=== PATIENT | male | born 1965 | race Caucasian/White ===

== ENCOUNTER → 2016-12-03 | Outpatient (REF) | payer BC ==
[2016-12-03 09:33] LABS: % NORMAL FORMS 13 % (>=4); IMMOTILITY 29 %; NON PROGRESSIVE MOTILITY (c) 17 %; PROGRESSIVE MOTILITY (a) 54 % (>=32); SPERM ABNORMAL FORMS WBC'S NOTED; SPERM# 152.6 M/Ejac (>=39); TOTAL MOTILITY 71 % (>=40)
[2016-12-03 09:34] LABS: TOTAL FUNCTIONAL 23.2 M/Ejac.; TOTAL PROGRESSIVE SPERM 82.1 M/Ejac.
== END ==
LOC: M LAB REF 09:12
PROVIDERS: ATTEND Family Medicine
DX: N46.8 Other male infertility (principal)

== ENCOUNTER 2017-04-15 11:27 | Emergency (ER) | payer BC ==
[2017-04-15 12:09] LABS: BASO # 0.1 10^3/uL (0.0-0.2); BASO % 0.6 % (0.0-1.0); EOS # 0.2 10^3/uL (0.0-0.50); EOS % 1.7 % (0.0-3.0); HEMATOCRIT 43.8 % (42.0-52.0); IMMATURE GRANULOCYTE # 0.1 10^3/uL (0-0); LYMPH # 3.1 10^3/uL (1.5-4.5); LYMPH % 30.6 % (24.0-44.0); MEAN CORPUSCULAR HGB CONC 36.5 g/dl (32.0-36.5); MEAN CORPUSCULAR VOLUME 84.9 fl (80.0-96.0); MONO # 0.9 10^3/uL (0.0-0.8); MONO % 8.9 % (0.0-5.0); NEUTROPHILS # 5.8 10^3/uL (1.8-7.7); NEUTROPHILS % 57.2 % (36.0-66.0); PLATELET COUNT, AUTOMATED 286 10^3/uL (150-450); RED BLOOD COUNT 5.16 10^6/uL (4.30-6.10); RED CELL DISTRIBUTION WIDTH 11.8 % (11.5-14.5); WHITE BLOOD COUNT 10.1 10^3/uL (4.0-10.0)
[2017-04-15 12:13] LABS: PROTHROMBIN TIME 12.2 SECONDS (12.4-14.5)
[2017-04-15 12:39] LABS: PARTIAL THROMBOPLASTIN TIME 27.1 SECONDS (26.8-37.9)
[2017-04-15 12:40] LABS: ALBUMIN/GLOBULIN RATIO 1.11 (1.00-1.93); ALKALINE PHOSPHATASE 118 U/L (45-117); ALT/SGPT 61 U/L (12-78); ANION GAP 11 MEQ/L (8-16); AST/SGOT 32 U/L (7-37); BILIRUBIN,DIRECT < 0.1 MG/DL (0.0-0.2); BILIRUBIN,TOTAL 0.3 MG/DL (0.2-1.0); BLOOD UREA NITROGEN 13 MG/DL (7-18); CALCIUM LEVEL 9.2 MG/DL (8.5-10.1); CARBON DIOXIDE LEVEL 21 MEQ/L (21-32); CHLORIDE LEVEL 106 MEQ/L (98-107); CPK CREATINE PHOSPHOKINASE 101 U/L (39-308); CREATININE FOR GFR 0.96 MG/DL (0.70-1.30); GLOMERULAR FILTRATION RATE > 60.0 (>56); GLUCOSE, FASTING 202 MG/DL (70-105); POTASSIUM SERUM 3.9 MEQ/L (3.5-5.1); SODIUM LEVEL 138 MEQ/L (136-145); TOTAL PROTEIN 7.6 GM/DL (6.4-8.2); TROPONIN I < 0.02 NG/ML (< 0.10)
[2017-04-15] MEDS: NITROGLYCERIN 0.4 MG SUBL TABLET SL (12:43)
[2017-04-15 12:46] LABS: CK-MB VALUE MASS 1.2 NG/ML (0.0-3.6); LIPASE 216 U/L (73-393); MB/CK RELATIVE INDEX 1.18 (< OR =4); NT-PRO BNP 15 PG/ML (<125)
[2017-04-15] MEDS: methylPREDNISolone INJ 125 MG/2 ML VIAL (J2930) IV (13:33)
[2017-04-15] MEDS: diphenhydrAMINE INJ 50MG/ML VIAL (J1200) IV (13:33)
[2017-04-15] MEDS ORDERED: ISOVUE-370 76% 100ML VIAL (Q9967) As Ordered (14:06)
[2017-04-15] MEDS: CLOPIDOGREL 300 MG TAB (PLAVIX) PO (15:28)
[2017-04-15] MEDS: HEPARIN SOD (PORCINE) 5000 UNITS/ML VIAL IV (15:28)
[2017-04-15] MEDS: NITROGLYCERIN 2% OINT 1 GM *U/D* PKT TOP (15:28)
[2017-04-15] MEDS: HEPARIN DRIP 25,000 UNITS in APPROPRIATE DILUENT 1 EA IV (15:28)
== END 2017-04-15 16:36 | disposition short-term general hospital (02) ==
LOC: M ED 11:27
DX: I25.110 Atherosclerotic heart disease of native coronary artery with unstable angina pectoris (principal); R06.02 Shortness of breath; K21.9 Gastro-esophageal reflux disease without esophagitis; Z95.5 Presence of coronary angioplasty implant and graft; F17.200 Nicotine dependence, unspecified, uncomplicated; Z91.010 Allergy to peanuts; Z91.013 Allergy to seafood; Z88.8 Allergy status to other drugs, medicaments and biological substances
CPT/HCPCS: J1200

== ENCOUNTER → 2017-06-20 | Outpatient (CLI) | payer BC ==
[2017-06-20 10:53] LABS: HEMATOCRIT 43.7 % (42.0-52.0); HEMOGLOBIN 15.2 g/dl (14.0-18.0); MEAN CORPUSCULAR HEMOGLOBIN 30.5 pg (27.0-33.0); MEAN CORPUSCULAR HGB CONC 34.8 g/dl (32.0-36.5); MEAN CORPUSCULAR VOLUME 87.6 fl (80.0-96.0); PLATELET COUNT, AUTOMATED 295 10^3/uL (150-450); RED BLOOD COUNT 4.99 10^6/uL (4.30-6.10); RED CELL DISTRIBUTION WIDTH 12.3 % (11.5-14.5); WHITE BLOOD COUNT 7.9 10^3/uL (4.0-10.0)
[2017-06-20 11:18] LABS: ALBUMIN/GLOBULIN RATIO 1.43 (1.00-1.93); ALKALINE PHOSPHATASE 123 U/L (45-117); ALT/SGPT 46 U/L (12-78); ANION GAP 6 MEQ/L (8-16); AST/SGOT 21 U/L (7-37); BILIRUBIN,TOTAL 0.3 MG/DL (0.2-1.0); BLOOD UREA NITROGEN 13 MG/DL (7-18); CALCIUM LEVEL 9.2 MG/DL (8.5-10.1); CARBON DIOXIDE LEVEL 29 MEQ/L (21-32); CHLORIDE LEVEL 106 MEQ/L (98-107); CHOLESTEROL LEVEL 219 MG/DL (<200); CHOLESTEROL RISK RATIO 6.843 (<5); CPK CREATINE PHOSPHOKINASE 79 U/L (39-308); CREATININE FOR GFR 0.97 MG/DL (0.70-1.30); GLOMERULAR FILTRATION RATE > 60.0 (>56); GLUCOSE, FASTING 138 MG/DL (70-100); HDL CHOLESTEROL 32 MG/DL (>40); LDL CHOLESTEROL 130.2 MG/DL (<100); NON-HDL-C 187 MG/DL; POTASSIUM SERUM 4.7 MEQ/L (3.5-5.1); PSA SCREENING 0.34 NG/ML (< 4.0); SODIUM LEVEL 141 MEQ/L (136-145); THYROID STIMULATING HORMONE 0.879 uIU/ML (0.358-3.740); TOTAL PROTEIN 6.8 GM/DL (6.4-8.2); TRIGLYCERIDES LEVEL 284 MG/DL (<150)
[2017-06-20 11:26] LABS: MALB URINE SIEMENS 13.5 MG/L; MAU/CREAT RATIO 6.5 MCG/MG (0.0-30.0)
== END ==
LOC: M SMT 07:54
DX: Z12.5 Encounter for screening for malignant neoplasm of prostate (principal); E78.2 Mixed hyperlipidemia; E11.65 Type 2 diabetes mellitus with hyperglycemia; I10 Essential (primary) hypertension
CPT/HCPCS: 82550

== ENCOUNTER 2018-04-15 13:38 | Emergency (ER) | payer BC ==
[~2018-04-15] VITALS: Ht 167.6 cm; Wt 90.5 kg
[2018-04-15] MEDS ORDERED: CLOP75TA2 PO (13:52)
[2018-04-15] MEDS ORDERED: METO25TA4 PO (13:52)
[2018-04-15] MEDS ORDERED: ATOR40TA75 PO (13:52)
[2018-04-15] MEDS ORDERED: NITR0.4S14 SL (13:52)
[2018-04-15] MEDS ORDERED: LISI-542 PO (13:52)
[2018-04-15] MEDS ORDERED: GABA-1171 PO (13:52)
[2018-04-15] MEDS ORDERED: METF10004 PO (13:52)
[2018-04-15 14:13] LABS: BASO # 0.1 10^3/uL (0.0-0.2); BASO % 0.6 % (0.0-1.0); EOS # 0.3 10^3/uL (0.0-0.50); EOS % 3.2 % (0.0-3.0); HEMATOCRIT 43.1 % (42.0-52.0); HEMOGLOBIN 15.2 g/dl (13.5-17.5); LYMPH # 2.7 10^3/uL (1.5-4.5); LYMPH % 25.9 % (24.0-44.0); MEAN CORPUSCULAR HGB CONC 35.3 g/dl (32.0-36.5); MONO % 9.3 % (0.0-5.0); NEUTROPHILS # 6.2 10^3/uL (1.8-7.7); NEUTROPHILS % 59.9 % (36.0-66.0); PLATELET COUNT, AUTOMATED 326 10^3/uL (150-450); WHITE BLOOD COUNT 10.3 10^3/uL (4.0-10.0)
[2018-04-15 14:27] LABS: INR 0.97
[2018-04-15 14:28] LABS: PARTIAL THROMBOPLASTIN TIME 29.4 SECONDS (25.4-37.6)
[2018-04-15 14:46] LABS: ALBUMIN 3.9 GM/DL (3.2-5.2); ALT/SGPT 28 U/L (12-78); BILIRUBIN,DIRECT < 0.1 MG/DL (0.0-0.2); BILIRUBIN,TOTAL 0.2 MG/DL (0.2-1.0); BLOOD UREA NITROGEN 8 MG/DL (7-18); CALCIUM LEVEL 8.7 MG/DL (8.5-10.1); CARBON DIOXIDE LEVEL 24 MEQ/L (21-32); CHLORIDE LEVEL 106 MEQ/L (98-107); CPK CREATINE PHOSPHOKINASE 85 U/L (39-308); FREE T4 0.85 NG/DL (0.76-1.46); GLOMERULAR FILTRATION RATE > 60.0 (>56); GLUCOSE, FASTING 150 MG/DL (70-100); LIPASE 620 U/L (73-393); MB/CK RELATIVE INDEX 2.35 (< OR =4); POTASSIUM SERUM 4.3 MEQ/L (3.5-5.1); SODIUM LEVEL 138 MEQ/L (136-145); THYROID STIMULATING HORMONE 0.861 uIU/ML (0.358-3.740); TOTAL PROTEIN 6.6 GM/DL (6.4-8.2); TROPONIN I < 0.02 NG/ML (< 0.10)
[2018-04-15] MEDS ORDERED: ACETAMINOPHEN TAB 650MG DOSE (2X325MG) PO ONE (18:15)
[2018-04-15 20:18] LABS: CPK CREATINE PHOSPHOKINASE 78 U/L (39-308); MB/CK RELATIVE INDEX 1.54 (< OR =4); TROPONIN I < 0.02 NG/ML (< 0.10)
[2018-04-15 21:16] VITALS: BP 137/102
--- NOTE | 2018-04-16 06:31 | REP ---
CHEST PA AND LATERAL: 04/15/2018. Comparison: CT angiogram chest 04/15/2017, chest x-ray 05/21/2014. Clinical history: Chest pain. Findings: Lungs are well inflated. There is no pleural effusion or lateral pleural thickening. No apical pneumothorax. Minor apical scarring bilaterally. Heart is not grossly enlarged. Mild chronic interstitial changes in the bases, right greater than left. Peribronchial thickening noted that may reflect reactive airway disease or bronchitis. Aorta is normal. Airway intact. No widening of the mediastinum. Pulmonary arteries are mildly prominent suggesting some degree of pulmonary hypertension. No compression deformity in the spine. Ribs, clavicles, shoulders grossly intact. No free air under the diaphragm. Impression: 1. Some perihilar changes of reactive airway disease or bronchitis. No dense consolidation, pleural effusion or definite infiltrate. 2. No cardiomegaly or edema. No widening of the mediastinum. Airway and aorta intact. Electronically Signed by Sergio Kim MD 04/16/2018 09:46 A
--- NOTE | 2018-04-16 09:24 | ECGEPIP ---
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
--- NOTE | 2018-04-16 09:26 | ECGEPIP ---
Stationary ECG Study 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
== END 2018-04-15 21:29 | disposition home or self-care (01) ==
LOC: M ED 13:38
DX: R07.9 Chest pain, unspecified (principal); R11.0 Nausea; I10 Essential (primary) hypertension; E78.5 Hyperlipidemia, unspecified; E11.9 Type 2 diabetes mellitus without complications; Z95.5 Presence of coronary angioplasty implant and graft; Z87.891 Personal history of nicotine dependence; Z91.010 Allergy to peanuts; Z91.013 Allergy to seafood; Z88.8 Allergy status to other drugs, medicaments and biological substances; Z79.899 Other long term (current) drug therapy; Z79.02 Long term (current) use of antithrombotics/antiplatelets; Z79.84 Long term (current) use of oral hypoglycemic drugs

== ENCOUNTER 2018-06-13 07:13 | Day surgery (SDC) | payer BC ==
[~2018-06-13] VITALS: Ht 167.6 cm; Wt 88.0 kg
[~2018-06-13 07:13] MED LIST: ASPI81TA85 PO; ATOR40TA75 PO; CLOP75TA2 PO; GABA-1171 PO; LIDOCAINE 2% INJ 100 MG/5 ML SDV (FOR ANES.) As Ordered ONE; LISI-542 PO; METF10004 PO; METF500T13 PO; METO25TA4 PO; NITR0.4S14 SL; NS 1,000 ML IV ONE; PROPOFOL 200 MG/20 ML VIAL As Ordered ONE
[2018-06-13] MEDS ORDERED: PROPOFOL 200 MG/20 ML VIAL As Ordered ONE (08:37)
--- NOTE | 2018-06-13 09:01 | ROOR ---
Patient Name: Hector Hansen Procedure Date: 06/13/2018 8:29 AM Date of : 1965 Age: 52 Room: [facility] Gender: Male Note Status: Finalized Procedure: Total Colonoscopy to Cecum + Cold Snare Polypectomy Indications: Screening for colorectal malignant neoplasm Providers: Chyu Garcia MD Referring MD: KAIT SHORE MD Requesting Provider: Medicines: Monitored Anesthesia Care Complications: No immediate complications. Procedure: Pre-Anesthesia Assessment: - The heart rate, respiratory rate, oxygen saturations, blood pressure, adequacy of pulmonary ventilation, and response to care were monitored throughout the procedure. The Colonoscope was introduced through the anus and advanced to the cecum, identified by appendiceal orifice and ileocecal valve. The colonoscopy was performed without difficulty. The patient tolerated the procedure well. The quality of the bowel preparation was excellent. Findings: The perianal and digital rectal examinations were normal. Non-bleeding internal hemorrhoids were found during retroflexion. The hemorrhoids were small and Grade I (internal hemorrhoids that do not prolapse). Scattered small-mouthed diverticula were found in the recto-sigmoid colon, sigmoid colon and descending colon. A small polyp was found at 20 cm proximal to the anus. The polyp was sessile. The polyp was removed with a cold snare. Resection and retrieval were complete. A medium polyp was found at 50 cm proximal to the anus. The polyp was sessile. The polyp was removed with a cold snare. Resection and retrieval were complete. A medium polyp was found in the ascending colon. The polyp was sessile. The polyp was removed with a cold snare. Resection and retrieval were complete. The exam was otherwise without abnormality on direct and retroflexion views. Impression: - Non-bleeding internal hemorrhoids. - Diverticulosis in the recto-sigmoid colon, in the sigmoid colon and in the descending colon. - One small polyp at 20 cm proximal to the anus, removed with a cold snare. Resected and retrieved. - One medium polyp at 50 cm proximal to the anus, removed with a cold snare. Resected and retrieved. - One medium polyp in the ascending colon, removed with a cold snare. Resected and retrieved. - The examination was otherwise normal on direct and retroflexion views. - The exam was otherwise normal to the cecum. Recommendation: - Discharge patient to home. - Continue present medications. - Resume Plavix (clopidogrel) at prior dose today. - Await pathology results. - Telephone GI clinic for pathology results in 1 week. - Repeat colonoscopy in 5 years for surveillance based on pathology results. - Return to referring physician. - Check Portal Online for Path Results.([email or web address]) - The findings and recommendations were discussed with the patient's family. Chuy Garcia MD Chuy Garcia MD 06/13/2018 9:01:05 AM This report has been signed electronically. Number of Addenda: 0 Note Initiated On: 06/13/2018 8:29 AM Estimated Blood Loss: Estimated blood loss: none.
[2018-06-13 09:15] VITALS: BP 143/85
== END 2018-06-13 09:21 | disposition home or self-care (01) ==
LOC: M OPP 07:13
PROVIDERS: ATTEND Internal Medicine Gastroenterology
DX: Z12.11 Encounter for screening for malignant neoplasm of colon (principal); K64.0 First degree hemorrhoids; K63.5 Polyp of colon; D12.2 Benign neoplasm of ascending colon; K57.30 Diverticulosis of large intestine without perforation or abscess without bleeding; Z95.5 Presence of coronary angioplasty implant and graft; Z79.82 Long term (current) use of aspirin; Z79.84 Long term (current) use of oral hypoglycemic drugs; Z79.899 Other long term (current) drug therapy; Z88.3 Allergy status to other anti-infective agents; Z91.010 Allergy to peanuts; Z91.013 Allergy to seafood

== ENCOUNTER → 2018-12-26 | Outpatient (CLI) | payer BC ==
[~2018-12-26] MED LIST changes: -LIDOCAINE 2% INJ 100 MG/5 ML SDV (FOR ANES.) As Ordered ONE; -NS 1,000 ML IV ONE; -PROPOFOL 200 MG/20 ML VIAL As Ordered ONE
[2018-12-26 12:09] LABS: ALBUMIN 3.9 GM/DL (3.2-5.2); ALT/SGPT 24 U/L (12-78); BILIRUBIN,DIRECT < 0.1 MG/DL (0.0-0.2); BILIRUBIN,TOTAL 0.6 MG/DL (0.2-1.0); CHOLESTEROL LEVEL 217 MG/DL (<200); CPK CREATINE PHOSPHOKINASE 88 U/L (39-308); HDL CHOLESTEROL 35 MG/DL (>40); LDL CHOLESTEROL 120 MG/DL (<100); NON-HDL-C 182 MG/DL; PROSTATIC SPECIFIC AG MONITOR 0.42 NG/ML (< 4.00); TOTAL PROTEIN 6.9 GM/DL (6.4-8.2); TRIGLYCERIDES LEVEL 308 MG/DL (<150)
== END ==
LOC: M WUC 09:28
PROVIDERS: ATTEND Family Medicine
DX: I10 Essential (primary) hypertension (principal); E11.9 Type 2 diabetes mellitus without complications

== ENCOUNTER 2019-04-03 10:20 | Emergency (ER) | payer BC ==
[~2019-04-03] VITALS: Ht 167.6 cm; Wt 88.3 kg
[2019-04-03 10:48] LABS: BASO # 0.1 10^3/uL (0.0-0.2); BASO % 0.6 % (0.0-1.0); EOS # 0.2 10^3/uL (0.0-0.5); EOS % 2.4 % (0.0-3.0); HEMATOCRIT 40.1 % (42.0-52.0); HEMOGLOBIN 14.2 g/dl (13.5-17.5); LYMPH # 2.4 10^3/uL (1.5-5.0); LYMPH % 24.3 % (24.0-44.0); MEAN CORPUSCULAR HEMOGLOBIN 30.9 pg (27.0-33.0); MEAN CORPUSCULAR HGB CONC 35.4 g/dl (32.0-36.5); MEAN CORPUSCULAR VOLUME 87.2 fl (80.0-96.0); MONO # 0.9 10^3/uL (0.0-0.8); MONO % 8.7 % (0.0-5.0); NEUTROPHILS # 6.3 10^3/uL (1.5-8.5); NEUTROPHILS % 63.1 % (36.0-66.0); PLATELET COUNT, AUTOMATED 292 10^3/uL (150-450)
--- NOTE | 2019-04-03 10:51 | REP ---
Portable chest x-ray: Single view. History: Chest pain. Comparison study: April 15, 2018. Findings: EKG monitoring electrodes overlie the chest. Lungs are symmetrically aerated and clear. Pleural angles are sharp. Heart is not enlarged. There is some coronary artery stent material visible over the right heart on today's chest x-ray. Impression: No active disease. Coronary artery stent material visible on the right. Electronically Signed by Jose C Reyes MD 04/03/2019 10:42 A
[2019-04-03 11:14] LABS: BLOOD UREA NITROGEN 13 MG/DL (7-18); CALCIUM LEVEL 9.8 MG/DL (8.5-10.1); CARBON DIOXIDE LEVEL 20 MEQ/L (21-32); CHLORIDE LEVEL 107 MEQ/L (98-107); CK-MB VALUE MASS 1.6 NG/ML (<3.6); CPK CREATINE PHOSPHOKINASE 107 U/L (39-308); CREATININE FOR GFR 0.91 MG/DL (0.70-1.30); GLOMERULAR FILTRATION RATE > 60.0 (>56); GLUCOSE, FASTING 131 MG/DL (70-100); POTASSIUM SERUM 4.1 MEQ/L (3.5-5.1); SODIUM LEVEL 139 MEQ/L (136-145); TROPONIN I < 0.02 NG/ML (< 0.10)
[2019-04-03 15:41] LABS: CK-MB VALUE MASS 1.2 NG/ML (<3.6); CPK CREATINE PHOSPHOKINASE 92 U/L (39-308); TROPONIN I < 0.02 NG/ML (< 0.10)
[2019-04-03 15:45] VITALS: BP 122/77
--- NOTE | 2019-04-04 07:56 | ECGEPIP ---
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
--- NOTE | 2019-04-04 08:01 | ECGEPIP ---
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
== END 2019-04-03 16:04 | disposition home or self-care (01) ==
LOC: M ED 10:20
DX: I20.8 Other forms of angina pectoris (principal); R94.31 Abnormal electrocardiogram [ECG] [EKG]; I11.0 Hypertensive heart disease with heart failure; E11.9 Type 2 diabetes mellitus without complications; K21.9 Gastro-esophageal reflux disease without esophagitis; Z95.5 Presence of coronary angioplasty implant and graft; Z88.1 Allergy status to other antibiotic agents; Z91.010 Allergy to peanuts; Z91.013 Allergy to seafood; Z79.82 Long term (current) use of aspirin; Z79.84 Long term (current) use of oral hypoglycemic drugs; Z79.899 Other long term (current) drug therapy

== ENCOUNTER 2020-02-11 10:47 | Emergency (ER) | payer BC ==
[~2020-02-11] VITALS: Ht 165.1 cm; Wt 87.3 kg
[~2020-02-11 10:47] MED LIST changes: -ASPI81TA85 PO; +ASPI81TA86 PO
--- NOTE | 2020-02-11 11:25 | REP ---
INDICATION: CHEST PAIN COMPARISON: 04/03/2019 TECHNIQUE: Portable AP view of the chest FINDINGS: The mediastinum and cardiac silhouette are stable and within normal limits for portable technique. The lung vasques demonstrate chronic appearing interstitial changes. Mild bronchitis cannot be excluded. No focal consolidation, effusion, or pneumothorax. Skeletal structures intact. IMPRESSION: Chronic interstitial changes. Superimposed bronchitis cannot be excluded. No focal consolidation or effusion. <Electronically signed by Maynor Marquis > 02/11/20 [id number]
[2020-02-11 11:39] LABS: BASO # 0.1 10^3/uL (0.0-0.2); BASO % 0.4 % (0.0-1.0); EOS # 0.2 10^3/uL (0.0-0.5); EOS % 1.3 % (0.0-3.0); HEMATOCRIT 45.7 % (42.0-52.0); HEMOGLOBIN 15.9 g/dl (13.5-17.5); LYMPH # 3.3 10^3/uL (1.5-5.0); LYMPH % 20.8 % (24.0-44.0); MEAN CORPUSCULAR HEMOGLOBIN 30.6 pg (27.0-33.0); MEAN CORPUSCULAR HGB CONC 34.8 g/dl (32.0-36.5); MEAN CORPUSCULAR VOLUME 88.1 fl (80.0-96.0); MONO % 6.2 % (0.0-5.0); NEUTROPHILS # 11.1 10^3/uL (1.5-8.5); NEUTROPHILS % 70.8 % (36.0-66.0); PLATELET COUNT, AUTOMATED 305 10^3/uL (150-450); RED BLOOD COUNT 5.19 10^6/uL (4.30-6.10); WHITE BLOOD COUNT 15.6 10^3/uL (4.0-10.0)
[2020-02-11 12:06] LABS: BLOOD UREA NITROGEN 10 MG/DL (7-18); CALCIUM LEVEL 9.5 MG/DL (8.5-10.1); CARBON DIOXIDE LEVEL 24 MEQ/L (21-32); CHLORIDE LEVEL 106 MEQ/L (98-107); CREATININE FOR GFR 0.92 MG/DL (0.70-1.30); GLOMERULAR FILTRATION RATE > 60.0 (>56); GLUCOSE, FASTING 121 MG/DL (70-100); POTASSIUM SERUM 4.2 MEQ/L (3.5-5.1); SODIUM LEVEL 138 MEQ/L (136-145)
[2020-02-11 12:48] LABS: ALBUMIN 4.1 GM/DL (3.2-5.2); ALT/SGPT 35 U/L (12-78); BILIRUBIN,DIRECT < 0.1 MG/DL (0.0-0.2); BILIRUBIN,TOTAL 0.3 MG/DL (0.2-1.0); LIPASE 200 U/L (73-393); TOTAL PROTEIN 7.2 GM/DL (6.4-8.2)
[2020-02-11 15:55] VITALS: BP 138/65
--- NOTE | 2020-02-11 23:55 | ECGEPIP ---
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
--- NOTE | 2020-02-11 23:57 | ECGEPIP ---
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
== END 2020-02-11 15:56 | disposition short-term general hospital (02) ==
LOC: M ED 10:47
DX: I20.9 Angina pectoris, unspecified (principal); R94.31 Abnormal electrocardiogram [ECG] [EKG]; R91.8 Other nonspecific abnormal finding of lung field; Z20.828 Contact with and (suspected) exposure to other viral communicable diseases; E11.9 Type 2 diabetes mellitus without complications; E78.5 Hyperlipidemia, unspecified; I10 Essential (primary) hypertension; Z95.5 Presence of coronary angioplasty implant and graft; Z91.010 Allergy to peanuts; Z91.013 Allergy to seafood; Z79.82 Long term (current) use of aspirin; Z79.84 Long term (current) use of oral hypoglycemic drugs; Z79.899 Other long term (current) drug therapy
CPT/HCPCS: 36415; 71045; 80048; 80076; 83690; 84484; 85025; 93005; 93041; 94760; 99285; U0002

== ENCOUNTER → 2020-07-04 | Outpatient (CLI) | payer BC ==
[~2020-07-04] MED LIST changes: +FAMOTIDINE IV BAG 20 MG in IV 1 EA IV ONE; +ISOVUE-370 76% 100ML VIAL As Ordered ONE; -LISI-542 PO; +LISI-898 PO; +READI-CAT 2 As Ordered ONE; +diphenhydrAMINE 50MG/ML VIAL (J1200) As Ordered ONE; +diphenhydrAMINE 50MG/ML VIAL (J1200) IV ONE; +methylPREDNISolone 125MG 2ML VIAL IV ONE
[2020-07-04 13:32] LABS: BLOOD UREA NITROGEN 12 MG/DL (7-18); CREATININE FOR GFR 0.78 MG/DL (0.70-1.30); GLOMERULAR FILTRATION RATE > 60.0 (>56)
--- NOTE | 2020-07-04 15:22 | REP ---
INDICATION: ABD PAIN ? DIVERTICULITIS LAB 1ST CT 2ND. COMPARISON: None. TECHNIQUE: Abdomen/pelvis CT with IV and bowel contrast. FINDINGS: The visualized lung vasques are unremarkable. The hepatic parenchyma is diffusely hypodense compatible with hepato steatosis. There are no hepatic nodules or masses. The gallbladder, pancreas and spleen are normal size and unremarkable. The adrenals and kidneys are unremarkable except for Bosniak type 1 renal cysts. The abdominal aorta is unremarkable. There is no periaortic adenopathy or mass. There is wall thickening and mild distention of jejunal small bowel loops. The ileal small bowel loops are unremarkable. There is no diverticulosis or diverticulitis. There is no colonic wall thickening or distention. There is no ascites. No adenopathy. Pelvis: The patient indicates he has an appendectomy. The bladder is unremarkable. Is no adenopathy or ascites. The pelvic bowel loops are unremarkable. IMPRESSION: There is wall thickening and mild distention of jejunal small bowel loops. The only 0 small-bowel loops and colon are unremarkable. This is suggestive of enteritis. There is no ascites or adenopathy. There is no bowel distention or obstruction. <Electronically signed by Margarito Thomas > 07/04/20 [id number]
== END ==
LOC: M LAB 12:09
PROVIDERS: ATTEND Physician Assistant Medical
DX: R10.31 Right lower quadrant pain (principal)
CPT/HCPCS: 36415; 74177; 82565; 84520; J1200; Q9967

== ENCOUNTER → 2020-07-08 | Outpatient (CLI) | payer BC ==
[~2020-07-08] MED LIST changes: -FAMOTIDINE IV BAG 20 MG in IV 1 EA IV ONE; -ISOVUE-370 76% 100ML VIAL As Ordered ONE; -READI-CAT 2 As Ordered ONE; -diphenhydrAMINE 50MG/ML VIAL (J1200) As Ordered ONE; -diphenhydrAMINE 50MG/ML VIAL (J1200) IV ONE; -methylPREDNISolone 125MG 2ML VIAL IV ONE
[2020-07-08 17:08] LABS: BASO # 0.1 10^3/uL (0.0-0.2); BASO % 0.7 % (0.0-1.0); EOS # 0.3 10^3/uL (0.0-0.5); EOS % 2.4 % (0.0-3.0); HEMATOCRIT 44.4 % (42.0-52.0); HEMOGLOBIN 15.1 g/dl (13.5-17.5); LYMPH # 3.5 10^3/uL (1.5-5.0); LYMPH % 32.7 % (24.0-44.0); MEAN CORPUSCULAR HEMOGLOBIN 30.8 pg (27.0-33.0); MEAN CORPUSCULAR VOLUME 90.6 fl (80.0-96.0); MONO # 0.9 10^3/uL (0.0-0.8); MONO % 8.3 % (2.0-8.0); NEUTROPHILS # 5.9 10^3/uL (1.5-8.5); NEUTROPHILS % 54.5 % (36.0-66.0); PLATELET COUNT, AUTOMATED 357 10^3/uL (150-450); WHITE BLOOD COUNT 10.8 10^3/uL (4.0-10.0)
[2020-07-08 17:42] LABS: ALT/SGPT 39 U/L (12-78); AMYLASE 82 U/L (25-115); BILIRUBIN,TOTAL 0.3 MG/DL (0.2-1.0); BLOOD UREA NITROGEN 12 MG/DL (7-18); C REACTIVE PROTEIN QUANTITATIV 0.41 MG/DL (0.00-0.30); CALCIUM LEVEL 9.6 MG/DL (8.5-10.1); CARBON DIOXIDE LEVEL 25 MEQ/L (21-32); CHLORIDE LEVEL 104 MEQ/L (98-107); CREATININE FOR GFR 0.78 MG/DL (0.70-1.30); GLOMERULAR FILTRATION RATE > 60.0 (>56); GLUCOSE, FASTING 110 MG/DL (70-100); LIPASE 874 U/L (73-393); POTASSIUM SERUM 4.3 MEQ/L (3.5-5.1); SODIUM LEVEL 136 MEQ/L (136-145); TOTAL PROTEIN 6.7 GM/DL (6.4-8.2)
[2020-07-08 18:08] LABS: ERYTHROCYTE SEDIMENTATION RATE 10 mm/hr (0-20)
[2020-07-10 14:06] LABS: CA19-9 TUMOR MARKER,CARBOHYDRA 13.9 U/ML (<35.0)
== END ==
LOC: M WUC 11:41
PROVIDERS: ATTEND Family Medicine
DX: K57.32 Diverticulitis of large intestine without perforation or abscess without bleeding (principal)

== ENCOUNTER → 2020-08-26 | Outpatient (CLI) | payer BC ==
[2020-08-26 12:40] LABS: BASO # 0.1 10^3/uL (0.0-0.2); BASO % 0.6 % (0.0-1.0); EOS # 0.2 10^3/uL (0.0-0.5); EOS % 1.9 % (0.0-3.0); HEMATOCRIT 48.5 % (42.0-52.0); HEMOGLOBIN 16.5 g/dl (13.5-17.5); LYMPH # 2.7 10^3/uL (1.5-5.0); LYMPH % 23.4 % (24.0-44.0); MEAN CORPUSCULAR VOLUME 91.2 fl (80.0-96.0); MONO # 0.9 10^3/uL (0.0-0.8); MONO % 7.8 % (2.0-8.0); NEUTROPHILS # 7.6 10^3/uL (1.5-8.5); NEUTROPHILS % 65.6 % (36.0-66.0); PLATELET COUNT, AUTOMATED 375 10^3/uL (150-450); RED BLOOD COUNT 5.32 10^6/uL (4.30-6.10); WHITE BLOOD COUNT 11.6 10^3/uL (4.0-10.0)
[2020-08-26 13:17] LABS: BLOOD UREA NITROGEN 9 MG/DL (7-18); CALCIUM LEVEL 9.6 MG/DL (8.5-10.1); CARBON DIOXIDE LEVEL 24 MEQ/L (21-32); CHLORIDE LEVEL 104 MEQ/L (98-107); CREATININE FOR GFR 0.86 MG/DL (0.70-1.30); GLOMERULAR FILTRATION RATE > 60.0 (>56); GLUCOSE, FASTING 181 MG/DL (70-100); POTASSIUM SERUM 4.3 MEQ/L (3.5-5.1); SODIUM LEVEL 136 MEQ/L (136-145)
== END ==
LOC: M WUC 10:10
PROVIDERS: ATTEND Internal Medicine Cardiovascular Disease
DX: I25.10 Atherosclerotic heart disease of native coronary artery without angina pectoris (principal)

== ENCOUNTER → 2020-12-17 | Outpatient (CLI) | payer BC ==
[2020-12-17 17:35] LABS: ALBUMIN 3.4 GM/DL (3.2-5.2); ALT/SGPT 31 U/L (12-78); BILIRUBIN,TOTAL 0.3 MG/DL (0.2-1.0); BLOOD UREA NITROGEN 11 MG/DL (7-18); CALCIUM LEVEL 8.6 MG/DL (8.5-10.1); CARBON DIOXIDE LEVEL 24 MEQ/L (21-32); CHLORIDE LEVEL 105 MEQ/L (98-107); CREATININE FOR GFR 0.89 MG/DL (0.70-1.30); GLOMERULAR FILTRATION RATE > 60.0 (>56); GLUCOSE, FASTING 147 MG/DL (70-100); NT-PRO BNP 19 PG/ML (<125); POTASSIUM SERUM 3.8 MEQ/L (3.5-5.1); SODIUM LEVEL 138 MEQ/L (136-145); TOTAL PROTEIN 6.1 GM/DL (6.4-8.2); TROPONIN I < 0.02 NG/ML (< 0.10)
== END ==
LOC: M PLALAB 15:25
PROVIDERS: ATTEND Registered Nurse
DX: R07.9 Chest pain, unspecified (principal)

== ENCOUNTER 2021-02-07 12:08 | Observation (INO) | payer BC ==
[~2021-02-07] VITALS: Ht 167.6 cm; Wt 85.3 kg
[2021-02-07] MEDS ORDERED: GABA-282 PO (12:37)
[2021-02-07] MEDS ORDERED: CLOP75TA2 PO (12:37)
[2021-02-07] MEDS ORDERED: ATOR40TA75 PO (12:37)
[2021-02-07] MEDS ORDERED: JARD1TAB3 PO (12:37)
--- NOTE | 2021-02-07 12:37 | REP ---
INDICATION: Syncope/near-syncope. COMPARISON: Comparison chest x-ray February 11, 2020. TECHNIQUE: Portable upright AP chest radiograph. FINDINGS: The lungs are well inflated and free of infiltrate. Pleural angles are sharp. Heart size is normal. Pulmonary vasculature is not increased. EKG monitoring electrodes are seen. IMPRESSION: No active disease. <Electronically signed by Cj Reyes > 02/07/21 1247
[2021-02-07 12:55] LABS: BASO # 0.1 10^3/uL (0.0-0.2); BASO % 0.7 % (0.0-1.0); EOS # 0.3 10^3/uL (0.0-0.5); EOS % 2.7 % (0.0-3.0); HEMATOCRIT 44.9 % (42.0-52.0); HEMOGLOBIN 15.4 g/dl (13.5-17.5); LYMPH # 2.9 10^3/uL (1.5-5.0); LYMPH % 29.3 % (24.0-44.0); MEAN CORPUSCULAR HEMOGLOBIN 30.9 pg (27.0-33.0); MEAN CORPUSCULAR HGB CONC 34.3 g/dl (32.0-36.5); MONO # 0.8 10^3/uL (0.0-0.8); NEUTROPHILS # 5.8 10^3/uL (1.5-8.5); NEUTROPHILS % 58.7 % (36.0-66.0); PLATELET COUNT, AUTOMATED 263 10^3/uL (150-450); RED BLOOD COUNT 4.99 10^6/uL (4.30-6.10); WHITE BLOOD COUNT 9.9 10^3/uL (4.0-10.0)
--- OUTSIDE RECORDS SUMMARY | 2021-02-07 13:09 | CCD ---
Full Chart - [facility] Created on: 12/16/2020 Hector Hansen External Reference #: [id number] : 1965 Sex: Male Author Author [facility] Organization [facility] Address [address] [place] [address] Phone Care Team Providers Care Skiver Hand Name Role Phone Carmen MOJICA, Yaritza Salcido PP [phone] Eric SNOW, Antionette Bernardo Unavailable [phone] Reason for Referral No Reason for Referral Recorded Problems Includes: Active, inactive, and resolved Problems All Visits Onset Date - Time Resolved Date - Time Provider Co ndition Status Essential Hypertension Benign 12/01/2016 - 12:00AM Tank Morales MD Active Note: Unchanged Diabetes Mellitus Type 2 in Obese 12/01/2016 - 12:00AM Yaritza Morales MD Active Note: Unchanged Nicotine-related Disorders 01/06/2012 - 12:00AM Guille Morales MD Active Note: Unchanged Heartburn Infrequently (Monthly) 12/24/2009 - 12:00AM Yaritza Morales MD Active Note: Unchanged Hematospermia 12/24/2009 - 12:00AM Yaritza Morales MD Active Note: Unchanged Coronary Artery Disease 10/07/2009 - 12:00AM Yaritza Morales MD Active Note: Unchanged Male Erectile Disorder 10/07/2009 - 12:00AM Yaritza Morales MD Active Note: Unchanged Chronic Kidney Disease Stage 2 06/19/2009 - 12:00AM Joana Morales MD Active Note: Unchanged - 76-78ML/GA N Hyperlipidemia 02/20/2008 - 12:00AM Aury Sanders PA-C Active Note: Unchanged Short Stature 07/10/2007 - 12:00AM Active Note: Unchanged Plan of Treatment Pending Tests Order Diagnosis Results Due Ordering Provi shaenl *Labs (Manual) LIPID HCC-Athscl heart dis ease of [place] coronary artery w/o ang p 07/24/15 Yaritza Morales MD *Labs (Manual) TSH Other fatigue 07/24/15 Yaritza avelar MD *Labs (Manual) TESTOSTERONE Male erectile disorder 12/15/16 Tank Morales MD *Labs (Manual) LIPID Mixed hyperlipidemia 12/15/16 Dana Morales MD *Labs (Manual) TSH Mixed hyperlipidemia 12/15/16 Dana Morales MD *Labs (Manual) LH/FSH Other male infertility 12/15/16 Tank Morales MD *Labs (Manual) PROLACTIN Other male infertility 12/15/16 Tank Morales MD *Labs (Manual) PSA Encounter for screening for louie gnant neoplasm of prostate 12/15/16 Yaritza Morales MD *Labs (Manual) LFT Mixed hyperlipidemia 09/20/17 Dana Morales MD *Labs (Manual) CK Mixed hyperlipidemia 09/20/17 Dana Morales MD *Labs (Manual) LIPID Mixed hyperlipidemia 09/20/17 Dana Morales MD *Labs (Manual) LFT Mixed hyperlipidemia 10/18/17 Dana Morales MD *Labs (Manual) CK Mixed hyperlipidemia 10/18/17 Dana Morales MD *Labs (Manual) LIPID Mixed hyperlipidemia 10/18/17 Dana Morales MD *Labs (Manual) LFT Mixed hyperlipidemia 04/18/18 Dana Morales MD *Labs (Manual) CK Mixed hyperlipidemia 04/18/18 Dana Morales MD *Labs (Manual) LIPID Mixed hyperlipidemia 04/18/18 Dana Morales MD *Labs (Manual) TSH Mixed hyperlipidemia 04/18/18 Dana Morales MD *Labs (Manual) LFT Mixed hyperlipidemia 07/18/18 Dana Mroales MD *Labs (Manual) CK Mixed hyperlipidemia 07/18/18 Dana Morales MD *Labs (Manual) LIPID Mixed hyperlipidemia 07/18/18 Dana Morales MD *Labs (Manual) TSH Mixed hyperlipidemia 07/18/18 Dana Morales MD *Labs (Manual) LFT HCC-Athscl heart disease of [place] coronary artery w/o ang p 12/19/18 Yaritza Morales MD *Labs (Manual) CK HCC-Athscl heart disease of [place] coronary artery w/o ang p 12/19/18 Yaritza Morales MD *Labs (Manual) LIPID HCC-Athscl heart dis ease of [place] coronary artery w/o ang p 12/19/18 Yaritza Morales MD *Labs (Manual) PSA HCC-Athscl heart disease of [place] coronary artery w/o ang p 12/19/18 Yaritza Morales MD *Labs (Manual) *RANDOM Mixed hyperlipidemia 01/18/19 Dana Morales MD *Labs (Manual) LIPID Mixed hyperlipidemia 01/18/19 aDna Morales MD X-RAY Upper GI w/ small bowel follow through X-Ray(SBF T) Functional dyspepsia 04/24/19 Yaritza Morales MD *Labs (Manual) H PYLORI ANTIGEN TEST (STOOL) Functional dyspepsia 0 04/24/19 Yaritza Morales MD Ultrasound Gall Bladder Ultrasound Functional dyspepsia 04/24/19 Yaritza Morales MD *Labs (Manual) LFT Mixed hyperlipidemia 04/24/19 Dana Morales MD *Labs (Manual) CK Mixed hyperlipidemia 04/24/19 Dana Morales MD *Labs (Manual) LIPID Mixed hyperlipidemia 04/24/19 Dana Morales MD *Labs (Manual) PSA Encounter for screening for louie gnant neoplasm of prostate 04/24/19 Yaritza Morales MD *Labs (Manual) CMP HCC-Type 2 diabetes mellitus without co mplications 10/23/19 Yaritza Morales MD *Labs (Manual) CBC HCC-Type 2 diabetes mellitus without co mplications 10/23/19 Yaritza Morales MD *Labs (Manual) MICROALBUMIN HCC-Type 2 diabetes mellitus wit hout complications 10/23/19 Yaritza Morales MD *Labs (Manual) LIPID HCC-Type 2 diabetes mellitus wit hout complications 10/23/19 Yaritza Morales MD *Labs (Manual) CK HCC-Type 2 diabetes mellitus without co mplications 10/23/19 Yaritza Morales MD *Labs (Manual) TSH Mixed hyperlipidemia 10/23/19 Dana Morales MD *Labs (Manual) PSA Encounter for screening for louie gnant neoplasm of prostate 10/23/19 Yaritza Morales MD *Labs (Manual) PSA Benign prostatic hyperplasia wit hout lower urinry tract symp 01/22/20 Yaritza Morales MD *Labs (Manual) CMP Essential (primary) hypertension Yaritza Morales MD *Labs (Manual) CBC Essential (primary) hypertension Yaritza Morales MD *Labs (Manual) URIC ACID Essential (primary) hypertension Yaritza Morales MD *Labs (Manual) CK Mixed hyperlipidemia 01/22/20 Dana Morales MD *Labs (Manual) LIPID Mixed hyperlipidemia 01/22/20 Dana Morales MD *Labs (Manual) TSH Mixed hyperlipidemia 01/22/20 Dana Morales MD *Labs (Manual) LFT Mixed hyperlipidemia 04/22/20 Dana Morales MD *Labs (Manual) CK Mixed hyperlipidemia 04/22/20 Dana Morales MD *Labs (Manual) LIPID Mixed hyperlipidemia 04/22/20 Dana Morales MD *Labs (Manual) URIC ACID Essential (primary) hypertension Yaritza Morales MD *Labs (Manual) URIC ACID Essential (primary) hypertension Yaritza Morales MD *Labs (Manual) LIPID Mixed hyperlipidemia 11/25/20 Dana Morales MD *Labs (Manual) CK Mixed hyperlipidemia 11/25/20 Dana Morales MD *Labs (Manual) CBC W/ DIFF HCC-Type 2 diabetes mellitus wit hout complications 11/25/20 Yaritza Morales MD *Labs (Manual) CMP HCC-Type 2 diabetes mellitus without co mplications 11/25/20 Yaritza Morales MD *Labs (Manual) MICROALBUMIN HCC-Type 2 diabetes mellitus wit hout complications 11/25/20 Yaritza Morales MD *Labs (Manual) CMP Chest pain, unspecified 12/30/20 Bernard Reyes GROUP UNDERWRITER *Labs (Manual) MAGNESIUM LEVEL Chest pain, unspecified 12/30/20 Antionette Reyes GROUP UNDERWRITER *Labs (Manual) D-dimer Chest pain, unspecified 12/30/20 Bernard Reyes GROUP UNDERWRITER *Labs (Manual) proBNP Chest pain, unspecified 12/30/20 Bernard Reyes GROUP UNDERWRITER *Labs (Manual) TROPONIN Chest pain, unspecified 12/30/20 Bernard Reyes GROUP UNDERWRITER Care Programs [facility] Future Appointments Date Time Location Provider ANNUAL PHYSICAL EXAM 01/20/2021 9:00AM [facility] MD Findings Encounter Date STAT TROP I, D-DIMER, ProBNP, CMP, MAG EKG - NSR K EEP FFUP APPT W DR. MORALES STANDARD OV with Antionette Chang Eric GROUP UNDERWRITER 12/16/[address] MAURO ELEVATED LIPASE . DR. MORALES HAD DISCUSSED HIS CASE W DR. MAURO. FFUP 4W STANDARD OV with Antionette Chang Eric GROUP UNDERWRITER 07/15/2020 Ordered follow-up visit STANDARD OV with Yaritza Morales MD 04/08/2020 Ordered follow-up visit 3 MOS ANNUAL PHYSICAL EXAM with Tank Morales MD 01/08/2020 Ordered return to the clinic if condition worsens or n ew symptoms arise ANNUAL PHYSICAL EXAM with Yaritza Mroales MD 01/08/2020 Ordered an ultrasound GALLBLADDER STANDARD OV with Yaritza Morales MD 04/10/2019 Ordered follow-up visit 1 MO STANDARD OV with Yaritza green MD 04/10/2019 45 MINS STANDARD OV with Yaritza Morales MD 11/26 Ordered follow-up visit STANDARD OV with Yaritza Morales MD 12/05/2018 Ordered follow-up visit 3 MOS STANDARD OV with Yaritza avelar MD 09/05/2018 Ordered CBC ANNUAL PHYSICAL EXAM with Yaritza feng MD 04/04/2018 Ordered follow-up visit 1 MO ANNUAL PHYSICAL EXAM with Antonio Morales MD 04/04/2018 Ordered lipid test panel ANNUAL PHYSICAL EXAM with Yaritza Morales MD 04/04/2018 Ordered serum TSH level, 3rd generation ANNUAL PHYSICA L EXAM with Yaritza Morales MD 04/04/2018 Ordered follow-up visit STANDARD OV with Yaritza Morales MD 10/04/2017 Ordered return to the clinic if condition worsens or n ew symptoms arise STANDARD OV with Yaritza Morales MD 10/04/2017 Ordered follow-up visit 1 MO STANDARD OV with Yaritza green MD 09/06/2017 Ordered return to the clinic if condition worsens or n ew symptoms arise STANDARD OV with Yaritza Morales MD 09/06/2017 Ordered follow-up visit 1 mo STANDARD OV with Yaritza green MD 06/21/2017 Ordered CBC EMERGENCY ROOM FOLLOW-UP with Yaritza Morales MD 05/17/2017 Ordered follow-up visit EMERGENCY ROOM FOLLOW-UP with Guille Morales MD 05/17/2017 Ordered lipid test panel EMERGENCY ROOM FOLLOW-UP with Dana Morales MD 05/17/2017 Ordered return to the clinic if condition worsens or n ew symptoms arise EMERGENCY ROOM FOLLOW-UP with Yaritza Morales MD 05/17/2017 Ordered serum TSH level, 3rd generation EMERGENCY ROOM FOLLOW-UP with Yaritza Morales MD 05/17/2017 Ordered CBC STANDARD OV with Yaritza Morales MD 08/2016 Ordered follow-up visit STANDARD OV with Yaritza Morales MD 12/01/2016 Ordered lipid test panel STANDARD OV with Yaritza Morales MD 12/01/2016 Ordered return to the clinic if condition worsens or n ew symptoms arise STANDARD OV with Yaritza Morales MD 12/01/2016 Ordered serum TSH level, 3rd generation STANDARD OV with Tank Morales MD 12/01/2016 Ordered follow-up visit STANDARD OV with Yaritza Morales MD 07/10/2015 Ordered follow-up visit STANDARD OV with Yaritza Morales MD 09/06/2014 Ordered return to the clinic if condition worsens or n ew symptoms arise STANDARD OV with Yaritza Morales MD 09/06/2014 Ordered fluids STANDARD OV with Yaritza Morales MD 04/29 Ordered vaporizer STANDARD OV with Yaritza Morales MD 04/29 Ordered a lipid test panel ANNUAL PHYSICAL EXAM with Yaritza Morales MD 02/26/2013 Ordered CBC ANNUAL PHYSICAL EXAM with Yaritza feng MD 02/26/2013 Ordered follow-up visit ANNUAL PHYSICAL EXAM with Yaritza Morales MD 02/26/2013 Ordered serum TSH level ANNUAL PHYSICAL EXAM with Yaritza Morales MD 02/26/2013 Ordered urinalysis ANNUAL PHYSICAL EXAM with Yaritza feng MD 02/26/2013 Ordered return to the clinic if condition worsens or n ew symptoms arise ANNUAL PHYSICAL EXAM with Yaritza Morales MD 01/06/2012 Ordered urinalysis ANNUAL PHYSICAL EXAM with Yaritza feng MD 01/06/2012 Ordered follow-up visit SCHEDULE PE STANDARD with Delia murphy PULPWOOD CUTTER 12/20/2011 ZOCOR 20MG QD LIPID CK LFT PRE F/U STANDARD with Yaritza Morales MD 08/30/2011 Ordered follow-up visit 1MO STANDARD with Yaritza Carey 08/30/2011 Ordered return to the clinic if condition worsens or n ew symptoms arise STANDARD with Yaritza Morales MD 08/30/2011 EKG IN OFFICE: NSR. NO CHANGE FROM 11/26 1. ASA 81 MG 2 TABS GIVEN IN OFFICE. TRANSFERRED BY PRIVATE VEHICLE (MOTHER DRIVING) TO [facility] WRITE-IN (SAME DAY) with Delia Selby PULPWOOD CUTTER 08/19/2011 FLU SHOT WILL AGREE TO HAVE MEDS REFI LLED NOW AWARE OF 3$/MONTH SCRIPTS THRU TORRES CHOPPER CBC CMP PSA TSH LIPID CK URIC ACID IN 1 MONTH RTC 2 MOS ECG ANNUAL PHYSICAL EXAM with Yaritza Morales MD 1 Ordered a lipid profile ANNUAL PHYSICAL EXAM with Yaritza Morales MD 12/23/2010 Ordered CBC ANNUAL PHYSICAL EXAM with Yaritza feng MD 12/23/2010 Ordered follow-up visit 2MOS ANNUAL PHYSICAL EXAM with Antonio Morales MD 12/23/2010 Ordered serum TSH level ANNUAL PHYSICAL EXAM with Yaritza Morales MD 12/23/2010 Ordered urinalysis ANNUAL PHYSICAL EXAM with Yaritza feng MD 12/23/2010 ADVISED SINCE NOW W/O SXS TO RTC IF TH EY RECUR UA UCS EJACULATE ANALYSIS ?ANTIBIOTIC TX IF SXS RECUR STANDARD OV with Yaritza Morales MD 12/24/2009 Ordered a lipid profile STANDARD OV with Yaritza Morales MD 12/24/2009 Ordered CBC BMP ESR STANDARD OV with Yaritza Morales MD Ordered return to the clinic if condition worsens or n ew symptoms arise STANDARD OV with Yaritza Morales MD 12/24/2009 Ordered urinalysis STANDARD OV with Yaritza Morales MD 11/27 LEVITRA 10MG 1/2 PO PRN (INSURANCE ABI L COVER # 6/ MONTH) ADVISED TO LAY OFF TANNING SO MUCH D/T SKIN CANCER RISK AMBIEN 5MG QHS PRN ANNUAL PHYSICAL EXAM with Yaritza Morales MD 10/07/2009 Ordered follow-up visit ANNUAL PHYSICAL EXAM with Yaritza Morales MD 10/07/2009 Ordered urinalysis ANNUAL PHYSICAL EXAM with Yaritza feng MD 10/07/2009 LIT GIVEN RE CKD LEVITRA GIVEN. AWARE THAT HE SHOULD NOT BE TAKING NTG 2/IN 2 DAYS OF THIS. HAS NOT USED NTG SL @ ALL RTC 2MOS AWARE OF ADDICTIVE POTENTIAL OF AMBIEN STANDARD OV with Yaritza Morales MD 04/02/2009 Ordered follow-up visit STANDARD OV with Yaritza Morales MD 04/02/2009 Ordered return to the clinic if condition worsens or n ew symptoms arise STANDARD OV with Yaritza Morales MD 04/02/2009 NEED TO R/O CAROTID DIS AND PAD DOWN TH E ROAD LIPID CK LFT WILL D/W DR PENA UPPING LOPRESSOR IF PULSE RATE > 70 DESPITE TX STANDARD OV with Yaritza Morales MD 12/31/2008 Ordered follow-up visit STANDARD OV with Yaritza Morales MD 12/31/2008 Ordered return to the clinic if condition worsens or n ew symptoms arise STANDARD OV with Yaritza Morales MD 12/31/2008 TEMOVATE DIR TOP TO RT CHILEL ANNUAL PHYSICAL EXAM with Joana Morales MD 10/01/2008 Ordered follow-up visit ANNUAL PHYSICAL EXAM with Yaritza Morales MD 10/01/2008 Ordered return to the clinic if condition worsens or n ew symptoms arise ANNUAL PHYSICAL EXAM with Yaritza Morales MD 10/01/2008 Ordered urinalysis ANNUAL PHYSICAL EXAM with Yaritza feng MD 10/01/[address] chest and ref erral to pulmonology if nodule seen on CXR. Encouraged to quit smoking. Continue current medication STANDARD OV with Aury Barragan RPA-C 08/12/2008 Ordered return to the clinic if condition worsens or n ew symptoms arise STANDARD OV with Aury Barragan RPA-C 08/12/2008 Ordered Serum C-Reactive Protein STANDARD OV with Yaritza Morales MD 06/07/2008 Ordered TSH (3rd Generation) STANDARD OV with Yaritza feng MD 06/07/2008 Ordered Lipids Test Panel STANDARD OV with Yaritza Carey 06/07/2008 Ordered Follow-Up Visit STANDARD OV with Yaritza Morales MD 06/07/2008 Ordered Blood Counts - CBC STANDARD OV with Yaritza Morales MD 06/07/2008 Ordered Comprehensive Metabolic Chem Panel STANDARD OV with Yaritza Morales MD 06/07/2008 Ordered Return To Clinic If Worse Or New Symptoms WRIT E-IN (SAME DAY) with Reid Raymond MD 12/15/2007 Assessments Includes: Assessments for all patient encounters Findings Encounter Date Chest pain STANDARD OV with Antionette Reyes N P 12/16/2020 Viral gastroenteritis STANDARD OV with Antionette Reyes NP 12/16/2020 Benign essential hypertension STANDARD OV with Yaritza green MD 11/11/2020 Coronary artery disease STANDARD OV with Yaritza Morales MD 11/11/2020 Hyperlipidemia STANDARD OV with Yaritza Morales MD 10/26 Organic adult obstructive sleep apnea NOT COMPLIANT W / CPAP STANDARD OV with Yaritza Morales MD 11/11/2020 Type 2 diabetes mellitus in obese STANDARD OV with Yaritza Morales MD 11/11/2020 Jejunitis STANDARD OV with Antionette Robbins P 07/15/2020 Coronary artery disease TELE VISIT [address] ANDARD OV with Yaritza Morales MD 07/08/2020 Diverticulitis of colon STANDARD OV with Yaritza Morales MD 07/08/2020 Working diagnosis of abdominal pain decreasing in freq uency BUT CONSISTENT STANDARD OV with Yaritza Morales MD 07/08/2020 Working diagnosis of abdominal pain not relieved by hay wel movement STANDARD OV with Yaritza Morales MD 07/08/2020 Working diagnosis of abdominal pain relieved by passin g gas STANDARD OV with Yaritza Morales MD 07/08/2020 Working diagnosis of abdominal pain relieved by sittin g forward STANDARD OV with Yaritza Moraels MD 07/08/2020 Working diagnosis of abdominal pain started/intensifie d by STANDARD OV with Yaritza Morales MD 07/08/2020 Working diagnosis of crampy/colicky abdominal pain STA NDARD OV with Yaritza Morales MD 07/08/2020 Working diagnosis of LLQ abdominal pain STANDARD OV with Tank Morales MD 07/08/2020 Working diagnosis of sudden onset abdominal pain STAND KATY OV with Yaritza Morales MD 07/08/2020 Benign essential hypertension STANDARD OV with Yaritza green MD 04/08/2020 Coronary artery disease STANDARD OV with Yaritza Morales MD 04/08/2020 Hyperlipidemia STANDARD OV with Yaritza Morales MD 03/28 Nicotine dependence uncomplicated STANDARD OV with Yaritza Morales MD 04/08/2020 Type 2 diabetes mellitus in obese STANDARD OV with Yaritza Morales MD 04/08/2020 Benign essential hypertension ANNUAL PHYSICAL EXAM with Antonio Morales MD 01/08/2020 Benign prostatic hypertrophy ANNUAL PHYSICAL EXAM with Dana Morales MD 01/08/2020 Colon polyps 2 WERE ADENOMATOUS, 1 HYPERPLASTIC. F/U 2023 ANNUAL PHYSICAL EXAM with Yaritza Morales MD 01/08/2020 Hyperlipidemia ANNUAL PHYSICAL EXAM with Yaritza feng MD 01/08/2020 Routine adult history and physical (18-64 yrs) with ab normal findings ANNUAL PHYSICAL EXAM with Yaritza Morales MD 01/08/2020 Coronary artery disease STANDARD OV with Yaritza Morales MD 10/09/2019 Hyperlipidemia STANDARD OV with Yaritza Morales MD 09/25 Type 2 diabetes mellitus in obese STANDARD OV with Yaritza Morales MD 10/09/2019 Chronic pain FEET . FINGER PAIN RESOLVED E-VISIT E/M with Gail Morales MD 07/02/2019 Coronary artery disease E-VISIT E/M with Yaritza Morales MD 07/02/2019 Benign essential hypertension STANDARD OV with Yaritza green MD 04/10/2019 Dyspepsia STANDARD OV with Yaritza Morales MD 03/28 Hyperlipidemia STANDARD OV with Yaritza Morales MD 03/28 Obesity STANDARD OV with Yaritza Morales MD 03/28 Organic obstructive sleep apnea NON COMPLIANT W/ CPAP STANDARD OV with Yaritza Morales MD 04/10/2019 Type 2 diabetes mellitus in obese STANDARD OV with Yaritza Morales MD 04/10/2019 Coronary artery disease STABLE STANDARD OV with Yaritza barker MD 12/05/2018 Obstructive sleep apnea NOT USING CPAP STANDARD OV with Tank Morales MD 12/05/2018 Type 2 diabetes mellitus STANDARD OV with Yaritza Morales MD 12/05/2018 Seborrheic keratosis SURGERY with Yaritza Morales MD 019 Benign essential hypertension STANDARD OV with Yaritza green MD 09/05/2018 Coronary artery disease STANDARD OV with Yaritza Morales MD 09/05/2018 Hyperlipidemia STANDARD OV with Yaritza Morales MD 08/26 Obstructive sleep apnea STANDARD OV with Yarizta Morales MD 09/05/2018 Type 2 diabetes mellitus STANDARD OV with Yaritza Morales MD 09/05/2018 Actinic keratosis R ARM CHANGED STANDARD OV with Yaritza Morales MD 07/04/2018 Benign essential hypertension STANDARD OV with Yaritza green MD 07/04/2018 Coronary artery disease STANDARD OV with Yaritza Morales MD 07/04/2018 Obesity STANDARD OV with Yaritza Morales MD 11/2018 Type 2 diabetes mellitus in obese STANDARD OV with Yaritza Morales MD 07/04/2018 Actinic keratosis ANNUAL PHYSICAL EXAM with Yaritza feng MD 04/04/2018 Coronary artery disease ANNUAL PHYSICAL EXAM with Yaritza Morales MD 04/04/2018 Left carpal tunnel syndrome 1 MO H/O L THUMB NUMBNESS , CONSTANT ANNUAL PHYSICAL EXAM with Yaritza Morales MD 04/04/2018 Obstructive sleep apnea LAST SAW PULMO FOR BRENDA 4 YRS AGO. "JUST DOESN'T BOTHER ME" ANNUAL PHYSICAL EXAM with Yaritza Morales MD 9 Peripheral sensory neuropathy ANNUAL PHYSICAL EXAM with Antonio Morales MD 04/04/2018 Routine adult history and physical (18-64 yrs) with ab normal findings ANNUAL PHYSICAL EXAM with Yaritza Morales MD 04/04/2018 Type 2 diabetes mellitus ANNUAL PHYSICAL EXAM with Yaritza Morales MD 04/04/2018 Coronary artery disease STANDARD OV with Yaritza Morales MD 10/04/2017 Hyperlipidemia STANDARD OV with Yaritza Morales MD 09/25 Type 2 diabetes mellitus STANDARD OV with Yaritza Morales MD 10/04/2017 Benign essential hypertension STANDARD OV with Yaritza green MD 09/06/2017 Coronary artery disease STANDARD OV with Yaritza Morales MD 09/06/2017 Hyperlipidemia STANDARD OV with Yaritza Mroales MD 08/26 Type 2 diabetes mellitus STANDARD OV with Yaritza Morales MD 09/06/2017 Type 2 diabetes mellitus in obese STANDARD OV with Yaritza Morales MD 09/06/2017 Adult sleep apnea STANDARD OV with Yaritza Morales MD 05/27 Coronary artery disease STANDARD OV with Yaritza Morales MD 06/21/2017 Hyperlipidemia STANDARD OV with Yaritza Morales MD 05/27 Obesity STANDARD OV with Yaritza Morales MD 05/27 Type 2 diabetes mellitus STANDARD OV with Yaritza Morales MD 06/21/2017 Benign essential hypertension EMERGENCY ROOM FOLLOW-UP with Yaritza Morales MD 05/17/2017 Hyperlipidemia EMERGENCY ROOM FOLLOW-UP with Yaritza Morales MD 05/17/2017 Ischemic heart disease recent ptca x 1. total over la st few yrs 4 EMERGENCY ROOM FOLLOW-UP with Yaritza Morales MD 05/17/2017 Type 2 diabetes mellitus EMERGENCY ROOM FOLLOW-UP with Dana Morales MD 05/17/2017 Type 2 diabetes mellitus with manifestations - uncontr olled EMERGENCY ROOM FOLLOW-UP with Yaritza Morales MD 05/17/2017 Benign essential hypertension STANDARD OV with Yaritza green MD 12/01/2016 Coronary artery disease STANDARD OV with Yaritza Morales MD 12/01/2016 Hyperlipidemia STANDARD OV with Yaritza Morales MD 08/2016 Male erectile disorder STANDARD OV with Yaritza Morales MD 0 12/01/2016 Male infertility STANDARD OV with Yaritza Morales MD 08/2016 Obesity STANDARD OV with Yaritza Morales MD 08/2016 Type 2 diabetes mellitus in obese STANDARD OV with Yaritza Morales MD 12/01/2016 Coronary artery disease STANDARD OV with Yaritza Morales MD 07/10/2015 Fatigue STANDARD OV with Yaritza Morales MD 06/26 Nicotine related disorders STANDARD OV with Yaritza Morales MD 07/10/2015 Organic sleep apnea STANDARD OV with Yaritza Morales MD 06/26 Assessment of wheezing STANDARD OV with Yaritza Morales MD 0 09/06/2014 Coronary artery disease STENTED 3X STANDARD OV with Yaritza Morales MD 09/06/2014 Fatty liver STANDARD OV with Yaritza Morales MD 08/26 Nicotine related disorders 2 PPD. TRIED PATCH, WELBUTRIN, GUM, COLD TURKEY. NONE WORKED WELL PATCH STANDARD OV with Yaritza Morales MD 09/06/2014 Organic sleep apnea ON OFF CPAP X 2 YRS , BOTHERS HIM. GETS [address]WEEK. AVE 5HRS/NIGHT STANDARD OV with Yaritza Morales MD 09/06/2014 Persistent insomnia DOES NOT USE CPAP STANDARD OV with Antonio Morales MD 09/06/2014 Coronary artery disease STRESS TEST with Yaritza Morales MD 07/03/2014 Acute bronchitis STANDARD OV with Yaritza Morales MD 04/29 Assessment of cough STANDARD OV with Yaritza Morales MD 04/29 Benign essential hypertension STANDARD OV with Yaritza green MD 05/20/2014 Coronary artery disease STANDARD OV with Yaritza Morales MD 05/20/2014 Hyperlipidemia STANDARD OV with Yaritza Morales MD 04/29 Nonorganic sleep apnea STANDARD OV with Yaritza Morales MD 0 05/20/2014 Acrochordon SURGERY with Yaritza Morales MD 03/08/20 13 Coronary artery disease SURGERY with Yaritza Morales MD 02/25 Coronary artery disease H/O 3 STENTS ANNUAL PHYSICAL EXAM with Yaritza Morales MD 02/26/2013 Hyperlipidemia TRIG= 330 LDL= 137 ANNUAL PHYSICAL EX AM with Yaritza Morales MD 02/26/2013 Nicotine related disorders ANNUAL PHYSICAL EXAM with Yaritza Morales MD 02/26/2013 Normal routine history and physical ANNUAL PHYSICAL EX AM with Yaritza Morales MD 02/26/2013 Obesity BMI 30.2 ANNUAL PHYSICAL EXAM with Yaritza feng MD 02/26/2013 Acute bronchitis W/ WHEEZING ANNUAL PHYSICAL EXAM with Antonio Morales MD 01/06/2012 Coronary artery disease STABLE ANNUAL PHYSICAL EXAM with Joana Morales MD 01/06/2012 Male erectile disorder ANNUAL PHYSICAL EXAM with Yaritza barker MD 01/06/2012 Nicotine related disorders ANNUAL PHYSICAL EXAM with Yaritza Morales MD 01/06/2012 Normal routine history and physical ANNUAL PHYSICAL EX AM with Yaritza Morales MD 01/06/2012 Coronary artery disease STANDARD with Delia A Shanel PULPWOOD CUTTER 2011 Essential hypertension STANDARD with Delia A Shanel PULPWOOD CUTTER 012 Fatigue STANDARD with Delia A Shanel PULPWOOD CUTTER 12/20/2011 Hyperlipidemia STANDARD with Delia A Shanel [employer]UL[employer]OD CUTTER 12/20/2011 Nicotine dependence STANDARD with Delia A Shanel PUL[employer]OD CUTTER 12/20/2011 Coronary arteriosclerosis S/P PTCA,ON EFFIENT STANDARD with Yaritza Morales MD 08/30/2011 Unstable angina WRITE-IN (SAME DAY) with Delia Selby [employer] 08/19/2011 Coronary artery disease ANNUAL PHYSICAL EXAM with Yaritza Morales MD 12/23/2010 Male erectile disorder ANNUAL PHYSICAL EXAM with Yaritza barker MD 12/23/2010 Nicotine related disorders 2 PPD ANNUAL PHYSICAL EXAM with Yaritza Morales MD 12/23/2010 Normal routine history and physical ANNUAL PHYSICAL EX AM with Yaritza Morales MD 12/23/2010 Coronary artery disease STABLE STANDARD OV with Yaritza barker MD 12/24/2009 Hematospermia STANDARD OV with Yaritza Morales MD 11/27 Male erectile disorder STANDARD OV with Yaritza Morales MD 0 12/24/2009 Coronary artery disease ANNUAL PHYSICAL EXAM with Yaritza Morales MD 10/07/2009 Male erectile disorder ANNUAL PHYSICAL EXAM with Yaritza barker MD 10/07/2009 Normal routine history and physical adult ANNUAL PHYSI ANTONIO EXAM with Yartiza Morales MD 10/07/2009 Persistent insomnia ANNUAL PHYSICAL EXAM with Yaritza feng MD 10/07/2009 Chronic kidney disease, stage 2 78ML/MIN STANDARD OV with Gail Morales MD 06/19/2009 Coronary artery disease STANDARD OV with Yaritza Morales MD 06/19/2009 Hyperlipidemia STANDARD OV with Yaritza Morales MD 05/27 Impaired fasting glucose STANDARD OV with Yaritza Morales MD 06/19/2009 Male erectile disorder STANDARD OV with Yaritza Morales MD 0 06/19/2009 Chronic kidney disease, stage 2 78ML/MIN STANDARD OV with Gail Morales MD 04/02/2009 Coronary artery disease STANDARD OV with Yaritza Morales MD 04/02/2009 Hyperlipidemia STANDARD OV with Yaritza Morales MD 08/2009 Male erectile disorder STANDARD OV with Yaritza Morales MD 0 04/02/2009 Coronary artery disease STANDARD OV with Yaritza Morales MD 12/31/2008 Hyperlipidemia STANDARD OV with Yaritza Morales MD 08/2008 Nicotine dependence - continuous 1.5 PPD STANDARD OV with Joana Morales MD 12/31/2008 Persistent insomnia ON AMBIEN PRN STANDARD OV with Yaritza Morales MD 12/31/2008 Post-traumatic insomnia STANDARD OV with Reid Carey 11/22/2008 Coronary artery disease STENT LAD AND RCA ANNUAL PHYSI ANTONIO EXAM with Yaritza Morales MD 10/01/2008 Dermatitis ANNUAL PHYSICAL EXAM with Yaritza feng MD 10/01/2008 Impaired fasting glucose ANNUAL PHYSICAL EXAM with Yaritza Morales MD 10/01/2008 Normal routine history and physical ANNUAL PHYSICAL EX AM with Yaritza Morales MD 10/01/2008 Coronary artery disease STANDARD OV with Aury Barragan RP A-C 08/12/2008 Essential hypertension STANDARD OV with Aury Barragan RPA -C 08/12/2008 Hyperlipidemia STANDARD OV with Aury Barragan RPA-C 08/12/2008 Nicotine dependence Abnormal CXR STANDARD OV with Aury Barragan RPA-C 08/12/2008 CHEST PAIN STANDARD OV with Yaritza Morales MD 05/26 CORONARY ARTERY DISEASE STANDARD OV with Yaritza Morales MD 06/07/2008 CORONARY ARTERY DISEASE STANDARD OV with Aury Barragan RP A-C 02/20/2008 HYPERLIPIDEMIA STANDARD OV with Aury Barragan RPA-C 02/20/2008 Instructions Instructions not supported for this document typeNo Instructions Recorded Medical Equipment - Implanted Devices Includes: Current and historical DevicesNo Medical Equipment Recorded Medications Includes: Current and historical Medications Current Medications (continue as prescribed) Nitrostat 0.4 MG Sublingual Tablet Sublingual 11/11/2020 - 0 05/10/2021 Provider: Yaritza Morales MD Diagnosis: HCC-Athscl heart dis ease of [place] coronary artery w/o ang p As needed metFORMIN HCl 1000 MG Oral Tablet 11/11/2020 - 02/09/2021 Pr ovider: Yaritza Morales MD Diagnosis: HCC-Type 2 diabetes mellitus with other specified complicati 1 tab twice a day Gabapentin 300 MG Oral Capsule 11/11/2020 - 02/09/2021 Provi shanel: Yaritza Morales MD Diagnosis: Other chronic pain TAKE 1 CAPSULE BY MOUTH EVERY NIGHT AT BEDTIME. Blood Glucose Test In Vitro Strip 11/11/2020 - 02/09/2021 Pr ovider: Yaritza Morales MD Diagnosis: HCC-Type 2 diabetes mellitus without complications test once per day, dx: E11.9 ( please fill according to [facility] r[facility]n) Lancets Miscellaneous 11/11/2020 - 02/09/2021 Provider: Yaritza Morales MD Diagnosis: HCC-Type 2 diabetes mellitus without complications test once per day, dx: E11.9 ( please fill according to [facility] r[facility]) Famotidine Maximum Strength 20 MG Oral Tablet 11/11/2020 Provider: Diagnosis: Metoprolol Tartrate 25 MG Oral Tablet 11/11/2020 - Provider: Yaritza Morales MD Diagnosis: Essential (primary) hypertension TAKE 1 TABLET BY MOUTH TWICE DAILY Lisinopril 5 MG Oral Tablet 11/11/2020 - 02/09/2021 Provider : Yaritza Morales MD Diagnosis: Essential (primary) hypertension TAKE 1 TABLET BY MOUTH EVERY DAY Atorvastatin Calcium 40 MG Oral Tablet 11/11/2020 - 02/10/20 21 Provider: Yaritza Morales MD Diagnosis: Mixed hyperlipidemia qod po Jardiance 25 MG Oral Tablet 11/11/2020 - 02/09/2021 Provider : Yaritza Morales MD Diagnosis: Diabetes due to unde rlying condition w unsp complications TAKE 1 TABLET BY MOUTH EVERY DAY Plavix 75 MG Oral Tablet 04/08/2020 Provider: Diagnosis: Tums 500 MG Oral Tablet Chewable 04/08/2020 Provide r: Diagnosis: 1 X Q 2 WKS PRN Aspirin 81 MG OR CHEW 08/30/2011 Provider: Diagnosis: started at [facility] Past Medications on file Metoprolol Tartrate 25 MG Oral Tablet 11/10/2020 - Provider: Yaritza Morales MD Diagnosis: Essential (primary) hypertension TAKE 1 TABLET BY MOUTH TWICE DAILY Jardiance 25 MG Oral Tablet 11/05/2020 - 11/11/2020 Provider : Antionette Reyes GROUP UNDERWRITER Diagnosis: Diabetes due to unde rlying condition w unsp complications TAKE 1 TABLET BY MOUTH EVERY DAY Atorvastatin Calcium 40 MG Oral Tablet 10/27/2020 - 11/12/19 21 Provider: Yaritza Morales MD Diagnosis: Mixed hyperlipidemia qod po Lisinopril 5 MG Oral Tablet 10/27/2020 - 11/11/2020 Provider : Yaritza Morales MD Diagnosis: Essential (primary) hypertension TAKE 1 TABLET BY MOUTH EVERY DAY Jardiance 25 MG Oral Tablet 10/07/2020 - 11/05/2020 Provider : Antionette Reyes GROUP UNDERWRITER Diagnosis: Diabetes due to unde rlying condition w unsp complications 1 every day Lisinopril 5 MG Oral Tablet 07/14/2020 - 10/27/2020 Provider : Yaritza Morales MD Diagnosis: Essential (primary) hypertension TAKE 1 TABLET BY MOUTH EVERY DAY Metoprolol Tartrate 25 MG Oral Tablet 07/14/2020 - Provider: Yaritza Morales MD Diagnosis: Essential (primary) hypertension TAKE 1 TABLET BY MOUTH TWICE DAILY Lisinopril 5 MG Oral Tablet 07/08/2020 - 07/08/2020 Provider : Yaritza Morales MD Diagnosis: Essential (primary) hypertension TAKE 1 TABLET BY MOUTH EVERY DAY Ciprofloxacin HCl 250 MG Oral Tablet 07/08/2020 - 11/06/2020 Provider: Yaritza Morales MD Diagnosis: Dvtrcli of lg int w/ o perforation or abscess w/o bleeding 1 tab twice a day metFORMIN HCl 1000 MG Oral Tablet 07/08/2020 - 11/11/2020 Pr ovider: Yaritza Morales MD Diagnosis: HCC-Type 2 diabetes mellitus with other specified complicati 1 tab twice a day HAS 21 DAYS metroNIDAZOLE 500 MG Oral Tablet 07/08/2020 - 11/11/2020 Pro vider: Yaritza Morales MD Diagnosis: HCC-Athscl heart dis ease of [place] coronary artery w/o ang p Three times a day Gabapentin 300 MG Oral Capsule 07/08/2020 - 11/11/2020 Provi shanel: Yaritza Morales MD Diagnosis: Other chronic pain TAKE 1 CAPSULE BY MOUTH EVERY NIGHT AT BEDTIME. Atorvastatin Calcium 40 MG Oral Tablet 07/08/2020 - 10/28/19 21 Provider: Yaritza Morales MD Diagnosis: Mixed hyperlipidemia qod po Metoprolol Tartrate 25 MG Oral Tablet 07/08/2020 - Provider: Yaritza Morales MD Diagnosis: Essential (primary) hypertension TAKE 1 TABLET BY MOUTH TWICE DAILY Jardiance 25 MG Oral Tablet 07/08/2020 - 10/07/2020 Provider : Yaritza Morales MD Diagnosis: Diabetes due to unde rlying condition w unsp complications 1 every day metFORMIN HCl 1000 MG Oral Tablet 06/16/2020 - 07/08/2020 Pr ovider: Yaritza Morales MD Diagnosis: HCC-Type 2 diabetes mellitus with other specified complicati 1 tab twice a day HAS 21 DAYS Metoprolol Tartrate 25 MG Oral Tablet 04/08/2020 - Provider: Yaritza Morales MD Diagnosis: Essential (primary) hypertension TAKE 1 TABLET BY MOUTH TWICE DAILY Lancets Miscellaneous 04/08/2020 - 11/11/2020 Provider: Yaritza Morales MD Diagnosis: HCC-Type 2 diabetes mellitus without complications test once per day, dx: E11.9 ( please fill according to insu ronn) Gabapentin 300 MG Oral Capsule 04/08/2020 - 07/08/2020 Provi shanel: Yaritza Morales MD Diagnosis: Other chronic pain TAKE 1 CAPSULE BY MOUTH EVERY NIGHT AT BEDTIME. Blood Glucose Test In Vitro Strip 04/08/2020 - 11/11/2020 Pr ovider: Yaritza Morales MD Diagnosis: HCC-Type 2 diabetes mellitus without complications test once per day, dx: E11.9 ( please fill according to insu ronn) Blood Glucose Test In Vitro Strip 04/08/2020 - 04/08/2020 Pr ovider: Yaritza Morales MD Diagnosis: HCC-Type 2 diabetes mellitus without complications test once per day, dx: E11.9 ( please fill according to insu ronn) Atorvastatin Calcium 40 MG Oral Tablet 04/08/2020 - 07/09/19 21 Provider: Yaritza Morales MD Diagnosis: Mixed hyperlipidemia qod po Lisinopril 5 MG Oral Tablet 04/08/2020 - 07/08/2020 Provider : Yaritza Morales MD Diagnosis: Essential (primary) hypertension TAKE 1 TABLET BY MOUTH EVERY DAY metFORMIN HCl 1000 MG Oral Tablet 04/08/2020 - 06/16/2020 Pr ovider: Yaritza Morales MD Diagnosis: HCC-Type 2 diabetes mellitus with other specified complicati 1 tab twice a day Lancets Miscellaneous 01/08/2020 - 04/08/2020 Provider: Yaritza Morales MD Diagnosis: HCC-Type 2 diabetes mellitus without complications test once per day, dx: E11.9 ( please fill according to insu ronn) Blood Glucose Test In Vitro Strip 01/08/2020 - 04/08/2020 Pr ovider: Yaritza Morales MD Diagnosis: HCC-Type 2 diabetes mellitus without complications test once per day, dx: E11.9 ( please fill according to insu ronn) Lisinopril 5 MG Oral Tablet 01/08/2020 - 04/08/2020 Provider : Yaritza Morales MD Diagnosis: Essential (primary) hypertension TAKE 1 TABLET BY MOUTH EVERY DAY Metoprolol Tartrate 25 MG Oral Tablet 01/08/2020 - Provider: Yaritza Morales MD Diagnosis: Essential (primary) hypertension TAKE 1 TABLET BY MOUTH TWICE DAILY Gabapentin 300 MG Oral Capsule 01/08/2020 - 04/08/2020 Provi shanel: Yaritza Morales MD Diagnosis: Other chronic pain TAKE 1 CAPSULE BY MOUTH EVERY NIGHT AT BEDTIME. Atorvastatin Calcium 40 MG Oral Tablet 01/08/2020 - 04/08/19 21 Provider: Yaritza Morales MD Diagnosis: Mixed hyperlipidemia qod po metFORMIN HCl 1000 MG Oral Tablet 01/08/2020 - 04/08/2020 Pr ovider: Yaritza Morales MD Diagnosis: HCC-Type 2 diabetes mellitus with other specified complicati 1 tab twice a day Lisinopril 5 MG Oral Tablet 12/18/2019 - 01/08/2020 Provider : Yaritza Morales MD Diagnosis: Essential (primary) hypertension TAKE 1 TABLET BY MOUTH EVERY DAY Metoprolol Tartrate 25 MG Oral Tablet 12/18/2019 - 0 Provider: Yaritza Morales MD Diagnosis: Essential (primary) hypertension TAKE 1 TABLET BY MOUTH TWICE DAILY Gabapentin 300 MG Oral Capsule 10/09/2019 - 01/08/2020 Provi shanel: Yaritza Morales MD Diagnosis: Other chronic pain TAKE 1 CAPSULE BY MOUTH EVERY NIGHT AT BEDTIME. HAS 21 DAYS Blood Glucose Test In Vitro Strip 10/09/2019 - 01/08/2020 Pr ovider: Yaritza Morales MD Diagnosis: HCC-Type 2 diabetes mellitus without complications test once per day, dx: E11.9 ( please fill according to insu ronn) Plavix 75 MG Oral Tablet 08/31/2019 - 12/19/2019 Provider: Yaritza Morales MD Diagnosis: HCC-Athscl heart dis ease of [place] coronary artery w/o ang p 1 every day Metoprolol Tartrate 25 MG Oral Tablet 08/31/2019 - 0 Provider: Yaritza Morales MD Diagnosis: Essential (primary) hypertension 1 tab twice a day po metFORMIN HCl 1000 MG Oral Tablet 08/31/2019 - 01/08/2020 Pr ovider: Yaritza Morales MD Diagnosis: HCC-Type 2 diabetes mellitus with other specified complicati 1 tab twice a day Lisinopril 5 MG Oral Tablet 08/31/2019 - 12/18/2019 Provider : Yaritza Morales MD Diagnosis: Essential (primary) hypertension 1 every day po Gabapentin 300 MG Oral Capsule 08/31/2019 - 10/09/2019 Provi shanel: Yaritza Morales MD Diagnosis: Other chronic pain TAKE 1 CAPSULE BY MOUTH EVERY NIGHT AT BEDTIME Atorvastatin Calcium 40 MG Oral Tablet 08/31/2019 - 01/08/20 20 Provider: Yaritza Morales MD Diagnosis: Mixed hyperlipidemia qod po Plavix 75 MG Oral Tablet 07/02/2019 - 08/31/2019 Provider: Yaritza Morales MD Diagnosis: HCC-Athscl heart dis ease of [place] coronary artery w/o ang p 1 every day LAST STENT 05/15/17 Metoprolol Tartrate 25 MG Oral Tablet 07/02/2019 - 0 Provider: Yaritza Morales MD Diagnosis: Essential (primary) hypertension 1 tab twice a day po metFORMIN HCl 1000 MG Oral Tablet 07/02/2019 - 08/31/2019 Pr ovider: Yaritza Morales MD Diagnosis: HCC-Type 2 diabetes mellitus with other specified complicati 1 tab twice a day Lisinopril 5 MG Oral Tablet 07/02/2019 - 08/31/2019 Provider : Yaritza Morales MD Diagnosis: Essential (primary) hypertension 1 every day po Lancets Miscellaneous 07/02/2019 - 01/08/2020 Provider: Yaritza Morales MD Diagnosis: HCC-Type 2 diabetes mellitus without complications test once per day, dx: E11.9 ( please fill according to insu ronn) Blood Glucose Test In Vitro Strip 07/02/2019 - 10/09/2019 Pr ovider: Yaritza Morales MD Diagnosis: HCC-Type 2 diabetes mellitus without complications test once per day, dx: E11.9 ( please fill according to insu ronn) Atorvastatin Calcium 40 MG Oral Tablet 07/02/2019 - 08/31/19 20 Provider: Yaritza Morales MD Diagnosis: Mixed hyperlipidemia qod po Gabapentin 300 MG Oral Capsule 06/28/2019 - 08/31/2019 Provi shanel: Yaritza Morales MD Diagnosis: Other chronic pain TAKE 1 CAPSULE BY MOUTH EVERY NIGHT AT BEDTIME Gabapentin 300 MG Oral Capsule 04/13/2019 - 06/28/2019 Provi shanel: Yaritza Morales MD Diagnosis: Other chronic pain 1 Every bedtime Lancets Miscellaneous 04/10/2019 - 07/02/2019 Provider: Yaritza Morales MD Diagnosis: HCC-Type 2 diabetes mellitus without complications test once per day, dx: E11.9 ( please fill according to insu ronn) Blood Glucose Test In Vitro Strip 04/10/2019 - 07/02/2019 Pr ovider: Yaritza Morales MD Diagnosis: HCC-Type 2 diabetes mellitus without complications test once per day, dx: E11.9 ( please fill according to insu ronn) Plavix 75 MG Oral Tablet 04/10/2019 - 07/02/2019 Provider: Yaritza Morales MD Diagnosis: HCC-Athscl heart dis ease of [place] coronary artery w/o ang p 1 every day LAST STENT 05/15/17 Metoprolol Tartrate 25 MG Oral Tablet 04/10/2019 - 0 Provider: Yaritza Morales MD Diagnosis: Essential (primary) hypertension 1 tab twice a day po metFORMIN HCl 1000 MG Oral Tablet 04/10/2019 - 07/02/2019 Pr ovider: Yaritza Morales MD Diagnosis: HCC-Type 2 diabetes mellitus with other specified complicati 1 tab twice a day Lisinopril 5 MG Oral Tablet 04/10/2019 - 07/02/2019 Provider : Yaritza Morales MD Diagnosis: Essential (primary) hypertension 1 every day po Gabapentin 300 MG Oral Capsule 04/10/2019 - 04/10/2019 Provi shanel: Yaritza Morales MD Diagnosis: Other chronic pain 1 Every bedtime Atorvastatin Calcium 40 MG Oral Tablet 04/10/2019 - 07/02/19 20 Provider: Yaritza Morales MD Diagnosis: Mixed hyperlipidemia qod po Vascepa 1 GM Oral Capsule 04/10/2019 - 04/10/2019 Provider: Yaritza Morales MD Diagnosis: Mixed hyperlipidemia two tabs po BID APPROVAL DATES 12/06/18-01/14/22 Vascepa 1 GM Oral Capsule 01/15/2019 - 04/10/2019 Provider: Yaritza Morales MD Diagnosis: Mixed hyperlipidemia two tabs po BID APPROVAL DATES 12/06/18-01/14/22 Vascepa 1 GM Oral Capsule 01/05/2019 - 01/04/2019 Provider: Yaritza Morales MD Diagnosis: Mixed hyperlipidemia two tabs po BID APPROVAL DATES 12/06/18-01/15/20 Vascepa 1 GM Oral Capsule 01/04/2019 - 01/04/2019 Provider: Yaritza Morales MD Diagnosis: Mixed hyperlipidemia two tabs po BID Atorvastatin Calcium 40 MG Oral Tablet 12/05/2018 - 04/10/19 20 Provider: Yaritza Morales MD Diagnosis: Mixed hyperlipidemia qod po Plavix 75 MG Oral Tablet 12/05/2018 - 04/10/2019 Provider: Yaritza Morales MD Diagnosis: HCC-Athscl heart dis ease of [place] coronary artery w/o ang p 1 every day LAST STENT 05/15/17 Metoprolol Tartrate 25 MG Oral Tablet 12/05/2018 - 0 Provider: Yaritza Morales MD Diagnosis: Essential (primary) hypertension 1 tab twice a day po metFORMIN HCl 1000 MG Oral Tablet 12/05/2018 - 04/10/2019 Pr ovider: Yaritza Morales MD Diagnosis: HCC-Type 2 diabetes mellitus with other specified complicati 1 tab twice a day Lisinopril 5 MG Oral Tablet 12/05/2018 - 04/10/2019 Provider : Yaritza Morales MD Diagnosis: Essential (primary) hypertension 1 every day po Lancets Miscellaneous (not specified) 12/05/2018 - 0 Provider: Yaritza Morales MD Diagnosis: HCC-Type 2 diabetes mellitus without complications test once per day, dx: E11.9 ( please fill according to insu ronn) Gabapentin 300 MG Oral Capsule, conventional 12/05/2018 - Provider: Yaritza Morales MD Diagnosis: Other chronic pain 1 Every bedtime Blood Glucose Test In Vitro Strip 12/05/2018 - 04/10/2019 Pr ovider: Yaritza Morales MD Diagnosis: HCC-Type 2 diabetes mellitus without complications test once per day, dx: E11.9 ( please fill according to insu ronn) Plavix 75MG Oral Tablet 09/05/2018 - 12/05/2018 Provider: Yaritza Morales MD Diagnosis: HCC-Athscl heart dis ease of [place] coronary artery w/o ang p 1 every day Gabapentin 300MG Oral Capsule 09/05/2018 - 12/05/2018 Provid er: Yaritza Morales MD Diagnosis: Other chronic pain 1 tab twice a day Metoprolol Tartrate 25MG Oral Tablet 09/05/2018 - 12/05/2018 Provider: Yaritza Morales MD Diagnosis: Essential (primary) hypertension 1 tab twice a day po metFORMIN HCl 1000MG Oral Tablet 09/05/2018 - 12/05/2018 Pro vider: Yaritza Morales MD Diagnosis: HCC-Type 2 diabetes mellitus with other specified complicati 1 tab twice a day Lisinopril 5MG Oral Tablet 09/05/2018 - 12/05/2018 Provider: Yraitza Morales MD Diagnosis: Essential (primary) hypertension 1 every day po Lancets Miscellaneous 09/05/2018 - 12/05/2018 Provider: Yaritza Morales MD Diagnosis: HCC-Type 2 diabetes mellitus without complications test once per day, dx: E11.9 ( please fill according to insu ronn) Blood Glucose Test In Vitro Strip 09/05/2018 - 12/05/2018 Pr ovider: Yaritza Morales MD Diagnosis: HCC-Type 2 diabetes mellitus without complications test once per day, dx: E11.9 ( please fill according to insu ronn) Gabapentin 100MG Oral Capsule, conventional 07/04/2018 - 01/2019 Provider: Yaritza Morales MD Diagnosis: Hereditary and idiop athic neuropathy, unspecified 1 tab twice a day FROM QD Gabapentin 100MG Oral Capsule, conventional 07/04/2018 - 11/2018 Provider: Yaritza Morales MD Diagnosis: Hereditary and idiop athic neuropathy, unspecified 1 Every bedtime po Lancets Miscellaneous (not specified) 07/04/2018 - 9 Provider: Yaritza Morales MD Diagnosis: HCC-Type 2 diabetes mellitus without complications test once per day, dx: E11.9 ( please fill according to insu ronn) Blood Glucose Test In Vitro Strip 07/04/2018 - 09/05/2018 Pr ovider: Yaritza Morales MD Diagnosis: HCC-Type 2 diabetes mellitus without complications test once per day, dx: E11.9 ( please fill according to insu ronn) Lisinopril 5MG Oral Tablet 07/04/2018 - 09/05/2018 Provider: Yartiza Morales MD Diagnosis: Essential (primary) hypertension 1 every day po Metoprolol Tartrate 25MG Oral Tablet 07/04/2018 - 09/05/2018 Provider: Yaritza Morales MD Diagnosis: Essential (primary) hypertension 1 tab twice a day po metFORMIN HCl 1000MG Oral Tablet 07/04/2018 - 09/05/2018 Pro vider: Yaritza Morales MD Diagnosis: HCC-Type 2 diabetes mellitus with other specified complicati 1 tab twice a day FROM 500 MG PO BID Atorvastatin Calcium 40MG Oral Tablet 07/04/2018 - 9 Provider: Yaritza Morales MD Diagnosis: Mixed hyperlipidemia qod po Metoprolol Tartrate 25MG Oral Tablet 05/29/2018 - 07/04/2018 Provider: Yaritza Morales MD Diagnosis: Essential (primary) hypertension 1 tab twice a day po Atorvastatin Calcium 40MG Oral Tablet 05/29/2018 - 9 Provider: Yaritza Morales MD Diagnosis: Mixed hyperlipidemia qod po Lancets Miscellaneous (not specified) 05/29/2018 - 9 Provider: Yaritza Morales MD Diagnosis: HCC-Type 2 diabetes mellitus without complications test once per day, dx: E11.9 ( please fill according to insu ronn) Blood Glucose Test In Vitro Strip 05/29/2018 - 07/04/2018 Pr ovider: Yaritza Morales MD Diagnosis: HCC-Type 2 diabetes mellitus without complications test once per day, dx: E11.9 ( please fill according to insu ronn) Blood Glucose Monitor System w/Device Kit (multiple co mponent) 05/29/2018 - 05/29/2018 Provider: Yaritza Morales MD Diagnosis: HCC-Type 2 diabetes mellitus without complications test once per day, dx: E11.9 ( please fill according to insu ronn) metFORMIN HCl 1000MG Oral Tablet 05/29/2018 - 07/04/2018 Pro vider: Yaritza Morales MD Diagnosis: HCC-Type 2 diabetes mellitus with other specified complicati 1 tab twice a day FROM 500 MG PO BID Gabapentin 100MG Oral Capsule, conventional 05/29/2018 - 11/2018 Provider: Yaritza Morales MD Diagnosis: Hereditary and idiop athic neuropathy, unspecified 1 Every bedtime po Lisinopril 5MG Oral Tablet 05/02/2018 - 07/04/2018 Provider: Yaritza Morales MD Diagnosis: Essential (primary) hypertension 1 every day po MetFORMIN HCl 1000MG Oral Tablet 04/04/2018 - 05/29/2018 Pro vider: Yaritza Morales MD Diagnosis: HCC-Type 2 diabetes mellitus with other specified complicati 1 tab twice a day FROM 500 MG PO BID Gabapentin 100MG Oral Capsule, conventional 04/04/2018 - 06/2018 Provider: Yaritza Morales MD Diagnosis: Hereditary and idiop athic neuropathy, unspecified 1 Every bedtime Metoprolol Tartrate 25MG Oral Tablet 04/04/2018 - 05/29/2018 Provider: Yaritza Morales MD Diagnosis: Essential (primary) hypertension 1 tab twice a day MetFORMIN HCl 500MG Oral Tablet 04/04/2018 - 04/04/2018 Prov ider: Yaritza Morales MD Diagnosis: HCC-Type 2 diabetes mellitus without complications 1 tab po BID Atorvastatin Calcium 40MG Oral Tablet 04/04/2018 - 9 Provider: Yaritza Morales MD Diagnosis: Mixed hyperlipidemia qod po Metoprolol Tartrate 25MG Oral Tablet 02/22/2018 - 04/04/2018 Provider: Yaritza Morales MD Diagnosis: Essential (primary) hypertension 1 tab twice a day MetFORMIN HCl 500MG Oral Tablet 02/22/2018 - 04/04/2018 Prov ider: Yaritza Morales MD Diagnosis: HCC-Type 2 diabetes mellitus without complications 1 tab po BID Atorvastatin Calcium 40MG Oral Tablet 02/22/2018 - 9 Provider: Yaritza Morales MD Diagnosis: Mixed hyperlipidemia qod po Blood Glucose Test In Vitro Strip 09/19/2017 - 05/29/2018 Pr ovider: Yaritza Morales MD Diagnosis: HCC-Type 2 diabetes mellitus without complications test once per day, dx: E11.9 ( please fill according to [facility] r[facility]) Lancets Miscellaneous 09/19/2017 - 05/29/2018 Provider: Yaritza Morales MD Diagnosis: HCC-Type 2 diabetes mellitus without complications test once per day, dx: E11.9 ( please fill according to insu ronn) Blood Glucose Monitor System w/Device Kit 09/19/2017 - 05/29 Provider: Yaritza Morales MD Diagnosis: HCC-Type 2 diabetes mellitus without complications test once per day, dx: E11.9 ( please fill according to [facility] r[facility]) Atorvastatin Calcium 40MG Oral Tablet 09/12/2017 - 8 Provider: Yaritza Morales MD Diagnosis: Mixed hyperlipidemia qod po OneTouch Verio In Vitro Strip 09/12/2017 - 09/19/2017 Provid er: Yaritza Morales MD Diagnosis: HCC-Type 2 diabetes mellitus without complications test once a day , dx: E11.9 MetFORMIN HCl 500MG Oral Tablet 09/12/2017 - 02/22/2018 Prov ider: Yaritza Morales MD Diagnosis: HCC-Type 2 diabetes mellitus without complications 1 tab po BID ( d/c hanst) Metoprolol Tartrate 25MG Oral Tablet 09/06/2017 - 02/22/2018 Provider: Yaritza Morales MD Diagnosis: Essential (primary) hypertension 1 tab twice a day MetFORMIN HCl 500MG Oral Tablet 06/21/2017 - 09/06/2017 Prov ider: Yaritza Morales MD Diagnosis: HCC-Type 2 diabetes mellitus without complications 1 tab po BID ( d/c janumet) Bydureon BCise 2MG/0.85ML Subcutaneous Auto-injector 018 - 09/06/2017 Provider: Yaritza Morales MD Diagnosis: HCC-Type 2 diabetes mellitus without complications Take as directed 2 mg sq q week Atorvastatin Calcium 40MG Oral Tablet 06/21/2017 - 8 Provider: Yaritza Morales MD Diagnosis: Mixed hyperlipidemia Take as directed qod MetFORMIN HCl 500MG Oral Tablet 05/18/2017 - 06/21/2017 Prov ider: Yaritza Morales MD Diagnosis: HCC-Type 2 diabetes mellitus without complications 1 tab po BID ( d/c janumet) Janumet 50-500MG Oral Tablet 05/18/2017 - 05/18/2017 Provide r: Yaritza Morales MD Diagnosis: HCC-Type 2 diabetes mellitus without complications 1 tab po BID abstain from med [address] and 2 days aft er, fyi Lisinopril 5MG Oral Tablet 05/17/2017 - 04/04/2018 Provider: Diagnosis: Nitrostat 0.4MG Sublingual Tablet, sublingual 05/17/2017 - 0 11/11/2020 Provider: Diagnosis: Metoprolol Tartrate 25MG Oral Tablet 05/17/2017 - 09/06/2017 Provider: Yaritza Morales MD Diagnosis: Essential (primary) hypertension 1 tab twice a dayREVIEWED BUT NOT DISPENSED Shingrix 50MCG Intramuscular Suspension, when reconsti tuted 05/17/2017 - 10/04/2017 Provider: Yaritza Morales MD Diagnosis: HCC-Type 2 diabetes mellitus with hyperglycemia Take as directed aware this may be 2 shots tot al Atorvastatin Calcium 40MG Oral Tablet 05/17/2017 - 8 Provider: Yaritza Morales MD Diagnosis: Mixed hyperlipidemia 1 Every bedtime from 80 d/t joint sxs Nicotine Step 2 14MG/24HR Transdermal Patch 24 Hour 05/17/19 18 - 09/06/2017 Provider: Diagnosis: qd Atorvastatin Calcium 80MG Oral Tablet 05/17/2017 - 8 Provider: Diagnosis: Plavix 75MG Oral Tablet 05/17/2017 - 09/05/2018 Provider: Diagnosis: MetFORMIN HCl 500MG Oral Tablet 12/06/2016 - 05/17/2017 Prov ider: Yaritza Morales MD Diagnosis: HCC-Type 2 diabetes mellitus without complications take one tab po qd Simvastatin 20MG Oral Tablet 12/01/2016 - 05/17/2017 Provide r: Yaritza Morales MD Diagnosis: HCC-Type 2 diabetes mellitus without complications 1 Every bedtime Januvia 100MG Oral Tablet 12/01/2016 - 12/06/2016 Provider: Yaritza Morales MD Diagnosis: HCC-Type 2 diabetes mellitus without complications 1 Every morning Multivitamin Men Oral Tablet 12/01/2016 - 05/17/2017 Provide r: Diagnosis: Isosorbide Mononitrate ER 30 MG Tablet Extended Releas e 24 Hour 07/10/2015 - 05/17/2017 Provider: Yaritza Morales MD Diagnosis: HCC-Athscl heart dis ease of [place] coronary artery w/o ang p 1 every day Metoprolol Tartrate 25 MG Tablet 07/10/2015 - 05/17/2017 Pro vider: Yaritza Morales MD Diagnosis: Essential (primary) hypertension 1 tab twice a day Metoprolol Tartrate 25 MG Tablet 09/06/2014 - 07/10/2015 Pro vider: Yaritza Morales MD Diagnosis: Essential (primary) hypertension 1 tab twice a day HAS 6 LEFT Nitroglycerin 0.4 MG Tablet, sublingual 09/06/2014 - 018 Provider: Yaritza Morales MD Diagnosis: HCC-Athscl heart dis ease of [place] coronary artery w/o ang p As needed q 5 min i f needed Mens Multivitamin Plus Tablet 09/06/2014 - 12/01/2016 Provid er: Diagnosis: Zocor 20 MG Tablet 09/06/2014 - 12/02/2016 Provider: Yaritza Morales MD Diagnosis: Other hyperlipidemia 1 PO QOD Chantix Continuing Month Mark 1 MG Tablet 09/06/2014 - 2015 Provider: Yaritza Morales MD Diagnosis: Nicotine dependence, unsp, w unsp nicotine-induced disorders Take as directed Chantix Starting Month Mark 0.5 MG X 11 & 1 MG X 42 Tab let 09/06/2014 - 07/08/2015 Provider: Yaritza Morales MD Diagnosis: Nicotine dependence, unsp, w unsp nicotine-induced disorders Take as directed Benadryl 25 MG Tablet 06/12/2014 - 07/08/2015 Provider: Yaritza Morales MD Diagnosis: Radiographic dye all ergy status 50 mg ( 2 tabs) po 1 hour prior to MRI PredniSONE 50 MG Tablet 06/12/2014 - 09/06/2014 Provider: Yaritza Morales MD Diagnosis: Radiographic dye all ergy status 1 tab po 13 hours prior to MRI, 7 hours prior to MRI and 1 h our prior to MRI Zocor 20 MG Tablet 05/23/2014 - 09/06/2014 Provider: Yaritza Morales MD Diagnosis: Other hyperlipidemia 1 Every bedtime Vitamin D3 5000 UNIT Tablet 05/23/2014 - 12/01/2016 Provider : Diagnosis: qd Azithromycin 250 MG Tablet 05/20/2014 - 09/06/2014 Provider: Yaritza Morales MD Diagnosis: Acute bronchitis, un specified 2 DAYS 1, 1 DAYS 2-5 Metoprolol Tartrate 25 MG OR TABS 02/26/2013 - 05/20/2014 Pr ovider: Yaritza Morales MD Diagnosis: Essential (primary) hypertension take 1 tablet by mouth twice a day Mens Multivitamin Plus OR TABS 02/26/2013 - 09/06/2014 Provi shanel: Diagnosis: Metoprolol Tartrate 25 MG OR TABS 07/03/2012 - 02/26/2013 Pr ovider: Delia Valencia Diagnosis: CORONARY ARTERY DISE ASE (CAD) ( I2510) take 1 tablet by mouth twice a day Doxycycline Hyclate 100 MG OR TABS 01/11/2012 - 02/26/2013 P rovider: Yaritza Morales MD Diagnosis: BRONCHITIS,ACUTE (J2 09) x 10 days Proventil HFA 108 (90 Base) MCG/ACT IN AERS 01/06/2012 - 02/2015 Provider: Yaritza Morales MD Diagnosis: BRONCHITIS,ACUTE (J2 09) Doxycycline Monohydrate 150 MG OR TABS 01/06/2012 - 01/11/20 12 Provider: Yaritza Morales MD Diagnosis: BRONCHITIS,ACUTE (J2 09) Simvastatin 40 MG OR TABS 01/06/2012 - 02/26/2013 Provider: Yaritza Morales MD Diagnosis: HYPERLIPIDEMIA NEC/N OS (E78.5) UPPED FROM 20MG QHS Plavix 75 MG OR TABS 12/20/2011 - 05/20/2014 Provider: Diagnosis: daily Simvastatin 20 MG OR TABS 12/20/2011 - 01/06/2012 Provider: Delia Valencia Diagnosis: CORONARY ARTERY DISE ASE (CAD) ( I2510) Metoprolol Tartrate 25 MG OR TABS 12/20/2011 - 07/03/2012 Pr ovider: Delia Valencia Diagnosis: CORONARY ARTERY DISE ASE (CAD) ( I2510) bid Simvastatin 20 MG OR TABS 11/25/2011 - 12/20/2011 Provider: Yaritza Morales MD Diagnosis: CORONARY ARTERY DISE ASE (CAD) ( I2510) Metoprolol Tartrate 25 MG OR TABS 11/25/2011 - 12/20/2011 Pr ovider: Yaritza Morales MD Diagnosis: CORONARY ARTERY DISE ASE (CAD) ( I2510) bid Simvastatin 20 MG OR TABS 08/30/2011 - 11/25/2011 Provider: Yaritza Morales MD Diagnosis: CORONARY ARTERY DISE ASE (CAD) ( I2510) Effient 10 MG OR TABS 08/30/2011 - 12/20/2011 Provider: Diagnosis: started at [facility] Nitroglycerin 0.4 MG SL SUBL 08/30/2011 - 09/06/2014 Provide r: Diagnosis: q 5 min if needed Lovaza 1 GM OR CAPS 08/30/2011 - 05/20/2014 Provider: Diagnosis: started at [facility] Metoprolol Tartrate 25 MG OR TABS 08/30/2011 - 11/25/2011 Pr ovider: Yaritza Morales MD Diagnosis: CORONARY ARTERY DISE ASE (CAD) ( I2510) rx given at [facility]. 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) 1/2 PO PRN Lisinopril 5 MG OR TABS 12/23/2010 - 08/30/2011 Provider: Yaritza Morales MD Diagnosis: CORONARY ARTERY DISE ASE (CAD) ( I2510) Levitra 10 MG OR TABS 10/20/2010 - 12/23/2010 Provider: Delia Valencia Diagnosis: IMPOTENCE, 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) 1/2 PO PRN Crestor 20 MG OR TABS 12/24/2009 - 08/30/2011 Provider: Yaritza Morales MD Diagnosis: CORONARY ARTERY DISE ASE (CAD) ( I2510) Plavix 75 MG OR TABS 12/24/2009 - 08/30/2011 Provider: Yaritza Morales MD Diagnosis: ANGINA PECTORIS NEC/ NOS (I209) qd TRILIPIX 135 MG OR CAPS 12/24/2009 - 08/30/2011 Provider: Yaritza Morales MD Diagnosis: HYPERLIPIDEMIA NEC/N OS (E78.5) Levitra 10 MG OR TABS 12/24/2009 - 10/20/2010 Provider: Yaritza Morales MD Diagnosis: IMPOTENCE, 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) 1/2 PO PRN Metoprolol Tartrate 25 MG OR TABS 12/24/2009 - 08/30/2011 Pr ovider: Yaritza Morales MD Diagnosis: CORONARY ARTERY DISE ASE (CAD) ( I2510) Ambien 5 MG OR TABS 12/24/2009 - 08/30/2011 Provider: Yaritza Morales MD Diagnosis: PERSISTENT INSOMNIA (F5101) take 1 tab po qhs prn MDD 1 (clarified to [facility] Ambien 5 MG OR TABS 10/07/2009 - 10/07/2009 Provider: Yaritza Morales MD Diagnosis: PERSISTENT INSOMNIA (F5101) Levitra 10 MG OR TABS 10/07/2009 - 12/24/2009 Provider: Yaritza Morales MD Diagnosis: IMPOTENCE, 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) 1/2 PO PRN Plavix 75 MG OR TABS 10/07/2009 - 12/24/2009 Provider: Yaritza Morales MD Diagnosis: ANGINA PECTORIS NEC/ NOS (I209) qd Ramipril 5 MG OR CAPS 10/07/2009 - 08/30/2011 Provider: Yaritza Morales MD Diagnosis: CORONARY ARTERY DISE ASE (CAD) ( I2510) Ramipril 5 MG OR CAPS 10/07/2009 - 10/07/2009 Provider: Diagnosis: CORONARY ARTERY DISE ASE (CAD) ( I2510) Ambien 5 MG OR TABS 10/07/2009 - 12/24/2009 Provider: Yaritza Morales MD Diagnosis: PERSISTENT INSOMNIA (F5101) take 1 tab po qhs prn MDD 1 (clarified to [facility] Levitra 5 MG OR TABS 06/23/2009 - 12/24/2009 Provider: Yaritza Morales MD Diagnosis: 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) Levitra 5 MG OR TABS 06/19/2009 - 06/19/2009 Provider: Yaritza Morales MD Diagnosis: 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) Plavix 75 MG OR TABS 06/19/2009 - 10/07/2009 Provider: Yaritza Morales MD Diagnosis: ANGINA PECTORIS NEC/ NOS (I209) qd Levitra 5 MG OR TABS 05/02/2009 - 06/19/2009 Provider: Aury Barragan RPA-C Diagnosis: 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) Levitra 5 MG OR TABS 04/02/2009 - 05/02/2009 Provider: Yaritza Morales MD Diagnosis: 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) TRILIPIX 135 MG OR CAPS 04/02/2009 - 12/24/2009 Provider: Yaritza Morales MD Diagnosis: HYPERLIPIDEMIA NEC/N OS (E78.5) Ambien 10 MG OR TABS 04/02/2009 - 06/19/2009 Provider: Yaritza Morales MD Diagnosis: PERSISTENT INSOMNIA (F5101) Take as needed Plavix 75 MG OR TABS 04/02/2009 - 06/19/2009 Provider: Yaritza Morales MD Diagnosis: ANGINA PECTORIS NEC/ NOS (I209) qd Metoprolol Tartrate 25 MG OR TABS 12/31/2008 - 12/24/2009 Pr ovider: Diagnosis: CORONARY ARTERY DISE ASE (CAD) ( I2510) 1/2 PO BID Ambien 10 MG OR TABS 12/31/2008 - 04/02/2009 Provider: Yaritza Morales MD Diagnosis: PERSISTENT INSOMNIA (F5101) Take as needed Plavix 75 MG OR TABS 12/31/2008 - 04/02/2009 Provider: Yaritza Morales MD Diagnosis: ANGINA PECTORIS NEC/ NOS (I209) qd TRILIPIX 135 MG OR CAPS 11/26/2008 - 04/02/2009 Provider: Yaritza Morales MD Diagnosis: HYPERLIPIDEMIA NEC/N OS (E78.5) Ambien 10 MG OR TABS 11/22/2008 - 12/31/2008 Provider: Reid Raymond MD Diagnosis: PERSISTENT INSOMNIA (F5101) Take as needed upon retiring Temovate 0.05% EX CREA 10/01/2008 - 12/31/2008 Provider: Yaritza Morales MD Diagnosis: DERMATITIS NOS (L2 59) APPLY TOPICALLY NO > 14 DAYS QD TO BID Lipitor 40 MG OR TABS 10/01/2008 - 10/01/2008 Provider: Yaritza Morales MD Diagnosis: HYPERLIPIDEMIA NEC/N OS (E78.5) qd Crestor 20 MG OR TABS 10/01/2008 - 12/24/2009 Provider: Diagnosis: CORONARY ARTERY DISE ASE (CAD) ( I2510) Mens Multivitamin Plus OR TABS 10/01/2008 - 02/26/2013 Provi shanel: Diagnosis: Ramipril 5 MG OR CAPS 10/01/2008 - 10/07/2009 Provider: Diagnosis: CORONARY ARTERY DISE ASE (CAD) ( I2510) Lopressor 50 MG OR TABS 08/12/2008 - 06/19/2009 Provider: Diagnosis: 1/2tab po bid Plavix 75 MG OR TABS 08/12/2008 - 12/31/2008 Provider: Aury GRIJALVA Diagnosis: ANGINA PECTORIS NEC/ NOS (I209) qd Lipitor 40 MG OR TABS 07/18/2008 - 10/01/2008 Provider: Yaritza Morales MD Diagnosis: HYPERLIPIDEMIA NEC/N OS (E78.5) qd Plavix 75 MG OR TABS 02/20/2008 - 08/12/2008 Provider: Aury A Laurel RPA-C Diagnosis: ANGINA PECTORIS NEC/ NOS (I209) qd Zithromax Z-Mark 250 MG OR TABS 12/15/2007 - 02/20/2008 Provi shanel: Reid Raymond MD Diagnosis: Ramipril 5 MG OR CAPS 12/15/2007 - 11/25/2008 Provider: Diagnosis: Chantix Continuing Month Amrk 1 MG OR TABS 09/15/2007 - 06/07 Provider: Aury Barragan RPA-C Diagnosis: as directed Chantix Starting Month Mark 0.5 MG X 11 & 1 MG X 42 OR MISC 07/10/2007 - 02/20/2008 Provider: Yaritza Morales MD Diagnosis: TOBACCO USE (F17. 200) Toprol XL 25 MG OR TB24 07/10/2007 - 12/15/2007 Provider: Yaritza Morales MD Diagnosis: ANGINA PECTORIS NEC/ NOS (I209) 1/2 qd Plavix 75 MG OR TABS 07/10/2007 - 02/20/2008 Provider: Yaritza Morales MD Diagnosis: ANGINA PECTORIS NEC/ NOS (I209) qd Lipitor 20 MG OR TABS 07/10/2007 - 02/20/2008 Provider: Yaritza Morales MD Diagnosis: qhs Aspirin 325 MG OR TABS 07/10/2007 - 08/30/2011 Provider: Wes Quesada Diagnosis: Chantix Starting Month Mark 0.5 MG X 11 & 1 MG X 42 OR MISC 04/29/2006 - 02/20/2008 Provider: Rodolfo Pruitt RPA-C Diagnosis: TOBACCO USE (F17. 200) Biaxin 500 MG OR TABS 02/11/2006 - 04/21/2006 Provider: Aury Barragan RPA-C Diagnosis: BRONCHITIS,ACUTE (J2 09) 1 po bid Lidoderm 5% EX PTCH 12/24/2005 - 02/20/2008 Provider: Yaritza Morales MD Diagnosis: CERVICALGIA (M542 ) Topamax 50 MG OR TABS 12/24/2005 - 02/11/2006 Provider: Yaritza Morales MD Diagnosis: [facility] MIGRNE WO NTRC MGRN ([id number]) 2 Relpax 40 MG OR TABS 12/07/2005 - 12/24/2005 Provider: Yaritza Morales MD Diagnosis: [facility] MIGRNE WO [facility] MGRN ([id number]) 1/2 PO STAT, REPEAT IN 2HRS MAX 40MG/DAY Toprol XL 50 MG OR TB24 12/07/2005 - 02/11/2006 Provider: Yaritza Morales MD Diagnosis: [facility] RACHELL WO [facility] MGRN ([id number]) 1 Zantac 150 MG OR TABS 06/11/2005 - 12/07/2005 Provider: Laurie Novak Diagnosis: GERD Spiriva HandiHaler 18 MCG IN CAPS 06/11/2005 - 12/07/2005 Pr ovider: Laurie Novak Diagnosis: COPD (J449) 1 puff qd Nystatin 211882 UNIT/ML MT SUSP 06/04/2005 - 06/11/2005 Prov ider: Laurie Novak Diagnosis: THRUSH (B370) 5 ml four times a day swish and swallow x 5 days Nebulizer CORBIN 05/25/2005 - 12/07/2005 Provider: Laurie Novak Diagnosis: PNEUMOCOCCAL PNEUMON IA q6 hours prn Proventil (2.5 MG/3ML) 0.083% IN NEBU 05/25/2005 - 6 Provider: Laurie Novak Diagnosis: COPD (J449) q6 hours Levaquin 500 MG OR TABS 05/25/2005 - 06/04/2005 Provider: Laurie Novak Diagnosis: COPD (J449) predniSONE 10 MG OR TABS 05/25/2005 - 12/07/2005 Provider: Laurie Novak Diagnosis: COPD (J449) as directed starting at 60mgs qd x3days decreasing by 5 mgs qd Zantac 150 MG OR TABS 05/25/2005 - 06/11/2005 Provider: Laurie Novak Diagnosis: GERD Medications Administered Includes: Administered Medications in patient's chartNo Administered Medications Recorded Vital Signs Includes: Vital Signs from 12/17/2019 through 12/16/2020 Vital Name 12/16/2020 01:15P 11/11/2020 11:02A 07/15/2020 09:26A 07/08/2020 09:10A 04/08/2020 09:58A Blood Pressure Sitting L 124/68 124/80 124/68 124/76 BP Cuff Size Regular Regular Large Regular Regular Pulse Rate-Sitting (bpm) 82 76 68 68 70 Respiration Rate (breaths/min) 24 24 20 24 24 Temp-Tympanic (F) 97.8 97.6 97.7 98.7 Height (in) 65 65 65 65 65 Weight (lb) 179 182 191 194 195 Body Mass Index (kg/m2) 29.8 30.3 31.8 32.3 3 2.4 Body Surface Area (m2) 1.89 1.90 1.94 1.95 1. 96 Oxygen Saturation (%) 98 96 97 97 98 Flow Rate (l/min) (None (Room Air)) (None (Room Air)) ( None (Room Air)) (None (Room Air)) FiO2 (%) 21 21 21 21 Blood Pressure Sitting R 128/72 Temp-Temporal 97.6 Vital Name 01/08/2020 08:26A BP Cuff Size Regular Pulse Rate-Sitting (bpm) 65 Respiration Rate (breaths/min) 24 Height (in) 65 Weight (lb) 193 Body Mass Index (kg/m2) 32.1 Body Surface Area (m2) 1.95 Oxygen Saturation (%) 98 Flow Rate (l/min) (None (Room Air)) FiO2 (%) 21 Blood Pressure Sitting R 122/68 Temp-Temporal 98 Results Includes: Results from 12/17/2019 through 12/16/2020 GLUCOSE (POSTPRANDIAL) [facility] Ordered by Yaritza Morales MD on [address] [place] [address], [facility] Collected: 11/11/2020 Reported: 11/11/2020 11:41 tel :[phone] Glucose 79 N (Normal) Reviewed by Yaritza Morales MD on 2020; All test results are final unless otherwise noted. HbA1C [facility] Ordered by Yaritza Morales MD on [address] [place] [address], [id number] Collected: 11/11/2020 Reported: 11/11/2020 11:41 tel :[phone] HbA1C 6.7 (<6.0) A (Abnormal) Reviewed by Yaritza Morales MD on 2020; All test results are final unless otherwise noted. CA19-9 TUMOR MARKER,[facility] Ordered by Yaritza Morales MD on 07/08/[address] [place] [address], [id number] Collected: 07/08/2020 Reported: 07/10/2020 14:06 tel :[phone] CA19-9 TUMOR MARKER,CARBOHYDRA 13.9 U/ML (<35.0) N (Normal) Note: THE CA 19-9 ASSAY IS PERFORMED ON THE FlattrAUR BY CHEMILUMINESCENCE AND SHOULD NOT BE COMPARED INTERCHANGEABLY WITH OTHER METHODS. IT SHOULD NOT BE USED ALONE A SCREENING TEST OR DIAGNOSIS FOR THE PRESENCE OR ABSENCE OF MALIGNANT DISEASE. PREDICTIONS OF DISEASE RECURRENCE SHOULD NOT BE BASED SOLELY ON VALUES OBTAINED FROM SERIAL PATIENT SERUM VALUES. Reviewed by Yaritza Morales MD on 2020; All test results are final unless otherwise noted. Reported Physicians [facility] Ordered by Yaritza Morales MD on 07/08/[address] [place] [address], [id number] Collected: 07/08/2020 Reported: 07/10/2020 14:06 tel :[phone] Reported Physicians See Note None Note: Reported Physicians:Ordering: Yaritza Armando AAttending: Yaritza MoralesCopsimran To: Yaritza Morales Reviewed by Yaritza Morales MD on 2020; All test results are final unless otherwise noted. COMPREHENSIVE METABOLIC PROFIL [facility] Ordered by Yaritza Morales MD on 07/08/[address] [place] [address], [id number] Collected: 07/08/2020 Reported: 07/10/2020 14:06 tel :[phone] GLUCOSE, FASTING 110 MG/DL (70-100) H (High) BLOOD UREA NITROGEN 12 MG/DL (7-18) N (Normal) CREATININE FOR GFR 0.78 MG/DL (0.70-1.30) N (Normal) GLOMERULAR FILTRATION RATE > 60.0 (>56) N (Normal) Note: Units are mL/min/1.73 m2 Chroni c Kidney Disease Staging per NKF: Stage I & II GFR >=60 Normal to Mildly Decreased Stage III GFR 30- 59 Moderately Decreased Stage IV GFR 15-29 Severely Decreased Stage V GFR <15 Very Little GFR Left ESRD GFR <15 on KNOT BUMPER SODIUM LEVEL 136 MEQ/L (136-145) N (Normal) POTASSIUM SERUM 4.3 MEQ/L (3.5-5.1) N (Normal) CHLORIDE LEVEL 104 MEQ/L (98-107) N (Normal) CARBON DIOXIDE LEVEL 25 MEQ/L (21-32) N (Normal) ANION GAP 7 MEQ/L (8-16) L (Low) CALCIUM LEVEL 9.6 MG/DL (8.5-10.1) N (Normal) AST/SGOT 14 U/L (7-37) N (Normal) ALT/SGPT 39 U/L (12-78) N (Normal) ALKALINE PHOSPHATASE 116 U/L (45-117) N (Normal) BILIRUBIN,TOTAL 0.3 MG/DL (0.2-1.0) N (Normal) TOTAL PROTEIN 6.7 GM/DL (6.4-8.2) N (Normal) ALBUMIN 4.0 GM/DL (3.2-5.2) N (Normal) ALBUMIN/GLOBULIN RATIO 1.5 N (Normal) Reviewed by Yaritza Morales MD on 2020; All test results are final unless otherwise noted. Reported Physicians [facility] Ordered by Yaritza Morales MD on 07/08/[address] [place] [address], [id number] Collected: 07/08/2020 Reported: 07/10/2020 14:06 tel :[phone] Reported Physicians See Note None Note: Reported Physicians:Ordering: Yaritza Armando AAttending: Devi Morales To: Yaritza Morales Reviewed by Yaritza Morales MD on 2020; All test results are final unless otherwise noted. CBC WITH AUTO DIFF [facility] Ordered by Yaritza Morales MD on 07/08/[address] [place] [address], [address] Collected: 07/08/2020 Reported: 07/08/2020 18:08 tel :[phone] WHITE BLOOD COUNT 10.8 3/uL (4.0-10.0) H (High) RED BLOOD COUNT 4.90 6/uL (4.30-6.10) N (Normal) HEMOGLOBIN 15.1 g/dl (13.5-17.5) N (Normal) HEMATOCRIT 44.4 % (42.0-52.0) N (Normal) MEAN CORPUSCULAR VOLUME 90.6 fl (80.0-96.0) N (Normal) MEAN CORPUSCULAR HEMOGLOBIN 30.8 pg (27.0-33.0) N (Normal) MEAN CORPUSCULAR HGB CONC 34.0 g/dl (32.0-36.5) N (Normal) RED CELL DISTRIBUTION WIDTH 12.3 % (11.5-14.5) N (Normal) PLATELET COUNT, AUTOMATED 357 3/uL (150-450) N (Normal) NEUTROPHILS % 54.5 % (36.0-66.0) N (Normal) LYMPH % 32.7 % (24.0-44.0) N (Normal) MONO % 8.3 % (2.0-8.0) H (High) EOS % 2.4 % (0.0-3.0) N (Normal) BASO % 0.7 % (0.0-1.0) N (Normal) IMMATURE GRANULOCYTE % 1.4 % (0-3.0) N (Normal) NUCLEATED RED BLOOD CELL % 0.0 % (0-0) N (Normal) NEUTROPHILS # 5.9 3/uL (1.5-8.5) N (Normal) LYMPH # 3.5 3/uL (1.5-5.0) N (Normal) MONO # 0.9 3/uL (0.0-0.8) H (High) EOS # 0.3 3/uL (0.0-0.5) N (Normal) BASO # 0.1 3/uL (0.0-0.2) N (Normal) Reviewed by Yaritza Morales MD on 2020; All test results are final unless otherwise noted. Reported Physicians [facility] Ordered by Yaritza Morales MD on 07/08/[address] [place] [address], [id number] Collected: 07/08/2020 Reported: 07/08/2020 18:08 tel : Reported Physicians See Note None Note: Reported Physicians:Ordering: Yaritza Armando AAttending: Yaritza MoralesCopsimran To: Yaritza Morales Reviewed by Yaritza Morales MD on 2020; All test results are final unless otherwise noted. C REACTIVE PROTEIN QUANTITATIV [facility] Ordered by Yaritza Morales MD on 07/08/[address] [place] [address], [address] Collected: 07/08/2020 Reported: 07/10/2020 14:06 tel :[phone] C REACTIVE PROTEIN QUANTITATIV 0.41 MG/DL (0.00-0.30) H (High) Reviewed by Yaritza Morales MD on 2020; All test results are final unless otherwise noted. Reported Physicians [facility] Ordered by Yaritza Morales MD on 07/08/[address] [place] [address], [id number] Collected: 07/08/2020 Reported: 07/10/2020 14:06 tel :[phone] Reported Physicians See Note None Note: Reported Physicians:Ordering: Yaritza Armando AAttending: Devi Morales To: Yaritza Morales Reviewed by Yaritza Morales MD on 2020; All test results are final unless otherwise noted. ERYTHROCYTE SEDIMENTATION RATE [facility] Or[facility] by Yaritza Morales MD on 07/08/[address] [place] [address], [id number] Collected: 07/08/2020 Reported: 07/08/2020 18:08 tel :[phone] ERYTHROCYTE SEDIMENTATION RATE 10 mm/hr (0-20) N (Normal) Reviewed by Yaritza Morales MD on 2020; All test results are final unless otherwise noted. Reported Physicians [facility] Ordered by Yaritza Morales MD on 07/08/[address] [place] [address], [id number] Collected: 07/08/2020 Reported: 07/08/2020 18:08 tel :[phone] Reported Physicians See Note None Note: Reported Physicians:Ordering: Yaritza Armando AAttending: Haylie Moralesy To: Yaritza Morales Reviewed by Yaritza Morales MD on 2020; All test results are final unless otherwise noted. [facility] Ordered by Yaritza Morales MD on 07/08/[address] [place] [address], [address] Collected: 07/08/2020 Reported: 07/10/2020 14:06 tel :[phone] LIPASE 874 U/L (73-393) H (High) Reviewed by Yaritza Morales MD on 2020; All test results are final unless otherwise noted. Reported Physicians [facility] Ordered by Yaritza Morales MD on 07/08/[address] [place] [address], [address] Collected: 07/08/2020 Reported: 07/10/2020 14:06 tel :[phone] Reported Physicians See Note None Note: Reported Physicians:Ordering: Yaritza Armando AAttending: Yaritza MoralesCopsimran To: Yaritza Morales Reviewed by Yaritza Morales MD on 2020; All test results are final unless otherwise noted. [facility] Ordered by Yaritza Morales MD on 07/08/[address] [place] [address], [id number] Collected: 07/08/2020 Reported: 07/10/2020 14:06 tel :[phone] AMYLASE 82 U/L (25-115) N (Normal) Reviewed by Yaritza Morales MD on 2020; All test results are final unless otherwise noted. Reported Physicians [facility] Ordered by Yaritza Morales MD on 07/08/[address] [place] [address], [address] Collected: 07/08/2020 Reported: 07/10/2020 14:06 tel :[phone] Reported Physicians See Note None Note: Reported Physicians:Ordering: Yaritza Armando AAttending: Yaritza MoralesCopsimran To: Yaritza Morales Reviewed by Yaritza Morales MD on 2020; All test results are final unless otherwise noted. CREATININE WITH GFR [facility] Ordered by Yaritza Morales MD on 07/04/[address] [place] [address], [id number] Collected: 07/04/2020 Reported: 07/04/2020 13:32 tel :[phone] CREATININE FOR GFR 0.78 MG/DL (0.70-1.30) N (Normal) GLOMERULAR FILTRATION RATE > 60.0 (>56) N (Normal) Note: Units are mL/min/1.73 m2 Chroni c Kidney Disease Staging per NKF: Stage I & II GFR >=60 Normal to Mildly Decreased Stage III GFR 30- 59 Moderately Decreased Stage IV GFR 15-29 Severely Decreased Stage V GFR <15 Very Little GFR Left ESRD GFR <15 on [employer] Reviewed by Yaritza Morales MD on 2020; All test results are final unless otherwise noted. Reported Physicians [facility] Ordered by Yaritza Morales MD on 07/04/[address] [place] [address], [id number] Collected: 07/04/2020 Reported: 07/04/2020 13:32 tel :[phone] Reported Physicians See Note None Note: Reported Physicians:Ordering: Swapnil sal [id number], Nadege AriasAttending: Andrea Medina To: Andrea Medina To: Yaritza Morales Reviewed by Yaritza Morales MD on 2020; All test results are final unless otherwise noted. BLOOD UREA NITROGEN [facility] Ordered by Yaritza Morales MD on 07/04/[address] [place] [address], [address] Collected: 07/04/2020 Reported: 07/04/2020 13:32 tel :[phone] BLOOD UREA NITROGEN 12 MG/DL (7-18) N (Normal) Reviewed by Yaritza Morales MD on 2020; All test results are final unless otherwise noted. Reported Physicians [facility] Ordered by Yaritza Morales MD on 07/04/[address] [place] [address], [address] Collected: 07/04/2020 Reported: 07/04/2020 13:32 tel :[phone] Reported Physicians See Note None Note: Reported Physicians:Ordering: Swapnil sal [id number], Nadege AriasAttending: Andrea Medina To: Andrea Medina To: Yaritza Morales Reviewed by Yaritza Morales MD on 2020; All test results are final unless otherwise noted. GLUCOSE (POSTPRANDIAL) [facility] Ordered by Yaritza Morales MD on [address] [place] [address], [id number] Collected: 04/08/2020 Reported: 04/08/2020 10:47 tel :[phone] Glucose 154 N (Normal) Reviewed on 04/25/2020; All test result s are final unless otherwise noted. HbA1C [facility] Ordered by Yaritza Morales MD on [address] [place] [address], [id number] Collected: 04/08/2020 Reported: 04/08/2020 10:47 tel :[phone] HbA1C 6.9 (<6.0) A (Abnormal) Note: f Reviewed on 04/25/2020; All test result s are final unless otherwise noted. SARS COVID-19 AMPLIFICATION [facility] Ordered by Yaritza Morales MD on 02/11/[address] [place] [address], [address] Collected: 02/11/2020 Reported: 02/11/2020 15:52 tel :[phone] SARS COVID-19 AMPLIFICATION NEGATIVE (NEGATIVE) N (Normal) Note: A false negative result may occur if a specimen is improperly collected, transported or handled. False negative results may also occur if inadequate numbers of organisms are present in the specimen. As with any molecular test, mutations within the target regions of Xpert Xpress SARS-CoV-2 could affect primer and/or probe binding resulting in failure to detect the presence of virus. This test cannot rule out diseases caused by other bacterial or viral pathogens. DISCLAIMER: Testing was performed using the [employer] SARS-CoV-2 test. This test was developed and its performance characteristics determined by [employer]. This test has not been FDA cleared or approved. This test has been authorized by FDA under an Emergency Use Authorization (EUA). This test is only authorized for the duration of time the declaration that circumstances exist justifying the authorization of the emergency use of in vitro diagnostic tests for detection of SARS-CoV-2 virus and/or diagnosis of COVID-19 infection under section 564(b)(1) of the Act, 21 U.S.C. 360bbb-3(b)(1), unless the authorization is terminated or revoked sooner. Reviewed by Yaritza Morales MD on 2019; All test results are final unless otherwise noted. Reported Physicians [facility] Ordered by Yaritza Morales MD on 02/11/[address] [place] [address], [facility] Collected: 02/11/2020 Reported: 02/11/2020 15:52 tel :[phone] Reported Physicians See Note None Note: Reported Physicians:Ordering: Jaclyn Hernandez [id number] RaoAttending: Aparna Segovia To: Aparna Segovia To: Yaritza Morales Reviewed by Yaritza Morales MD on 2019; All test results are final unless otherwise noted. iSTAT TROPONIN [facility] Ordered by Yaritza Morales MD on 02/11/[address] [place] [address], [address] Collected: 02/11/2020 Reported: 02/11/2020 13:51 tel :[phone] iSTAT TROPONIN 0.01 NG/ML (0.00-0.08) N (Normal) Reviewed by Yaritza Morales MD on 2019; All test results are final unless otherwise noted. Reported Physicians [facility] Ordered by Yaritza Morales MD on 02/11/[address] [place] [address], [address] Collected: 02/11/2020 Reported: 02/11/2020 13:51 tel :[phone] Reported Physicians See Note None Note: Reported Physicians:Ordering: Jaclyn feng [id number] RaoAttending: Aparna Segovia To: Aparna Segovia ToYaritza Macedo Reviewed by Yaritza Morales MD on 2019; All test results are final unless otherwise noted. iSTAT TROPONIN [facility] Ordered by Yaritza Morales MD on 02/11/[address] [place] [address], [address] Collected: 02/11/2020 Reported: 02/11/2020 11:29 tel :[phone] iSTAT TROPONIN 0.00 NG/ML (0.00-0.08) N (Normal) Reviewed by Yaritza Morales MD on 2019; All test results are final unless otherwise noted. Reported Physicians [facility] Ordered by Yaritza Morales MD on 02/11/[address] [place] [address], [address] Collected: 02/11/2020 Reported: 02/11/2020 11:29 tel :[phone] Reported Physicians See Note None Note: Reported Physicians:Ordering: BARRETT Madrid [id number] To: Kurt TROTTER To: Yaritza Morales Reviewed by Yaritza Morales MD on 2019; All test results are final unless otherwise noted. LIVER PROFILE [facility] Ordered by Yaritza Morales MD on 02/11/[address] [place] [address], [address] Collected: 02/11/2020 Reported: 02/11/2020 12:48 tel :[phone] AST/SGOT 16 U/L (7-37) N (Normal) ALT/SGPT 35 U/L (12-78) N (Normal) ALKALINE PHOSPHATASE 122 U/L (45-117) H (High) BILIRUBIN,TOTAL 0.3 MG/DL (0.2-1.0) N (Normal) BILIRUBIN,DIRECT < 0.1 MG/DL (0.0-0.2) N (Normal) TOTAL PROTEIN 7.2 GM/DL (6.4-8.2) N (Normal) ALBUMIN 4.1 GM/DL (3.2-5.2) N (Normal) ALBUMIN/GLOBULIN RATIO 1.3 N (Normal) Reviewed by Yaritza Morales MD on 2019; All test results are final unless otherwise noted. Reported Physicians [facility] Ordered by Yaritza Morales MD on 02/11/[address] [place] [address], [address] Collected: 02/11/2020 Reported: 02/11/2020 12:48 tel :[phone] Reported Physicians See Note None Note: Reported Physicians:Ordering: BARRETT Madrid [id number], MIRTA BeaverAttending: Aparna Segovia To: Aparna Segovia To: Kurt TROTTER To: Yaritza Morales Reviewed by Yaritza Morales MD on 2019; All test results are final unless otherwise noted. BASIC METABOLIC PROFILE [facility] Ordered by Yaritza Morales MD on 02/11/[address] [place] [address], [address] Collected: 02/11/2020 Reported: 02/11/2020 12:48 tel :[phone] GLUCOSE, FASTING 121 MG/DL (70-100) H (High) BLOOD UREA NITROGEN 10 MG/DL (7-18) N (Normal) CREATININE FOR GFR 0.92 MG/DL (0.70-1.30) N (Normal) GLOMERULAR FILTRATION RATE > 60.0 (>56) N (Normal) Note: Units are mL/min/1.73 m2 Chroni c Kidney Disease Staging per NKF: Stage I & II GFR >=60 Normal to Mildly Decreased Stage III GFR 30- 59 Moderately Decreased Stage IV GFR 15-29 Severely Decreased Stage V GFR <15 Very Little GFR Left ESRD GFR <15 on KNOT BUMPER SODIUM LEVEL 138 MEQ/L (136-145) N (Normal) POTASSIUM SERUM 4.2 MEQ/L (3.5-5.1) N (Normal) CHLORIDE LEVEL 106 MEQ/L (98-107) N (Normal) CARBON DIOXIDE LEVEL 24 MEQ/L (21-32) N (Normal) ANION GAP 8 MEQ/L (8-16) N (Normal) CALCIUM LEVEL 9.5 MG/DL (8.5-10.1) N (Normal) Reviewed by Yaritza Morales MD on 2019; All test results are final unless otherwise noted. Reported Physicians [facility] Ordered by Yaritza Morales MD on 02/11/2020 [address] [place], [address] Collected: 02/11/2020 Reported: 02/11/2020 12:48 tel :[phone] Reported Physicians See Note None Note: Reported Physicians:Ordering: BARRETT Madrid [id number], MIRTA BeaverAttending: Aparna Segovia To: Aparna Segovia To: Kurt TROTTER To: Yaritza Morales Reviewed by Yaritza Morales MD on 2019; All test results are final unless otherwise noted. CBC WITH DIFFERENTIAL [facility] Ordered by Yaritza Morales MD on 02/11/2020 [address] [place], [address] Collected: 02/11/2020 Reported: 02/11/2020 11:41 tel :[phone] WHITE BLOOD COUNT 15.6 3/uL (4.0-10.0) H (High) RED BLOOD COUNT 5.19 6/uL (4.30-6.10) N (Normal) HEMOGLOBIN 15.9 g/dl (13.5-17.5) N (Normal) HEMATOCRIT 45.7 % (42.0-52.0) N (Normal) MEAN CORPUSCULAR VOLUME 88.1 fl (80.0-96.0) N (Normal) MEAN CORPUSCULAR HEMOGLOBIN 30.6 pg (27.0-33.0) N (Normal) MEAN CORPUSCULAR HGB CONC 34.8 g/dl (32.0-36.5) N (Normal) RED CELL DISTRIBUTION WIDTH 12.1 % (11.5-14.5) N (Normal) PLATELET COUNT, AUTOMATED 305 3/uL (150-450) N (Normal) NEUTROPHILS % 70.8 % (36.0-66.0) H (High) LYMPH % 20.8 % (24.0-44.0) L (Low) MONO % 6.2 % (0.0-5.0) H (High) EOS % 1.3 % (0.0-3.0) N (Normal) BASO % 0.4 % (0.0-1.0) N (Normal) IMMATURE GRANULOCYTE % 0.5 % (0-3.0) N (Normal) NUCLEATED RED BLOOD CELL % 0.0 % (0-0) N (Normal) NEUTROPHILS # 11.1 3/uL (1.5-8.5) H (High) LYMPH # 3.3 3/uL (1.5-5.0) N (Normal) MONO # 1.0 3/uL (0.0-0.8) H (High) EOS # 0.2 3/uL (0.0-0.5) N (Normal) BASO # 0.1 3/uL (0.0-0.2) N (Normal) Reviewed by Yaritza Morales MD on 2019; All test results are final unless otherwise noted. Reported Physicians [facility] Ordered by Yaritza Morales MD on 02/11/[address] [place] [address], [address] Collected: 02/11/2020 Reported: 02/11/2020 11:41 tel :[phone] Reported Physicians See Note None Note: Reported Physicians:Ordering: BARRETT Bernabe [id number] RiberaCopy To: Kurt TROTTER To: Yaritza Morales Reviewed by Yaritza Morales MD on 2019; All test results are final unless otherwise noted. LIPASE [facility] Ordered by Yaritza Morales MD on 02/11/[address] [place] [address], [address] Collected: 02/11/2020 Reported: 02/11/2020 12:48 tel :[phone] LIPASE 200 U/L (73-393) N (Normal) Reviewed by Yaritza Morales MD on 2019; All test results are final unless otherwise noted. Reported Physicians [facility] Ordered by Yaritza Morales MD on 02/11/[address] [place] [address], [address] Collected: 02/11/2020 Reported: 02/11/2020 12:48 tel :[phone] Reported Physicians See Note None Note: Reported Physicians:Ordering: BARRETT Madrid [id number] RiberaAttending: Aparna Segovia To: Aparna Segovia To: Kurt TROTTER To: Yaritza Morales Reviewed by Yaritza Morales MD on 2019; All test results are final unless otherwise noted. HbA1C [facility] Ordered by Yaritza Morales MD on [address] [place] [address], [facility] Collected: Reported: 01/08/2020 08:47 tel:[phone] HbA1C 6.8 (<6.0) A (Abnormal) Reviewed by Yaritza Morales MD on 2019; All test results are final unless otherwise noted. GLUCOSE (POSTPRANDIAL) [facility] Ordered by Yaritza Morales MD on [address] [place] [address], [facility] Collected: Reported: 01/08/2020 08:47 tel:[phone] Glucose 230 A (Abnormal) Reviewed by Yaritza Morales MD on 2019; All test results are final unless otherwise noted. URINALYSIS [facility] Ordered by Yaritza Morales MD on [address] [place] [address], [facility] Collected: Reported: 07/08/2020 11:05 tel:[phone] BILIRUBIN (POSITIVE/NEGATIVE) N (Normal) BLOOD (POSITIVE/NEGATIVE) N (Normal) COLOR lite yellow (YELLOW) N (Normal) GLUCOSE >=1000 mg/dl (POSITIVE/NEGATIVE) A (Abnormal) KETONES (POSITIVE/NEGATIVE) N (Normal) LEUKOCYTES (POSITIVE/NEGATIVE) N (Normal) NITRATES (POSITIVE/NEGATIVE) N (Normal) pH 5.0 (<7.0) N (Normal) PROTEIN (POSITIVE/NEGATIVE) N (Normal) SPECIFIC GRAVITY 1.020 (< 1.3) N (Normal) UROBILIGIN 0.2 (POSITIVE/NEGATIVE) N (Normal) Reviewed by Yaritza Morales MD on 2020; All test results are final unless otherwise noted. HbA1C [facility] Ordered by Yaritza Morales MD on [address] [place] [address], [facility] Collected: Reported: 07/08/2020 10:20 tel:[phone] HbA1C 7.1 (<6.0) A (Abnormal) Reviewed by Yaritza Morales MD on 2020; All test results are final unless otherwise noted. GLUCOSE (POSTPRANDIAL) [facility] Ordered by Yaritza Morales MD on [address] [place], [address] Collected: Reported: 07/08/2020 10:20 tel:[phone] Glucose 143 A (Abnormal) Reviewed by Yaritza Morales MD on 2020; All test results are final unless otherwise noted. History of Present Illness History of Present Illness not supported for this document typeNo History of Present Illness Recorded Social History Description Last Updated Social history unchanged 12/16/2020 Life circumstance event LOST A BABY JUNE 2020 AT 11 WEEKS 11/11/2020 Alcohol use RARE 11/11/2020 Caffeine use 11/11/2020 Current smoker 6 CIGS/DAY 11/11/2020 Daily coffee consumption was three cups per day 2020 Good exercise habits WALKS 5 MILES QD AT WORK 5 DAYS/ WEEK 11/11/2020 Not using drugs 11/11/2020 Wishing to stop smoking USES PATCH 14 M CG QD FROM 7 AFTER OUT OF HOSP JUNE 2020 11/11/2020 No beer consumption 07/08/2020 No wine consumption 07/08/[address] more than HRS 01/08/2020 Able to sit HRS 01/08/2020 Able to walk MILES 01/08/2020 Current some day smoker WOULD LIKE TO Q UIT "IF I HAVE INCENTIVE". TRYING FOR #2 01/08/2020 No severe visual impairment CHECKED MAY 2019 "I NEE D CHEATERS" 01/08/2020 WORKS AT [employer] 55 HRS/WEEK 10/09/2019 Daily cola consumption was four cans per day DIET SOD A. OCCA CHOCOLATE 2/MO 04/10/2019 Hard liquor consumption VODKA 1/-2 X A MONTH THIS ELISABET E OF YEAR. MORE SUMMER 04/10/2019 No tea consumption 04/10/2019 Able to lift more than UP TO 50 # 04/04/2018 No severe hearing impairment 04/04/2018 No severe speech impairment 04/04/2018 Self-reliant in usual daily activities 04/04/2018 Exercising erratically 09/06/2017 No chocolate consumption 07/10/2015 Smoking status : Current everyday smoker 08/19/2011 No physical disability 10/01/2008 Normal activities of daily living 10/01/2008 Cigarette smoking 08/12/2008 Tobacco use less than 1ppd 08/12/2008 A social drinker 07/07/2007 Procedures and Surgical History Includes: Procedures from 12/17/2019 through 12/16/2020 Procedures Code Diagnosis Performing Provider Service Location Service Date ELECTROCARDIOGRAM, COMPLETE (EKG) 37498 Chest pain, un specified Antionette Reyes [employer] 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 12/16/2020 BLOOD DRAW 12532 HCC-Type 2 diabetes mellitus wit hout complications Yaritza Morales MD [facility], 11/11/2020 GLUCOSE (waived laboratory) 46147 HCC-Type 2 d iabetes mellitus without complications Yaritza Morales MD [facility], 1 HbA1c (Glycosolated) (waived laboratory) 77821 HCC-Type 2 diabetes mellitus without complications Yaritza Morales MD [facility], 11/11/2020 BLOOD DRAW 13030 HCC-Type 2 diabetes mellitus wit hout complications Yaritza Morales MD [facility], 07/08/2020 GLUCOSE (waived laboratory) 41728 HCC-Type 2 d iabetes mellitus without complications Yaritza Morales MD [facility], 1 HbA1c (Glycosolated) (waived laboratory) 61876 HCC-Type 2 diabetes mellitus without complications Yaritza Morales MD [facility], 07/08/2020 FECAL BLOOD ASSAY TEST (waived laboratory) 46636 Dvtrcli of lg int w/o perforation or abscess w/o bleeding Yaritza Morales MD [facility], 07/08/2020 ELECTROCARDIOGRAM, COMPLETE (EKG) 50000 HCC-At [facility] heart disease of [place] coronary artery w/o ang p Yaritza Morales MD [facility], 07/08/2020 BLOOD DRAW 80752 HCC-Type 2 diabetes mellitus wit hout complications Yaritza Morales MD [facility] 04/08/2020 GLUCOSE (waived laboratory) 70025 HCC-Type 2 d iabetes mellitus without complications Yaritza Morales MD [facility] 1 HbA1c (Glycosolated) (waived laboratory) 10679 HCC-Type 2 diabetes mellitus without complications Yaritza Morales MD [facility], 04/08/2020 IMMUNIZATION ADMIN (>18) 61441 Encounter for immunization Joana Morales MD [facility], 01/08/2020 FLUARIX, QUADRIVALENT 61099 Encounter for immunization Dana Morales MD [facility], 01/08/2020 FECAL BLOOD ASSAY TEST (waived laboratory) 07291 Polyp of colon Yaritza Morales MD [facility], 01/08/2020 HbA1c (Glycosolated) (waived laboratory) 74404 HCC-Type 2 diabetes mellitus with other specified complicati Yaritza Morales MD [facility], 01/08/2020 GLUCOSE (waived laboratory) 52097 HCC-Type 2 d iabetes mellitus with other specified complicati Yaritza Morales MD [facility] 01/08/2020 BLOOD DRAW 95516 HCC-Type 2 diabetes mellitus wit h other specified complicati Yaritza Morales MD [facility], 01/08/2020 Medical History Includes: Medical History in patient's chart Description Last Updated History of coronary artery disease 11/11/2020 History of essential hypertension 11/11/2020 History of hyperlipidemia 11/11/2020 Home blood sugar check performed 10/09/2019 History of type 2 diabetes mellitus 10/09/2019 No recent change in medical history 06/21/2017 migraine,LAST OCCURRED JULY 2011,TAKES "A TON OF TYLENOL", now states has stress related lofton, lofton not as often.USED TO TAKE IMITREX W/C MADE HIM FEEL FUNNY, MORE FREQ BEFORE 1ST STENT( 43YO), HAS HAD 6 OVER 3 YRS ~pneumonia 2X HOSP CHILD, [place] 2004 ~appendectomy age 17 ~STENT RCA, LAD 2 STENTS. LAST INSERTION 08/23/2011. TOTAL OF 3 STENTS ~CARDIOLOGY CONSULT 01/2013 ~CARDIAC CATH 07/2011 ~INSOMNIA,RESOLVED W/O MEDS ~ALLERGY:IODINE (SWELLS, SKIN CRACKS) ~TET SHOT 2002 ~WEARS SEAT BELT ON OFF ~FLU NUTD 12/01/2016 Non-compliant with medications 05/20/2014 No history of renal failure 01/06/2012 No history of atherosclerosis of the extremities 08/29 No history of congestive heart failure 08/30/2011 No history of prior myocardial infarction 08/30/2011 No history of thyroid disorder 08/30/2011 No history of condyloma acuminatum 10/01/2008 No history of HIV infection 10/01/2008 No history of prostatitis 10/01/2008 Assessment of a chest x-ray was abnormal 08/12/2008 Family History Includes: Family History in patient's chart Description Last Updated father (D) 73 YO w/ 1st GA age 64, AL ZHEIMER'S,IN [facility] SINCE 04/2011,T2DM DX'ED @ 65YO ~MA 77 YO SEPTIC SHOCK, COLON CA, C DIF AND DID NOT RECOVER,T2DM, HTN ~SIS 55 YO WELL ~BRO 51 YO T2DM ON METFORMIN ~PAT MA (D) 77YO ALZHEIMER'S ~PAT FA (D) 56YO SUDDEN ~MAT MA (D) 89YO BRAIN TUMOR(BENIGN), HTN ~MAT FA (D) 60YO GA, 1ST GA 47YO, T2DM,ALCOHOLIC ~ ~DAUGHTER 27 MOS WELL 01/08/2020 Family history of acute myocardial infar ction prior to age 50 PAT FA 1ST GA 51YO, 56YO 01/06/2012 Family history of type II diabetes mellitus 12/24/2009 Early deaths 10/01/2008 Family history of hypertension 10/01/2008 Family history unchanged 10/01/2008 Family in good health 10/01/2008 Heart disease 10/01/2008 No cancer 10/01/2008 No family history of depression 10/01/2008 Review of Systems Review of Systems not supported for this document typeNo Review of Systems Recorded Mental Status Mental Status not supported for this document typeNo Mental Status Recorded Functional Status Functional Status not supported for this document typeNo Functional Status Recorded Physical Exam Physical Exam not supported for this document typeNo Physical Exam Recorded Immunizations Includes: Immunizations in patient's chart Vaccine Dose # Date Site Reaction(s) Status Source Influenza,NOS 1 01/08/2009 Complete (Reported) Pat ient Influenza,NOS 2 12/24/2009 Left Arm Complete (Admin istered) [facility] Influenza,NOS 3 12/23/2010 Left Arm Complete (Admin istered) [facility] Influenza,NOS 4 01/29/2014 Complete (Reported) Pat ient Influenza,NOS 5 01/08/2020 Right Arm Complete (Admin istered) [facility] Note: vaccination informatio n sheet given date 11-09-2018 PCV (Pneumovax 23) ages 2+ 1 05/20/2014 Co mplete (Refused) [facility] Td 1 Complete (Reported) Patient Allergies Includes: Active, inactive, and resolved Allergies Substance Type Reaction Onset Date - Time Resolved Date - Ti me Status SHELLFISH Allergy pt swells up/ throat 06/11/2005 - 12:00AM Active Nuts Allergy swells with peanuts 06/11/2005 - 12:00AM Active Encounters Includes: Encounters from 12/17/2019 through 12/16/2020 Encounter Provider Location Date Check-In Time Check-Out Time D iagnosis STANDARD OV [place] Bernardo Reyes [facility] 12/16/2020 1:13PM 11/11/2020 11:59PM Chest Pain, Gastroenteritis Viral STANDARD OV Yaritza Morales MD [facility] 10/26 11:02AM 11:53AM Organic Sleep Apnea Obstruct fredy Adult, Essential Hypertension Benign, Hyperlipidemia, Diabetes Mellitus Type 2 in Obese, Coronary Artery Disease RX UPDATE Yaritza Morales MD 10/27/2020 07/15/2020 9:51AM 11:59PM RX UPDATE [place] Bernardo Reyes [facility] 10/07/2020 07/15/2020 9:50AM 07/15/2020 11:59PM STANDARD OV [place] Bernardo Reyes [facility] 07/15/2020 9:21AM 10:12AM Jejunitis [Patient Encounter] Yaritza Morales MD 07/12/2020 07/09/19 11:06AM 07/08/2020 11:59PM STANDARD OV Yaritza Morales MD [facility] 021 9:07AM 10:16AM Coronary Artery Disease, Working Diagnos is of Abdominal Pain in the Left Lower Belly (Llq), Working Diagnosis of Abdominal Pain Feels Crampy / Colicky, Working Diagnosis of Abdominal Pain Sudden Onset, Working Diagnosis of Abdominal Pain Started / Intensified By, Working Diagnosis of Abdominal Pain Relieved By Sitting Forward, Working Diagnosis of Abdominal Pain Relieved By Bowel Movement, Working Diagnosis of Abdominal Pain Relieved By Passing Gas, Working Diagnosis of Abdominal Pain Decreasing in Frequency, Diverticulitis of Colon RX UPDATE Yaritza Morales MD 06/16/2020 04/08/2020 9:16AM 11:59PM STANDARD OV Yaritza Morales MD [facility] [place], 021 9:56AM 10:39AM Coronary Artery Disease, Nicotine Depend ence Uncomplicated, Essential Hypertension Benign, Hyperlipidemia, Diabetes Mellitus Type 2 in Obese ANNUAL PHYSICAL EXAM Yaritza Morales MD [facility], 01/08/2020 8:23AM 9:17AM Colon Polyps, Essent ial Hypertension Benign, Hyperlipidemia, Benign Prostatic Hypertrophy, Routine History & Physical Adult with Abnormal Findings Insurance Includes: Active Insurance Policies Plan Name Member ID Group # Subscriber Relationship Effective Da zofia 1 - [employer] Gold [id number] Hector olmos Advance Directives Includes: Current Advance DirectivesNo Advance Directives Recorded Health Concerns Includes: Active Health ConcernsNo Active Health Concerns Recorded Goals Includes: Active Goals quit smoking. had nst at [facility] 2016, good. exercise 30 mins a day 5 days a week. wants viagra but need to speak to [facility] 1st for clearance Added 12/01/2016 by Provider sperm count, testosterone level, fsh/lh Added 12/01/2016 by Provider advised colonoscopy at 51 yo Added 12/01/2016 by Provider you are a diabetic w/ a1c of 7%, goal <6 .5 %. simvastatin 20 mg a daylipid ck lft 1 mo. watch for muscle aches. januvia 100 mg a day to lower [id number] goal 80-100. 2 hrs after a meal no >140stop alcohol, limit to no >2 drinks a day as this worsens sugar and chol Added 12/01/2016 by Provider Interventions Includes: Interventions for active GoalsNo Interventions Recorded Evaluations & Outcomes Includes: Evaluations & Outcomes for active Goals januvia 100 mg qd 2 wks samples give. de clines altace for renal protection and bp control Added 12/01/2016 - In Progress Goal: you are a diabetic w/ a1c of 7%, goal <6.5 %. simvastatin 20 mg a daylipid ck lft 1 mo. watch for muscle aches. januvia 100 mg a day to lower [id number] goal 80-100. 2 hrs after a meal no >140stop alcohol, limit to no >2 drinks a day as this worsens sugar and chol
--- OUTSIDE RECORDS SUMMARY | 2021-02-07 13:10 | CCD ---
Full Chart - [facility] Created on: 11/11/2020 Hector Hansen External Reference #: [id number] : 1965 Sex: Male Author Author [facility] Organization 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 Name Role Phone Carmen MOJICA, Yaritza Salcido PP [phone] Eric SNOW, Antionette Bernardo Unavailable [phone] [...] Joana Morales MD Active Note: Unchanged - 76-78ML/W[place] N Hyperlipidemia 02/20/2008 - 12:00AM Aury Sanders PA-C Active Note: Unchanged Short Stature 07/10/2007 - 12:00AM Active Note: Unchanged Plan of Treatment Pending Tests Order Diagnosis Results Due Ordering Provi shanel *Labs (Manual) LIPID HCC-Athscl heart dis ease of [place] coronary artery w/o ang p 07/24/15 Yaritza [...] *Labs (Manual) LFT Mixed hyperlipidemia 07/18/18 Dana Morales MD *Labs (Manual) CK Mixed hyperlipidemia 07/18/18 [...] (Manual) LIPID HCC-Athscl heart dis ease of [place]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 MAURO ELEVATED LIPASE . DR. MORALES HAD DISCUSSED HIS CASE W DR. MAURO. FFUP 4W STANDARD OV with Antionette Reyes NP 07/15/2020 Ordered follow-up visit STANDARD OV with Yaritza Morales MD 04/08/2020 Ordered follow-up visit 3 MOS ANNUAL PHYSICAL EXAM with Tank Morales MD 01/08/2020 Ordered return to the clinic if condition worsens or n ew symptoms arise ANNUAL PHYSICAL EXAM with Yaritza Morales MD 01/08/2020 Ordered an ultrasound GALLBLADDER STANDARD [...] follow-up visit SCHEDULE PE STANDARD with Delia Carey er CHAIRMAN EMERITUS 12/20/2011 ZOCOR 20MG QD LIPID CK LFT [...] TRANSFERRED BY PRIVATE VEHICLE (MOTHER DRIVING) TO [facility] ER WRITE-IN (SAME DAY) with Delia Valencia 08/19/2011 FLU SHOT WILL AGREE TO HAVE [...] for all patient encounters Findings Encounter Date Benign essential hypertension STANDARD OV with Yaritza green MD 11/11/2020 Coronary artery disease STANDARD OV with Yaritza Morales MD 11/11/2020 Hyperlipidemia STANDARD OV with Yaritza Morales MD 10/26 Organic adult obstructive sleep apnea NOT COMPLIANT W / CPAP STANDARD OV with Yaritza Morales MD 11/11/2020 Type 2 diabetes mellitus in obese STANDARD OV with Yaritza Morales MD 11/11/2020 Jejunitis STANDARD OV with Antionette Reyes Itzel P 07/15/2020 Coronary artery disease TELE VISIT [...] sittin g forward STANDARD OV with Yaritza Morales MD 07/08/2020 [...] 08/26 Obstructive sleep apnea STANDARD OV with Yaritza Morales MD 09/05/2018 Type 2 diabetes mellitus [...] MD 09/06/2017 Hyperlipidemia STANDARD OV with Yaritza Morales MD 08/26 Type 2 diabetes mellitus STANDARD [...] artery disease STANDARD with Delia A Shanel CHAIRMAN EMERITUS 2011 Essential hypertension STANDARD with Delia A Shanel CHAIRMAN EMERITUS 012 Fatigue STANDARD with Delia A Shanel CHAIRMAN EMERITUS 12/20/2011 Hyperlipidemia STANDARD with Delia A Shanel CHAIRMAN EMERITUS 12/20/2011 Nicotine dependence STANDARD with Delia A Shanel CHAIRMAN EMERITUS 12/20/2011 Coronary arteriosclerosis S/P PTCA,ON EFFIENT STANDARD with Yaritza Morales MD 08/30/2011 Unstable angina WRITE-IN (SAME DAY) with Delia Selby CHAIRMAN EMERITUS 08/19/2011 Coronary artery disease ANNUAL PHYSICAL EXAM [...] physical adult ANNUAL PHYSI ANTONIO EXAM with Yaritza Morales MD 10/07/2009 Persistent insomnia ANNUAL PHYSICAL [...] Coronary artery disease STANDARD OV with Aury Salcido Laurel RP A-C 08/12/2008 Essential hypertension STANDARD OV with Aury Salcido Laurel RPA -C 08/12/2008 Hyperlipidemia STANDARD OV with Aury Omari Laurel RPA-C 08/12/2008 Nicotine dependence Abnormal CXR STANDARD OV with Aury Salcido Laurel RPA-C 08/12/2008 CHEST PAIN STANDARD OV with Yaritza Morales MD 05/26 CORONARY ARTERY DISEASE STANDARD OV with Yaritza Morales MD 06/07/2008 CORONARY ARTERY DISEASE STANDARD OV with Aury Salcido Laurel RP A-C 02/20/2008 HYPERLIPIDEMIA STANDARD OV with Aury Omari Laurel RPA-C 02/20/2008 Instructions Instructions not supported for this document typeNo Instructions Recorded Medical Equipment - Implanted Devices Includes: Current and historical DevicesNo Medical Equipment Recorded Medications Includes: Current and historical Medications Current Medications (continue as prescribed) Nitrostat 0.4 MG Sublingual Tablet Sublingual 11/11/2020 - 0 05/10/2021 Provider: Yaritza Morales MD Diagnosis: HCC-Athscl heart dis ease of [place] coronary artery w/o ang p As needed [...] dx: E11.9 ( please fill according to nydia brody) Lancets Miscellaneous 11/11/2020 - 02/09/2021 Provider: Yaritza Morales MD Diagnosis: HCC-Type 2 diabetes mellitus without complications test once per day, dx: E11.9 ( please fill according to insu ronn) Famotidine Maximum Strength 20 MG Oral [...] 40 MG Oral Tablet 11/11/2020 - 02/10/20 Provider: Yaritza Morales MD Diagnosis: Mixed hyperlipidemia [...] OR CHEW 08/30/2011 Provider: Diagnosis: started at [facility] Past Medications on file Metoprolol Tartrate 25 MG Oral Tablet 11/10/2020 - Provider: Yaritza Morales MD Diagnosis: Essential (primary) hypertension TAKE 1 TABLET BY MOUTH TWICE DAILY Jardiance 25 MG Oral Tablet 11/05/2020 - 11/11/2020 Provider : Antionette Reyes [employer] Diagnosis: Diabetes due to unde rlying condition w unsp complications TAKE 1 TABLET BY MOUTH EVERY DAY Atorvastatin Calcium 40 MG Oral Tablet 10/27/2020 - 11/12/19 Provider: Yaritza Morales MD Diagnosis: Mixed hyperlipidemia qod po Lisinopril 5 MG Oral Tablet 10/27/2020 - 11/11/2020 Provider : Yaritza Morales MD Diagnosis: Essential (primary) hypertension TAKE 1 TABLET BY MOUTH EVERY DAY Jardiance 25 MG Oral Tablet 10/07/2020 - 11/05/2020 Provider : Antionette Reyes [employer] Diagnosis: Diabetes due to unde rlying condition [...] MD Diagnosis: HCC-Athscl heart dis ease of [place] coronary artery w/o ang p Three times [...] Tartrate 25 MG Oral Tablet 01/08/2020 - 1 Provider: Yaritza Morales MD Diagnosis: Essential (primary) [...] Strip 10/09/2019 - 01/08/2020 Pr ovider: Yaritza Moralse MD Diagnosis: HCC-Type 2 diabetes mellitus without complications test once per day, dx: E11.9 ( please fill according to [employer]) Plavix 75 MG Oral Tablet 08/31/2019 - 12/19/2019 Provider: Yaritza Morales MD Diagnosis: HCC-Athscl heart dis ease of [place] coronary artery w/o ang p 1 every [...] MD Diagnosis: HCC-Athscl heart dis ease of [place] coronary artery w/o ang p 1 every [...] dx: E11.9 ( please fill according to [employer] ronn) Plavix 75 MG Oral Tablet 04/10/2019 - 07/02/2019 Provider: Yaritza Morales MD Diagnosis: HCC-Athscl heart dis ease of [place] coronary artery w/o ang p 1 every [...] MD Diagnosis: HCC-Athscl heart dis ease of [place] coronary artery w/o ang p 1 every [...] MD Diagnosis: HCC-Athscl heart dis ease of [place] coronary artery w/o ang p 1 every [...] 5MG Oral Tablet 09/05/2018 - 12/05/2018 Provider: Yaritza [...] 5MG Oral Tablet 07/04/2018 - 09/05/2018 Provider: Yaritza [...] ( please fill according to insu ronn) Lancets Miscellaneous 09/19/2017 - 05/29/2018 Provider: Yaritza Morales MD Diagnosis: HCC-Type 2 diabetes mellitus without complications test once per day, dx: E11.9 ( please fill according to [employer] ronn) Blood Glucose Monitor System w/Device Kit 09/19/2017 - 05/29 Provider: Yaritza Morales MD Diagnosis: HCC-Type 2 diabetes mellitus without complications test once per day, dx: E11.9 ( please fill according to [employer]) Atorvastatin Calcium 40MG Oral Tablet 09/12/2017 - [...] 1 tab po BID ( d/c janumet) Metoprolol Tartrate 25MG Oral Tablet 09/06/2017 - [...] MD Diagnosis: HCC-Athscl heart dis ease of [place] coronary artery w/o ang p 1 every day Metoprolol Tartrate 25 MG Tablet 07/10/2015 - 05/17/2017 Pro vider: Yaritza Morales MD Diagnosis: Essential (primary) hypertension 1 tab twice a day Metoprolol Tartrate 25 MG Tablet 09/06/2014 - 07/10/2015 Pro vider: Yaritza Morales MD Diagnosis: Essential (primary) hypertension 1 tab twice a day HAS 6 LEFT Nitroglycerin 0.4 MG Tablet, sublingual 09/06/2014 - 05/17/ 018 Provider: Yaritza Morales MD Diagnosis: HCC-Athscl heart dis ease of [place] coronary artery w/o ang p As needed [...] disorders Take as directed Chantix Starting Month Makr 0.5 MG X 11 & 1 MG [...] TABS 02/26/2013 - 05/20/2014 Pr ovider: Yaritza Mroales MD Diagnosis: Essential (primary) hypertension take 1 [...] 08/30/2011 - 12/20/2011 Provider: Diagnosis: started at [facility] Nitroglycerin 0.4 MG SL SUBL 08/30/2011 - 09/06/2014 Provide r: Diagnosis: q 5 min if needed Lovaza 1 GM OR CAPS 08/30/2011 - 05/20/2014 Provider: Diagnosis: started at [facility] Metoprolol Tartrate 25 MG OR TABS 08/30/2011 - 11/25/2011 Pr ovider: Yaritza Morales MD Diagnosis: CORONARY ARTERY DISE ASE (CAD) ( I2510) rx given at [facility]. Simvastatin 20 MG OR TABS 12/23/2010 - [...] po qhs prn MDD [facility] [employer] [facility] Ambien 5 MG OR TABS 10/07/2009 [...] po qhs prn MDD 1 (clarified to [facility] [employer] Levitra 5 MG OR TABS 06/23/2009 [...] OR TABS 02/20/2008 - 08/12/2008 Provider: Aury GRIJALVA Diagnosis: ANGINA PECTORIS NEC/ NOS (I209) qd Zithromax Z-Mark 250 MG OR TABS 12/15/2007 - 02/20/2008 Provi shanel: Reid Raymond MD Diagnosis: Ramipril 5 MG OR CAPS 12/15/2007 - 11/25/2008 Provider: Diagnosis: Chantix Continuing Month Mark 1 MG OR TABS 09/15/2007 - 06/07 Provider: Aury GRIJALVA Diagnosis: as directed Chantix Starting Month Mark [...] - 02/11/2006 Provider: [facility]ales MD [facility] (Y84186) 2 Relpax 40 MG OR TABS 12/07/2005 - 12/24/2005 Provider: Yaritza Morales MD Diagnosis: [facility] MGRN (U39096) 1/2 PO STAT, REPEAT IN 2HRS MAX 40MG/DAY Toprol XL 50 MG OR TB24 12/07/2005 - 02/11/2006 Provider: Yaritza Morales MD Diagnosis: [facility] MGRN (I39710) 1 Zantac 150 MG OR TABS 06/11/2005 - 12/07/2005 Provider: Hemangi M Sane Diagnosis: GERD Spiriva HandiHaler 18 MCG IN CAPS 06/11/2005 - 12/07/2005 Pr ovider: Hemangi M Sane Diagnosis: COPD (J449) 1 puff qd Nystatin 530251 UNIT/ML MT SUSP 06/04/2005 - 06/11/2005 Prov ider: Hemangi M Sane Diagnosis: THRUSH (B370) 5 ml four times a day swish and swallow x 5 days Nebulizer CORBIN 05/25/2005 - 12/07/2005 Provider: Hemangi M Sane Diagnosis: PNEUMOCOCCAL PNEUMON IA q6 hours prn [...] Recorded Vital Signs Includes: Vital Signs from 11/12/2019 through 11/11/2020 Vital Name 11/11/2020 11:02A 07/15/2020 09:26A 07/08/2020 09:10A 04/08/2020 09:58A 01/08/2020 08:26A Oxygen Saturation (%) 96 97 97 98 98 Flow Rate (l/min) (None (Room Air)) (None (Room Air)) ( None (Room Air)) (None (Room Air)) FiO2 (%) 21 21 21 21 Blood Pressure Sitting R 128/72 122/68 BP Cuff Size Regular Large Regular Regular Regular Pulse Rate-Sitting (bpm) 76 68 68 70 65 Respiration Rate (breaths/min) 24 20 24 24 24 Temp-Tympanic (F) 97.6 97.7 98.7 Height (in) 65 65 65 65 65 Weight (lb) 182 191 194 195 193 Body Mass Index (kg/m2) 30.3 31.8 32.3 32.4 3 2.1 Body Surface Area (m2) 1.90 1.94 1.95 1.96 1. 95 Blood Pressure Sitting L 124/80 124/68 124/76 Temp-Temporal 97.6 98 Results Includes: Results from 11/12/2019 through 11/11/2020 CA19[facility] Ordered by Yaritza Morales MD on 07/08/2020 [address] [place], [address] Collected: 07/08/2020 Reported: 07/10/2020 14:06 tel :[phone] CA19-9 TUMOR MARKER,CARBOHYDRA 13.9 U/ML (<35.0) N (Normal) Note: THE CA 19-9 ASSAY IS PERFORMED ON THE K[employer] BY CHEMILUMINESCENCE AND SHOULD NOT BE COMPARED [...] are final unless otherwise noted. Reported Physicians [facility] Ordered by Yaritza Morales MD on 07/08/[address] [place] [address], [id number] Collected: 07/08/2020 Reported: 07/10/2020 14:06 tel :[phone] Reported Physicians See Note None Note: Reported Physicians:Ordering: Yaritza Armando AAttending: Yaritza MoralesCopsimran To: Yaritza Morales Reviewed by Yaritza Morales MD on 2020; All test results are final unless otherwise noted. COMPREHENSIVE METABOLIC PROFIL [facility] Ordered by Yaritza Morales MD on 07/08/[address] [place] [address], [address] Collected: 07/08/2020 Reported: 07/10/2020 14:06 tel :[phone] GLUCOSE, FASTING 110 MG/DL (70-100) H (High) [...] Little GFR Left ESRD GFR <15 on CHANGE LEAD SODIUM LEVEL 136 MEQ/L (136-145) N (Normal) [...] are final unless otherwise noted. Reported Physicians [facility] Ordered by Yaritza Morales MD on 07/08/[address] [place] [address], [address] Collected: 07/08/2020 Reported: 07/10/2020 14:06 tel : Reported Physicians See Note None Note: Reported Physicians:Ordering: Yaritza Armando AAttending: Yaritza MoralesCopsimran To: Yaritza Morales Reviewed by Yaritza Morales MD on 2020; All test results are final unless otherwise noted. CBC WITH AUTO DIFF [facility] Ordered by Yaritza Morales MD on 07/08/[address] [place] [address], [address] Collected: 07/08/2020 Reported: 07/08/2020 18:08 tel :[phone] WHITE BLOOD COUNT 10.8 3/uL (4.0-10.0) H [...] are final unless otherwise noted. Reported Physicians [facility] Ordered by Yaritza Morales MD on 07/08/[address] [place] [address], [id number] Collected: 07/08/2020 Reported: 07/08/2020 18:08 tel : Reported Physicians See Note None Note: Reported Physicians:Ordering: Yaritza Armando AAttending: Yaritza MoralesCopsimran To: Yaritza Morales Reviewed by Yaritza Morales MD on 2020; All test results are final unless otherwise noted. C [facility]IV [facility] Ordered by Yaritza Morales MD on 07/08/[address] [place] [address], [address] Collected: 07/08/2020 Reported: 07/10/2020 14:06 tel :[phone] C REACTIVE PROTEIN QUANTITATIV 0.41 MG/DL (0.00-0.30) H (High) Reviewed by Yaritza Morales MD on 2020; All test results are final unless otherwise noted. Reported Physicians [facility] Ordered by Yaritza Morales MD on 07/08/[address] [place] [address], [address] Collected: 07/08/2020 Reported: 07/10/2020 14:06 tel :[phone] Reported Physicians See Note None Note: Reported Physicians:Ordering: Yaritza Armando AAttending: Dana MoralesynCopy To: Yaritza Morales Reviewed by Yaritza Morales MD on 2020; All test results are final unless otherwise noted. ERYTHROCYTE SEDIMENTATION RATE [facility] Ordered by Yaritza Morales MD on 07/08/[address] [place] [address], [address] Collected: 07/08/2020 Reported: 07/08/2020 18:08 tel :[phone] ERYTHROCYTE SEDIMENTATION RATE 10 mm/hr (0-20) N (Normal) Reviewed by Yaritza Morales MD on 2020; All test results are final unless otherwise noted. Reported Physicians [facility] Ordered by Yaritza Morales MD on 07/08/[address] [place] [address], [address] Collected: 07/08/2020 Reported: 07/08/2020 18:08 tel :[phone] Reported Physicians See Note None Note: Reported Physicians:Ordering: Yaritza Armando AAttending: Joana MoralescelynCopy To: Yaritza Morales Reviewed by Yaritza Morales MD on 2020; All test results are final unless otherwise noted. LIPASE [facility] Ordered by Yaritza Morales MD on 07/08/[address] [place] [address], [address] Collected: 07/08/2020 Reported: 07/10/2020 14:06 tel :[phone] LIPASE 874 U/L (73-393) H (High) Reviewed by Yaritza Morales MD on 2020; All test results are final unless otherwise noted. Reported Physicians [facility] Ordered by Yaritza Morales MD on 07/08/[address] [place] [address], [address] Collected: 07/08/2020 Reported: 07/10/2020 14:06 tel :[phone] Reported Physicians See Note None Note: Reported Physicians:Ordering: Yaritza Armando AAttending: Dana MoralesynCopy To: Yaritza Morales Reviewed by Yaritza Morales MD on 2020; All test results are final unless otherwise noted. AMYLASE [facility] Ordered by Yaritza Morales MD on 07/08/[address] [place] [address], [id number] Collected: 07/08/2020 Reported: 07/10/2020 14:06 tel :[phone] AMYLASE 82 U/L (25-115) N (Normal) Reviewed by Yaritza Morales MD on 2020; All test results are final unless otherwise noted. Reported Physicians [facility] Ordered by Yaritza Morales MD on 07/08/[address] [place] [address], [address] Collected: 07/08/2020 Reported: 07/10/2020 14:06 tel :[phone] Reported Physicians See Note None Note: Reported Physicians:Ordering: Yaritza Armando AAttending: Joana MoralescelynCopy To: Yaritza Morales Reviewed by Yaritza Morales MD on 2020; All test results are final unless otherwise noted. CREATININE WITH GFR [facility] Ordered by Yaritza Morales MD on 07/04/[address] [place] [address], [address] Collected: 07/04/2020 Reported: 07/04/2020 13:32 tel :[phone] CREATININE FOR GFR 0.78 MG/DL (0.70-1.30) N (Normal) GLOMERULAR FILTRATION RATE > 60.0 (>56) N (Normal) Note: Units are mL/min/1.73 m2 Chroni c Kidney Disease Staging per NKF: Stage I & II GFR >=60 Normal to Mildly Decreased Stage III GFR 30- 59 Moderately Decreased Stage IV GFR 15-29 Severely Decreased Stage V GFR <15 Very Little GFR Left ESRD GFR <15 on CHANGE LEAD Reviewed by Yaritza Morales MD on 2020; All test results are final unless otherwise noted. Reported Physicians [facility] Ordered by Yaritza Morales MD on 07/04/[address] [place] [address], [id number] Collected: 07/04/2020 Reported: 07/04/2020 13:32 tel :[phone] Reported Physicians See Note None Note: Reported Physicians:Ordering: Swapnil h [id number], Nadege AriasAttending: Andrea Medina To: Andrea Medina To: Yaritza Morales Reviewed by Yaritza Morales MD on 2020; All test results are final unless otherwise noted. BLOOD UREA NITROGEN [facility] Ordered by Yaritza Morales MD on 07/04/[address] [place] [address], [address] Collected: 07/04/2020 Reported: 07/04/2020 13:32 tel :[phone] BLOOD UREA NITROGEN 12 MG/DL (7-18) N (Normal) Reviewed by Yaritza Morales MD on 2020; All test results are final unless otherwise noted. Reported Physicians [facility] Ordered by Yaritza Morales MD on 07/04/[address] [place] [address], [address] Collected: 07/04/2020 Reported: 07/04/2020 13:32 tel :[phone] Reported Physicians See Note None Note: Reported Physicians:Ordering: Swapnil h [id number], Nadege AriasAttending: Andrea Medina To: Andrea Medina To: Yaritza Morales Reviewed by Yaritza Morales MD on 2020; All test results are final unless otherwise noted. GLUCOSE (POSTPRANDIAL) [facility] Ordered by Yaritza Morales MD on [address] [place] [address], [id number] Collected: 04/08/2020 Reported: 04/08/2020 10:47 tel :[phone] Glucose 154 N (Normal) Reviewed on 04/25/2020; All test result s are final unless otherwise noted. HbA1C [facility] Ordered by Yaritza Morales MD on [address] [place] [address], [address] Collected: 04/08/2020 Reported: 04/08/2020 10:47 tel :[phone] HbA1C 6.9 (<6.0) A (Abnormal) Note: f Reviewed on 04/25/2020; All test result s are final unless otherwise noted. SARS COVID-19 AMPLIFICATION [facility] Ordered by Yaritza Morales MD on 02/11/[address] [place] [address], [address] Collected: 02/11/2020 Reported: 02/11/2020 15:52 tel :[phone] SARS COVID-19 AMPLIFICATION NEGATIVE (NEGATIVE) N (Normal) [...] pathogens. DISCLAIMER: Testing was performed using the [employer] SARS-CoV-2 test. This test was developed and its performance characteristics determined by [employer]. This test has not been FDA cleared [...] are final unless otherwise noted. Reported Physicians [facility] Ordered by Yaritza Morales MD on 02/11/[address] [place] [address], [address] Collected: 02/11/2020 Reported: 02/11/2020 15:52 tel :[phone] Reported Physicians See Note None Note: Reported Physicians:Ordering: Julio JeromeAttending: Aparna Segovia To: Aparna Segovia To: Yaritza Morales Reviewed by Yaritza Morales MD on 2019; All test results are final unless otherwise noted. iSTAT TROPONIN [facility] Ordered by Yaritza Morales MD on 02/11/[address] [place] [address], [address] Collected: 02/11/2020 Reported: 02/11/2020 13:51 tel :[phone] iSTAT TROPONIN 0.01 NG/ML (0.00-0.08) N (Normal) Reviewed by Yaritza Morales MD on 2019; All test results are final unless otherwise noted. Reported Physicians [facility] Ordered by Yaritza Morales MD on 02/11/[address] [place] [address], [address] Collected: 02/11/2020 Reported: 02/11/2020 13:51 tel :[phone] Reported Physicians See Note None Note: Reported Physicians:Ordering: Julio JeromeAttending: Aparna Segovia To: Aparna Segovia To: Yaritza Morales Reviewed by Yaritza Morales MD on 2019; All test results are final unless otherwise noted. iSTAT TROPONIN [facility] Ordered by Yaritza Morales MD on 02/11/[address] [place] [address], [address] Collected: 02/11/2020 Reported: 02/11/2020 11:29 tel :[phone] iSTAT TROPONIN 0.00 NG/ML (0.00-0.08) N (Normal) Reviewed by Yaritza Mroales MD on 2019; All test results are final unless otherwise noted. Reported Physicians [facility] Ordered by Yaritaz Morales MD on 02/11/[address] [place] [address], [address] Collected: 02/11/2020 Reported: 02/11/2020 11:29 tel :[phone] Reported Physicians See Note None Note: Reported Physicians:Ordering: BARRETT Madrid [id number], MIRTA BeaverCopy To: Kurt TROTTER To: Yaritza Morales Reviewed by Yraitza Morales MD on 2019; All test results are final unless otherwise noted. LIVER PROFILE [facility] Ordered by Yaritza Morales MD on 02/11/[address] [place] [address], [address] Collected: 02/11/2020 Reported: 02/11/2020 12:48 tel :[phone] AST/SGOT 16 U/L (7-37) N (Normal) ALT/SGPT [...] are final unless otherwise noted. Reported Physicians [facility] Ordered by Yaritza Morales MD on 02/11/[address] [place] [address] [place], [address] Collected: 02/11/2020 Reported: 02/11/2020 12:48 tel :[phone] Reported Physicians See Note None Note: Reported Physicians:Ordering: BARRETT Madrid [id number], MIRTA BeaverAttending: Aparna Segovia To: Aparna Segovia To: Kurt TROTTER To: Yaritza Morales Reviewed by Yaritza Morales MD on 2019; All test results are final unless otherwise noted. BASIC METABOLIC PROFILE [facility] Ordered by Yaritza Morales MD on 02/11/2020 [address] [place], [address] Collected: 02/11/2020 Reported: 02/11/2020 12:48 tel :[phone] GLUCOSE, FASTING 121 MG/DL (70-100) H (High) [...] Little GFR Left ESRD GFR <15 on CHANGE LEAD SODIUM LEVEL 138 MEQ/L (136-145) N (Normal) POTASSIUM SERUM 4.2 MEQ/L (3.5-5.1) N (Normal) CHLORIDE LEVEL 106 MEQ/L (98-107) N (Normal) CARBON DIOXIDE LEVEL 24 MEQ/L (21-32) N (Normal) ANION GAP 8 MEQ/L (8-16) N (Normal) CALCIUM LEVEL 9.5 MG/DL (8.5-10.1) N (Normal) Reviewed by Yaritza Morales MD on 2019; All test results are final unless otherwise noted. Reported Physicians [facility] Ordered by Yaritza Morales MD on 02/11/2020 [address] [place], [address] Collected: 02/11/2020 Reported: 02/11/2020 12:48 tel :[phone] Reported Physicians See Note None Note: Reported Physicians:Ordering: BARRETT Madrid [id number], MIRTA BeaverAttending: Aparna Segovia To: Aparna Segovia To: Kurt TROTTER To: Yaritza Morales Reviewed by Yaritza Morales MD on 2019; All test results are final unless otherwise noted. CBC WITH DIFFERENTIAL [facility] Ordered by Yaritza Morales MD on 02/11/2020 [address] [place], [address] Collected: 02/11/2020 Reported: 02/11/2020 11:41 tel :[phone] WHITE BLOOD COUNT 15.6 3/uL (4.0-10.0) H [...] are final unless otherwise noted. Reported Physicians [facility] Ordered by Yaritza Morales MD on 02/11/[address] [place] [address], [facility] Collected: 02/11/2020 Reported: 02/11/2020 11:41 tel :[phone] Reported Physicians See Note None Note: Reported Physicians:Ordering: BARRETT Madrid [id number] RiberaCopy To: Kurt TROTTER To: Yaritza Morales Reviewed by Yaritza Morales MD on 2019; All test results are final unless otherwise noted. [facility] Ordered by Yaritza Morales MD on 02/11/[address] [place] [address], [id number] Collected: 02/11/2020 Reported: 02/11/2020 12:48 tel :[phone] LIPASE 200 U/L (73-393) N (Normal) Reviewed by Yaritza Morales MD on 2019; All test results are final unless otherwise noted. Reported Physicians [facility] Ordered by Yaritza Morales MD on 02/11/[address] [place] [address], [id number] Collected: 02/11/2020 Reported: 02/11/2020 12:48 tel :[phone] Reported Physicians See Note None Note: Reported Physicians:Ordering: BARRETT Madrid [id number] RiberaAttending: Aparna Segovia To: Aparna Segovia To: Kurt TROTTER To: Yaritza Morales Reviewed by Yaritza Morales MD on 2019; All test results are final unless otherwise noted. HbA1C [facility] Ordered by Yaritza Morales MD on [address] [place] [address], [facility] Collected: Reported: 01/08/2020 08:47 tel:[phone] HbA1C 6.8 (<6.0) A (Abnormal) Reviewed by Yaritza Morales MD on 2019; All test results are final unless otherwise noted. GLUCOSE (POSTPRANDIAL) [facility] Ordered by Yaritza Morales MD on [address] [place] [address] Collected: Reported: 01/08/2020 08:47 tel:[phone] Glucose 230 A (Abnormal) Reviewed by Yaritza Morales MD on 2019; All test results are final unless otherwise noted. URINALYSIS [facility] Ordered by Yaritza Morales MD on [address] [place] [address], [facility] Collected: Reported: 07/08/2020 11:05 tel:[phone] [...] Laboratory Ordered by Yaritza Morales MD on [address] [place] [address] Collected: Reported: 07/08/2020 10:20 tel:[phone] HbA1C 7.1 (<6.0) A (Abnormal) Reviewed by Yaritza Morales MD on 2020; All test results are final unless otherwise noted. GLUCOSE (POSTPRANDIAL) [facility] Ordered by Yaritza Morales MD on [address] [place] [address], [facility] Collected: Reported: 07/08/2020 10:20 tel:[phone] Glucose 143 A (Abnormal) Reviewed by Yaritza Morales MD on 2020; All test results are final unless otherwise noted. History of Present Illness History of Present Illness not supported for this document typeNo History of Present Illness Recorded Social History Description Last Updated Life circumstance event LOST A BABY JUNE [...] AFTER OUT OF HOSP JUNE 2020 11/11/2020 Social history unchanged 07/15/2020 No beer consumption 07/08/2020 No wine consumption 07/08/[address] more than HRS 01/08/2020 Able to sit HRS 01/08/2020 Able to walk MILES 01/08/2020 Current some day smoker WOULD LIKE TO Q UIT "IF I HAVE INCENTIVE". 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/WEEK 10/09/2019 Daily cola consumption was [...] Procedures and Surgical History Includes: Procedures from 11/12/2019 through 11/11/2020 Procedures Code Diagnosis Performing Provider Service Location Service Date BLOOD DRAW 49705 HCC-Type 2 diabetes mellitus wit hout complications Yaritza Morales MD 11/11/2020 GLUCOSE 68316 HCC-Type 2 diabetes mellitus wit hout complications Yaritza Morales MD 11/11/2020 HbA1c (Glycosolated) 92791 HCC-Type 2 diabetes mellitu s without complications Yaritza Morales MD 11/11/2020 BLOOD DRAW 55172 HCC-Type 2 diabetes mellitus wit hout complications Yaritza Morales MD [facility], 07/08/2020 GLUCOSE (waived laboratory) 83788 HCC-Type 2 d iabetes mellitus without complications Yaritza Morales MD [facility], 1 HbA1c (Glycosolated) (waived laboratory) 57370 HCC-Type 2 diabetes mellitus without complications Yaritza Morales MD [facility], 07/08/2020 FECAL BLOOD ASSAY TEST (waived laboratory) 10430 Dvtrcli of lg int w/o perforation or abscess w/o bleeding Yaritza Morales MD [facility], 07/08/2020 ELECTROCARDIOGRAM, COMPLETE (EKG) 23360 HCC-At [facility] heart disease of [place] coronary artery w/o ang p Yaritza Morales MD [facility], 07/08/2020 BLOOD DRAW 89924 HCC-Type 2 diabetes mellitus wit hout complications Yaritza Morales MD [facility], 04/08/2020 GLUCOSE (waived laboratory) 00865 HCC-Type 2 d iabetes mellitus without complications Yaritza Morales MD [facility], 1 HbA1c (Glycosolated) (waived laboratory) 71108 HCC-Type 2 diabetes mellitus without complications Yaritza Morales MD [facility], 04/08/2020 IMMUNIZATION ADMIN (>18) 71094 Encounter for immunization Joana Morales MD [facility], 01/08/2020 FLUARIX, QUADRIVALENT 15791 Encounter for immunization Dana Morales MD [facility] 01/08/2020 FECAL BLOOD ASSAY TEST (waived laboratory) 25377 Polyp of colon Yaritza Morales MD [facility] 01/08/2020 HbA1c (Glycosolated) (waived laboratory) 84845 HCC-Type 2 diabetes mellitus with other specified complicati Yaritza Morales MD [facility] 01/08/2020 GLUCOSE (waived laboratory) 43930 HCC-Type 2 d iabetes mellitus with other specified complicati Yaritza Morales MD [facility] 01/08/2020 BLOOD DRAW 80468 HCC-Type 2 diabetes mellitus wit h other specified complicati Yaritza Morales MD [facility] 01/08/2020 Medical History Includes: Medical History in [...] Updated father (D) 73 YO w/ 1st [place] age 64, AL ZHEIMER'S,IN LONG-TERM SINCE 04/2011,T2DM DX'ED @ 65YO ~MA 77 YO SEPTIC SHOCK, COLON CA, C DIF AND DID NOT RECOVER,T2DM, HTN ~SIS 55 YO WELL ~BRO 51 YO T2DM ON METFORMIN ~PAT MA (D) 77YO ALZHEIMER'S ~PAT FA (D) 56YO SUDDEN ~MAT MA (D) 89YO BRAIN TUMOR(BENIGN), HTN ~MAT FA (D) 60YO [place], 1ST [place] 47YO, T2DM,ALCOHOLIC ~ ~DAUGHTER 27 MOS WELL 01/08/2020 Family history of acute myocardial infar ction prior to age 50 PAT FA 1ST [place] 50YO, 56YO 01/06/2012 Family history of type [...] Mental Status not supported for this document type Description Oriented to time, place, and person No anxiety Functional Status Functional Status not supported for this document typeNo Functional Status Recorded Physical Exam Physical Exam not supported for this document typeNo Physical Exam Recorded Immunizations Includes: Immunizations in patient's chart Vaccine Dose # Date Site Reaction(s) Status Source Influenza,NOS 1 01/08/2009 Complete (Reported) Pat ient Influenza,NOS 2 12/24/2009 Left Arm Complete (Admin istered) [facility] Influenza,NOS 3 12/23/2010 Left Arm Complete (Admin istered) [facility] Influenza,NOS 4 01/29/2014 Complete (Reported) Pat ient Influenza,NOS 5 01/08/2020 Right Arm Complete (Admin istered) [facility] Note: vaccination informatio n sheet given date 11-09-2018 PCV (Pneumovax 23) ages 2+ 1 05/20/2014 Co mplete (Refused) [facility] Td 1 Complete (Reported) Patient Allergies Includes: Active, inactive, and resolved Allergies Substance Type Reaction Onset Date - Time Resolved Date - Ti me Status SHELLFISH Allergy pt swells up/ throat 06/11/2005 - 12:00AM Active Nuts Allergy swells with peanuts 06/11/2005 - 12:00AM Active Encounters Includes: Encounters from 11/12/2019 through 11/11/2020 Encounter Provider Location Date Check-In Time Check-Out Time D iagnosis STANDARD OV Yaritza Morales MD [facility] 10/26 11:02AM 07/15/2020 11:59PM Organic Sleep Apnea Obstruct fredy Adult, Essential Hypertension Benign, Hyperlipidemia, Diabetes Mellitus Type 2 in Obese, Coronary Artery Disease RX UPDATE Yaritza Morales MD 10/27/2020 07/15/2020 9:51AM 11:59PM RX UPDATE Malone Bernardo Reyes [facility] 10/07/2020 07/15/2020 9:50AM 07/15/2020 11:59PM STANDARD OV Antionette Reyes [facility] 07/15/2020 9:21AM 10:12AM Jejunitis [Patient Encounter] Yaritza Morales MD 07/12/2020 07/09/19 11:06AM 07/08/2020 11:59PM STANDARD OV Yaritza Morales MD [facility] 021 9:07AM 10:16AM Coronary Artery Disease, Working [...] 9:16AM 11:59PM STANDARD OV Yaritza Morales MD [facility] 01/12/2 021 9:56AM 10:39AM Coronary Artery Disease, Nicotine Depend ence Uncomplicated, Essential Hypertension Benign, Hyperlipidemia, Diabetes Mellitus Type 2 in Obese ANNUAL PHYSICAL EXAM [facility] 01/08/2020 8:23AM 9:17AM Colon Polyps, Essent ial Hypertension Benign, Hyperlipidemia, Benign Prostatic Hypertrophy, Routine History & Physical Adult with Abnormal Findings Insurance Includes: Active Insurance Policies Plan Name Member ID Group # Subscriber Relationship Effective Da zofia 1 - [employer] [id number] Hector De La Garza f Advance Directives Includes: Current Advance DirectivesNo Advance Directives Recorded Health Concerns Includes: Active Health ConcernsNo Active Health Concerns Recorded Goals Includes: Active Goals quit smoking. had nst at [facility] 2016, good. exercise 30 mins a day 5 days a week. wants viagra but need to speak to [facility] 1st for clearance Added 12/01/2016 by Provider sperm count, testosterone level, fsh/lh Added 12/01/2016 by Provider advised colonoscopy at 51 yo Added 12/01/2016 by Provider you are a diabetic w/ a1c of 7%, goal <6 .5 %. simvastatin 20 mg a daylipid ck lft 1 mo. watch for muscle aches. januvia 100 mg a day to lower [id number] goal 80-100. 2 hrs after a meal [...] januvia 100 mg a day to lower [id number] goal 80-100. 2 hrs after a meal no >140stop alcohol, limit to no >2 drinks a day as this worsens sugar and chol
--- OUTSIDE RECORDS SUMMARY | 2021-02-07 13:11 | CCD ---
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 Name Role Phone Maring, Martir PA Unavailable Unavailable Maring, Martir PA Unavailable Unavailable Maring, Martir PA Unavailable Unavailable Maring, Martir PA Unavailable Unavailable Maring, Martir PA Unavailable Unavailable Maring, Martir PA Unavailable Unavailable Maring, Martir PA Unavailable Unavailable Maring, Martir PA Unavailable Unavailable Maring, Martir PA Unavailable Unavailable Maring, Martir PA Unavailable Unavailable Maring, Martir PA Unavailable Unavailable Maring, Martir PA Unavailable Unavailable Maring, Martir PA Unavailable Unavailable Maring, Martir PA Unavailable Unavailable Maring, Martir PA Unavailable Unavailable Maring, Martir PA Unavailable Unavailable CarmenIan MD Unavailable Unavailable CarmenIan MD Unavailable Unavailable CarmenIan MD Unavailable Unavailable CarmenIan MD Unavailable Unavailable CarmenIan MD Unavailable Unavailable CarmenIan MD Unavailable Unavailable CarmenIan MD Unavailable Unavailable CarmenIan MD Unavailable Unavailable CarmenIan MD Unavailable Unavailable CarmenIan MD Unavailable Unavailable CarmenIan MD Unavailable Unavailable CarmenIan MD Unavailable Unavailable CarmneIan MD Unavailable Unavailable CarmenIan MD Unavailable Unavailable CarmenIan MD Unavailable Unavailable CarmenIan MD Unavailable Unavailable Carmen, Ian Vigil MD Unavailable Unavailable Carmen, Ian Vigil MD Unavailable Unavailable Carmen, Ian Vigil MD Unavailable Unavailable Carmen, Ian Vigil MD Unavailable Unavailable Carmen, Ian Vigil MD Unavailable Unavailable Carmen, Ian Vigil MD Unavailable Unavailable Carmen, Ian Vigil MD Unavailable Unavailable Carmen, Ian Vigil MD Unavailable Unavailable Carmen, Ian Vigil MD Unavailable Unavailable Carmen, Ian Vigil MD Unavailable Unavailable Carmen, Ian Vigil MD Unavailable Unavailable Carmen, Ian Vigil MD Unavailable Unavailable Carmen, Ian Vigil MD Unavailable Unavailable Carmen, Ian Vigil MD Unavailable Unavailable Carmen, Ian Vigil MD Unavailable Unavailable Carmen, Ian Vigil MD Unavailable Unavailable Carmen, Ian Vigil MD Unavailable Unavailable Carmen, Ian Vigil MD Unavailable Unavailable Carmen, Ian Vigil MD Unavailable Unavailable Carmen, Ian Vigil MD Unavailable Unavailable Carmen, Ian Vigil MD Unavailable Unavailable Carmen, Ian Vigil MD Unavailable Unavailable Carmen, Ian Vigil MD Unavailable Unavailable Carmen, Ian Vigil MD Unavailable Unavailable Carmen, Ian Vigil MD Unavailable Unavailable Carmen, Ian Vigil MD Unavailable Unavailable Carmen, Ian Vigil MD Unavailable Unavailable Carmen, Ian Vigil MD Unavailable Unavailable Carmen, Ian Vigil MD Unavailable Unavailable Carmen, Ian Vigil MD Unavailable Unavailable Carmen, Ian Vigil MD Unavailable Unavailable Carmen, Ian Vigil MD Unavailable Unavailable Carmen, Ian Vigil MD Unavailable Unavailable Carmen, Ian Vigil MD Unavailable Unavailable Carmen, Ian Vigil MD Unavailable Unavailable Carmen, Ian Vigil MD Unavailable Unavailable Carmen, Ian Vigil MD Unavailable Unavailable Carmen, Ian Vigil MD Unavailable Unavailable Carmen, Ian Vigil MD Unavailable Unavailable Carmen, Ian Vigil MD Unavailable Unavailable Carmen, Ian Vigil MD Unavailable Unavailable Carmen, Ian Vigil MD Unavailable Unavailable Carmen, Ian Vigil MD Unavailable Unavailable Carmen, Ian Vigil MD Unavailable Unavailable Carmen, Ian Vigil MD Unavailable Unavailable Carmen, Ian Vigil MD Unavailable Unavailable Carmen, Ian Vigil MD Unavailable Unavailable Carmen, Ian Vigil MD Unavailable Unavailable Carmen, Ian Vigil MD Unavailable Unavailable Carmen, Ian Vigil MD Unavailable Unavailable Carmen, Ian Vigil MD Unavailable Unavailable Carmen, Ian Vigil MD Unavailable Unavailable Carmen, Ian Vigil MD Unavailable Unavailable Carmen, Ian Vigil MD Unavailable Unavailable Carmen, Ian Vigil MD Unavailable Unavailable Carmen, Ian Vigil MD Unavailable Unavailable Carmen, Ian Vigil MD Unavailable Unavailable Carmen, Ian Vigil MD Unavailable Unavailable Carmen, Ian Vigil MD Unavailable Unavailable Carmen, Ian Vigil MD Unavailable Unavailable Carmen, Ian Vigil MD Unavailable Unavailable Delfin, Robert MD Unavailable Unavailable Delfin, Robert MD Unavailable Unavailable Delfin, Robert MD Unavailable Unavailable Delfin, Robert MD Unavailable Unavailable Delfin, Robert MD Unavailable Unavailable Delfin, Robert MD Unavailable Unavailable Delfin, Robert MD Unavailable Unavailable Delfin, Robert MD Unavailable Unavailable Delfin, Robert MD Unavailable Unavailable Delfin, Robert MD Unavailable Unavailable Delfin, Robert MD Unavailable Unavailable Delfin, Robert MD Unavailable Unavailable Delfin, Robert MD Unavailable Unavailable Delfin, Robert MD Unavailable Unavailable Delfin, Robert MD Unavailable Unavailable Delfin, Robert MD Unavailable Unavailable Delfin, Robert MD Unavailable Unavailable ZABOROWSKI, J SIOBHAN MINE CAR MECHANIC Unavailable Unavailable ZABOROWSKI, J SIOBHAN MINE CAR MECHANIC Unavailable Unavailable ZABOROWSKI, J SIOBHAN MINE CAR MECHANIC Unavailable Unavailable ZABOROWSKI, J SIOBHAN MINE CAR MECHANIC Unavailable Unavailable ZABOROWSKI, J SIOBHAN MINE CAR MECHANIC Unavailable Unavailable ZABOROWSKI, J SIOBHAN MINE CAR MECHANIC Unavailable Unavailable ZABOROWSKI, J SIOBHAN MINE CAR MECHANIC Unavailable Unavailable ZABOROWSKI, J SIOBHAN MINE CAR MECHANIC Unavailable Unavailable ZABOROWSKI, J SIOBHAN MINE CAR MECHANIC Unavailable Unavailable ZABOROWSKI, J SIOBHAN MINE CAR MECHANIC Unavailable Unavailable ZABOROWSKI, J SIOBHAN MINE CAR MECHANIC Unavailable Unavailable ZABOROWSKI, J SIOBHAN MINE CAR MECHANIC Unavailable Unavailable ZABOROWSKI, J SIOBHAN MINE CAR MECHANIC Unavailable Unavailable ZABOROWSKI, J SIOBHAN MINE CAR MECHANIC Unavailable Unavailable ZABOROWSKI, J SIOBHAN MINE CAR MECHANIC Unavailable Unavailable ZABOROWSKI, J SIOBHAN MINE CAR MECHANIC Unavailable Unavailable ZABOROWSKI, J SIOBHAN MINE CAR MECHANIC Unavailable Unavailable ZABOROWSKI, J SIOBHAN MINE CAR MECHANIC Unavailable Unavailable ZABOROWSKI, J SIOBHAN MINE CAR MECHANIC Unavailable Unavailable ZABOROWSKI, J SIOBHAN MINE CAR MECHANIC Unavailable Unavailable ZABOROWSKI, J SIOBHAN MINE CAR MECHANIC Unavailable Unavailable ZABOROWSKI, J SIOBHAN MINE CAR MECHANIC Unavailable Unavailable ZABOROWSKI, J SIOBHAN MINE CAR MECHANIC Unavailable Unavailable ZABOROWSKI, J SIOBHAN MINE CAR MECHANIC Unavailable Unavailable ZABOROWSKI, J SIOBHAN MINE CAR MECHANIC Unavailable Unavailable ZABOROWSKI, J SIOBHAN MINE CAR MECHANIC Unavailable Unavailable ZABOROWSKI, J SIOBHAN MINE CAR MECHANIC Unavailable Unavailable ZABOROWSKI, J SIOBHAN MINE CAR MECHANIC Unavailable Unavailable ZABOROWSKI, J SIOBHAN MINE CAR MECHANIC Unavailable Unavailable ZABOROWSKI, J SIOBHAN MINE CAR MECHANIC Unavailable Unavailable ZABOROWSKI, J SIOBHAN MINE CAR MECHANIC Unavailable Unavailable ZABOROWSKI, J SIOBHAN MINE CAR MECHANIC Unavailable Unavailable ZABOROWSKI, J SIOBHAN MINE CAR MECHANIC Unavailable Unavailable ZABOROWSKI, J SIOBHAN MINE CAR MECHANIC Unavailable Unavailable ZABOROWSKI, J SIOBHAN MINE CAR MECHANIC Unavailable Unavailable ZABOROWSKI, J SIOBHAN MINE CAR MECHANIC Unavailable Unavailable ZABOROWSKI, J SIOBHAN MINE CAR MECHANIC Unavailable Unavailable ZABOROWSKI, J SIOBHAN MINE CAR MECHANIC Unavailable Unavailable ZABOROWSKI, J SIOBHAN MINE CAR MECHANIC Unavailable Unavailable ZABOROWSKI, J SIOBHAN MINE CAR MECHANIC Unavailable Unavailable ZABOROWSKI, J SIOBHAN MINE CAR MECHANIC Unavailable Unavailable ZABOROWSKI, J SIOBHAN MINE CAR MECHANIC Unavailable Unavailable ZABOROWSKI, J SIOBHAN MINE CAR MECHANIC Unavailable Unavailable ZABOROWSKI, J SIOBHAN MINE CAR MECHANIC Unavailable Unavailable ZABOROWSKI, J SIOBHAN MINE CAR MECHANIC Unavailable Unavailable ZABOROWSKI, J SIOBHAN MINE CAR MECHANIC Unavailable Unavailable ZABOROWSKI, J SIOBHAN MINE CAR MECHANIC Unavailable Unavailable ZABOROWSKI, J SIOBHAN MINE CAR MECHANIC Unavailable Unavailable Ian Conway MD Unavailable Unavailable Ian Conway MD Unavailable Unavailable aIn Conway MD Unavailable Unavailable Ian Conway MD Unavailable Unavailable Ian Conway MD Unavailable Unavailable Ian Conway MD Unavailable Unavailable Ian Conway MD Unavailable Unavailable Ian Conway MD Unavailable Unavailable Ian Conway MD Unavailable Unavailable Ian Conway MD Unavailable Unavailable Ian Conway MD Unavailable Unavailable Ian Conway MD Unavailable Unavailable Ian Conway MD Unavailable Unavailable Ian Conway MD Unavailable Unavailable Ian Conway MD Unavailable Unavailable Ian Conway MD Unavailable Unavailable Ian Conway MD Unavailable Unavailable Ian Conway MD Unavailable Unavailable Ian Conway MD Unavailable Unavailable Ian Conway MD Unavailable Unavailable Ian Conwya MD Unavailable Unavailable Ian Conway MD Unavailable Unavailable Ian Conway MD Unavailable Unavailable Ian Conway MD Unavailable Unavailable Ian Conway MD Unavailable Unavailable Frederick Parkinson MD Unavailable Unavailable Frederick Parkinson MD Unavailable Unavailable Frederick Parkinson MD Unavailable Unavailable Frederick Parkinson MD Unavailable Unavailable Frederick Parkinson MD Unavailable Unavailable Frederick Parkinson MD Unavailable Unavailable Frederick Parkinson MD Unavailable Unavailable Frederick Parkinson MD Unavailable Unavailable Frederick Parkinson MD Unavailable Unavailable Frederick Parkinson MD Unavailable Unavailable Frederick Parkinson MD Unavailable Unavailable Frederick Parkinson MD Unavailable Unavailable Frederick Parkinson MD Unavailable Unavailable Frederick Parkinson MD Unavailable Unavailable Frederick Parkinson MD Unavailable Unavailable Frederick Parkinson MD Unavailable Unavailable FISCHI, Ian MCCOY MD Unavailable Unavailable FISCHI, Ian MCCOY MD Unavailable Unavailable FISCHI, Ian MCCOY MD Unavailable Unavailable FISCHI, Ian MCCOY MD Unavailable Unavailable FISCHI, Ian MCCOY MD Unavailable Unavailable FISCHI, Ian MCCOY MD Unavailable Unavailable FISCHI, Ian MCCOY MD Unavailable Unavailable FISCHI, Ian MCCOY MD Unavailable Unavailable FISCHI, Ian MCCOY MD Unavailable Unavailable FISCHI, Ian MCCOY MD Unavailable Unavailable FISCHI, Ian MCCOY MD Unavailable Unavailable FISCHI, Ian MCCOY MD Unavailable Unavailable FISCHI, Ian MCCOY MD Unavailable Unavailable FISCHI, Ian MCCOY MD Unavailable Unavailable FISCHI, Ian MCCOY MD Unavailable Unavailable FISCHI, Ian MCCOY MD Unavailable Unavailable FISCHI, Ian MCCOY MD Unavailable Unavailable FISCHI, Ian MCCOY MD Unavailable Unavailable FISCHI, Ian MCCOY MD Unavailable Unavailable FISCHI, Ian MCCOY MD Unavailable Unavailable FISCHI, Ian MCCOY MD Unavailable Unavailable FISCHI, Ian MCCOY MD Unavailable Unavailable FISCHI, Ian MCCOY MD Unavailable Unavailable FISCHI, Ian MCCOY MD Unavailable Unavailable FISCHI, Ian MCCOY MD Unavailable Unavailable FISCHI, Ian MCCOY MD Unavailable Unavailable FISCHI, Ian MCCOY MD Unavailable Unavailable FISCHI, Ian MCCOY MD Unavailable Unavailable FISCHI, Ian MCCOY MD Unavailable Unavailable FISCHI, Ian MCCOY MD Unavailable Unavailable FISCHI, Ian MCCOY MD Unavailable Unavailable FISCHI, Ian MCCOY MD Unavailable Unavailable FISCHI, Ian MCCOY MD Unavailable Unavailable FISCHI, Ian MCCOY MD Unavailable Unavailable FISCHI, Ian MCCOY MD Unavailable Unavailable FISCHI, Ian MCCOY MD Unavailable Unavailable FISCHI, Ian MCCOY MD Unavailable Unavailable FISCHI, Ian MCCOY MD Unavailable Unavailable FISCHI, Ian MCCOY MD Unavailable Unavailable FISCHI, Ian MCCOY MD Unavailable Unavailable FISCHI, Ian MCCOY MD Unavailable Unavailable FISCHI, Ian MCCOY MD Unavailable Unavailable FISCHI, Ian MCCOY MD Unavailable Unavailable FISCHI, Ian MCCOY MD Unavailable Unavailable FISCHI, Ian MCCOY MD Unavailable Unavailable FISCHI, Ian MCCOY MD Unavailable Unavailable FISCHI, Ian MCCOY MD Unavailable Unavailable FISCHI, Ian MCCOY MD Unavailable Unavailable FISCHI, Ian MCCOY MD Unavailable Unavailable FISCHI, Ian MCCOY MD Unavailable Unavailable FISCHI, Ian MCCOY MD Unavailable Unavailable FISCHI, Ian MCCOY MD Unavailable Unavailable FISCHI, Ian MCCOY MD Unavailable Unavailable FISCHI, Ian MCCOY MD Unavailable Unavailable FISCHI, Ian MCCOY MD Unavailable Unavailable FISCHI, Ian MCCOY MD Unavailable Unavailable FISCHI, Ian MCCOY MD Unavailable Unavailable FISCHI, Ian MCCOY MD Unavailable Unavailable FISCHI, Ian MCCOY MD Unavailable Unavailable FISCHI, Ian MCCOY MD Unavailable Unavailable FISCHI, Ian MCCOY MD Unavailable Unavailable FISCHI, Ian MCCOY MD Unavailable Unavailable FISCHI, Ian MCCOY MD Unavailable Unavailable FISCHI, Ian MCCOY MD Unavailable Unavailable FISCHI, Ian MCCOY MD Unavailable Unavailable FISCHI, Ian MCCOY MD Unavailable Unavailable FISCHI, Ian MCCOY MD Unavailable Unavailable FISCHI, Ian MCCOY MD Unavailable Unavailable FISCHI, Ian MCCOY MD Unavailable Unavailable FISCHI, Ian MCCOY MD Unavailable Unavailable FISCHI, Ian MCCOY MD Unavailable Unavailable FISCHI, Ian MCCOY MD Unavailable Unavailable FISCHI, Ian MCCOY MD Unavailable Unavailable FISCHI, Ian MCCOY MD Unavailable Unavailable FISCHI, Ian MCCOY MD Unavailable Unavailable FISCHI, Ian MCCOY MD Unavailable Unavailable FISCHI, Ian MCCOY MD Unavailable Unavailable FISCHI, Ian MCCOY MD Unavailable Unavailable [place], Mariae Belden MINE CAR MECHANIC Unavailable Unavailable [place], Mariae Belden MINE CAR MECHANIC Unavailable Unavailable [place], Mariae Belden MINE CAR MECHANIC Unavailable Unavailable [place], Mariae Belden MINE CAR MECHANIC Unavailable Unavailable [place], Mariae Antionette MINE CAR MECHANIC Unavailable Unavailable Eric, Mariae Belden MINE CAR MECHANIC Unavailable Unavailable [place], Mariae Belden MINE CAR MECHANIC Unavailable Unavailable Eric, Mariae Antionette MINE CAR MECHANIC Unavailable Unavailable [place], Mariae Antionette MINE CAR MECHANIC Unavailable Unavailable Eric, Mariae Belden MINE CAR MECHANIC Unavailable Unavailable Eric, Mariae Antionette MINE CAR MECHANIC Unavailable Unavailable Eric, Mariae Belden MINE CAR MECHANIC Unavailable Unavailable Eric, Mariae Belden MINE CAR MECHANIC Unavailable Unavailable Eric, Mariae Belden MINE CAR MECHANIC Unavailable Unavailable [place], Mariae Belden MINE CAR MECHANIC Unavailable Unavailable [place], Mariae Belden MINE CAR MECHANIC Unavailable Unavailable [place], Mariae Antionette MINE CAR MECHANIC Unavailable Unavailable Re-disclosure Warning The records that you are about to access may contain information from federally-assisted alcohol or drug abuse programs. If such information is present, then the following federally mandated warning applies: This information has been disclosed to you from records protected by federal confidentiality rules (42 CFR part 2). The federal rules prohibit you from making any further disclosure of this information unless further disclosure is expressly permitted by the written consent of the person to whom it pertains or as otherwise permitted by 42 CFR part 2. A general authorization for the release of medical or other information is NOT sufficient for this purpose. The Federal rules restrict any use of the information to criminally investigate or prosecute any alcohol or drug abuse patient.The records that you are about to access may contain highly sensitive health information, the redisclosure of which is protected by Article 27-F of the [facility] Public Health law. If you continue you may have access to information: Regarding HIV / AIDS; Provided by facilities licensed or operated by the [facility] Office of Mental Health; or Provided by the [facility] Office for People With Developmental Disabilities. If such information is present, then the following [facility] mandated warning applies: This information has been disclosed to you from confidential records which are protected by state law. State law prohibits you from making any further disclosure of this information without the specific written consent of the person to whom it pertains, or as otherwise permitted by law. Any unauthorized further disclosure in violation of state law may result in a fine or shelter sentence or both. A general authorization for the release of medical or other information is NOT sufficient authorization for further disc losure. Family History Family Member Name Family Member Gender Family Member Status Date o f Status Description Data Source(s) Unknown Unknown Problem [facility] ([facility]) Unknown Unknown Problem [facility] ([facility], [facility]) Encounters Encounter Providers Location Date Indications Data Source(s ) <td ID="encounterTypeDescriptionID0">[facility]</td><td>Kait Morales MD</td><td>Family Medicine [facility]</td><td>11/11/2020</td><td>11:02AM</td><td>07/15/2020 11:59PM</td><td><content ID="encounterDiagnosisID0-0">Organic Sleep Apnea Obstructive Adult</content>, <content ID="encounterDiagnosisID0-1">Essential Hypertension Benign</content>, <content ID="encounterDiagnosisID0- 2">Hyperlipidemia</content>, <content ID="encounterDiagnosisID0-3">Diabetes Mellitus Type 2 in Obese</content>, <content ID="encounterDiagnosisID0-4"> Coronary Artery Disease</content></td>Outpatient Attender: Kait Morales MD [facility] 11/11/2020 11:02:00 AM EDT - 07/15/2020 11:59:00 PM EDT Organic Sleep Apnea Obstructive AdultDia betes Mellitus Type 2 in ObeseEssential Hypertension BenignCoronary Artery DiseaseHyperlipidemia [facility] ([facility]) Organic Sleep Apnea Obstructive Adult Diabetes Mellitus Type 2 in Obese Essential Hypertension Benign Coronary Artery Disease Hyperlipidemia Outpatient Attender: NADINE PATEL MDAdmitter: NADINE WYLIE CHI, MD [email or web address] 08/28/2020 10:24:00 AM EDT - 08/28/2020 06:30:[address] [facility] Patient discharged. Outpatient Referrer: SIOBHAN BAXTER NP [email or web address] 12:00:00 AM EDT - 08/20/2020 09:22:59 AM EDT [facility] Outpatient<td ID="encounterTypeDescripti onID1">RX UPDATE</td><td>Kait Morales MD</td><td></td><td>10/27/2020</td><td>07/15/2020 9:51AM</td><td>07/15/2020 11:59PM</td><td></td> Attender: Kait Morales MD 07/15/2020 09:51:00 AM EDT - 07/15/2020 11:59:00 PM EDT [facility] ([facility]) Outpatient<td ID="encounterTypeDescripti onID2">RX UPDATE</td><td>Antionette Reyes NP</td><td>[facility]</td><td>10/07/2020</td><td>07/15/2020 9:50AM</td><td>07/15/2020 11:59PM</td><td></td> Attender: Antionette Reyes NP [facility], 07/15/2020 09:50:00 AM EDT - 07/15/2020 11:59:00 PM EDT [facility] ([facility]) <td ID="encounterTypeDescriptionID3">STA NDARD OV</td><td>Antionette Chang Eric SNOW</td><td>[facility]</td><td>07/15/2020</td><td>9:21AM</td><td>10:12AM</td><td><content ID="encounterDiagnosisID3-0">Jejunitis</content></td>Outpatient Attender: Antionette Reyes NP [facility], 07/15/2020 09:21:00 AM EDT - 07/15/2020 10:12:00 AM EDT [facility] ([facility]) Jejunitis Outpatient<td ID="encounterTypeDescripti onID4">[Patient Encounter]</td><td>Kait Morales MD</td><td></td><td>07/12/2020</td><td>07/08/2020 11:06AM</td><td>07/08/2020 11:59PM</td><td></td> Attender: Kait Morales MD 07/08/2020 11:06:00 AM EDT - 07/08/2020 11:59:00 PM EDT [facility] ([facility]) <td ID="encounterTypeDescriptionID5">STA NDARD OV</td><td>Kait Morales MD</td><td>[facility],</td><td>07/08/2020</td><td>9:07AM</td><td>10:16AM</td><td><content ID="encounterDiagnosisID5-0">Coronary Artery Disease</content>, <content ID="encounterDiagnosisID5-1">Working Diagnosis of Abdominal Pain in the Left Lower Belly (Llq)</content>, <content ID="encounterDiagnosisID5-2">Working Diagnosis of Abdominal Pain Feels Crampy / Colicky</content>, <content ID="encounterDiagnosisID5-3">Working Diagnosis of Abdominal Pain Sudden Onset</content>, <content ID="encounterDiagnosisID5-4">Working Diagnosis of Abdominal Pain Started / Intensified By</content>, <content ID="encounterDiagnosisID5-5">Working Diagnosis of Abdominal Pain Relieved By Sitting Forward</content>, <content ID="encounterDiagnosisID5-6">Working Diagnosis of Abdominal Pain Relieved By Bowel Movement</content>, <content ID="encounterDiagnosisID5-7">Working Diagnosis of Abdominal Pain Relieved By Passing Gas</content>, <content ID="encounterDiagnosisID5-8">Working Diagnosis of Abdominal Pain Decreasing in Frequency</content>, <content ID="encounterDiagnosisID5-9">Diverticulitis of Colon</content></td>Outpatient Attender: Kait Morales MD Family Medicine [facility] 07/08/2020 09:07:00 AM EDT - 07/08/2020 10:16:00 AM EDT Diverticulitis of ColonWorking Diagnosis of Abdominal Pain Decreasing in FrequencyWorking Diagnosis of Abdominal Pain Relieved By Passing GasWorking Diagnosis of Abdominal Pain Relieved By Bowel MovementWorking Diagnosis of Abdominal Pain Relieved By Sitting ForwardWorking Diagnosis of Abdominal Pain Started / Intensified ByWorking Diagnosis of Abdominal Pain Sudden OnsetWorking Diagnosis of Abdominal Pain Feels Crampy / ColickyWorking Diagnosis of Abdominal Pain in the Left Lower Belly (Llq)Diverticulitis of ColonWorking Diagnosis of Abdominal Pain Decreasing in FrequencyWorking Diagnosis of Abdominal Pain Relieved By Passing GasWorking Diagnosis of Abdominal Pain Relieved By Bowel MovementWorking Diagnosis of Abdominal Pain Relieved By Sitting ForwardWorking Diagnosis of Abdominal Pain Started / Intensified ByWorking Diagnosis of Abdominal Pain Sudden OnsetWorking Diagnosis of Abdominal Pain Feels Crampy / ColickyWorking Diagnosis of Abdominal Pain in the Left Lower Belly (Llq)Diverticulitis of ColonWorking Diagnosis of Abdominal Pain Decreasing in FrequencyWorking Diagnosis of Abdominal Pain Relieved By Passing GasWorking Diagnosis of Abdominal Pain Relieved By Bowel MovementWorking Diagnosis of Abdominal Pain Relieved By Sitting ForwardWorking Diagnosis of Abdominal Pain Started / Intensified ByWorking Diagnosis of Abdominal Pain Sudden OnsetWorking Diagnosis of Abdominal Pain Feels Crampy / ColickyWorking Diagnosis of Abdominal Pain in the Left Lower Belly (Llq)Coronary Artery DiseaseCoronary Artery DiseaseCoronary Artery Disease [facility] ([facility]) Diverticulitis of Colon Working Diagnosis of Abdominal Pain Decr easing in Frequency Working Diagnosis of Abdominal Pain Reli eved By Passing Gas Working Diagnosis of Abdominal Pain Reli eved By Bowel Movement Working Diagnosis of Abdominal Pain Reli eved By Sitting Forward Working Diagnosis of Abdominal Pain Star karis / Intensified By Working Diagnosis of Abdominal Pain Sudd en Onset Working Diagnosis of Abdominal Pain Feel s Crampy / Colicky Working Diagnosis of Abdominal Pain in t he Left Lower Belly (Llq) Diverticulitis of Colon Working Diagnosis of Abdominal Pain Decr easing in Frequency Working Diagnosis of Abdominal Pain Reli eved By Passing Gas Working Diagnosis of Abdominal Pain Reli eved By Bowel Movement Working Diagnosis of Abdominal Pain Reli eved By Sitting Forward Working Diagnosis of Abdominal Pain Star karis / Intensified By Working Diagnosis of Abdominal Pain Sudd en Onset Working Diagnosis of Abdominal Pain Feel s Crampy / Colicky Working Diagnosis of Abdominal Pain in t he Left Lower Belly (Llq) Diverticulitis of Colon Working Diagnosis of Abdominal Pain Decr easing in Frequency Working Diagnosis of Abdominal Pain Reli eved By Passing Gas Working Diagnosis of Abdominal Pain Reli eved By Bowel Movement Working Diagnosis of Abdominal Pain Reli eved By Sitting Forward Working Diagnosis of Abdominal Pain Star karis / Intensified By Working Diagnosis of Abdominal Pain Sudd en Onset Working Diagnosis of Abdominal Pain Feel s Crampy / Colicky Working Diagnosis of Abdominal Pain in t he Left Lower Belly (Llq) Coronary Artery Disease Coronary Artery Disease Coronary Artery Disease Outpatient Attender: SIOBHAN BAXTER NP [facility] 05/26/2020 12:00:[address] [facility] [facility] Attender: Soledad Conway MD 0 05/18/2020 09:52:24 AM EST - 05/18/2020 10:12:06 AM EST [facility] ([facility]) Outpatient Attender: Martir SANCHEZ 04/29/19 10:54:28 AM EST - 04/29/2020 11:28:03 AM EST [facility] ([facility] ) Outpatient<td ID="encounterTypeDescripti onID7">STANDARD OV</td><td>Kait Morales MD</td><td>[facility],</td><td>04/08/2020</td><td>9:56AM</td><td>10:39AM</td><td><content ID="encounterDiagnosisID7-0">Coronary Artery Disease</content>, <content ID="encounterDiagnosisID7-1">Nicotine Dependence Uncomplicated</content>, <content ID="encounterDiagnosisID7-2">Essential Hypertension Benign</content>, <content ID="encounterDiagnosisID7-3">Hyperlipidemia</content>, <content ID="encounterDiagnosisID7-4">Diabetes Mellitus Type 2 in Obese</content></td> Attender: Kait Morales MD [facility] 04/08/2020 09:56:00 AM EST - 04/08/2020 10:39:00 AM EST Nicotine Dependence UncomplicatedNicotin e Dependence UncomplicatedNicotine Dependence UncomplicatedDiabetes Mellitus Type 2 in ObeseEssential Hypertension BenignDiabetes Mellitus Type 2 in ObeseEssen tial Hypertension BenignDiabetes Mellitus Type 2 in ObeseEssential Hypertension BenignCoronary Artery DiseaseCoronary Artery DiseaseCoronary Artery DiseaseHyperlipidemiaHyperlipidemiaHyperlipidemia [facility]) Nicotine Dependence Uncomplicated Nicotine Dependence Uncomplicated Nicotine Dependence Uncomplicated Diabetes Mellitus Type 2 in Obese Essential Hypertension Benign Diabetes Mellitus Type 2 in Obese Essential Hypertension Benign Diabetes Mellitus Type 2 in Obese Essential Hypertension Benign Coronary Artery Disease Coronary Artery Disease Coronary Artery Disease Hyperlipidemia Hyperlipidemia Hyperlipidemia <td ID="encounterTypeDescriptionID6">RX UPDATE</td><td>Kait Morales MD</td><td></td><td>06/16/2020</td><td>04/08/2020 9:16AM</td><td>04/08/2020 11:59PM</td><td></td>Outpatient Attender: Kait Morales MD 0 04/08/2020 09:16:00 AM EST - 04/08/2020 11:59:00 PM EST [facility] ([facility]) Outpatient Attender: SIOBHAN BAXTER NP BF-BF 03/2019 12:00:00 AM EST - 02/26/2020 10:52:51 AM EST [facility] Outpatient Attender: Frederick Parkinson MDAt tender: Robert Carrdiqi MDAdmitter: Robert Carrdiqi MDReferrer: Robert Lenz MD [id number] 02/11/2020 05:32:5 9 PM EST - 02/13/2020 05:52:00 PM EST [facility] Patient discharged. Outpatient<td ID="encounterTypeDescripti onID8">ANNUAL PHYSICAL EXAM</td><td>Kait Morales MD</td><td>[facility],</td><td>01/08/2020</td><td>8:23AM</td><td>9:17AM</td><td><content ID="encounterDiagnosisID8-0">Colon Polyps</content>, <content ID="encounterDiagnosisID8-1">Essential Hypertension Benign</content>, <content ID="encounterDiagnosisID8-2">Hyperlipidemia</content>, <content ID="encounterDiagnosisID8-3">Benign Prostatic Hypertrophy</content>, <content ID="encounterDiagnosisID8-4">Routine History & Physical Adult with Abnormal Findings</content></td> Attender: Kait Morales MD [facility] 01/08/2020 08:23:00 AM EDT - 01/08/2020 09:17:00 AM ED T Routine History & Physical Adult with Abnormal FindingsBenign Prostatic HypertrophyColon PolypsRoutine History & Physical Adult with Abnormal FindingsBenign Prostatic HypertrophyColon PolypsRoutine History & Physical Adult with Abnormal FindingsBenign Prostatic HypertrophyColon PolypsRoutine History & Physical Adult with Abnormal FindingsBenign Prostatic HypertrophyColon PolypsEssential Hypertension BenignEssential Hypertension BenignEssential Hypertension BenignEssential Hypertension BenignHyperlipidemiaHyperlipidemiaHyperlipidemiaHyperlipidemia [facility] ([facility]) Routine History & Physical Adult with Ab normal Findings Benign Prostatic Hypertrophy Colon Polyps Routine History & Physical Adult with Ab normal Findings Benign Prostatic Hypertrophy Colon Polyps Routine History & Physical Adult with Ab normal Findings Benign Prostatic Hypertrophy Colon Polyps Routine History & Physical Adult with Ab normal Findings Benign Prostatic Hypertrophy Colon Polyps Essential Hypertension Benign Essential Hypertension Benign Essential Hypertension Benign Essential Hypertension Benign Hyperlipidemia Hyperlipidemia Hyperlipidemia Hyperlipidemia Immunizations Vaccine Date Status Description Data Source(s) 06/09/2020 12:00:00 AM EDT completed <td I D="[id number]">Covid-19 (Pfizer)</td><td>06/09/2020, 05/19/2020</td><td></td> [facility] COVID-19 VACCINE Pfizer 06/09/2020 12:00:00 AM EDT completed [facility]IS Vaccine Series Complete: YESThis Data wa s Submitted to [facility] Via [employer]. 05/19/2020 12:00:00 AM EST completed <td I D="[id number]">Covid-19 (Pfizer)</td><td>06/09/2020, 05/19/2020</td><td></td> [facility] COVID-19 VACCINE Pfizer 05/19/2020 12:00:00 AM EST completed [place]IS Vaccine Series Complete: NOThis Data was Submitted to [facility] Via [employer]. This CVX code allows reporting of a vacc ination when formulation is unknown (for example, when recording a Influenza vaccination when noted on a vaccination card) 01/08/2020 09:25:00 AM EDT completed <td ID="[id number]">Influenza,NOS</td><td ID="ImmunizationDose- 4">5</td><td>01/08/2020</td><td ID="[id number]">Right Arm</td><td></td><td ID="[id number]">Complete (Administered)</td><td>[facility], </td><td ID="[id number]"></td> [facility]) Note: vaccination information sheet give n date 11-09-2018 Medications Medication Brand Name Start Date Product Form Dose Route Admi nistrative Instructions Pharmacy Instructions Status Indications Reaction Description Data Source(s) Metformin hydrochloride 1000 MG Oral Tablet metFORMIN HCl 1000 MG Oral Tablet metFORMIN HCl 1000 MG Oral Tablet 11/11/2020 12:00:00 AM EDT active metformin hydrochloride 1000 MG Oral Tablet [facility]) Blood Glucose Test In Vitro Strip Blood Glucose Test In Vitr o Strip 11/11/2020 12:00:00 AM EDT active Blood Gl ucose Test [facility]) Lancets Miscellaneous Lancets Miscellaneous 11/11/2020 12:00:00 AM EDT active Lancets [facility] ([facility]) Nitroglycerin 0.4 MG Sublingual Tablet [ Nitrostat] Nitrostat 0.4 MG Sublingual Tablet Sublingual Nitrostat 0.4 MG Sublingual Tablet Sublingual 11/12/19 12:00:00 AM EDT 1 active nitroglycerin 0.4 MG Sublingual Tablet [Nitrostat] [facility]) Famotidine 20 MG Oral Tablet Famotidine Maximum Streng th 20 MG Oral Tablet Famotidine Maximum Strength 20 MG Oral Tablet 11/11/2020 12:00:00 AM EDT 1 active famotidine 20 MG Oral Tab let [facility]) Metoprolol Tartrate 25 MG Oral Tablet Metoprolol Tartrate 25 MG Oral Tablet 11/11/2020 12:00:00 AM EDT active metoprolol tartrate 25 MG Oral Tablet [facility]) Lisinopril 5 MG Oral Tablet Lisinopril 5 MG Oral Tablet 10/26 12:00:00 AM EDT active lisinopril 5 MG O ral Tablet [facility] ([facility]) empagliflozin 25 MG Oral Tablet [Jardiance] Jardiance 25 MG Oral Tablet Jardiance 25 MG Oral Tablet 11/11/2020 12:00:00 AM EDT active empagliflozin 25 MG Oral Tablet [Jardiance] [facility]) atorvastatin 40 MG Oral Tablet Atorvastatin Calcium 40 MG Oral Tablet Atorvastatin Calcium 40 MG Oral Tablet 11/11/2020 12:00:00 AM EDT active atorvastatin 40 MG Oral Tablet [facility]) gabapentin 300 MG Oral Capsule Gabapentin 300 MG Oral Capsule Gabapentin 300 MG Oral Capsule 11/11/2020 12:00:00 AM EDT activ e gabapentin 300 MG Oral Capsule [facility]) Metoprolol Tartrate 25 MG Oral Tablet Metoprolol Tartrate 25 MG Oral Tablet 11/10/2020 12:00:00 AM EDT aborted metoprolol tartrate 25 MG Oral Tablet [facility]) empagliflozin 25 MG Oral Tablet [Jardiance] Jardiance 25 MG Oral Tablet Jardiance 25 MG Oral Tablet 11/05/2020 12:00:00 AM EDT aborted empagliflozin 25 MG Oral Tablet [Jardiance] [facility] ([facility]) Lisinopril 5 MG Oral Tablet Lisinopril 5 MG Oral Tablet 04/2020 12:00:00 AM EDT aborted lisinopril 5 MG Oral Tablet [facility]) atorvastatin 40 MG Oral Tablet Atorvastatin Calcium 40 MG Oral Tablet Atorvastatin Calcium 40 MG Oral Tablet 10/27/2020 12:00:00 AM EDT aborted atorvastatin 40 MG Oral Tablet [facility]) empagliflozin 25 MG Oral Tablet [Jardiance] Jardiance 25 MG Oral Tablet Jardiance 25 MG Oral Tablet 10/07/2020 12:00:00 AM EDT 1 aborted empagliflozin 25 MG Oral Tablet [Jardiance] [facility] ([facility]) Acetaminophen 325 MG Oral Tablet acetaminophen (TYLENO L) 325 MG tablet 650 mg acetaminophen (TYLENOL) 325 MG tablet 650 mg 08/28/2020 03:01:41 PM EDT 650 mg Oral active 650 mg, Or al, Every 4 hours PRN, headaches, and non cardiac pain, Starting on Charo 08/28/20 at 1501, Post-op
"Maximum dose of acetaminophen is 4,000 mg from all sources in 24 hours."
[facility] Medication administered onsite Nitroglycerin 0.4 MG Sublingual Tablet n itroglycerin (NITROSTAT) SL tablet 0.4 mg nitroglycerin (NITROSTAT) SL tablet 0.4 mg 08/28/2020 03:01:41 P M EDT 0.4 mg Sublingual active 0.4 mg, S ublingual, Every 5 min PRN, chest pain, Starting on Charo 08/28/20 at 1501, Post-op
May administer every 5 minutes for 3 doses and call cardio lab MD.
[facility] Medication administered onsite normal saline flush 0.9 % injection 3 mL [id number] 08/28/2020 03:00:00 PM EDT 3 mL Intravenous active 3 mL , Intravenous, PROTOCOL, First dose on Charo 08/28/20 at 1500, Pre-op
flush per protocol, D/C Main IV fluid if appropriate
[facility] Medication administered onsite iopamidol (ISOVUE-370) 76 % [id number] 08/28/2020 02:06:50 PM EDT active As needed, Starting on Charo 08/28/20 at 1406, Intra-Proce dure [facility] Medication administered onsite normal saline flush 0.9 % injection 3 mL [id number] 08/28/2020 02:00:00 PM EDT 3 mL Intravenous active 3 mL , Intravenous, Every 8 hours (scheduled), First dose on Charo 08/28/20 at 1400, Pre-op
Rapid push positive pressure flushing shall be performed with a 10 cc normal saline syringe to check the PATENCY of a PIV site prior to any infusion therapy initiation unless resistance is met.
[facility] Medication administered onsite 1 ML heparin sodium, porcine 1000 UNT/ML Injection hep alfonso (porcine) injection heparin (porcine) injection 08/28/2020 01:42:51 PM EDT active As needed, Starting on Charo 08/28/20 at 1342, Intra-Procedure [facility] Medication administered onsite NITROGLYCERIN 0.4 MG/ML IV SOLN [id number] 08/28/2020 01:42:41 PM EDT active As needed, Starting on Charo at 1342, Intra-Procedure [facility] Medication administered onsite lidocaine 1 % injection [id number] 08/28/2020 01:35:53 PM EDT active As needed, Starting on Charo 1 at 1335, Intra-Procedure [facility] Medication administered onsite 2 ML Midazolam 1 MG/ML Injection midazolam (VERSED) in jection midazolam (VERSED) injection 08/28/2020 01:31:11 PM EDT active As needed, Starting on Charo 08/28/20 at 1331, Intra-Procedure [facility] Medication administered onsite fentaNYL Citrate (PF) (SUBLIMAZE) injection [id number] 08/28/2020 01:30:39 PM EDT active As neede d, Starting on Charo 08/28/20 at 1330, Intra-Procedure [facility] Medication administered onsite sodium chloride 0.9% (NS) infusion [id number] 08/28/2020 11:00:00 AM EDT 100 mL/h Intravenous active at 100 m L/hr, 100 mL/hr, Intravenous, Continuous, Starting on Charo 08/28/20 at 1100, Pre-op
Start two hours prior to scheduled start time
[facility] Medication administered onsite Diphenhydramine Hydrochloride 50 MG Oral Capsule diphenhydrAMINE (BENADRYL) capsule 50 mg diphenhydrAMINE (BENADRYL) capsule 50 mg 08/28/2020 11 :00:00 AM EDT 50 mg Oral completed 50 mg, Oral, grid maker, On Charo 08/28/20 at 1100, For 1 dose, Pre-op [facility] Medication administered onsite Acetaminophen 325 MG Oral Tablet acetaminophen (TYLENO L) 325 MG tablet 650 mg acetaminophen (TYLENOL) 325 MG tablet 650 mg 08/28/2020 10:30:12 AM EDT 650 mg Oral active 650 mg, Or al, Every 4 hours PRN, headaches, and non cardiac pain, Starting on Charo 08/28/20 at 1030, Pre-op
"Maximum dose of acetaminophen is 4,000 mg from all sources in 24 hours."
[facility] Medication administered onsite clopidogrel 75 MG Oral Tablet clopidogrel (PLAVIX) 75 MG tablet clopidogrel (PLAVIX) 75 MG tablet 08/28/2020 12:00:00 AM EDT 75 mg Oral active Take 1 tablet (75 mg total) by mouth daily [facility] Diphenhydramine Hydrochloride 50 MG Oral Tablet diphenhydrAMINE (BENADRYL) 50 MG tablet diphenhydrAMINE (BENADRYL) 50 MG tablet 08/22/2020 12:00:00 AM EDT active Take 1 tablet the evening prior to procedure and 1 tablet the morning of procedure [facility] 24 HR Isosorbide Mononitrate 30 MG Exten ded Release Oral Tablet isosorbide mononitrate (IMDUR) 30 MG 24 hr tablet isosorbide mononitrate (IMDUR) 30 MG 24 hr tablet 08/22/2020 12:00:00 AM EDT 30 mg Oral active Take 1 tablet (30 mg total) by mouth daily [facility] Prednisone 50 MG Oral Tablet predniSONE (DELTASONE) 50 MG tablet predniSONE (DELTASONE) 50 MG tablet 08/22/2020 12:00:00 AM EDT active Take 1 tablet the evening prior to procedure and 1 tablet the morning of procedure [facility] Lisinopril 5 MG Oral Tablet Lisinopril 5 MG Oral Tablet 06/26 12:00:00 AM EDT aborted lisinopril 5 MG Oral Tablet [facility] ([facility]) Metoprolol Tartrate 25 MG Oral Tablet Metoprolol Tartrate 25 MG Oral Tablet 07/14/2020 12:00:00 AM EDT aborted metoprolol tartrate 25 MG Oral Tablet [facility] ([facility]) Metronidazole 500 MG Oral Tablet metroNIDAZOLE 500 MG Oral Tablet metroNIDAZOLE 500 MG Oral Tablet 07/08/2020 12:00:00 AM EDT 1 aborted metronidazole 500 MG Oral Tablet [facility] ([facility]) empagliflozin 25 MG Oral Tablet [Jardiance] Jardiance 25 MG Oral Tablet Jardiance 25 MG Oral Tablet 07/08/2020 12:00:00 AM EDT 1 aborted empagliflozin 25 MG Oral Tablet [Jardiance] [facility] ([facility]) Lisinopril 5 MG Oral Tablet Lisinopril 5 MG Oral Tablet 06/26 12:00:00 AM EDT aborted lisinopril 5 MG Oral Tablet [facility] ([facility]) Metformin hydrochloride 1000 MG Oral Tablet metFORMIN HCl 1000 MG Oral Tablet metFORMIN HCl 1000 MG Oral Tablet 07/08/2020 12:00:00 AM EDT aborted metformin hydrochloride 1000 MG Oral Tab let [facility] ([facility]) Ciprofloxacin 250 MG Oral Tablet Ciprofloxacin HCl 250 MG Oral Tablet Ciprofloxacin HCl 250 MG Oral Tablet 07/08/2020 12:00:00 AM EDT aborted ciprofloxacin 250 MG Oral Tablet [facility] ([facility]) atorvastatin 40 MG Oral Tablet Atorvastatin Calcium 40 MG Oral Tablet Atorvastatin Calcium 40 MG Oral Tablet 07/08/2020 12:00:00 AM EDT aborted atorvastatin 40 MG Oral Tablet [facility] Metoprolol Tartrate 25 MG Oral Tablet Metoprolol Tartrate 25 MG Oral Tablet 07/08/2020 12:00:00 AM EDT aborted metoprolol tartrate 25 MG Oral Tablet [facility] ([facility]) gabapentin 300 MG Oral Capsule Gabapentin 300 MG Oral Capsule Gabapentin 300 MG Oral Capsule 07/08/2020 12:00:00 AM EDT abort ed gabapentin 300 MG Oral Capsule [facility] ([facility]) Metformin hydrochloride 1000 MG Oral Tablet metFORMIN HCl 1000 MG Oral Tablet metFORMIN HCl 1000 MG Oral Tablet 06/16/2020 12:00:00 AM EDT aborted metformin hydrochloride 1000 MG Oral Tab let [facility] ([facility]) clopidogrel 75 MG Oral Tablet clopidogrel (PLAVIX) 75 MG tablet clopidogrel (PLAVIX) 75 MG tablet 05/26/2020 12:00:00 AM EST active TAKE 1 TABLET(75 MG) BY MOUTH DAILY [facility] clopidogrel 75 MG Oral Tablet [Plavix] Plavix 75 MG Or al Tablet Plavix 75 MG Oral Tablet 04/08/2020 12:00:00 AM EST 1 active clopidogrel 75 MG Oral Tablet [Plavix] [facility] ([facility]) Calcium Carbonate 500 MG Chewable Tablet [Tums] Tums 500 MG Oral Tablet Chewable Tums 500 MG Oral Tablet Chewable 04/08/2020 12:00:00 AM EST active calcium carbonate 500 MG Chewable Tablet [Tums] [facility] ([facility]) Metformin hydrochloride 1000 MG Oral Tablet metFORMIN HCl 1000 MG Oral Tablet metFORMIN HCl 1000 MG Oral Tablet 04/08/2020 12:00:00 AM EST aborted metformin hydrochloride 1000 MG Oral Tab let [facility]) Metoprolol Tartrate 25 MG Oral Tablet Metoprolol Tartrate 25 MG Oral Tablet 04/08/2020 12:00:00 AM EST aborted metoprolol tartrate 25 MG Oral Tablet [facility] ([facility]) Blood Glucose Test In Vitro Strip Blood Glucose Test In Vitr o Strip 04/08/2020 12:00:00 AM EST aborted Blood G lucose Test [facility]) Blood Glucose Test In Vitro Strip Blood Glucose Test In Vitr o Strip 04/08/2020 12:00:00 AM EST aborted Blood G lucose Test [facility]) gabapentin 300 MG Oral Capsule Gabapentin 300 MG Oral Capsule Gabapentin 300 MG Oral Capsule 04/08/2020 12:00:00 AM EST abort ed gabapentin 300 MG Oral Capsule [facility]) Lancets Miscellaneous Lancets Miscellaneous 04/08/2020 12:00:00 AM EST aborted Lancets [facility] ([facility]) Lisinopril 5 MG Oral Tablet Lisinopril 5 MG Oral Tablet 03/28 12:00:00 AM EST aborted lisinopril 5 MG Oral Tablet [facility]) atorvastatin 40 MG Oral Tablet Atorvastatin Calcium 40 MG Oral Tablet Atorvastatin Calcium 40 MG Oral Tablet 04/08/2020 12:00:00 AM EST aborted atorvastatin 40 MG Oral Tablet [facility] Metoprolol Tartrate 25 MG Oral Tablet me toprolol tartrate (LOPRESSOR) 25 MG tablet metoprolol tartrate (LOPRESSOR) 25 MG tablet 02/28/2020 12:0 0:00 AM EST 25 mg Oral active Take 1 tablet (2 5 mg total) by mouth 2 (two) times a day [facility] clopidogrel 75 MG Oral Tablet clopidogrel (PLAVIX) 75 MG tablet clopidogrel (PLAVIX) 75 MG tablet 02/26/2020 12:00:00 AM EST 75 mg Oral active Take 1 tablet (75 mg total) by mouth daily [facility] Metoprolol Tartrate 25 MG Oral Tablet me toprolol tartrate (LOPRESSOR) 25 MG tablet metoprolol tartrate (LOPRESSOR) 25 MG tablet 02/26/2020 12:0 0:00 AM EST 25 mg Oral active Take 1 tablet (2 5 mg total) by mouth 2 (two) times a day [facility] Metformin hydrochloride 1000 MG Oral Tab let metFORMIN (GLUCOPHAGE) 1000 MG tablet metFORMIN (GLUCOPHAGE) 1000 MG tablet 02/19/2020 12:00:00 AM EST 1000 mg Oral active Take 1,000 mg by mouth 1 tablet in am and 1/[address] in the pm [facility] atorvastatin 80 MG Oral Tablet atorvastatin (LIPITOR) tablet 80 mg atorvastatin (LIPITOR) tablet 80 mg 02/14/2020 09:00:00 AM EST 80 mg Oral active 80 mg, Oral, Daily, First dose on Tue02/14/[address] [facility] Medication administered onsite atorvastatin 80 MG Oral Tablet atorvastatin (LIPITOR) 80 MG tablet atorvastatin (LIPITOR) 80 MG tablet 02/14/2020 12:00:00 AM EST 80 mg Oral active Take 1 tablet (80 mg total) by mouth daily [facility] gabapentin 100 MG Oral Capsule gabapentin (NEURONTIN) capsule 300 mg gabapentin (NEURONTIN) capsule 300 mg 02/13/2020 09:00:00 AM EST 300 mg Oral active 300 mg, Oral, Daily, First dose on Tue04/14/[address] [facility] Medication administered onsite predniSONE (DELTASONE) tablet 50 mg 02/13/2020 08:00:00 AM EST 50 mg Oral completed 50 mg, Oral, Onc e, Tue02/13/20 at 0800, For 1 dose
Procedure time: 02/13/2020 at 0900 Give dose 1 hour pre-procedure
[facility] Medication administered onsite Diphenhydramine Hydrochloride 50 MG Oral Capsule diphenhydrAMINE (BENADRYL) capsule 50 mg diphenhydrAMINE (BENADRYL) capsule 50 mg 02/13/2020 08 :00:00 AM EST 50 mg Oral completed 50 mg, Oral, Once, Tue02/13/20 at 0800, For 1 dose
Procedure time: 02/13/2020 at 0900 Give dose 1 hour pre-procedure
[facility] Medication administered onsite predniSONE (DELTASONE) tablet 50 mg 02/13/2020 02:00:00 AM EST 50 mg Oral completed 50 mg, Oral, Onc e, Tue02/13/20 at 0200, For 1 dose
Procedure time: 02/13/2020 at 0900 Give dose 7 hours pre-procedure
[facility] Medication administered onsite Metoprolol Tartrate 25 MG Oral Tablet me toprolol tartrate (LOPRESSOR) tablet 25 mg metoprolol tartrate (LOPRESSOR) tablet 25 mg 02/12/2020 09:00:00 PM EST 25 mg Oral active 25 mg, Ora l, 2 times daily, First dose on Tue02/12/20 at 2100
Hold for SBP < 110, HR < [address]
[facility] Medication administered onsite Insulin Glargine 100 UNT/ML Injectable S olution [Lantus] insulin glargine (LANTUS) injection 12 Units insulin glargine (LANTUS) injection 12 Units 02/12/2020 09:00:00 PM EST 12 U Subcutaneous active 12 Units, Subcutaneous, Nightly (Lantus), First dose on Tue02/12/20 at 2100
Basal Insulin (Lantus) Adjustments based on AM Blood Glucose Blood Glucose&nbs p; Adjustment Less than 70 mg/dl Nursing to initiate hypoglycemia protocol 70 to 100 mg/dl &nb sp; Pharmacy to decrease total daily dose by 20% 101 to 200 mg/dl &nb sp; No Change
[facility] Medication administered onsite predniSONE (DELTASONE) tablet 50 mg 02/12/2020 08:00:00 PM EST 50 mg Oral completed 50 mg, Oral, Onc e, Tue02/12/20 at 2000, For 1 dose
Procedure time: 02/13/2020 at 0900 Give dose 13 hours pre-procedure
[facility] Medication administered onsite Nitroglycerin 0.4 MG Sublingual Tablet n itroglycerin (NITROSTAT) SL tablet 0.4 mg nitroglycerin (NITROSTAT) SL tablet 0.4 mg 02/12/2020 02:14:44 P M EST 0.4 mg Sublingual active 0.4 mg, S ublingual, Every 5 min PRN, chest pain, Starting Tue02/12/20 at 1414
May administer up to 3 doses per episode.
[facility] Medication administered onsite normal saline flush 0.9 % injection 3 mL [id number] 02/12/2020 02:00:00 PM EST 3 mL Intravenous aborted 3 mL , Intravenous, Every 8 hours (scheduled), First dose on Tue02/12/20 at 1400, Pre-op
Rapid push positive pressure flushing shall be performed with a 10 cc normal saline syringe to check the PATENCY of a PIV site prior to any infusion therapy initiation unless resistance is met.
[facility] Medication administered onsite Insulin Lispro 100 UNT/ML Injectable Filomena ution insulin lispro (HumaLOG) injection 1-8 Units insulin lispro (HumaLOG) injection 1-8 Units 0 01:13:00 PM EST Subcutaneous active 1-8 Units, Subcutaneous, MEALSS, First dose on Tue02/12/20 at 1400
4 units Nutritional and Correction Insulin Scale Blood Glucose (mg/dl) <70 start hypoglycemia protocol Glucose &nbsp ; Eats >=50% Eats <50%& amp;nbsp; Eats Nothing (mg/dl) of meal of meal or NPO &am p;nbsp;70- 120 3 units 1 units 0 units 121-170 & amp;nbsp; 4 units 2 units 0 units 171-220 & nbsp; 5 units 3 units 1 units 221-270 &nbsp ; 5 units 3 units 1 units 271- 320 6 u nits 4 units 2 units 321- 370 7 units 5 units 3 units 371- 420 7 units 5 units 3 units >420 call MD 8 units 6 units 4 units Test glucose within 30 minutes of insulin administration. Administer insulin within 15 minutes (before or after) of the patient starting to eat. For patients that are NPO, use the NPO (correction) scale to cover POC glucose at 08:00, 12:00, 17:00.
[facility] Medication administered onsite sodium chloride 0.9% (NS) infusion [id number] 02/12/2020 01:00:00 PM EST 100 mL/h Intravenous active at 100 m L/hr, 100 mL/hr, Intravenous, Continuous, Starting Tue02/12/20 at 1300, Pre-op
Start two hours prior to scheduled start time
[facility] Medication administered onsite normal saline flush 0.9 % injection 3 mL [id number] 02/11/2020 10:00:00 PM EST 3 mL Intravenous active 3 mL , Intravenous, PROTOCOL, First dose on Tue02/11/20 at 2200
flush per protocol, D/C Main IV fluid if appropriate
[facility] Medication administered onsite 1 ML Enoxaparin sodium 100 MG/ML Prefill ed Syringe enoxaparin (LOVENOX) syringe 90 mg enoxaparin (LOVENOX) syringe 90 mg 02/11/2020 10:00:00 PM EST 1 mg/kg Subcutaneous active 90 mg (round ed from 85.9 mg = 1 mg/kg 85.9 kg), Subcutaneous, Every 12 hours (relative), First dose on Tue02/11/20 at 2200
If platelet count is less than 100,000 or hematocrit is less than 30, or if there is a 5 point decrease in hematocrit, do not give the dose and call physician/designee.
[facility] Medication administered onsite clopidogrel 75 MG Oral Tablet clopidogrel (PLAVIX) tab let 75 mg clopidogrel (PLAVIX) tablet 75 mg 02/11/2020 09:00:00 PM EST 75 mg Oral active 75 mg, Oral, Daily, First dose on Tue02/11/[address] [facility] Medication administered onsite atorvastatin 40 MG Oral Tablet atorvastatin (LIPITOR) tablet 40 mg atorvastatin (LIPITOR) tablet 40 mg 02/11/2020 09:00:00 PM EST 40 mg Oral aborted 40 mg, Oral, Daily, First dose on Tue02/11/[address] [facility] Medication administered onsite Lisinopril 5 MG Oral Tablet lisinopril (PRINIVIL,ZESTR IL) tablet 5 mg lisinopril (PRINIVIL,ZESTRIL) tablet 5 mg 02/11/2020 09:00:00 PM EST 5 mg O ral active 5 mg, Oral, Daily, First dose on Tue02/11/[address] [facility] Medication administered onsite Aspirin 81 MG Chewable Tablet aspirin chewable tablet 81 mg aspirin chewable tablet 81 mg 02/11/2020 09:00:00 PM EST 81 mg Oral activ e 81 mg, Oral, Daily, First dose on Tue02/11/[address] [facility] Medication administered onsite Acetaminophen 325 MG Oral Tablet acetaminophen (TYLENO L) 325 MG tablet 650 mg acetaminophen (TYLENOL) 325 MG tablet 650 mg 02/11/2020 08:20:34 PM EST 650 mg Oral aborted 650 mg, Or al, Every 4 hours PRN, mild pain (1-3), headaches, Starting Tue02/11/20 at 2019
"Maximum dose of acetaminophen is 4,000 mg from all sources in 24 hours."
[facility] Medication administered onsite Lancets Miscellaneous Lancets Miscellaneous 01/08/2020 12:00:00 AM EDT aborted Lancets [facility] ([facility]) Blood Glucose Test In Vitro Strip Blood Glucose Test In Vitr o Strip 01/08/2020 12:00:00 AM EDT aborted Blood G lucose Test [facility] ([facility]) Lisinopril 5 MG Oral Tablet Lisinopril 5 MG Oral Tablet 12/26 12:00:00 AM EDT aborted lisinopril 5 MG Oral Tablet [facility] ([facility]) atorvastatin 40 MG Oral Tablet Atorvastatin Calcium 40 MG Oral Tablet Atorvastatin Calcium 40 MG Oral Tablet 01/08/2020 12:00:00 AM EDT aborted atorvastatin 40 MG Oral Tablet G REECOUNTS INCLUDE 234 BEDS AT [facility] ([facility]) Metformin hydrochloride 1000 MG Oral Tablet metFORMIN HCl 1000 MG Oral Tablet metFORMIN HCl 1000 MG Oral Tablet 01/08/2020 12:00:00 AM EDT aborted metformin hydrochloride 1000 MG Oral Tab let [facility] ([facility]) Metoprolol Tartrate 25 MG Oral Tablet Metoprolol Tartrate 25 MG Oral Tablet 01/08/2020 12:00:00 AM EDT aborted metoprolol tartrate 25 MG Oral Tablet [facility] ([facility]) gabapentin 300 MG Oral Capsule Gabapentin 300 MG Oral Capsule Gabapentin 300 MG Oral Capsule 01/08/2020 12:00:00 AM EDT abort ed gabapentin 300 MG Oral Capsule [facility] ([facility]) Metoprolol Tartrate 25 MG Oral Tablet Metoprolol Tartrate 25 MG Oral Tablet 12/18/2019 12:00:00 AM EDT aborted metoprolol tartrate 25 MG Oral Tablet [facility] ([facility]) Lisinopril 5 MG Oral Tablet Lisinopril 5 MG Oral Tablet 11/27 12:00:00 AM EDT aborted lisinopril 5 MG Oral Tablet [facility] ([facility]) gabapentin 300 MG Oral Capsule Gabapentin 300 MG Oral Capsule Gabapentin 300 MG Oral Capsule 10/09/2019 12:00:00 AM EDT abort ed gabapentin 300 MG Oral Capsule [facility] ([facility]) Blood Glucose Test In Vitro Strip Blood Glucose Test In Vitr o Strip 10/09/2019 12:00:00 AM EDT aborted Blood G lucose Test [facility] ([facility]) atorvastatin 40 MG Oral Tablet Atorvastatin Calcium 40 MG Oral Tablet Atorvastatin Calcium 40 MG Oral Tablet 08/31/2019 12:00:00 AM EDT aborted atorvastatin 40 MG Oral Tablet G REECOUNTS INCLUDE 234 BEDS AT [facility] ([facility]) Metformin hydrochloride 1000 MG Oral Tablet metFORMIN HCl 1000 MG Oral Tablet metFORMIN HCl 1000 MG Oral Tablet 08/31/2019 12:00:00 AM EDT aborted metformin hydrochloride 1000 MG Oral Tab let [facility] ([facility]) Lisinopril 5 MG Oral Tablet Lisinopril 5 MG Oral Tablet 07/2019 12:00:00 AM EDT 1 aborted lisinopril 5 MG Oral Tablet [facility] ([facility]) clopidogrel 75 MG Oral Tablet [Plavix] Plavix 75 MG Or al Tablet Plavix 75 MG Oral Tablet 08/31/2019 12:00:00 AM EDT 1 aborte d clopidogrel 75 MG Oral Tablet [Plavix] [facility] ([facility]) Metoprolol Tartrate 25 MG Oral Tablet Metoprolol Tartrate 25 MG Oral Tablet 08/31/2019 12:00:00 AM EDT aborted metoprolol tartrate 25 MG Oral Tablet [facility] ([facility]) Lancets Miscellaneous Lancets Miscellaneous 07/02/2019 12:00:00 AM EDT aborted Lancets [facility] ([facility]) clopidogrel 75 MG Oral Tablet clopidogrel (PLAVIX) 75 MG tablet clopidogrel (PLAVIX) 75 MG tablet 11/28/2018 12:00:00 AM EDT 75 mg Oral aborted Take 1 tablet (75 mg total) by mouth daily [facility] Nitroglycerin 0.4 MG Sublingual Tablet [ Nitrostat] Nitrostat 0.4MG Sublingual Tablet, sublingual Nitrostat 0.4MG Sublingual Tablet, sublingual 05/17/19 12:00:00 AM EST 1 aborted nitroglycerin 0.4 MG Sublingual Tablet [Nitrostat] [facility] ([facility]) Metoprolol Tartrate 25 MG Oral Tablet me toprolol tartrate (LOPRESSOR) 25 MG tablet metoprolol tartrate (LOPRESSOR) 25 MG tablet 04/19/2017 12:0 0:00 AM EST 25 mg Oral aborted Take 1 tablet (2 5 mg total) by mouth 2 (two) times a day [facility] atorvastatin 40 MG Oral Tablet atorvastatin (LIPITOR) 40 MG tablet atorvastatin (LIPITOR) 40 MG tablet 40 mg Oral aborted T ramakrishna [address] mouth [address] [facility] Metformin hydrochloride 500 MG Oral Tablet metFORMIN ( GLUCOPHAGE) 500 MG tablet metFORMIN (GLUCOPHAGE) 500 MG tablet 500 mg Oral a borted Take 500 mg by mouth 2 (two) times a day with meals 1 tab in am and [address] [facility] Insurance Providers Payer name Policy type / Coverage type Policy ID Covered green party ID Covered green party's relationship to waters Policy Waters Plan Information [facility] Individual Policy 0 [id number] Self 0 BCBS of [facility] [place] Individual Policy 0 [id number] Self 0 BCBS of [facility] [place] Individual Policy 0 [id number] Self 0 BCBS of [facility] [place] Individual Policy 0 [id number] Self 0 BCBS of [facility] [place] Individual Policy 0 [id number] Self 0 [facility] [place] Individual Policy 0 [id number] Self 0 [facility] [place] Individual Policy 0 [id number] Self 0 [facility] [place] Individual Policy 0 [id number] Self 0 [facility] [place] Individual Policy 0 [id number] Self 0 BCBS of [facility] [place] Individual Policy 0 [id number] Self 0 BCBS of [facility] [place] Individual Policy 0 [id number] Self 0 BCBS of [facility] [place] Individual Policy 0 [id number] Self 0 [employer] [place] [employer]/B lue Shield [id number] Self [id number] [employer] [place] [employer]/B l[employer] Shield [id number] Self [id number] [employer] [id number] [employer] [id number] Holli YND [id number] [employer] Of [place] [employer] [id number] Self [id number] [employer] [id number] Self [id number] [employer] [id number] Holli VYK [id number] [employer] [place] PPO 302/307 [id number] SP [id number] [employer] [place] PPO 302/307 [id number] SP [id number] [employer] [place] PPO 302/307 [id number] SP [id number] [employer] [place] PPO 302/307 [id number] SP [id number] BLUE CROSS BLUE SHIELD-O/P [id number] 18 [id number] [employer] OF [place] BC [id number] S [id number] [id number] [employer] [place] PPO 302/307 [id number] SP [id number] SELF PAY SP UNAVAILABLE UNAVAILA BLE [employer] OF [place]AT[place] 306/806 [id number] SP [id number] BCBS of [facility] Other 0 [id number] Se lf 0 [employer] [place] PPO 302/307 [id number] SP [id number] BCBS of [facility] Other 0 [id number] Se lf [address] [facility] Other 0 [id number] Se lf 0 [employer]BS [id number] [employer] [id number] Holli VYA [id number] BCBS of [facility] Other 0 [id number] Se lf [address] [facility] Other 0 [id number] Se lf [address] [facility] Other 0 [id number] Se lf 0 [employer] B [id number] S [id number] [id number] [employer] [place] PPO 302/307 [id number] SP [id number] [employer] [place] PPO 302/307 [id number] SP [id number] [employer] [id number] Holli VYK [id number] [employer] PI PI Problems, Conditions, and Diagnoses Code Display Name Description Problem Type Effective Dates Data Source(s) E11.69 Type 2 diabetes mellitus with other spec ified complication Type 2 diabetes mellitus with other spec Diagnosis 08/28/2020 10:24:[address] [facility] I25.10 Atherosclerotic heart diseas e of [place] coronary artery without angina pectoris Atherosclerotic heart disease of [place] Diagnosis 08/28/2020 10:24:[address] [facility] R06.02 Shortness of breath Shortness of breath Diagnosis 0 08/28/2020 10:24:[address] [facility] R94.39 Abnormal result of other cardiovascular function study Abnormal result of other cardiovascular Diagnosis 08/28/2020 10:24:00 AM EDT [facility] R06.00 Dyspnea, unspecified Dyspnea, unspecified Diagnosis 08/20/2020 08:01:[address] [facility] I20.8 Other forms of angina pectoris Other forms of angina p ectoris Diagnosis 08/20/2020 08:01:[address] [facility] I20.0 Unstable angina Unstable angina Diagnosis 02/11/2020 05:3 2:[address] [facility] R07.9 Chest pain, unspecified Chest pain, unspecified Diagno sis 02/11/2020 05:32:[address] [facility] R06.02 Shortness of breath Shortness of breath [id number] 08/22/2020 12:00:[address] [facility] R94.39 Abnormal cardiovascular stress test Abnormal car diovascular stress test [id number] 08/22/2020 12:00:00 AM EDT [facility] E78.2 Mixed hyperlipidemia Mixed hyperlipidemia [id number] 02/13/2020 12:00:[address] [facility] I20.0 Unstable angina Unstable angina [id number] 02/11/2020 12:0 0:[address] [facility] I10 HTN (hypertension) HTN (hypertension) [id number] 12:00:[address] [facility] I25.10 Atherosclerosis of [place] coronary arter y of [place] heart Atherosclerosis of [place] coronary artery of [place] heart [id number] 02/11/2020 12:00: [address] [facility] R07.9 Chest pain Chest pain [id number] 02/11/2020 12:00:[address] [facility] Surgeries/Procedures Procedure Description Date Indications Data Source(s) HbA1c (Glycosolated) HbA1c (Glycosolated) 11/11/2020 12:00:00 AM ED T [facility] ([facility]) GLUCOSE GLUCOSE 11/11/2020 12:00:00 AM EDT [facility] ([facility]) COLLECTION VENOUS BLOOD VENIPUNCTURE BLOOD DRAW 11/11/2020 12:00: 00 AM EDT [facility] ([facility]) CARDIAC CATHETERIZATION <td>CARDIAC CATHETERIZATION</td><td>Routine</td><td>08/28/2020 2:03 PM EDT</td><td> Abnormal cardiovascular stress test Shortness of breath Atherosclerosis of [place] coronary artery of [place] heart, angina presence unspecified Type 2 diabetes mellitus with other specified complication, unspecified whether correction insulin use</td><td> </td> 08/28/2020 02:03:59 PM EDT Type 2 diabetes mellitus with other spec ified complication, unspecified whether buttermaker continuous churn insulin useAtherosclerosis of [place] coronary artery of [place] heart, angina presence unspecifiedShortness of breathAbnormal cardiovascular stress test [facility] Type 2 diabetes mellitus with other spec ified complication, unspecified whether correction insulin use Atherosclerosis of [place] coronary arter y of [place] heart, angina presence unspecified Shortness of breath Abnormal cardiovascular stress test ECG ROUTINE ECG W/LEAST 12 LDS TRCG ONLY W/O I&R <td>E CG 12- LEAD</td><td>Routine</td><td>08/28/2020 10:53 AM EDT</td><td></td><td></td> 08/28/2020 10:53:50 AM EDT [facility] ELECTROCARDIOGRAM, COMPLETE (EKG) ELECTROCARDIOGRAM, COMPLET E (EKG) 07/08/2020 12:00:00 AM EDT [facility]) FECAL BLOOD ASSAY TEST (waived laboratory) FECAL BLOOD ASSAY TEST (waived laboratory) 07/08/2020 12:00:00 AM [facility] ([facility]) HbA1c (Glycosolated) (waived laboratory) HbA1c (Glycos olated) (waived laboratory) 07/08/2020 12:00:00 AM [facility] ([facility]) GLUCOSE (waived laboratory) GLUCOSE (waived laboratory) 06/26 12:00:00 AM [facility]) COLLECTION VENOUS BLOOD VENIPUNCTURE BLOOD DRAW 07/08/2020 12:00: 00 AM [facility] ([facility]) HbA1c (Glycosolated) (waived laboratory) HbA1c (Glycos olated) (waived laboratory) 04/08/2020 12:00:[address] [facility] ([facility]) GLUCOSE (waived laboratory) GLUCOSE (waived laboratory) 03/28 12:00:00 AM [facility]) COLLECTION CAPILLARY BLOOD SPECIMEN BLOOD DRAW 04/08/2020 12:00:0 0 AM [facility]) CARDIAC CATHETERIZATION <td>CARDIAC CATHETERIZATION</td><td>Routine</td><td>02/13/2020 12:22 PM EST</td><td> Unstable angina</td><td> </td> 02/13/2020 05:22:44 PM EST Un[address] [facility] Unstable angina GLUC BLD GLUC MNTR DEV CLEARED FDA SPEC HOME USE <td>P OCT GLUCOSE</td><td>Routine</td><td>02/13/2020 9:33 AM EST</td><td></td><td> </td> 02/13/2020 02:33:[address] [facility] BLOOD COUNT COMPLETE AUTOMATED <td>CBC</td><td>Routine </td><td>02/13/2020 4:03 AM EST</td><td></td><td> </td> 02/13/2020 09:03:[address] [facility] BASIC METABOLIC PANEL CALCIUM TOTAL <td>BASIC METABOLI C PANEL</td><td>Routine</td><td>02/13/2020 4:03 AM EST</td><td></td><td> </td> 02/13/2020 09:03:[address] [facility] GLUC BLD GLUC MNTR DEV CLEARED FDA SPEC HOME USE <td>P OCT GLUCOSE</td><td>Routine</td><td>02/12/2020 6:43 PM EST</td><td></td><td> </td> 02/12/2020 11:43:[address] [facility] GLUC BLD GLUC MNTR DEV CLEARED FDA SPEC HOME USE <td>P OCT GLUCOSE</td><td>Routine</td><td>02/12/2020 2:49 PM EST</td><td></td><td> </td> 02/12/2020 07:49:[address] [facility] GLUC BLD GLUC MNTR DEV CLEARED FDA SPEC HOME USE <td>P OCT GLUCOSE</td><td>Routine</td><td>02/12/2020 12:59 PM EST</td><td></td><td> </td> 02/12/2020 05:59:[address] [facility] ECG ROUTINE ECG W/LEAST 12 LDS TRCG ONLY W/O I&R <td>E CG 12- LEAD</td><td>STAT</td><td>02/12/2020 11:57 AM EST</td><td></td><td></td> 02/12/2020 04:57:29 PM EST [facility] BLOOD COUNT COMPLETE AUTOMATED <td>CBC</td><td>Routine </td><td>02/12/2020 10:06 AM EST</td><td></td><td> </td> 02/12/2020 03:06:[address] [facility] HEMOGLOBIN GLYCOSYLATED A1C <td>HEMOGLOBIN A1C</td><td >Add-On</td><td>02/12/2020 10:06 AM EST</td><td></td><td> </td> 02/12/2020 03:06:[address] [facility] LIPOPROTEIN DIRECT MEASUREMENT LDL CHOLESTEROL <td>LDL CHOLESTEROL, DIRECT</td><td>Routine</td><td>02/12/2020 8:10 AM EST</td><td></td><td> </td> 02/12/2020 01:10:[address] [facility] LIPID PANEL <td>LIPID PANEL</td><td>Rout ine</td><td>02/12/2020 8:10 AM EST</td><td></td><td> </td> 02/12/2020 01:10:[address] [facility] BASIC METABOLIC PANEL CALCIUM TOTAL <td>BASIC METABOLI C PANEL</td><td>Routine</td><td>02/12/2020 8:10 AM EST</td><td></td><td> </td> 02/12/2020 01:10:[address] [facility] GLUC BLD GLUC MNTR DEV CLEARED FDA SPEC HOME USE <td>P OCT GLUCOSE</td><td>Routine</td><td>02/12/2020 8:07 AM EST</td><td></td><td> </td> 02/12/2020 01:07:[address] [facility] TROPONIN QUANTITATIVE <td>POCT TROPONIN</td><td>Ro utine</td><td>02/12/2020 12:21 AM EST</td><td></td><td> </td> 02/12/2020 05:21:[address] [facility] TROPONIN QUANTITATIVE <td>POCT TROPONIN</td><td>Ro utine</td><td>02/11/2020 8:46 PM EST</td><td></td><td> </td> 02/12/2020 01:46:[address] [facility] THROMBOPLASTIN TIME PARTIAL PLASMA/WHOLE BLOOD <td>APTT</td><td>Routine</td><td>02/11/2020 8:40 PM EST</td><td></td><td> </td> 02/12/2020 01:40:[address] [facility] PROTHROMBIN TIME <td>PROTIME-INR</td><td>Rout ine</td><td>02/11/2020 8:40 PM EST</td><td></td><td> </td> 02/12/2020 01:40:[address] [facility] BLOOD COUNT COMPLETE AUTOMATED <td>CBC</td><td>STAT</t d><td>02/11/2020 8:40 PM EST</td><td></td><td> </td> 02/12/2020 01:40:[address] [facility] COMPREHENSIVE METABOLIC PANEL <td>COMPREHENSIVE METABO LIC PANEL</td><td>STAT</td><td>02/11/2020 8:40 PM EST</td><td></td><td> </td> 02/12/2020 01:40:[address] [facility] GLUC BLD GLUC MNTR DEV CLEARED FDA SPEC HOME USE <td>P OCT GLUCOSE</td><td>Routine</td><td>02/11/2020 7:38 PM EST</td><td></td><td> </td> 02/12/2020 12:38:[address] [facility] COLLECTION CAPILLARY BLOOD SPECIMEN BLOOD DRAW 01/08/2020 12:00:0 0 AM EDT [facility] ([facility]) GLUCOSE (waived laboratory) GLUCOSE (waived laboratory) 12/26 12:00:00 AM EDT [facility] ([facility]) HbA1c (Glycosolated) (waived laboratory) HbA1c (Glycos olated) (waived laboratory) 01/08/2020 12:00:00 AM EDT [facility] ([facility]) FECAL BLOOD ASSAY TEST (waived laboratory) FECAL BLOOD ASSAY TEST (alived laboratory) 01/08/2020 12:00:00 AM EDT [facility] ([facility]) FLUARIX, QUADRIVALENT FLUARIX, QUADRIVALENT 01/08/2020 12:00:00 AM EDT [facility] ([facility]) IMMUNIZATION ADMIN (>18) IMMUNIZATION ADMIN (>18) 01/08/2020 12:00: 00 AM EDT [facility] ([facility]) HbA1c (Glycosolated) HbA1c (Glycosolated) 01/08/2020 12:00:00 AM ED [facility] ([facility]) GLUCOSE GLUCOSE 01/08/2020 12:00:00 AM [facility]T [facility] CAPILLARY BLOOD DRAW CAPILLARY BLOOD DRAW 01/08/2020 12:00:00 AM ED [facility] ([facility]) IMMUNIZATION ADMIN (>18) IMMUNIZATION ADMIN (>18) 01/08/2020 12:00: 00 AM EDT [facility]) FLUARIX, QUADRIVALENT FLUARIX, QUADRIVALENT 01/08/2020 12:00:00 AM EDT [facility] ([facility]) FECAL BLOOD ASSAY TEST FECAL BLOOD ASSAY TEST 01/08/2020 [facility] Results ID Date Data Source [id number] 12/10/2020 12:00:00 AM EDT [facility] Name Value Range Interpretation Code Description Data Rosita rce(s) Supporting Document(s) SARS-COV-2 Negative [facility] This lab was ordered by Valerio and re ported by Valerio. ID Date Data Source [id number] 08/28/2020 02:15:[address] [facility] Name Value Range Interpretation Code Description Data Rosita rce(s) Supporting Document(s) &PDF [facility] SDVARc1hTvHDCoOs71/VDRjoHKDeh7KwJDzuPXx3UHesBPJeX8DpvDafUGkEHC2AUI4QS4oZUSnsJjNw oRX WmZtUKdJJ2GC9tXXDwrzQlknQ0eM3xYQ7LLSX+Cd0XXO6gn9DqSNt9ZSKsd0OlQXgqHEn2L2LbrTDbjt EaKgcjqLEMRLIyTVHvN4qiokd0fQFgIkAzKz6RRrBrz7GlPAEtCByBbi7dn7/eCbE4uX6JVtQsUIcgSz SKKooCrtNuLZo+vVoD8mkZPjdAr1ASaCex1eahb+27 8GwkvdOI3/Smyti6F++XV7bbfVenq1WFvv61j/5d/NnlaXtW5Iot8YmDbaep492s8SCnyCI+RGnOBJcB Q73CNeGzs+amWNbc7d6EgKoknJHS/pHx9sAv1qprTTrFayd/SB+IOZCmhK6i6CLou679T1v/NyaCDEsK 5ilNABZ8qbKPIEJJ9JtsdFHI+Samantha/JxdsxTfp9c+E [file] mmxHT4q6gk7MnCIejIKBn6S8hRc7XkOUrMT6ZcnFg9H954jWHqOuVcx4MD/K7i51GtboVBpKFpId/Héctor [file] AgICAgICAgICAgICAgICAgICAgICAgICAgICAgICAg UXPfVJAwLEXaWANtKZRoDLIyHURqROAnDYJoTRDhBBZvCSHbTFMfVNBcTVYgWDPmOEXmAG2QIOOhNCHq ICAgICAgICAgICAgICAgICAgICAgICAgICAgICAgICAgICAgICAgICAgICAgICAgICAgICAgICAgICAg ICAgICAgICAgICAgICAgICAgICAgICAgICAgICAgIC IvGC0HBFStRSJiVWXcGGDvOZEuKBBtPRZxRVWrCUGeJCVaBWCbSBDrQLRrKJNiCTSmOGKcHWKdWPTiWJ QnKRElMCPbJYPiUOVfOHAgFDOmSLZgKDPaCLEoVJPeBOBhIGVdSMKbOLQqCX1OWDGxVBAsESSqGBXgWC AgICAgICAgICAgICAgICAgICAgICAgICAgICAgICAg MJViZLPgSGYwPYKwVBUdPZCzPZWgKCKdMKJuOPFvVUWcQVQxRFYuEUHvKZFqMRHyOQAiGJUxMJ0XEUBv ICAgICAgICAgICAgICAgICAgICAgICAgICAgICAgICAgICAgICAgICAgICAgICAgICAgICAgICAgICAg ICAgICAgICAgICAgICAgICAgICAgICAgICAgICAgIC TpDZBlKW2MKXInXJYoBUAuAYLpZMDgFDMvVIHjBFFuDDXwFZJiVEYcVYUrXQUmWACkHMVrMINlZLWnFH HsVJDeFTOeKGWbVVZpQXDqEDLyQBMhCGKlUIJjPPAoPWAjWXDfGMWdMHNgZRLcGR2FMPJhQTDmBAUdYR AgICAgICAgICAgICAgICAgICAgICAgICAgICAgICAg MQPjYDGvCQCsXHQpYOWlYRVlJXEpPYDrPHCfFNVyPNFxVHUcLRPuOYPyTBOkVTGdVRBeUVHnQZKsGJ6I ICAgICAgICAgICAgICAgICAgICAgICAgICAgICAgICAgICAgICAgICAgICAgICAgICAgICAgICAgICAg ICAgICAgICAgICAgICAgICAgICAgICAgICAgICAgIC McROSwPGVrBI1HLKBlGWWyWKUfGYHeWJOdTXLjJBVyYIEsEMZyROTaTWRrNPDrRVZhWHJsJTRlTFAeZB BnOEYuWQAfPWUxZOFfXBIrJNHzKEMgYVNaUQJcFOJgJECiRDFwIAVpCVWaWDVwMZOmCP1ZLNRgIXKjSS AgICAgICAgICAgICAgICAgICAgICAgICAgICAgICAg ICAgICAgICAgICAgICAgICAgICAgICAgICAgICAgICAgICAgICAgICAgICAgICAgICAgICAgICAgICAg KX7RLE00pJHau2Q2MOIzFJ1mzat/Ix4XXOquddCadNOzGU4AKvChCL4exa2PYeZvZJ5zdy5UFYvJUyVv V8F2zTBhEEJuNTAKOtWfK28bNPypXi67PNauFYYcTy MsEMt9Nu2PAlFlA6otRUDsLvL1LOWoXqP2BRHkAgB9MKUxUhFwNMYaFTAjDECiVOZCCXP3DKKcOcXjKD cdYO2Bo9CxwFT8AEy+Nr0LRM1wm2XsSEsiMVOfQF9vuh4RJZsMYnLoG9NibiN4NVH0LUIpJh6NOXTfEU CpgJLvOgLtSLOWEvIiB7VciI61NCOUHy9+DQplbmRv FveIQmS0IHBlt5VzPZg2KM9ICRCkMUa0qHPyDO6xvRPjpHCfFYklWA3AWSM2HEeaCyAgEGIjI7uAGjYf VKFnNPOvrIgaQG8HZoHtE2FkceEscUOtFTRwVMSSCp1+LNdcxhAvUulBYnP8OVRbt0PvAYu0ZY0LAVYr PWqfMM6SBFIaxL5iXLakGK1WTdGlZxMiWBYKQjClV7 8ehAJyMUg6L4PeXcJlPTUwVsmdWZUlGJdaCxMmOTEzNoKpHYdkJG0+ID4+GGwbTL3WRZmtbrEoJCVpCx 6PQVTtQUIcFV3pGJLzPRWrW9F2hRftCPRMHtFbI9vqkdrtZL9oXMMoL586uZvtiaMnJRV6ZJUxVt3VIO JtZOG0MWZvqNBcFtPpTUBTDTwtZN8FoELuNSN3qL7a AToiWEVgSTHmH9fUUwGxmTcqVR48hVhctmFvfPQpVJn+Uv8GSR9mv2CvAIy0edGnYLigWDF5OIdvBVMs AFJaYONrEIS3RTH9WUXSFkQxXAMdCMSmVGyyZYGdNNJlle7TKYMbTUY9EhCrFaGnMORwJUIiOYemEDCh ECd3LWL2VNTgXZObWF4XPbMkBUFtHPYfAIEvNCFmBO Vifg8TOSElTEGjXukyKyJmLPQsGCKvIEdfGLVeLWQhAID7SWMbXIIkDF2DHuAePBXkXLR0YBGsUMOcXC Ugcv9SFRChPNWsKGG3LDSaUGQbZWBxXKbzZZDzDOS7LZC4AEXrFIAgXR7WWsEjWYTuRMc7MGRySSGqSU Znam7BGSWhXHStXIjfTtZsZBJqILCmBLlpUBGmGCLb XRWbHBQkPGRkUD8MWpPvDFCtRVB9PUOzPQMgWXZgre4DSIZdIVAtThSrOaQiJCUwUXWkTCncFNGbSZBi GDOrUWQqOXHhJU3IHvTgJXUiRJX3NAzmWKTsYKGeuy9CDKXqJKYgBGvtVWYpFMRdHZBgFMriQBGqHWI1 XED0JKGeIEZwXM8YRnDtJSUfGBYfZWolGAKgPDQahm 7XIMKrGZMtByG4MPZsLBNaFRIuQRahGIPfYRW2NgIqBTRkWVYkTH5SJmPeLCOzBPE8PEnqIGVuGBPagw 2PDQJnPIBcLPNwNNArCXKtEJDeEOpyHMAhHMFvRkYrWKRrJRLlTC0TMaGrMBPcAcB8DnQfEZYfODZccl 8TXWPqYKAdMzA7QeFhJOHrZHBwCHgiNYOoYYXeJnTo OWBiUSIsLI7RMvSoMOPsUiZgYUUzRFCcTEMsfj2QATMiSXGlHwyaAHZeSAArUFSfLHpoTEStHRLbTtY5 HVWmFUTmTO6JYrVpUODvLXx6ZaMpTMYcNGWvqv9GDJArJSS3DZMhKFElVHLiZKScSSqqOFZoNUwcOAKw HOJjDRYePQ7VHyKoALViNXU0LEVsQQJcDOOmgz0HDL CiAOC6PNV3DDXxEYYuTZZnDZzfNFEtFAo7NIJ4XPJdZKZbIL3VAzUiUQFuTNWhNRLlNVZaJFZwpb7OzE DiyWwqar0VUDvYFj3MqLqkNHL2NWuhTn1xcLDlUlPsREBDYq2CgvZxNUZnKVDMPLriUEEyFUAqFELhKI J0QQQ7CdYbMWFjJNStDFZoCXr9DRppOtUyEdM1MtRi [id number]== ID Date Data Source [id number] 08/28/2020 02:20:23 PM EDT [facility] ([facility])PATIE NT INFORMATIONPatient MRN Name Date of Age Gend*PT [id number] Nadine Hansen 1965 55 years M HOPPT Location Admission Date/Time Visit ID Attending ProviderCV-27 08/28/20 1024 --- Nadine Patel MD([id number]) EPI ID CSN Admitting Provider [id number] Nadine Patel MD([id number])HISTORY AND PHYSICALName: Nadine Hansen Gender: maleDate of : 1965 Age: 55 yearsDate/Time of Admit: 08/28/2020 10:24 AM Code Status: Full CodePrimary Care Provider / Referring Physician: KAIT MORALES MDInformant:Current HistoryChief Complaint: CPHPI:This patient is a 55-year-old man with an extensive prior history of coronarydisease including a known chronic occlusion of the first major obtuse marginaland multiple prior stents to the right coronary artery. Patient has beenrecently experiencing recurrent anginal symptoms and stress echocardiography wassignificantly positive for inferior ischemia. He was thus referred for coronaryangiography. The procedure and risks were explained and understood. Plan forthe radial approach.Review of Systems:No recent bleeding, No rashes, No fever/chills/vomiting, No arthralgias, Norecent trauma, No suicidal ideation.Past HistoryPast Medical History:Diagnosis Date Coronary artery disease S/p stenting HTN (hypertension) 02/11/2020 Type 2 diabetes mellitus without complication, without long-term current useof insulinPast Surgical History:Procedure Laterality Date APPENDECTOMY CARDIAC CATHETERIZATION N/A 04/18/2017 Procedure: Cardiac catheterization; Surgeon: Boy Elizondo MD; Laterality:N/A; CARDIAC CATHETERIZATION N/A 02/13/2020 Procedure: Cardiac catheterization; Surgeon: Nadine Patel MD; Laterality:N/A; CORONARY ANGIOPLASTY WITH STENT PLACEMENT 2009Family HistoryProblem Relation Age of Onset Kidney failure Mother Dementia FatherSocial HistorySocial History Narrative Not on fileSocial HistorySocioeconomic History Marital status: Spouse name: Not on file Number of children: Not on file Years of education: Not on file Highest education level: Not on fileOccupational History Not on fileTobacco Use Smoking status: Current Some Day Smoker Packs/day: 0.25 Years: 25.00 Pack years: 6.25 Types: Cigarettes Smokeless tobacco: Never UsedSubstance and Sexual Activity Alcohol use: Yes Comment: occassional Drug use: No Sexual activity: Not on fileOther Topics Concern Bike Helmet Not Asked History of Falls Not Asked Self-Exams Not Asked Caffeine Concern Not Asked Hobby Hazards Not Asked Sleep Concern Not Asked Daily Calcium Supplement Not Asked Lead Exposure Not Asked Special Diet Not Asked Daily Vitamin D Supplement Not Asked Service Not Asked Stress Concern Not Asked Domestic Violence in home Not Asked Radon exposure Not Asked Weight Concern Not Asked Exercise Not Asked Seat Belt Not Asked Well water Not Asked Firearms in home Not AskedSocial History Narrative Not on fileSocial Determinants of HealthFinancial Resource Strain: Difficulty of Paying Living Expenses:Food Insecurity: Worried About Running Out of Food in the Last Year: Ran Out of Food in the Last Year:Transportation Needs: Lack of Transportation (Medical): Lack of Transportation (Non-Medical):Physical Activity: Days of Exercise per Week: Minutes of Exercise per Session:Stress: Feeling of Stress :Social Connections: Frequency of Communication with Friends and Family: Frequency of Social Gatherings with Friends and Family: Attends Worship Services: Active Member of Clubs or Organizations: Attends Club or Organization Meetings: Marital Status:Intimate Partner Violence: Fear of Current or Ex-Partner: Emotionally Abused: Physically Abused: Sexually Abused:Medications and AllergiesALLERGIES/SENSITIVITIES:AllergiesAllergen Reactions Iodine Rash Peanut Oil Anaphylaxis Reaction: ANAPHYLAXIS Shellfish-Derived Products Reaction: RASH Comment: 'MY SKIN PEELS AND CRACKS'Scheduled Meds: normal saline flush 3 mL Intravenous Q8H DENISE normal saline flush 3 mL Intravenous Per ProtocolContinuous Infusions: sodium chloride 100 mL/hr (08/28/20 1100)PRN Meds:.acetaminophen, fentaNYL Citrate (PF), heparin (porcine), iopamidol,lidocaine, midazolam, NITROGLYCERIN 0.4 MG/ML IV SOLNPhysicalBlood Pressure: Pulse:Temperature: Respirations:Admission Weight: Weight: 82.9 kg (182 lb 12.2 oz) O2 Saturation: Today's Weight: Weight: 82.9 kg (182 lb 12.2 oz)Physical TnukNBPr47+ radial pulsesAssessment & PlanThis patient is a 55-year-old man with an extensive prior history of coronarydisease including a known chronic occlusion of the first major obtuse marginaland multiple prior stents to the right coronary artery. Patient has beenrecently experiencing recurrent anginal symptoms and stress echocardiography wassignificantly positive for inferior ischemia. He was thus referred for coronaryangiography. The procedure and risks were explained and understood. Plan forthe radial approach.Nadine Patel MD Name Value Range Interpretation Code Description Data Rosita rce(s) Supporting Document(s) ID Date Data Source [id number] 08/28/2020 11:09:[address] [facility] Name Value Range Interpretation Code Description Data Rosita rce(s) Supporting Document(s) EKG [facility] [id number] [file] [id number]== ID Date Data Source [id number] 07/08/2020 11:42:00 AM EDT [facility] ([facility]) Name Value Range Interpretation Code Description Data Rosita rce(s) Supporting Document(s) Reported Physicians See Note Reported Physici ans [facility] ([facility]) Note: Reported Physicians:Ordering: Barnett ping Kait AAttending: Carmen JocelynCopy To: Kait Morales ID Date Data Source [id number] 07/08/2020 11:42:00 AM EDT [facility] ([facility]) Name Value Range Interpretation Code Description Data Rosita rce(s) Supporting Document(s) Amylase [Enzymatic activity/volume] in Blood 82 U/L No rmal AMYLASE [facility]) ID Date Data Source [id number] 07/08/2020 11:42:00 AM EDT [facility] ([facility]) Name Value Range Interpretation Code Description Data Rosita rce(s) Supporting Document(s) Reported Physicians See Note Reported Physic ans [facility] [place] ([facility]) Note: Reported Physicians:Ordering: Barnett e, Kait AAttending: Carmen JocelynCopy To: Joana Moralescelyn ID Date Data Source [id number] 07/08/2020 11:42:00 AM EDT [facility] ([facility]) Name Value Range Interpretation Code Description Data Rosita rce(s) Supporting Document(s) LIPASE 874 U/L Above high normal LIPASE [facility]) ID Date Data Source [id number] 07/08/2020 11:42:00 AM EDT [facility] ([facility]) Name Value Range Interpretation Code Description Data Rosita rce(s) Supporting Document(s) Reported Physicians See Note Reported Physic ans [facility] ([facility]) Note: Reported Physicians:Ordering: Barnett e, Kait AAttending: Carmen, JocelynCopy To: Carmen, Kait ID Date Data Source [id number] 07/08/2020 11:42:00 AM EDT [facility] ([facility]) Name Value Range Interpretation Code Description Data Rosita rce(s) Supporting Document(s) Erythrocyte sedimentation rate by [place] method 10 mm/hr Normal ERYTHROCYTE SEDIMENTATION RATE [facility]) ID Date Data Source [id number] 07/08/2020 11:42:00 AM EDT [facility] ([facility]) Name Value Range Interpretation Code Description Data Rosita rce(s) Supporting Document(s) Reported Physicians See Note Reported Physici ans [facility]) Note: Reported Physicians:Ordering: Barnett e, Kait AAttending: Carmen, JocelynCopy To: Carmen, Kait ID Date Data Source [id number] 07/08/2020 11:42:00 AM EDT [facility] ([facility]) Name Value Range Interpretation Code Description Data Rosita rce(s) Supporting Document(s) C REACTIVE PROTEIN QUANTITATIV 0.41 MG/DL Above high normal C REACTIVE PROTEIN QUANTITATIV [facility]) ID Date Data Source [id number] 07/08/2020 11:42:00 AM EDT [facility] ([facility]) Name Value Range Interpretation Code Description Data Rosita rce(s) Supporting Document(s) Reported Physicians See Note Reported Physici ans [facility] [place] ([facility]) Note: Reported Physicians:Ordering: Barnett e, Kait AAttending: Carmen, JocelynCopy To: Carmen, Kait ID Date Data Source [id number] 07/08/2020 11:42:00 AM EDT [facility] ([facility]) Name Value Range Interpretation Code Description Data Rosita rce(s) Supporting Document(s) WHITE BLOOD COUNT 10.8 3/uL Above high normal WHITE BLOOD COUNT [facility]) Hemoglobin [Mass/volume] in Mixed venous blood by Oximetry 15.1 g/d l Normal HEMOGLOBIN [facility]) RED BLOOD COUNT 4.90 6/uL Normal RED BLOOD COUNT [place] ([facility]) Hematocrit [Pure volume fraction] of Blood by Automated count 44.4 % Normal HEMATOCRIT [facility] ([facility]) MEAN CORPUSCULAR VOLUME 90.6 fl Normal MEAN CORPUSC ULAR VOLUME [facility] ([facility]) MEAN CORPUSCULAR HEMOGLOBIN 30.8 pg Normal MEAN COR PUSCULAR HEMOGLOBIN [facility] ([facility]) MEAN CORPUSCULAR HGB CONC 34.0 g/dl Normal MEAN CORPU SCULAR HGB CONC [facility] ([facility]) RED CELL DISTRIBUTION WIDTH 12.3 % Normal RED CELL DISTRIBUTION WIDTH [facility] ([facility]) PLATELET COUNT, AUTOMATED 357 3/uL Normal PLATELET C OUNT, AUTOMATED [facility] ([facility]) NEUTROPHILS % 54.5 % Normal NEUTROPHILS % [facility] ([facility]) MONO % 8.3 % Above high normal MONO % [facility] ([facility]) LYMPH % 32.7 % Normal LYMPH % [facility] ([facility]) BASO % 0.7 % Normal BASO % [facility] ([facility]) EOS % 2.4 % Normal EOS % [facility] ([facility]) IMMATURE GRANULOCYTE % 1.4 % Normal IMMATURE GRAN ULOCYTE % [facility] ([facility]) NUCLEATED RED BLOOD CELL % 0.0 % Normal NUCLEATED RED BLOOD CELL % [facility] ([facility]) NEUTROPHILS # 5.9 3/uL Normal NEUTROPHILS # [facility] ([facility]) LYMPH # 3.5 3/uL Normal LYMPH # [facility] ([facility]) MONO # 0.9 3/uL Above high normal MONO # [place] ([facility]) BASO # 0.1 3/uL Normal BASO # [facility] ([facility]) EOS # 0.3 3/uL Normal EOS # [facility] ([facility]) ID Date Data Source [id number] 07/08/2020 11:42:00 AM EDT [facility] ([facility]) Name Value Range Interpretation Code Description Data Rosita rce(s) Supporting Document(s) Reported Physicians See Note Reported Physici ans [facility] [place] ([facility]) Note: Reported Physicians:Ordering: Kait Armando AAttending: Devi Morales To: Kait Morales ID Date Data Source [id number] 07/08/2020 11:42:00 AM EDT [facility] ([facility]) Name Value Range Interpretation Code Description Data Rosita rce(s) Supporting Document(s) GLUCOSE, FASTING 110 MG/DL Above high normal GLUCOSE, FAS TING [facility] ([facility]) BLOOD UREA NITROGEN 12 MG/DL Normal BLOOD UREA NITRO GEN [facility] ([facility]) CREATININE FOR GFR 0.78 MG/DL Normal CREATININE FOR GF R [facility] ([facility]) GLOMERULAR FILTRATION RATE > 60.0 Normal GLOMERULA R FILTRATION RATE [facility] ([facility]) Note: Units are mL/min/1.73 m2 Chroni c Kidney Disease Staging per NKF: Stage I & II GFR >=60 Normal to Mildly Decreased Stage III GFR 30- 59 Moderately Decreased Stage IV GFR 15-29 Severely Decreased Stage V GFR <15 Very Little GFR Left ESRD GFR <15 on PUMP [employer]PER[employer] SODIUM LEVEL 136 MEQ/L Normal SODIUM LEVEL [facility]) POTASSIUM SERUM 4.3 MEQ/L Normal POTASSIUM SERUM [facility] ([facility]) CHLORIDE LEVEL 104 MEQ/L Normal CHLORIDE LEVEL [facility]) Anion gap in Body fluid 7 MEQ/L Below low normal ANION GAP [facility]) CARBON DIOXIDE LEVEL 25 MEQ/L Normal CARBON DIOXIDE LEVEL [facility]) CALCIUM LEVEL 9.6 MG/DL Normal CALCIUM LEVEL [facility]) ALT/SGPT 39 U/L Normal ALT/SGPT [facility] ([facility]) AST/SGOT 14 U/L Normal AST/SGOT [facility] ([facility]) Alkaline phosphatase [Enzymatic activity/volume] in Se rum, Plasma or Blood 116 U/L Normal ALKALINE PHOSPHATASE [facility]) BILIRUBIN,TOTAL 0.3 MG/DL Normal BILIRUBIN,TOTAL GREE [facility]) TOTAL PROTEIN 6.7 GM/DL Normal TOTAL PROTEIN [facility]) Albumin [Mass/volume] in Blood by Bromocresol purple ( BCP) dye binding method 4.0 GM/DL Normal ALBUMIN [facility]) ALBUMIN/GLOBULIN RATIO 1.5 Normal ALBUMIN/GLOBU YUSUF RATIO [facility]) ID Date Data Source [id number] 07/08/2020 11:42:00 AM EDT [facility] ([facility]) Name Value Range Interpretation Code Description Data Rosita rce(s) Supporting Document(s) Reported Physicians See Note Reported Physici ans [facility]) Note: Reported Physicians:Ordering: Kait Armando AAttending: Devi Morales To: Kait Morales ID Date Data Source [id number] 07/08/2020 11:42:00 AM EDT [facility]) Name Value Range Interpretation Code Description Data Rosita rce(s) Supporting Document(s) CA19-9 TUMOR MARKER,CARBOHYDRA 13.9 U/ML Normal CA19-9 TUMOR MARKER,CARBOHYDRA [facility] ([facility]) Note: THE CA 19-9 ASSAY IS PERFORMED ON THE [employer] BY CHEMILUMINESCENCE AND SHOULD NOT BE COMPARED INTERCHANGEABLY WITH OTHER METHODS. IT SHOULD NOT BE USED ALONE A SCREENING TEST OR DIAGNOSIS FOR THE PRESENCE OR ABSENCE OF MALIGNANT DISEASE. PREDICTIONS OF DISEASE RECURRENCE SHOULD NOT BE BASED SOLELY ON VALUES OBTAINED FROM SERIAL PATIENT SERUM VALUES. ID Date Data Source [id number] 07/08/2020 11:42:00 AM EDT [facility] ([facility]) Name Value Range Interpretation Code Description Data Rosita rce(s) Supporting Document(s) Reported Physicians See Note Reported Physici ans [facility] [place] ([facility]) Note: Reported Physicians:Ordering: Kait Armando AAttending: Devi Morales To: Kait Morales ID Date Data Source [id number] 07/08/2020 11:42:00 AM EDT [facility] ([facility]) Name Value Range Interpretation Code Description Data Rosita rce(s) Supporting Document(s) C REACTIVE PROTEIN QUANTITATIV 0.41 MG/DL Above high normal C REACTIVE PROTEIN QUANTITATIV [facility] ([facility]) ID Date Data Source [id number] 07/08/2020 11:42:00 AM EDT [facility] ([facility]) Name Value Range Interpretation Code Description Data Rosita rce(s) Supporting Document(s) Reported Physicians See Note Reported Physici ans [facility] [place] ([facility]) Note: Reported Physicians:Ordering: Kait Armando AAttending: Kait MoralesCopsimran To: Kait Morales ID Date Data Source [id number] 07/08/2020 11:42:00 AM EDT [facility] ([facility]) Name Value Range Interpretation Code Description Data Rosita rce(s) Supporting Document(s) GLUCOSE, FASTING 110 MG/DL Above high normal GLUCOSE, FAS TING [facility] ([facility]) BLOOD UREA NITROGEN 12 MG/DL Normal BLOOD UREA NITRO GEN [facility] ([facility]) CREATININE FOR GFR 0.78 MG/DL Normal CREATININE FOR GF R [facility] ([facility]) GLOMERULAR FILTRATION RATE > 60.0 Normal GLOMERULA R FILTRATION RATE [facility] ([facility]) Note: Units are mL/min/1.73 m2 Chroni c Kidney Disease Staging per NKF: Stage I & II GFR >=60 Normal to Mildly Decreased Stage III GFR 30- 59 Moderately Decreased Stage IV GFR 15-29 Severely Decreased Stage V GFR <15 Very Little GFR Left ESRD GFR <15 on PU[employer] SODIUM LEVEL 136 MEQ/L Normal SODIUM LEVEL [facility]) POTASSIUM SERUM 4.3 MEQ/L Normal POTASSIUM SERUM [facility]) CHLORIDE LEVEL 104 MEQ/L Normal CHLORIDE LEVEL [facility]) CARBON DIOXIDE LEVEL 25 MEQ/L Normal CARBON DIOXIDE LEVEL [facility]) Anion gap in Body fluid 7 MEQ/L Below low normal ANION GAP [facility]) CALCIUM LEVEL 9.6 MG/DL Normal CALCIUM LEVEL [facility]) ALT/SGPT 39 U/L Normal ALT/SGPT [facility]) AST/SGOT 14 U/L Normal AST/SGOT [facility] [place] ([facility]) BILIRUBIN,TOTAL 0.3 MG/DL Normal BILIRUBIN,TOTAL GREE COUNTS INCLUDE [facility]S AT [facility] ([facility]) Alkaline phosphatase [Enzymatic activity/volume] in Se rum, Plasma or Blood 116 U/L Normal ALKALINE PHOSPHATASE [facility] ([facility]) TOTAL PROTEIN 6.7 GM/DL Normal TOTAL PROTEIN [facility] [place] ([facility]) ALBUMIN/GLOBULIN RATIO 1.5 Normal ALBUMIN/GLOBU YUSUF RATIO [facility] ([facility]) Albumin [Mass/volume] in Blood by Bromocresol purple ( BCP) dye binding method 4.0 GM/DL Normal ALBUMIN [facility] ([facility]) ID Date Data Source [id number] 07/08/2020 11:42:00 AM EDT [facility] ([facility]) Name Value Range Interpretation Code Description Data Rosita rce(s) Supporting Document(s) Reported Physicians See Note Reported Physici ans [facility] [place] ([facility]) Note: Reported Physicians:Ordering: Kait Armando AAttending: Devi Morales To: Kait Morales ID Date Data Source [id number] 07/08/2020 11:42:00 AM EDT [facility] ([facility]) Name Value Range Interpretation Code Description Data Rosita rce(s) Supporting Document(s) Amylase [Enzymatic activity/volume] in Blood 82 U/L No rmal AMYLASE [facility]) ID Date Data Source [id number] 07/08/2020 11:05:00 AM EDT [facility] ([facility]) Name Value Range Interpretation Code Description Data Rosita rce(s) Supporting Document(s) Blood [Presence] in Urine by Visual N/A Normal BLOOD [facility] ([facility]) Bilirubin [Presence] in Peritoneal fluid N/A Normal BILIRUBIN [facility] ([facility]) Color of Exudate from wound lite yellow Normal COLOR [facility] ([facility]) Glucose [Mass/volume] in Urine collected for unspecified dur ation >=1000 mg/dl Abnormal (applies to non-numeric results) GLUCOSE [facility] ([facility]) Ketones [Presence] in Blood by Tablet N/A Normal KETONES [facility] ([facility]) Leukocytes [#/volume] by Microscopy high power field in Urine sediment collected for unspecified duration N/A Normal [facility]) NITRATES N/A Normal NITRATES [facility] ([facility]) Protein [Mass/volume] in Saliva (oral fluid) N/A No rmal PROTEIN [facility] ([facility]) Specific gravity of Pericardial fluid by Refractometry 1.020 Normal SPECIFIC GRAVITY [facility] ([facility]) pH of Vaginal fluid by Test strip 5.0 Normal pH [facility] ([facility]) UROBILIGIN 0.2 Normal UROBILIGIN [facility] ([facility]) ID Date Data Source [id number] 07/08/2020 10:20:00 AM EDT [facility] ([facility]) Name Value Range Interpretation Code Description Data Rosita rce(s) Supporting Document(s) Glucose [Mass/volume] in Urine collected for unspecified duratio n 143 Abnormal (applies to non-numeric results) Glucose [facility] ([facility]) ID Date Data Source [id number] 07/08/2020 10:20:00 AM EDT [facility] ([facility]) Name Value Range Interpretation Code Description Data Rosita rce(s) Supporting Document(s) Hemoglobin A1c/Hemoglobin.total in Blood 7.1 Abnormal (applies to non-numeric results) HbA1C [facility]) ID Date Data Source [id number] 07/04/2020 12:51:00 PM EDT [facility] ([facility]) Name Value Range Interpretation Code Description Data Rosita rce(s) Supporting Document(s) Reported Physicians See Note Reported Physici ans [facility] [place] ([facility]) Note: Reported Physicians:Ordering: Swapnil sal [id number]: Andrea Medina To: Andrea Medina To: Kait Morales ID Date Data Source [id number] 07/04/2020 12:51:00 PM EDT [facility] ([facility]) Name Value Range Interpretation Code Description Data Rosita rce(s) Supporting Document(s) BLOOD UREA NITROGEN 12 MG/DL Normal BLOOD UREA NITRO GEN [facility] ([facility]) ID Date Data Source [id number] 07/04/2020 12:51:00 PM EDT [facility] ([facility]) Name Value Range Interpretation Code Description Data Rosita rce(s) Supporting Document(s) Reported Physicians See Note Reported Physici ans [facility] [place] ([facility]) Note: Reported Physicians:Ordering: Swapnil h [id number], Nadege AriasAttending: Andrea Medina To: Andrea Medina To: Kait Morales ID Date Data Source [id number] 07/04/2020 12:51:00 PM EDT [facility] ([facility]) Name Value Range Interpretation Code Description Data Rosita rce(s) Supporting Document(s) CREATININE FOR GFR 0.78 MG/DL Normal CREATININE FOR GF R [facility] ([facility]) GLOMERULAR FILTRATION RATE > 60.0 Normal GLOMERULA R FILTRATION RATE [facility] ([facility]) Note: Units are mL/min/1.73 m2 Chroni c Kidney Disease Staging per NKF: Stage I & II GFR >=60 Normal to Mildly Decreased Stage III GFR 30- 59 Moderately Decreased Stage IV GFR 15-29 Severely Decreased Stage V GFR <15 Very Little GFR Left ESRD GFR <15 on PUMP [employer] ID Date Data Source [id number] 05/26/2020 02:24:30 PM EST [facility])PATIE NT INFORMATIONPatient MRN Name Date of Age Gend*PT [id number] Nadine Hansen 1965 54 years M ---PT Location Admission Date/Time Visit ID Attending Provider --- --- --- --- EPI ID CSN Admitting Provider [id number] ---CardiologyName: Nadine Tommy Tyrone Gender: maleDate of : 1965 Age: 54 yearsPrimary Care Provider / Referring Physician: KAIT MORALES MDTelemedicine VisitPatient was identified by name and date of .Verbal consent was obtained from the patient for this telemedicine visit.Patient is aware of the risks, limitations, and benefits of a telemedicinevisit.This telemedicine assessment was conducted remotely with the assistance ofCarolus Therapeuticsommunication technology: Telephone and Interactive Video [id number] Face to FaceCurrent HistoryCh ief Complaint: Telemedicine visit for 3-month follow-upHPI: Nadine Hansen is 54 years male has the following medical problem list:1. Known coronary disease with previous PCI to the right coronary and LAD [id number]. Presentation on 04/15/2017 with unstable angina and cardiac nrfqhvdwasshhfe86/22/2018 revealed severe stenosis the right coronary treated with drug-elutingstent; chronically occluded 1st marginal branch the circumflex and normal LVfunction3. Diagnosis of diabetes mellitus made an hospitalization 04/19/2017 withhemoglobin A1 c of 8.54. Tobacco use and abuse5. Hyperlipidemia6. Nuclear stress test 07/24/2019 was negative for ischemia, EF 60%7. Presentation on 02/11/2020 with chest pain; cardiac catheterization done on02/13/2020 revealed severe culprit lesion in the distal right coronary treatedwith drug-eluting stent; chronic occlusion first obtuse marginal which is stableand fills via left to left collateralsI spoke with patient via interactive video for today's visit. Overall, he tellsme that he has been feeling well. He has been taking his medications asprescribed. He has not had any reported chest pain or pressure. He denies anyshortness of breath, PND, orthopnea, lower extremity edema and his weight isbeen stable. He has not yet have repeat lipids done however he does have a labslip and he will be getting that done this week [facility]. 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 We have discussed that would like tosee his LDL consistently less than 70. He was also noted to have hightriglycerides. He is trying to make dietary changes. Unfortunately, he isstill smoking "occasionally" and usually will smoke at work. We have discussedthe need for complete smoking cessation.Past Medical History:Past Medical History:Diagnosis Date Coronary artery disease S/p stenting HTN (hypertension) 02/11/2020 Type 2 diabetes mellitus without complication, without long-term current useof insulinPast Surgical History:Past Surgical History:Procedure Laterality Date APPENDECTOMY CARDIAC CATHETERIZATION N/A 04/18/2017 Procedure: Cardiac catheterization; Surgeon: Boy Elizondo MD; Laterality:N/A; CARDIAC CATHETERIZATION N/A 02/13/2020 Procedure: Cardiac catheterization; Surgeon: Nadine Patel MD; Laterality:N/A; CORONARY ANGIOPLASTY WITH STENT PLACEMENT 2009Social History:Social HistoryTobacco Use Smoking status: Current Some Day Smoker Packs/day: 0.25 Years: 25.00 Pack years: 6.25 Types: Cigarettes Smokeless tobacco: Never UsedSubstance Use Topics Alcohol use: Yes Comment: occassional Drug use: NoReview of Systems General Denies dizziness or lightheadedness. Denies any recent, unexpectedweight changes. HEENT Denies any loss or change of vision. Denies tinnitus. Respiratory Denies PND, orthopnea, MILLER, hemoptysis, cough, or shortness ofbreath. Cardiac Denies chest pain or pressure, denies palpitations GI Denies melena, hematochezia, nausea, or vomiting. MS Denies any lower extremity edema. Neuro Denies speech, motor, or sensory impairment. Psych Denies depression or anxiety. Endo Denies polyuria or polydipsia, denies temperature intolerance. Derm Denies diaphoresis, non-healing skin woundsPast HistoryPast Medical History:Diagnosis Date Coronary artery disease S/p stenting HTN (hypertension) 02/11/2020 Type 2 diabetes mellitus without complication, without long-term current u seof insulinPast Surgical History:Procedure Laterality Date APPENDECTOMY CARDIAC CATHETERIZATION N/A 04/18/2017 Procedure: Cardiac catheterization; Surgeon: Boy Elizondo MD; Laterality:N/A; CARDIAC CATHETERIZATION N/A 02/13/2020 Procedure: Cardiac catheterization; Surgeon: Nadine Patel MD; Laterality:N/A; CORONARY ANGIOPLASTY WITH STENT PLACEMENT 2009Family HistoryProblem Relation Age of Onset Kidney failure Mother Dementia FatherSocial HistorySocioeconomic History Marital status: Spouse name: Not on file Number of children: Not on file Years of education: Not on file Highest education level: Not on fileOccupational History Not on fileSocial Needs Financial resource strain: Not on file Food insecurity: Worry: Not on file Inability: Not on file Transportation needs: Medical: Not on file Non-medical: Not on fileTobacco Use Smoking status: Current Some Day Smoker Packs/day: 0.25 Years: 25.00 Pack years: 6.25 Types: Cigarettes Smokeless tobacco: Never UsedSubstance and Sexual Activity Alcohol use: Yes Comment: occassional Drug use: No Sexual activity: Not on fileLifestyle Physical activity: Days per week: Not on file Minutes per session: Not on file Stress: Not on fileRelationships Social connections: Talks on phone: Not on file Gets together: Not on file Attends presybeterian service: Not on file Active member of club or organization: Not on file Attends meetings of clubs or organizations: Not on file Relations hip status: Not on file Intimate partner violence: Fear of current or ex partner: Not on file Emotionally abused: Not on file Physically abused: Not on file Forced sexual activity: Not on fileOther Topics Concern Bike Helmet Not Asked History of Falls Not Asked Self-Exams Not Asked Caffeine Concern Not Asked Hobby Hazards Not Asked Sleep Concern Not Asked Daily Calcium Supplement Not Asked Lead Exposure Not Asked Special Diet Not Asked Daily Vitamin D Supplement Not Asked Service Not Asked Stress Concern Not Asked Domestic Violence in home Not Asked Radon exposure Not Asked Weight Concern Not Asked Exercise Not Asked Seat Belt Not Asked Well water Not Asked Firearms in home Not AskedSocial History Narrative Not on fileMedications and AllergiesALLERGIES/SENSITIVITIES: Iodine; Peanut oil; and Shellfish-derived productsCurrent Outpatient Medications: aspirin 81 MG chewable tablet, Chew 1 tablet (81 mg total) daily, Disp: ,Rfl: atorvastatin (LIPITOR) 80 MG tablet, Take 1 tablet (80 mg total) by mouthdaily, Disp: 30 tablet, Rfl: 1 clopidogrel (PLAVIX) 75 MG tablet, TAKE 1 TABLET(75 MG) BY MOUTH DAILY, Disp:90 tablet, Rfl: 3 gabapentin (NEURONTIN) 300 MG capsule, Take 300 mg by mouth daily, Disp: ,Rfl: lisinopril (PRINIVIL,ZESTRIL) 5 MG tablet, Take 1 tablet (5 mg total) bymouth daily, Disp: 30 tablet, Rfl: 11 metFORMIN (GLUCOPHAGE) 1000 MG tablet, Take 1,000 mg by mouth 1 tablet in amand 1/2 tablet in the pm, Disp: , Rfl: metoprolol tartrate (LOPRESSOR) 25 MG tablet, Take 1 tablet (25 mg total) bymouth 2 (two) times a day, Disp: 180 tablet, Rfl: 3 nitroglycerin (NITROSTAT) 0.4 MG SL tablet, Place 1 tablet (0.4 mg total)under the tongue every 5 (five) minutes as needed for chest pain, Disp: 25tablet, Rfl: 12PhysicalPhysical Exam: General: Alert, No acute distress.[place] ed to person, place, and situation.Respiratory: Normal respiratory effort, no increased work of breathing.Psych: Mood and affect appropriate.Vital Signs: As reported by patient are Blood pressure 119/81, heart rate 81,temp 98.1, weight of 192 pounds . If Blood pressure was not reported, no BP cuffwas available.DiagnosticsLabBMP:Lab ResultsComponent Value Date NA 136 02/13/2020 K 4.8 02/13/2020 CL 106 02/13/2020 CO2 22 02/13/2020 ANIONGAP 8 02/13/2020 CALCIUM 9.2 02/13/2020 GLU 212 (H) 02/13/2020 BUN 12 02/13/2020 CREATININE 0.86 02/13/2020 GFRAA >60 02/13/2020 GFRNONAA >60 02/13/2020Hyperlipidemia:Lab ResultsComponent Value Date CHOL 174 02/12/2020 TRIG 492 (H) 02/12/2020 HDL 29 (L) 02/12/2020 CHOLHDL 6.0 02/12/2020 LDLCALC UNABLE TO CALCULATE VALID LDL DUE TO 02/12/2020Cardiac:Lab ResultsComponent Value Date TROPONINI <0.06 04/15/2017 POCTROP <0.01 (L) 02/12/2020 POCTROP 0.01 02/11/2020CBC Brief:Lab ResultsComponent Value Date WBC 10.1 02/13/2020 HGB 15.6 02/13/2020 HCT 43.6 02/13/2020 PLT 278 02/13/2020EKG: N/AOther medical records reviewed.Assessment & Plan1. Known CAD; patient had drug-eluting stents in January 2020. He is takinghis Plavix and aspirin as prescribed. He currently denies any chest pain oranginal complaints2. Hyperlipidemia; he is on atorvastatin 80 mg and he is due to get updatedfasting lipids and LFTs. Would like to see his LDL consistently less than 70.If we are not able to get to that goal, would recommend adding Zetia andultimately he would be a candidate for PCSK9 inhibitor injectable therapy ifneeded3. Tobacco use and abuse; he is smoking "occasionally". We have discussed theneed for complete smoking cessation4. Diabetes mellitus; this is followed by PCP and he will be having follow-upblood work this weekPatient will return to the office in approximately 6 months time. He would liketo follow with Dr Patel since he did his recent stenting. He knows to contactour office in the interim if he has any signs or symptoms of cardiovascularconcern.We appreciate the opportunity to care for this patient.Telemedicine Visit SummaryI have spent 5 minutes with the patient, counseling/coordinating the patient'scare.I discussed the diagnosis of CAD, smoking cessation, hyperlipidemia anddiscussed Treatment/management instructions, Compliance and Risk FactorReductionSignature: Siobhan Baxter NPDate: May 26, 2020Time: 2:08 PMThis document or parts of this document, were dictated using [employer]. A reasonable attempt at proofreading has been made to minimize errors.Please call with any questions or corrections. Name Value Range Interpretation Code Description Data Rosita rce(s) Supporting Document(s) ID Date Data Source [id number] 05/18/2020 12:00:00 AM EST [facility] Name Value Range Interpretation Code Description Data Rosita rce(s) Supporting Document(s) SARS coronavirus 2 RNA [Presence] in Res piratory specimen by BRIDGET with probe detection NEGATIVE [facility] This lab was ordered by [facility] and reported by [email or web address]. ID Date Data Source [id number] 05/18/2020 12:00:00 AM EST [facility] Name Value Range Interpretation Code Description Data Rosita rce(s) Supporting Document(s) Carestart Rapid COVID Antigen Test Negative [facility] This lab was reported by [facility] Mike salazar. ID Date Data Source [id number] 04/29/2020 12:00:00 AM EST [facility] Name Value Range Interpretation Code Description Data Rosita rce(s) Supporting Document(s) SARS coronavirus 2 RNA [Presence] in Res piratory specimen by BRIDGET with probe detection NEGATIVE [facility] This lab was ordered by [facility] and reported by [email or web address]. ID Date Data Source [id number] 04/29/2020 12:00:00 AM EST [facility] Name Value Range Interpretation Code Description Data Rosita rce(s) Supporting Document(s) Carestart Rapid COVID Antigen Test Negative [facility] This lab was reported by Billy salazar. ID Date Data Source [id number] 04/08/2020 12:00:00 AM EST [facility]) Name Value Range Interpretation Code Description Data Rosita rce(s) Supporting Document(s) Hemoglobin A1c/Hemoglobin.total in Blood 6.9 Abnormal (applies to non-numeric results) HbA1C [facility]) Note: f ID Date Data Source [id number] 04/08/2020 12:00:00 AM EST [facility]) Name Value Range Interpretation Code Description Data Rosita rce(s) Supporting Document(s) Glucose [Mass/volume] in Urine collected for unspecified duration 1 54 Normal Glucose [facility]) ID Date Data Source [id number] 02/26/2020 11:06:32 AM EST [facility]PATIE NT INFORMATIONPatient MRN Name Date of Age Gend*PT [id number] Nadine Hansen 1965 54 years M ---PT Location Admission Date/Time Visit ID Attending Provider --- --- --- --- EPI ID CSN Admitting Provider [id number] ---Cardiology Office NoteName: Nadine Hansen Gender: maleDate of : 1965 Age: 54 yearsPrimary Care Provider / Referring Physician: CONI TUTTLEurrent HistoryChief Complaint: Hospital follow-upHPI:This patient is a 54 years male presents today for follow-up. He has thefollowing medical problem list:1. Known coronary disease with previous PCI to the right coronary and LAD [id number]. Presentation on 04/15/2017 with unstable angina and cardiac bbqihprtidrxdqr86/22/2018 revealed severe stenosis the right coronary treated with drug-elutingstent; chronically occluded 1st marginal branch the circumflex and normal LVfunction3. Diagnosis of diabetes mellitus made an hospitalization 04/19/2017 withhemoglobin A1 c of 8.54. Tobacco use and abuse; currently abstained5. Hyperlipidemia6. Nuclear stress test 07/24/2019 was negative for ischemia, EF 60%7. Presentation on 02/11/2020 with chest pain; cardiac catheterization done on02/13/2020 revealed severe culprit lesion in the distal right coronary treatedwith drug-eluting stent; chronic occlusion first obtuse marginal which is stableand fills via left to left collateralsPatient presents today for follow-up. We have reviewed his medical history andwhat recently transpired. Overall, he tells me that he has been feeling fairlywell although admits that he has been "out" of his Plavix for the past couple ofdays. I did review with him that it is imperative that he not stop his Plavixfor any reason for at least 6 months. [facility] and he will begin taking it today. He does mention that he has had alittle "chest discomfort" that can be noted with rest. It is not any worsewithexertion. He is not sure if it could be a form of gas. He does not haveany of the other symptoms that is typical with his angina. He also feels thatit could be a little bit of anxiety. 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 His Lipitor was increased to 80 mg. He willbe having follow-up blood work done through primary care. We would like to seehis LDL less than 70 consistently. He also was noted to have hightriglycerides. We have discussed some dietary restrictions in order to bringthat down. His cath site is healed to right radial. He is taking all of hisother medications as prescribed. He denies any shortness of breath, PNDorthopnea.Review of Systems General Denies dizziness or lightheadedness. Denies any recent, unexpectedweight changes. HEENT Denies any loss or change of vision. Denies tinnitus. Respiratory Denies PND, orthopnea, MILLER, hemoptysis, cough, or shortness ofbreath. Cardiac Denies palpitations GI Denies melena, hematochezia, nausea, or vomiting. MS Denies any lower extremity edema. Neuro Denies speech, motor, or sensory impairment. Psych Denies depression or anxiety. Endo Denies polyuria or polydipsia, denies temperature intolerance. Derm Denies diaphoresis, non-healing skin woundsPast HistoryPast Medical History:Diagnosis Date Coronary artery disease S/p stenting HTN (hypertension) 02/11/2020 Type 2 diabetes mellitus without complication, without long-term current useof insulinPast Surgical History:Procedure Laterality Date APPENDECTOMY CARDIAC CATHETERIZATION N/A 04/18/2017 Procedure: Cardiac catheterization; Surgeon: Boy Elizondo MD; Laterality:N/A; CARDIAC CATHETERIZATION N/A 02/13/2020 Procedure: Cardiac catheterization; Surgeon: Nadine Patel MD; Laterality:N/A; CORONARY ANGIOPLASTY WITH STENT PLACEMENT 2009Family HistoryProblem Relation Age of Onset Kidney failure Mother Dementia FatherSocial HistorySocioeconomic History Marital status: Spouse name: Not on file Number of children: Not on file Years of education: Not on file Highest education level: Not on fileOccupational History Not on fileSocial Needs Financial resource strain: Not on file Food insecurity: Worry: Not on file Inability: Not on file Transportation needs: Medical: Not on file Non-medical: Not on fileTobacco Use Smoking status: Current Some Day Smoker Packs/day: 0.25 Years: 25.00 Pack years: 6.25 Types: Cigarettes Smokeless tobacco: Never UsedSubstance and Sexual Activity Alcohol use: Yes Comment: occassional Drug use: No Sexual activity: Not on fileLifestyle Physical activity: Days per week: Not on file Minutes per session: Not on file Stress: Not on fileRelationships Social connections: Talks on phone: Not on file Gets together: Not on file Attends presybeterian service: Not on file Active member of club or organization: Not on file Attends meetings of clubs or organizations: Not on file Relationship status: Not on file Intimate partner violence: Fear of current or ex partner: Not on file Emotionally abused: Not on file Physically abused: Not on file Forced sexual activity: Not on fileOther Topics Concern Bike Helmet Not Asked History of Falls Not Asked Self-Exams Not Asked Caffeine Concern Not Asked Hobby Hazards Not Asked Sleep Concern Not Asked Daily Calcium Supplement Not Asked Lead Exposure Not Asked Special Diet Not Asked Daily Vitamin D Supplement Not Asked Service Not Asked Stress Concern Not Asked Domestic Violence in home Not Asked Radon exposure Not Asked Weight Concern Not Asked Exercise Not Asked Seat Belt Not Asked Well water Not Asked Firearms in home Not AskedSocial History Narrative Not on fileMedications and AllergiesALLERGIES/SENSITIVITIES: Iodine; Peanut oil; and Shellfish-derived productsCurrent Outpatient Medications: aspirin 81 MG chewable tablet, Chew 1 tablet (81 mg total) daily, Disp: ,Rfl: atorvastatin (LIPITOR) 80 MG tablet, Take 1 tablet (80 mg total) by mouthdaily, Disp: 30 tablet, Rfl: 1 clopidogrel (PLAVIX) 75 MG tablet, Take 1 tablet (75 mg total) by mouthdaily, Disp: 90 tablet, Rfl: 3 gabapentin (NEURONTIN) 300 MG capsule, Take 300 mg by mouth daily, Disp: ,Rfl: lisinopril (PRINIVIL,ZESTRIL) 5 MG tablet, Take 1 tablet (5 mg total) bymouth daily, Disp: 30 tablet, Rfl: 11 metFORMIN (GLUCOPHAGE) 1000 MG tablet, Take 1,000 mg by mouth 1 tablet in amand 1/2 tablet in the pm, Disp: , Rfl: metoprolol tartrate (LOPRESSOR) 25 MG tablet, Take 1 tablet (25 mg total) bymouth 2 (two) times a day, Disp: 60 tablet, Rfl: 5 nitroglycerin (NITROSTAT) 0.4 MG SL tablet, Place 1 tablet (0.4 mg total)under the tongue every 5 (five) minutes as needed for chest pain, Disp: 25tablet, Rfl: 12PhysicalBMI: Body mass index is 32.12 kg/m .Blood Pressure: BP: 122/74 Pulse: Heart Rate: 61Temperature: Temp: 96.7 F Respirations: Weight: Weight: 87.5 kg (193 lb) O2 Saturation: SpO2: 97 %Physical Exam General Well developed, well nourished, no acute distress Neck Soft and supple without lymphadenopathy or thyromegaly. No JVD. Nobruits. Lungs Clear to auscultation, no crackles, rhonchi, or wheezes Heart Normal S1 S2, no murmurs, clicks, or gallops Musculoskeletal Appears to have normal range of motion x 4 extremities, nojoint swelling. No pedal edema Neuro Alert, orientedx3, no facial asymmetry Derm No rashes, or ulcers Vascular Pulses palpableDiagnosticsLabBMP:Lab ResultsComponent Value Date NA 136 02/13/2020 K 4.8 02/13/2020 CL 106 02/13/2020 CO2 22 02/13/2020 ANIONGAP 8 02/13/2020 CALCIUM 9.2 02/13/2020 GLU 212 (H) 02/13/2020 BUN 12 02/13/2020 CREATININE 0.86 02/13/2020 GFRAA >60 02/13/2020 GFRNONAA >60 02/13/2020Hyperlipidemia:Lab ResultsComponent Value Date CHOL 174 02/12/2020 TRIG 492 (H) 02/12/2020 HDL 29 (L) 02/12/2020 CHOLHDL 6.0 02/12/2020 LDLCALC UNABLE TO CALCULATE VALID LDL DUE TO 02/12/2020LDL was calculated at 100Cardiac:Lab ResultsComponent Value Date TROPONINI <0.06 04/15/2017 POCTROP <0.01 (L) 02/12/2020 POCTROP 0.01 02/11/2020CBC Brief:Lab ResultsComponent Value Date WBC 10.1 02/13/2020 HGB 15.6 02/13/2020 HCT 43.6 02/13/2020 PLT 278 02/13/2020HgbA1c:Lab ResultsComponent Value Date HGBA1C 6.6 (H) 02/12/2020EKG: N/AAssessment & Plan1. Known CAD; he did require recent stenting to right coronary. He claims thathe has been without his Plavix for a couple of days. I did review with him theimportance of taking this as prescribed and he should not stop it until he hasclearance from our office2. Hyperlipidemia; he will be getting blood work and office visit with primarycare next week. Would like to see his LDL less than 70. If he is not at thisgoal on the higher dose of atorvastatin, we may need to consider PCSK9 inhibitorinjectable therapy.3. Tobacco use and abuse. He tells me that he has smoked "occasionally". Ihave reviewed with him the importance of complete smoking cessation especiallyin light that he is diabetic4. Diabetes mellitus; this is improved with hemoglobin A1c 6.6. This is alsofollowed by PCPI will have patient schedule a telemedici ne visit in approximately 3 months justto follow-up. I have reviewed with him if his chest discomfort continues, heshould notify our office back. He knows to contact our office if he has anyother signs or symptoms of cardiovascular concern.We appreciate the opportunity to care for this patient.Signature: Siobhan Baxter NPDate: February 26, 2020Time: 10:37 AMThis document or parts of this document, were dictated using [employer]. A reasonable attempt at proofreading has been made to minimize errors.Please call with any questions or corrections. Name Value Range Interpretation Code Description Data Rosita rce(s) Supporting Document(s) ID Date Data Source [id number] 02/13/2020 04:16:27 PM EST [facility]PATIE NT INFORMATIONPatient MRN Name Date of Age Gend*PT [id number] Nadine Hansen 1965 54 years M OBSPT Location Admission Date/Time Visit ID Attending [id number] 02/11/20 1732 --- Frederick Parkinson MD([id number]) EPI ID CSN Admitting Provider [id number] Robert Lenz MD([id number]) Attestation signed by Frederick Parkinson MD at 02/13/2020 4:16 PMI have reviewed the notes, assessments, and/or procedures performed by GWENDOLYN Harrell, I concur with his documentation of Nadine Hansen. [facility] DISCHARGE SUMMARYPatient Name: Nadine Hansen of : 1965 Age 54 yearsPrimary Physician: KAIT MORALES MD PCP Tzoanwjcv Date: 02/11/2020 Discharge Date: 02/13/2020He will be discharged from [facility] Diagnoses:Principal Problem: Chest painActive Problems: Type 2 diabetes mellitus without complication, without long-term current useof insulin Coronary artery disease HTN (hypertension) Unstable angina Mixed hyperlipidemiaResolved Problems: * No resolved hospital problems. *Discharge Medications:Current Discharge Medication ListCONTINUE these medications which have CHANGED Detailsatorvastatin (LIPITOR) 80 MG tablet Take 1 tablet (80 mg total) by mouth dailyQty: 30 tablet, Refills: 1CONTINUE these medications which have NOT CHANGED Detailsaspirin 81 MG chewable tablet Chew 1 tablet (81 mg total) dailyclopidogrel (PLAVIX) 75 MG tablet Take 1 tablet (75 mg total) by mouth dailyQty: 90 tablet, Refills: 3gabapentin (NEURONTIN) 300 MG capsule Take 300 mg by mouth dailylisinopril (PRINIVIL,ZESTRIL) 5 MG tablet Take 1 tablet (5 mg total) by mouthdailyQty: 30 tablet, Refills: 11metFORMIN (GLUCOPHAGE) 500 MG tablet Take 500 mg by mouth 2 (two) times a daywith meals 1 tab in am and 2 tab in pmmetoprolol tartrate (LOPRESSOR) 25 MG tablet Take 1 tablet (25 mg total) bymouth 2 (two) times a dayQty: 60 tablet, Refills: 5nitroglycerin (NITROSTAT) 0.[address] 1 tablet (0.4 mg total) underthe tongue every 5 (five) minutes as needed for chest painQty: 25 tablet, Refills: 12Follow Up Instructions:The patient was given an after visit summary.Patient will follow up with KAIT MORALES MD in 5-7 days.Patient will follow up with Dr. Ramos in 1- 2 weeks.Items needing special attention: Had cardiac catheterization with stentplacement today. He does have a puncture to his right wrist which she will needto monitor closely for ecchymosis and hematoma formation.Brief Hospital Course:Patient is a 54-year-old male with PMH of CAD, DM, HTN, [facility]. He does have asignificant history of CAD requiring prior stenting and had indicated that hischest pain began on Tuesday. It occurred again the following morning, and wasaccompanied by fatigue. He was denying shortness of breath. He did takenitroglycerin at that time and did have relief. [facility] no ischemic changes. Due to concern and his history he wasdirect admitted to [facility] his troponin was negative. Cardiology wasconsulted and plan was for cardiac catheterization. Unfortunately this patientdoes have an iodine allergy so he required premedication. He was given steroidsso it is expected that his glucose will be elevated. He was started on Lovenoxfor DVT prophylaxis.He underwent cardiac catheterization on 02/12. A stent was placed to the distalRCA which was believed to be the culprit. Angioplasty was also performed.Please refer to the cardiology report for full details.He was denying chest pain, shortness of breath, syncope, dizziness following hisprocedure. His radial site appeared intact without ecchymosis or hematomaformation. He was seen as being ambulatory in the room without complaints. Kevanid want to go home and indicated that he had spoken with lean manufacturing specialist whostated he would be able to. I did call cardiology to consult as theses patientstypically remain in the hospital till the following morning. It was confirmedthat given the patient's history and a smooth procedure, he would be optimizedfor discharge this evening. He did indicate that he still has 1 refill left ofhis Plavix. He will continue this an d follow-up with Dr. Ramos in 1-2 weeks.He will be discharged with a larger dose of atorvastatin which can be changedbycardiology in the outpatient setting. He does know that he needs to monitorclosely for hematoma formation in his left wrist, including ecchymosis,swelling, numbness or tingling to the fingers or hand. He will also need toreturn with any increase shortness of breath or chest pain. He is in agreementwith the current plan. He is medically optimized and can be discharged hometoday.Discharge Exam:Blood Pressure: BP: 121/77 Pulse: Heart Rate: 71Temperature: Temp: 97.9 F Respirations: Resp: 16Admission Weight: Weight: 85.9 kg (189 lb 6.4 oz) O2 Saturation: SpO2: 93 %Discharge Weight: Weight: 85.9 kg (189 lb 6.4 oz) BMI: Body mass index is 31.52kg/m .Physical Exam General alert, cooperative, pleasant HEENT Normal, NCAT Lungs normal and clear to auscultation Heart regular rate and rhythm Abdomen soft, non-tender, non-distended, no organomegaly or masses Musculoskeletal negative Neuro normal without focal findings and mental status, speech normal, alertand oriented [id number] Pertinent Findings: Puncture site to right wrist cove red with pressuredressing, there is no surrounding erythema, ecchymosis, or drainage.Diagnostics:Imaging:Cardiac CatheterizationResult Date: 02/13/2020 1st Mrg lesion is 100% stenosed. Prox Cx to Mid Cx lesion is 35% stenosed. Ost Cx to Prox Cx lesion is 35% stenosed. Prox LAD lesion is 35% stenosed. Mid LAD lesion is 20% stenosed. Acute Mrg lesion is 85% stenosed. Dist RCAlesion is 95% stenosed. RPDA lesion is 30% stenosed. No complications,estimated blood loss minimal. Successful stenting of a severe culprit lesion inthe distal RCA with a drug- eluting stent. The previously placed proximal RCAstents are widely patent. There is a chronic occlusion of the first obtusemarginal which is stable and fills via left to left collaterals.Procedures:Cardiac cathConsulta nts:cardiologyRecent Labs:Cardiac:Lab ResultsComponent Value Date TROPONINI <0.06 04/15/2017 POCTROP <0.01 (L) 02/12/2020 POCTROP 0.01 02/11/2020CBC with Diff:Lab ResultsComponent Value Date WBC 10.1 02/13/2020 RBC 4.90 02/13/2020 HGB 15.6 02/13/2020 HCT 43.6 02/13/2020 MCV 89.0 02/13/2020 MCH 31.8 02/13/2020 MCHC 35.7 02/13/2020 RDW 13.3 02/13/2020 PLT 278 02/13/2020 MPV 7.0 (L) 02/13/2020CMP:Lab ResultsComponent Value Date NA 136 02/13/2020 K 4.8 02/13/2020 CL 106 02/13/2020 CO2 22 02/13/2020 ANIONGAP 8 02/13/2020 BUN 12 02/13/2020 CREATININE 0.86 02/13/2020 BCR 14.0 02/13/2020 GLU 212 (H) 02/13/2020 CALCIUM 9.2 02/13/2020 ALBUMIN 3.8 02/11/2020 GLOB 3.2 02/11/2020 AGRC 1.2 02/11/2020 ALKPHOS 119 (H) 02/11/2020 LABBILI 0.4 02/11/2020 AST 17 02/11/2020 ALT 35 02/11/2020 GFRAA >60 02/13/2020 GFRNONAA >60 02/13/2020Coags:Lab ResultsComponent Value Date PROTIME 11.0 02/11/2020 INR 1.05 02/11/2020 APTT 29.2 02/11/2020Stephen Felton, NP3:52 PMTotal time spent for discharge on date of discharge: 35 minutes Name Value Range Interpretation Code Description Data Rosita rce(s) Supporting Document(s) ID Date Data Source [id number] 02/13/2020 12:48:[address] [facility] Name Value Range Interpretation Code Description Data Rosita rce(s) Supporting Document(s) &PDF [facility] ILKPRn2zOgYGNhDe23/LCWvrVEFvt6HlTSciCKk3BJpnUIPeK7SbiSbgRVjDHW7PKZ2WH5bWBDbcXiGe vci [file] H+V2ygCSW2nqEg6o9a2+FMfgLHSg1UDHaSpMRgPXr+qM+f6ydjMM/yL3+nSAS6h9wTEZXk04qllJl+Sinter Feeder Qaa5U8+ewY1AEHLDq4PBkGgf2o5nPCXyFtCAES5Dt0 wOWeRWxcdj3m2erIdlXFD7BN5WN5nVnXwlk1bDCmJB029mgQdulIZN8NY1IDOF+J0OqV/BrSuIoPMuxM mKRZQWIfi39rT2+9oBKaV2zSN69vy1IhkrPvv0nQr0ibsFu7Ou3UQ1NOyvOMNCTP6ZOt20Q/3LrshfNq j2PaappGpLVvbndg5Eycnwolnr/auUr6kZm3hSvaZ7 [file] 3iSN7/risk developer/ijU1lAr/HkDb267EE6VVRvukz+YOZnorx [file] ICAgICAgICAgICAgICAgICAgICAgICAgICAgICAgIC NcQLSwUWXoRRGjDEZkOCOyNNXyAYGaQDGgYXFcBFXuUY6YJGXqWBStFSRxWJPhJIIgWDExRMQhYMBhDV AgICAgICAgICAgICAgICAgICAgICAgICAgICAgICAgICAgICAgICAgICAgICAgICAgICAgICAgICAgIC YwFGOxVYSlXUXdGPRjXI0SIOAgURUoWNNlBMFjETOb ICAgICAgICAgICAgICAgICAgICAgICAgICAgICAgICAgICAgICAgICAgICAgICAgICAgICAgICAgICAg FOTpVNNgCCXeVXIpKPMmWMCsIEAcVEAkSN1HZJTuEHZpMJToNFEtSRXrLQYmMYStEPWyWSOpDOJrYIJl ICAgICAgICAgICAgICAgICAgICAgICAgICAgICAgIC PmSUYpXOMyFAXePYNlQLGyLLMkCOXdHEKlQKRpOKDlZDKmGC7NCHDnYTKaRVEoBZOcFIXuKGGqHCTvOR AgICAgICAgICAgICAgICAgICAgICAgICAgICAgICAgICAgICAgICAgICAgICAgICAgICAgICAgICAgIC FcNFSiRZVoPGQdJBAtKWMiFF1WMRTiLSQgARYcBDXj ICAgICAgICAgICAgICAgICAgICAgICAgICAgICAgICAgICAgICAgICAgICAgICAgICAgICAgICAgICAg JAOjCZEhQZScDFGaGFOoHUHmCODzBFNoSUNoOB1HSNSbBHSnUGMuOTQfDQXgOSZcUALeSKKpYCJkUJVq ICAgICAgICAgICAgICAgICAgICAgICAgICAgICAgIC KpVYFgWJUoOKVcIAKrWEBeIUJuEHVzESOoVQAaGVKjJYVsDNPdSS2OIHZqJENoAGHdFITqTMFqLBYvME AgICAgICAgICAgICAgICAgICAgICAgICAgICAgICAgICAgICAgICAgICAgICAgICAgICAgICAgICAgIC EcHMAsUXFeEFImBRGlPWVoBFPbBW2CSBNsUCAbOQDw ICAgICAgICAgICAgICAgICAgICAgICAgICAgICAgICAgICAgICAgICAgICAgICAgICAgICAgICAgICAg GUVeDHLuSFMxXMDpTPToJFTcOPTcBJOaQXEgCWDnFC5DMFEuOPUuYVKzSWFjUNVzRIGdPBSrQBPrECGm ICAgICAgICAgICAgICAgICAgICAgICAgICAgICAgIC WiQTMkUFOwRGXeGOShTYWdIUQmOVQmKIWnKFLaNZUyLBClFLInWPQtJM1EAP63kQCwn3G1IBLvSC0yfw c/Dy7LMSmpmeIqgZDzTW3ONsRpLS0ssv1AWoSkCP8tcb0KEMgMOnTlJ4Y9qWElDAXdDUWUKtOlC08eHA asRx05KBzzSJVvIlSvOEm9Uv6GWiTvM2gjIYNjMjT8 MOJcAvX0BHBrLeC6AIFiBuHsOVEwRFXmBVJvDFIVIHC3XUTfVoAwHFkhFF5Is2WqaBT2JVz+Ms5QAC4h z8EvSLhvDNPhVW5rft6BQMsUIaOgV3XljsJ1NBC4IFQtYx6ACHTwDYOxpEEuIpOnUOYPCdDiE0CssV21 IDENCj4+KHqneyUzVmwSIyA1QXKys5VkREl9LY9RLR JgONq8pRMtMS7rnLUfzFKdSKtkIE4UKWT8YMonMaGaGTMpS5jTTsYaQHX7MxFgjAooVQ5BCnDcL5Zfpd VudCAzNSAwIFINCj4+XTxtftIcQiqPFmR7YVExh9DuFIy6JR3UERGbDJytKH0MKTDtxC2kGPzpMW6QAl OoTqPdALQBAaYaL68yjPDuXBk6H0WlZqHbIJGzChdu ZXMgPDwvTmFtZXMgWyBdDQogID4+ID4+VVaoXA4CZUjajhVmLVXiNw4QCIWbCXYqBQ3mOJRtMTTwR9I6 qEwfBCPEHwPsK2kqvkqlLG3sWPXiF822fEzldyIoWBP8MICtUi8KGKXdESJ5OCClqQVbHkHuUPRVOFbm CN6GwWCaYHK1sP5kAFcmQZRmJNOoX1yOIkQeoLmaES 51bGwgbnVsbCBdDQo+Jm5EAU0oh0KrXKd1ysNgEJpyGMS1FMbwHCIkVDJnBSUgYVM3RFY7EAQKDoUtYI PhJYYiXFhjHHQdSKQtni3EWHCyBZX4PGMeFVOxECYuFXFjENyrPKOlYLioFWCsVROdYPDmZN9UAfNpNZ PySQNmYNMhZSCcOEQuov3XMMJbJKTiXbE4UISsAOFj ZOSzQYmtTXJiCWPqUUR4IPLeOEYgCF6CNkZhPMSeMOK6ASdrWJVqGWJsue0ERQBzZVSvPKwlZTFkUGId UWSiSTeuALDeACI3Sck3WWTiGMZxNT0ZOoKiOAKnERD3ENepXEEhPVYaaf7IMWXqYBIuUHYeKkDfWVDr PYMlWAojYNCzHSF3PVT8NJZfPFJcEW4XUiLdNQOgMP H0JHSzFHSaVBBzox6LYAKcOEBtNBA8HcEgLWCvZIPdKYrvSGZnTMDgZII1JDNqIVItOD8HFtUbZMNtJG WiKTSpZQWqGERpjg1XUQUcEGUoWfJgUCUaKPNiEOOpKTnoPZOuSJHeRRA7XFRzSQLbDK0NPhShVZDgNI G1JONdMGWbBDAtah4IQOFwUTCqTDZ7EYOgZZOaUDKe NLdrQISxCTN6IoNzAQOwXKDpVN5PJzMiLVIpKTQ9NolsOWAuSDGlzo6LPWMrPUHwYIx8SGOlWFTnCUMd IXpvHWKrRFRxQAXwXWFxCMGvKE1PGuNfWAUpXqFsMiOqHPBfRJCpji1JVONyXCCqSXK0DJGgTTMrWAHb DBtqWWCyFLZbXsNvSWEhWLQbMX9ZWcFbBAHzDcQ7QO cqKCPwTEGgyl6TBJIfKPUaZUP4KfQxHHSzPAHcJQyeYXAsMMP5LvX2YDHnOSTtBG2JCaZqHHNdYIyiRt WnPIBeYZMqqe8CYPNdVDP2Qjx7YEQcXUJnRXRqVSjgLCMwGQq3MFp5AJUiLLHfHC6UAjRrIQFqKROsMA NiLQFuRJCgqj4LKKStWYK6BBY4WREiZUXlIQVkSKto XAKfYEpwLmIjEGZwECKvRE0FOvBfLMWaWMV4CRAhMZHeAYBdcm0VqUCbgYkvrs6ZEMyWJf1HnAjzIAN7 BJibQn3odGToZnCkQWSCAy4VwrWcGQXcRWVQPTbgOUItOSQpJOQfAzt0XAD4CpO6RQkwPlbmY4FcHHFc TqHiAsI4GiT3RFX3QIGqXKH4YGifXOn5K9F8REMvBO FkZmRiYWJiZDk+TR6iTVn+Mc3Jf7EbtwE6kqIwDVy0GXe3DB2WEPXIG5OPJm== ID Date Data Source [id number] 02/13/2020 09:34:58 AM EST [facility] Name Value Range Interpretation Code Description Data Rosita rce(s) Supporting Document(s) POC NOVA GLU 215 mg/dL (70-99) H [facility] ID Date Data Source [id number] 02/13/2020 06:06:47 AM EST [facility] Name Value Range Interpretation Code Description Data Rosita rce(s) Supporting Document(s) SODIUM 136 mmol/L (136-145) [facility] POTASSIUM 4.8 mmol/L (3.6-5.2) [facility] CHLORIDE 106 mmol/L (100-108) [facility] CO2 22 mmol/L (22-31) [facility] ANION GAP 8 mmol/L (7-16) [facility] UREA NITROGEN 12 mg/dL (7-24) [facility] CREATININE 0.86 mg/dL (0.80-1.30) [facility] BUN/CREAT RATIO 14.0 RATIO (10.0-20.0) [facility] GLUCOSE 212 mg/dL (70-99) H [facility] CALCIUM 9.2 mg/dL (8.4-10.2) [facility] GFR >60 ml/min/1.73m2 (>59) [facility] GFR ( AMER) >60 ml/min/1.73m2 (>59) [facility] GFR INTERPRETATION [facility] --NORMAL KIDNEY FUNCTION OR MILD DISEASE - GFR >OR= 60CHRONIC KIDNEY DISEASE - GFR 15 - 59RENAL FAILURE - GFR <15 Est. GFR calculation based on the MDRDstudy equation, which assumes a steadystate for creatinine. Est. GFR should notbe used for medication dosing. ID Date Data Source [id number] 02/13/2020 05:42:13 AM EST [facility] Name Value Range Interpretation Code Description Data Rosita rce(s) Supporting Document(s) WBC 10.1 10*3/uL (4.1-11.0) [facility] RBC 4.90 10*6/uL (4.60-6.10) [facility] HGB 15.6 g/dL (13.5-18.0) [facility] HCT 43.6 % (41.0-53.0) [facility] PERFORMED AT [address] [place] [address] [address] [place] [address] MCV 89.0 fL (80.0-95.0) [facility] MCH 31.8 pg (27.0-32.0) [facility] MCHC 35.7 g/dL (32.0-36.0) [facility] RDW 13.3 % (10.5-14.5) [facility] PLT 278 10*3/uL (150-450) [facility] MPV 7.0 fL (7.1-10.7) L [facility] ID Date Data Source [id number] 02/12/2020 06:44:38 PM EST [facility] Name Value Range Interpretation Code Description Data Rosita rce(s) Supporting Document(s) POC NOVA GLU 131 mg/dL (70-99) H [facility] ID Date Data Source [id number] 02/12/2020 02:51:10 PM EST [facility] Name Value Range Interpretation Code Description Data Rosita rce(s) Supporting Document(s) POC NOVA GLU 245 mg/dL (70-99) H [facility] ID Date Data Source [id number] 02/12/2020 01:15:[address] [facility] Name Value Range Interpretation Code Description Data Rosita rce(s) Supporting Document(s) EKG [facility] ABYLWw6bFsPBDyRhz2LgNpFmDCOeQR4dpig6U5N2aGFtG5PsgMZnm1rwC4XqJ5AuURRzNJLUVD7LcGHk jb2 [file] /nhw/o5+sJ/fAR/Xw9ox8+pJ+executive vp/TDx/Nn9G1nMX1aWyBzxMf5lEq81hCYQmc0I8PQ+qPKsXL18qHFCa [file] z/qi733+BK/JO7PH/Mata+9/BHz8vbn/c+tCxcYQSi18gLNu7fyQGz1G+MjVo+exV3+u5r+bx47eEx9B7x v6V9k+1R7pLs737gMmussmwW0vqjtvzKGQ8nqcji/9PEMyJTBoqH8ZWIQpdKYg5TV/ItxCVRt0iTG5sK 55SEkx6BfnAfHa6BvmHqDq1td9/LtTYtIKUVQn1hd1 75rABtzv/bH6+R2r/uax1i8p/gBL/c8lKnMAWCPAvUFPashpsj0dD4qhMywpFzWUSKajNyNeGa0gIIyG ou4Rv72ovDMqzt3wGtaSNb2Gvd81RBxdG0OI6ygd90a0CRyOTAfFJ4LOMqNJSGJJYw4sb/B4RsHmAKuW FHcPT2P967AJp+nf5R9Agbagfl6Nfn2U3+pZ2SDOm0 Ew4kaFQxuap32S/8JezbJX+ZvReo5+aeqq2IowM24fbXXq74woFsgjA5fEN72VP+dhR5tB8idn2fxHMo nBq3K2afTAZwRbnFRbrXVLrLHL1YXYsK9VWSpPap/OO+VsEJT/efYH/pyX0+bHXu3U+Wev/v4pgsrI6r agppH43ImJa+j52N3m21Ee9e73YwD+4RD/db76Y4q3 X9Xl/uUB/Zl67Q1ynn0Ke/tMFVen8w977g/V6g2q2e+braxton/Hbd/VZe7/M+zH/DmFzqYamnVrzy1XiIz zmh/qoFJih6rKi17KA+sleeve setter lockstitch/Omg+sspM2fY6dC89PO+gby6IllQ8Wg/aqroP+8ckgib3a8n/8QSP8UwKS [file] AwMDAwMDAyOTggMDAwMDAgbiAKMDAwMDAwMDQwOSAw FKUcAPAbHNhaBGUgHLRuRYIcTIJwCTMcVP4gBxRgSOVlBBO3CETfUFRnCUDkviAOQLLbJGUxHFn4EAOz QXSnFEUlGIujEQEkMHXiKBB0GGDiFESnFP2kXfIoLCExHZW8TdLuKNLeOVWaanSJNRKrDBJqHNF0WuSg INJfWZXmYCzqIAGpWCUwCOjhLWLoVXOrKD7tCrZqVG PxGDCyFCxpMIOlYRZgukFTAXByPHEuXPAwGrCuVAOmBLToMRijZLKmZQE8SzppZIFgSUTfXG1gXrZqCI CnSKW2JWriRVFaSMButuKDZPKlXMFqZJjuEVUmMPQhJJAjJFhuQVJlWRTtPXP8HRTwTOLdOK6aSfLjKL IqKROfFLUjKbJ7CyOtKyUMeZYgpUucvnx7IYelN4n9 TVHpYMdjMR2rdsFiTIGpUgjaAx2huVL1MAVnLabBNj3Aj5MpzlY1rzOnPuG1Qlc0FdNxGI6C ID Date Data Source [id number] 02/12/2020 01:00:38 PM EST [facility] Name Value Range Interpretation Code Description Data Rosita rce(s) Supporting Document(s) POC NOVA GLU 254 mg/dL (70-99) H [facility] ID Date Data Source [id number] 02/12/2020 11:57:46 AM EST [facility]PATIE NT INFORMATIONPatient MRN Name Date of Age Gend*PT [id number] Nadine Hansen 1965 54 years M OBSPT Location Admission Date/Time Visit ID Attending [id number] 02/11/20 4942 --- Frederick Parkinson MD([id number]) EPI ID CSN Admitting Provider [id number] Robert Lenz MD([id number])CARDIOLOGY CONSULTATIONName: Nadine Hansen Gender: maleDate of : 1965 Age: 54 yearsDate/Time of Admit: 02/11/2020 5:32 PM Code Status: Full CodePrimary Care Provider / Referring Physician: KAIT MORALES MDInformant:HISTORYCHIEF COMPLAINT: No chief complaint on file.HPI:This patient is a 54 [facility] thereWith complaints of chest pain. He was given nitroglycerin with incompleterelief of this anterior chest pressure. He had no dyspnea or diaphoresis.He has a history of coronary artery disease. In March 2017 he presented withunstable angina and went to [facility]. There he was found to have two-vesseldisease with a pre-existing LAD stent being found to be patent. He had severestenosis in the RCA which was treated with a drug-eluting stent. He was foundto have a chronically occluded first marginal branch of the circumflex. HisLVEF was normal.In May 2018 he underwent stress perfusion imaging in his lean manufacturing specialist's officewhich showed no ischemia or wall motion abnormalities.In June 2019 and a telemedicine visit he was free of angina pectoris.The prehospital meds include Lopressor, Nitrostat, aspirin, Lipitor, Plavix, andPrinivil.His creatinine 0.87 with GFR greater than 60. The hemoglobin is 15.7. He has 2normal levels of troponin I.PAST HISTORYPMH:Past Medical History:Diagnosis Date Coronary artery disease S/p stenting HTN (hypertension) 02/11/2020 Type 2 diabetes mellitus without complication, without long-term current useof insulinPSH:Past Surgical History:Procedure Laterality Date APPENDECTOMY CARDIAC CATHETERIZATION N/A 04/18/2017 Procedure: Cardiac catheterization; Surgeon: Boy Elizondo MD; Laterality:N/A; CORONARY ANGIOPLASTY WITH STENT PLACEMENT 2009FH:Family HistoryProblem Relation Age of Onset Kidney failure Mother Dementia FatherPSH:Social HistorySocial History Narrative Not on fileSocial HistorySocioeconomic History Marital status: Spouse name: Not on file Number of children: Not on file Years of education: Not on file Highest education level: Not on fileOccupational History Not on fileSocial Needs Financial resource strain: Not on file Food insecurity: Worry: Not on file Inability: Not on file Transportation needs: Medical: Not on file Non-medical: Not on fileTobacco Use Smoking status: Current Some Day Smoker Packs/day: 0.25 Years: 25.00 Pack years: 6.25 Types: Cigarettes Smokeless tobacco: Never UsedSubstance and Sexual Activity Alcohol use: Yes Comment: occassional Drug use: No Sexual activity: Not on fileLifestyle Physical activity: Days per week: Not on file Minutes per session: Not on file Stress: Not on fileRelationships Social connections: Talks on phone: Not on file Gets together: Not on file Attends presybeterian service: Not on file Active member of club or organization: Not on file Attends meetings of clubs or organizations: Not on file Relationship status: Not on file Intimate partner violence: Fear of current or ex partner: Not on file Emotionally abused: Not on file Physically abused: Not on file Forced sexual activity: Not on fileOther Topics Concern Bike Helmet Not Asked History of Falls Not Asked Self-Exams Not Asked Caffeine Concern Not Asked Hobby Hazards Not Asked Sleep Concern Not Asked Daily Calcium Supplement Not Asked Lead Exposure Not Asked Special Diet Not Asked Daily Vitamin D Supplement Not Asked Service Not Asked Stress Concern Not Asked Domestic Violence in home Not Asked Radon exposure Not Asked Weight Concern Not Asked Exercise Not Asked Seat Belt Not Asked Well water Not Asked Firearms in home Not AskedSocial History Narrative Not on fileReview of SystemsConstitutional: No fevers, chills, weight loss or night sweats..Eyes: No blindness, double vision, or glaucomaRespiratory: negative for asthma, chronic bronchitis, hemoptysis, pleurisy,sputum production, or wheezingCardiovascular: negative for claudication and as stated in the HPIGastrointestinal: negative for constipation, diarrhea, melena, nausea, orvomitingNeurological: negative for dizziness, gait problems, headaches and seizuresHematologic/lymphatic: negative for easy bruising, petechiae, or anemiaBehavioral/Psych: negative for anxiety and depressionEndocrine: negative for polydipsia, polyphagia and polyuria and temperatureintoleranceAllergic/Immunologic: No seasonal allergiesMEDICATIONS AND ALLERGIESALLERGIES/SENSITIVITIES:AllergiesAllergen Reactions Iodine Rash Peanut Oil Anaphylaxis Reaction: ANAPHYLAXIS Shellfish-Derived Products Reaction: RASH Comment: 'MY SKIN PEELS AND CRACKS'MEDS:Medications Prior to AdmissionMedication Sig Dispense Refill Last Dose aspirin 81 MG chewable tablet Chew 1 tablet (81 mg total) daily Taking atorvastatin (LIPITOR) 40 MG tablet Take 40 mg by mouth daily Taking clopidogrel (PLAVIX) 75 MG tablet Take 1 tablet (75 mg total) by mouth daily90 tablet 3 Taking gabapentin (NEURONTIN) 300 MG capsule Take 300 mg by mouth daily Taking lisinopril (PRINIVIL,ZESTRIL) 5 MG tablet Take 1 tablet (5 mg total) by mouthdaily 30 tablet 11 Taking metFORMIN (GLUCOPHAGE) 500 MG tablet Take 500 mg by mouth 2 (two) times a daywith meals 1 tab in am and 2 tab in pm Taking metoprolol tartrate (LOPRESSOR) 25 MG tablet Take 1 tablet (25 mg total) bymouth 2 (two) times a day 60 tablet 5 Taking nitroglycerin (NITROSTAT) 0.[address] 1 tablet (0.4 mg total) underthe tongue every 5 (five) minutes as needed for chest pain 25 tablet 12PhysicalVITAL SIGNS:Blood Pressure: BP: 124/81 Pulse: Heart Rate: 68Temperature: Temp: 97.6 F Respirations: Resp: 14Admission Weight: Weight: 85.9 kg (189 lb 6.4 oz) O2 Saturation: SpO2: 97 %Today's Weight: Weight: 85.9 kg (189 lb 6.4 oz)PHYSICAL EXAMINATION:GENERAL: Well developed, well nourished man in no acute distress and oriented toperson place and time. There is normal affect and thought process.HEENT: No arcus, xanthelasma, or scleral icterus. Nasal and oral mucosa pink.Tongue well-papillated.NECK: JVP normal. Carotids brisk. No lymphadenopathy.LUNGS: Resonant and clearCARDIAC: PMI normal S1 normal S2 physiologically split. No gallops. No murmurs.No rubs.ABDOMEN: Soft and nontender without hepatosplenomegaly. Bowel sounds are normal.PULSES: Pedal pulses are intact and symmetricEXTREMITIES: No edema. No clubbing. No cyanosis. Skin warm and well perfused. Novenous stasis.MUSCULOSKELETAL: No deformities, good muscle tone, normal range of motionNEUROLOGICAL: No major sensory or motor deficits.DiagnosticsLABS:BMP:Lab ResultsComponent Value Date NA 137 02/12/2020 K 4.4 02/12/2020 CL 104 02/12/2020 CO2 25 02/12/2020 ANIONGAP 8 02/12/2020 CALCIUM 9.2 02/12/2020 GLU 130 (H) 02/12/2020 BUN 10 02/12/2020 CREATININE 0.87 02/12/2020 GFRAA >60 02/12/2020 GFRNONAA >60 02/12/2020CBC with Diff:Lab ResultsComponent Value Date WBC 8.6 02/12/2020 RBC 4.98 02/12/2020 HGB 15.7 02/12/2020 HCT 44.5 02/12/2020 MCV 89.3 02/12/2020 MCH 31.6 02/12/2020 MCHC 35.3 02/12/2020 RDW 13.0 02/12/2020 PLT 268 02/12/2020 MPV 6.6 (L) 02/12/2020CBC without Diff:Lab ResultsComponent Value Date WBC 8.6 02/12/2020 RBC 4.98 02/12/2020 HGB 15.7 02/12/2020 HCT 44.5 02/12/2020 MCV 89.3 02/12/2020 MCH 31.6 02/12/2020 MCHC 35.3 02/12/2020 RDW 13.0 02/12/2020 PLT 268 02/12/2020 MPV 6.6 (L) 02/12/2020CMP:Lab ResultsComponent Value Date NA 137 02/12/2020 K 4.4 02/12/2020 CL 104 02/12/2020 CO2 25 02/12/2020 ANIONGAP 8 02/12/2020 BUN 10 02/12/2020 CREATININE 0.87 02/12/2020 BCR 11.5 02/12/2020 GLU 130 (H) 02/12/2020 CALCIUM 9.2 02/12/2020 ALBUMIN 3.8 02/11/2020 GLOB 3.2 02/11/2020 AGRC 1.2 01/26 ALKPHOS 119 (H) 02/11/2020 LABBILI 0.4 02/11/2020 AST 17 02/11/2020 ALT 35 02/11/2020 GFRAA >60 02/12/2020 GFRNONAA >60 02/12/2020Coags:Lab ResultsComponent Value Date PROTIME 11.0 02/11/2020 INR 1.05 02/11/2020 APTT 2 9.2 02/11/2020D-Dimer: No results found for: DDAT, PROCALCITON, LACTATENT Pro- BNP : No results found for this or any previous visit.DIAGNOSTICS:IMAGING: Chest film not performed.ECG: Sure 2413 I did he is planning to visit patient missed his windows isrunning to the to see the patient the ECG in [place] demonstrated sinus rhythmand was within normal limits.ConclusionsImpressions:1. Unstable angina pectoris2. History of CAD with previous PCIRecommendations:1. Coronary arteriography and possible PCI today2. He has iodine allergy and I will prepare him for the [employer].Thank you for this consultation.Saad Almendarez, MDDate: February 12, 2020Time: 11:23 AM Name Value Range Interpretation Code Description Data Rosita rce(s) Supporting Document(s) ID Date Data Source [id number] 02/12/2020 01:58:02 PM EST [facility] Name Value Range Interpretation Code Description Data Rosita rce(s) Supporting Document(s) HEMOGLOBIN A1C @ 6.6 % (4.0-6.0) H [facility] Performed using GIROPTICta immunoassa y.Care must be taken when interpreting [id number] in patients with a hemoglobin variantor decreased erythrocyte lifespan. Values 5.7 - 6.4% suggest prediabetes.Values >=6.5% are diagnostic for diabetes.REFERENCE: DIABETES CARE 2018: 41(S13-S27).PERFORMED AT [address] [place] [address] EST [place] GLUCOSE 143 mg/dL [facility] ID Date Data Source [id number] 02/12/2020 10:38:35 AM EST [facility] Name Value Range Interpretation Code Description Data Rosita rce(s) Supporting Document(s) WBC 8.6 10*3/uL (4.1-11.0) [facility] RBC 4.98 10*6/uL (4.60-6.10) [facility] HGB 15.7 g/dL (13.5-18.0) [facility] HCT 44.5 % (41.0-53.0) [facility] PERFORMED [place] [address] [place] [address] MCV 89.3 fL (80.0-95.0) [facility] MCH 31.6 pg (27.0-32.0) [facility] MCHC 35.3 g/dL (32.0-36.0) [facility] RDW 13.0 % (10.5-14.5) [facility] PLT 268 10*3/uL (150-450) [facility] MPV 6.6 fL (7.1-10.7) L [facility] ID Date Data Source [id number] 02/12/2020 12:15:06 PM EST [facility] Name Value Range Interpretation Code Description Data Rosita rce(s) Supporting Document(s) DIRECT LDL @ 100 mg/dL (<130) [facility] PER NCEP ATP III GUIDELINES: OPTIMAL < 100 NEAR OPTIMAL 100 - 129BORDERLINE HIGH 130 - 159 HIGH 160 - 189 VERY HIGH > 189 ID Date Data Source [id number] 02/12/2020 11:40:02 AM EST [facility] Name Value Range Interpretation Code Description Data Rosita rce(s) Supporting Document(s) CHOLESTEROL @ 174 mg/dL (0-200) [facility] TRIGLYCERIDE @ 492 mg/dL (30-200) H [facility] HDL CHOLESTEROL @ 29 mg/dL (>40) L [facility] PER NCEP ATP III GUIDELINES:RESULTS LOWE R THAN 40 MG/DL ARE SUGGESTIVEOF INCREASED RISK FOR CORONARY ARTERYDISEASE. RESULTS > OR = TO 60 MG/DL ARECONSIDERED A NEGATIVE RISK FACTOR. CHOL/HDL RATIO 6.0 RATIO [facility] INTERPRETATION OF CHOL-HDL RATIO CHD RISK FEMALE MALEVERY HIGH >8.3 >14.3HIGH 5.6- 8.3 6.7- 14.3AVERAGE 3.7- 5.6 4.0- 6.7BELOW AVERAGE 2.5- 3.7 2.7- 4.0PROTECTED <2.5 <2.7 LDL CHOL (CALC) (<130) [facility] INTERFERENCE FROM ELEVATED TRIGLYCERIDES (GREATER THAN 300 MG/DL). SEE RESULTFOR DIRECT LDL. ID Date Data Source [id number] 02/12/2020 09:01:03 AM EST [facility] Name Value Range Interpretation Code Description Data Rosita rce(s) Supporting Document(s) SODIUM 137 mmol/L (136-145) [facility] POTASSIUM 4.4 mmol/L (3.6-5.2) [facility] CHLORIDE 104 mmol/L (100-108) [facility] CO2 25 mmol/L (22-31) [facility] ANION GAP 8 mmol/L (7-16) [facility] UREA NITROGEN 10 mg/dL (7-24) [facility] CREATININE 0.87 mg/dL (0.80-1.30) [facility] BUN/CREAT RATIO 11.5 RATIO (10.0-20.0) [facility] GLUCOSE 130 mg/dL (70-99) [facility] CALCIUM 9.2 mg/dL (8.4-10.2) [facility] GFR >60 ml/min/1.73m2 (>59) [facility] GFR ( AMER) >60 ml/min/1.73m2 (>59) [facility] GFR INTERPRETATION [facility] --NORMAL KIDNEY FUNCTION OR MILD DISEASE - GFR >OR= 60CHRONIC KIDNEY DISEASE - GFR 15 - 59RENAL FAILURE - GFR <15 Est. GFR calculation based on the MDRDstudy equation, which assumes a steadystate for creatinine. Est. GFR should notbe used for medication dosing. ID Date Data Source [id number] 02/12/2020 08:08:30 AM EST [facility] Name Value Range Interpretation Code Description Data Rosita rce(s) Supporting Document(s) POC NOVA GLU 142 mg/dL (70-99) [facility] PERFORMED BY [facility] ID Date Data Source [id number] 02/12/2020 03:36:47 AM EST [facility] ([facility])PATIE NT INFORMATIONPatient MRN Name Date of Age Gend*PT [id number] Nadine Hansen Tommy 1965 54 years M OBSPT Location Admission Date/Time Visit ID Attending [id number] 02/11/20 1732 --- Frederick Parkinson MD([id number]) EPI ID CSN Admitting Provider [id number] Robert Lenz MD([id number]) Attestation signed by Robert Lenz MD at 02/12/2020 3:36 AMDiscussed thoroughly with GWENDOLYN Sidhu and I agree with her A&P ---Inpatient History & PhysicalMichael Tommy TyroneMRN: [id number]: Chest PainPCP:John TUTTLEessment and Plan:Principal Problem: Chest painActive Problems: Type 2 diabetes mellitus without complication, without long-term current useof insulin Coronary artery disease HTN (hypertension)Assessment & PlanChest pain in the setting of coronary artery disease-last stress test was in June, as per Cardiology office notes-Has 3 stents - last cardiac cath was 2017 revealing severe stenosis the rightcoronary treated with drug-eluting stent; chronically occluded 1st marginalbranch the circumflex and normal LV function-Cardiology consult in am-stress test is ordered, however cath may be the recommendation from Cardiologyas he had negative stress in June-ASA/plavix-serial cardiac enzymesDM2-hold metformin-ch merna BG BIG and add SS coverage as nededHTN-continue LisinoprilDisposition; Full codeHPI This is a 54-year-old male with history of CAD, DM, hypertension,hyperlipidemia who transfers from [facility] due to chest pain. Patient isknown to have CAD requiring prior stenting and reports that he had chest pain onSaturday it reoccurred this morning. He has been fatigued feeling worn down butnot short of breath. He took nitroglycerin this morning with some relief in thechest pressure.EKG from [facility] reveals no ischemic changes. Will admit to observation forfurther cardiac monitoring.Past Medical His tory:Past Medical History:Diagnosis Date Coronary artery disease S/p stenting HTN (hypertension) 02/11/2020 Type 2 diabetes mellitus without complication, without long-term current useof insulinPast Surgical History:Past Surgical History:Procedure Laterality Date APPENDECTOMY CARDIAC CATHETERIZATION N/A 04/18/2017 Procedure: Cardiac catheterization; Surgeon: Boy Elizondo MD; Laterality:N/A; CORONARY ANGIOPLASTY WITH STENT PLACEMENT 2008Medications:Medications Prior to AdmissionMedication Sig Dispense Refill Last Dose aspirin 81 MG chewable tablet Chew 1 tablet (81 mg total) daily Taking atorvastatin (LIPITOR) 40 MG tablet Take 40 mg by mouth daily Taking clopidogrel (PLAVIX) 75 MG tablet Take 1 tablet (75 mg total) by mouth deepali ly90 tablet 3 Taking gabapentin (NEURONTIN) 300 MG capsule Take 300 mg by mouth daily Taking lisinopril (PRINIVIL,ZESTRIL) 5 MG tablet Take 1 tablet (5 mg total) by mouthdaily 30 tablet 11 Taking metFORMIN (GLUCOPHAGE) 500 MG tablet Take 500 mg by mouth 2 (two) times a daywith meals 1 tab in am and 2 tab in pm Taking metoprolol tartrate (LOPRESSOR) 25 MG tablet Take 1 tablet (25 mg total) bymouth 2 (two) times a day 60 tablet 5 Taking nitroglycerin (NITROSTAT) 0.[address] 1 tablet (0.4 mg total) underthe tongue every 5 (five) minutes as needed for chest pain 25 tablet 12Allergies:Iodine; Peanut oil; and Shellfish-derived productsFamily History:Family HistoryProblem Relation Age of Onset Kidney failure Mother Dementia FatherSocial History:Social HistorySocioeconomic History Marital status: Spouse name: Not on file Number of children: Not on file Years of education: Not on file Highest education level: Not on fileOccupational History Not on fileSocial Needs Financial resource strain: Not on file Food insecurity: Worry: Not on file Inability: Not on file Transportation needs: Medical: Not on file Non-medical: Not on fileTobacco Use Smoking status: Current Some Day Smoker Packs/day: 0.25 Years: 25.00 Pack years: 6.25 Types: Cigarettes Smokeless tobacco: Never UsedSubstance and Sexual Activity Alcohol use: Yes Comment: occassional Drug use: No Sexual activity: Not on fileLifestyle Physical activity: Days per week: Not on file Minutes per session: Not on file Stress: Not on fileRelationships Social connections: Talks on phone: Not on file Gets together: Not on file Attends presybeterian service: Not on file Active member of club or organization: Not on file Attends meetings of clubs or organizations: Not on file Relationship status: Not on file Intimate partner violence: Fear of current or ex partner: Not on file Emotionally abused: Not on file Physically abused: Not on file Forced sexual activity: Not on fileOther Topics Concern Bike Helmet Not Asked History of Falls Not Asked Self-Exams Not Asked Caffeine Concern Not Asked Hobby Hazards Not Asked Sleep Concern Not Asked Daily Calcium Supplement Not Asked Lead Exposure Not Asked Special Diet Not Asked Daily Vitamin D Supplement Not Asked Service Not Asked Stress Concern Not Asked Domestic Violence in home Not Asked Radon exposure Not Asked Weight Concern Not Asked Exercise Not Asked Seat Belt Not Asked Well water Not Asked Firearms in home Not AskedSocial History Narrative Not on fileReview of SystemsConstitutional: Positive for activity change.HENT: Negative.Eyes: Negative.Respiratory: Negative. Negative for shortness of breath.Cardiovascular: Positive for chest pain.Gastrointestinal: Negative.Endocrine: Negative.Genitourinary: Negative.Musculoskeletal: Negative.Skin: Negative.Allergic/Immunologic: Negative.Neurological: Negative.Hematological: Negative.Psychiatric/Behavioral: Negative.Temp: [97.5 F] 97.5 FHeart Rate: [64] 64Resp: [16] 16BP: (126)/(83) 126/83Physical ExamConstitutional: He is oriented to person, place, and time. He appearswell- developed and well-nourished. No distress.HENT:Head: Normocephalic and atraumatic.Nose: Nose normal.Mouth/Throat: Oropharynx is clear and moist.Eyes: Conjunctivae are normal. No scleral icterus.Neck: Normal range of motion. Neck supple.Cardiovascular: Normal rate, regular rhythm and normal heart sounds.Pulmonary/Chest: Effort normal and breath sounds normal.Abdominal: Soft.Musculoskeletal: Normal range of motion.Neurological: He is alert and oriented to person, place, and time.Skin: Skin is warm and dry. He is not diaphoretic.Psychiatric: He has a normal mood and affect. His behavior is normal. Thoughtcontent normal.Diagnostic ReviewCovid test done at [facility] today is negativependingSignature: Thea Mcdermott, GWENDOLYNDate: February 11, 2020Time: 8:24 PM Name Value Range Interpretation Code Description Data Rosita rce(s) Supporting Document(s) ID Date Data Source [id number] 02/12/2020 12:34:48 AM EST [facility] Name Value Range Interpretation Code Description Data Rosita rce(s) Supporting Document(s) POC CTNI <0.01 ng/mL (0.01-0.07) [facility] Less than 0.08: Myocardial injury unlike lyGreater than or equal to 0.08: Highlysuggestive of myocardial injuryCorrelation with rise and/or fall ofserial troponins, clinical symptoms,and ECG changes is necessary.PERFORMED BY [facility] ID Date Data Source [id number] 02/11/2020 09:00:47 PM EST [facility] Name Value Range Interpretation Code Description Data Rosita rce(s) Supporting Document(s) POC CTNI 0.01 ng/mL (0.01-0.07) [facility] Less than 0.08: Myocardial injury unlike lyGreater than or equal to 0.08: Highlysuggestive of myocardial injuryCorrelation with rise and/or fall ofserial troponins, clinical symptoms,and ECG changes is necessary.PERFORMED BY [facility] ID Date Data Source [id number] 02/11/2020 09:26:59 PM EST [facility] Name Value Range Interpretation Code Description Data Rosita rce(s) Supporting Document(s) APTT 29.2 s (22.0-34.3) [facility] ID Date Data Source [id number] 02/11/2020 09:26:59 PM EST [facility] Name Value Range Interpretation Code Description Data Rosita rce(s) Supporting Document(s) PT 11.0 s (9.2-11.9) [facility] INR 1.05 [facility] SUGGESTED THERAPEUTIC RANGES USING INR F ORSTABILIZED ANTICOAGULATED PATIENTS:STANDARD DOSE THERAPY INR 2.0-3.0 DVT, PE, PREVENT DVT OR EMBOLISMHIGH DOSE THERAPY INR 2.5-3.5 PREVENT EMBOLISM FROM MECHANICAL HEART VALVE ID Date Data Source [id number] 02/11/2020 09:26:39 PM EST [facility] Name Value Range Interpretation Code Description Data Rosita rce(s) Supporting Document(s) SODIUM 137 mmol/L (136-145) [facility] POTASSIUM 3.9 mmol/L (3.6-5.2) [facility] CHLORIDE 105 mmol/L (100-108) [facility] CO2 25 mmol/L (22-31) [facility] ANION GAP 7 mmol/L (7-16) [facility] UREA NITROGEN 11 mg/dL (7-24) [facility] CREATININE 0.76 mg/dL (0.80-1.30) L [facility] BUN/CREAT RATIO 14.5 RATIO (10.0-20.0) [facility] GLUCOSE 93 mg/dL (70-99) [facility] CALCIUM 9.1 mg/dL (8.4-10.2) [facility] TOTAL PROTEIN 7.0 g/dL (6.4-8.2) [facility] ALBUMIN 3.8 g/dL (3.5-4.6) [facility] GLOBULIN 3.2 g/dL (2.7-4.3) [facility] ALB/GLOB RATIO 1.2 RATIO [facility] ALKALINE PHOSPHATASE 119 U/L (45-117) [facility] BILIRUBIN,TOTAL 0.4 mg/dL (0.0-1.0) [facility] PLEASE NOTE:Total bilirubin results may be falselyelevated in patients taking Eltrombopag. AST (SGOT) 17 U/L (11-39) [facility] ALT (SGPT) 35 U/L (12-78) [facility] GFR >60 ml/min/1.73m2 (>59) [facility] GFR ( AMER) >60 ml/min/1.73m2 (>59) [facility] GFR INTERPRETATION [facility] --NORMAL KIDNEY FUNCTION OR MILD DISEASE - GFR >OR= 60CHRONIC KIDNEY DISEASE - GFR 15 - 59RENAL FAILURE - GFR <15 Est. GFR calculation based on the MDRDstudy equation, which assumes a steadystate for creatinine. Est. GFR should notbe used for medication dosing. ID Date Data Source [id number] 02/11/2020 09:12:56 PM EST [facility] Name Value Range Interpretation Code Description Data Rosita rce(s) Supporting Document(s) WBC 13.0 10*3/uL (4.1-11.0) [facility] RBC 4.95 10*6/uL (4.60-6.10) [facility] HGB 15.5 g/dL (13.5-18.0) [facility] HCT 44.8 % (41.0-53.0) [facility] PERFORMED AT [address] [place] [address] [facility] [address] MCV 90.3 fL (80.0-95.0) [facility] MCH 31.2 pg (27.0-32.0) [facility] MCHC 34.6 g/dL (32.0-36.0) [facility] RDW 13.2 % (10.5-14.5) [facility] PLT 270 10*3/uL (150-450) [facility] MPV 6.7 fL (7.1-10.7) L [facility] ID Date Data Source [id number] 02/11/2020 07:40:37 PM EST [facility] Name Value Range Interpretation Code Description Data Rosita rce(s) Supporting Document(s) POC NOVA GLU 116 mg/dL (70-99) [facility] ID Date Data Source [id number] 02/11/2020 02:47:00 PM EST [facility] ([facility]) Name Value Range Interpretation Code Description Data Rosita rce(s) Supporting Document(s) SARS COVID-19 AMPLIFICATION NEGATIVE Normal SARS COV ID-19 AMPLIFICATION [facility] ([facility]) Note: A false negative result may occur [...] pathogens. DISCLAIMER: Testing was performed using the [facility] SARS-CoV-2 test. This test was developed and its performance characteristics determined by [facility]. This test has not been FDA cleared [...] the authorization is terminated or revoked sooner. ID Date Data Source [id number] 02/11/2020 02:47:[address] [facility] ([facility]) Name Value Range Interpretation Code Description Data [facility] rce(s) Supporting Document(s) Reported Physicians See Note Reported [facility]) Note: Reported Physicians:Ordering: Jaclyn feng [id number] ShethAttending: Aparna Segovia To: Aparna Segovia To: Kait Morales ID Date Data Source [id number] 02/11/2020 01:39:[address] [facility] ([facility]) Name Value Range Interpretation Code Description Data [facility] rce(s) Supporting Document(s) Reported Physicians See Note Reported [facility] ([facility]) Note: Reported Physicians:Ordering: Jaclyn feng [id number] ShethAttending: Aparna Segovia To: Aparna Segovia To: Kait Morales ID Date Data Source [id number] 02/11/2020 01:39:00 PM EST [facility] ([facility]) Name Value Range Interpretation Code Description Data Rosita rce(s) Supporting Document(s) iSTAT TROPONIN 0.01 NG/ML Normal iSTAT TROPONIN [facility] ([facility]) ID Date Data Source [id number] 02/11/2020 11:17:00 AM EST [facility] ([facility]) Name Value Range Interpretation Code Description Data Rosita rce(s) Supporting Document(s) Reported Physicians See Note Reported Physici ans [facility] ([facility]) Note: Reported Physicians:Ordering: BARRETT Madrid [id number], DAVID J.Copy To: Kurt TROTTER To: Kait Morales ID Date Data Source [id number] 02/11/2020 11:17:00 AM EST [facility] ([facility]) Name Value Range Interpretation Code Description Data Rosita rce(s) Supporting Document(s) iSTAT TROPONIN 0.00 NG/ML Normal iSTAT TROPONIN [facility] ([facility]) ID Date Data Source [id number] 02/11/2020 11:13:00 AM EST [facility] ([facility]) Name Value Range Interpretation Code Description Data Rosita rce(s) Supporting Document(s) Reported Physicians See Note Reported [facility]ici ans [facility] ([facility]) Note: Reported Physicians:Ordering: BARRETT [place] [id number], DAVID J.Attending: Aparna Segovia To: Aparna Segovia To: Kurt TROTTER To: Kait Morales ID Date Data Source [id number] 02/11/2020 11:13:00 AM EST [facility] ([facility]) Name Value Range Interpretation Code Description Data Rosita rce(s) Supporting Document(s) LIPASE 200 U/L Normal LIPASE [facility] ([facility]) ID Date Data Source [id number] 02/11/2020 11:13:00 AM EST [facility] ([facility]) Name Value Range Interpretation Code Description Data Rosita rce(s) Supporting Document(s) Reported Physicians See Note Reported Physici ans [facility] ([facility]) Note: Reported Physicians:Ordering: BARRETT Madrid [id number] To: Kurt TROTTER To: Joana Moralescelyn ID Date Data Source [id number] 02/11/2020 11:13:00 AM EST [facility] ([facility]) Name Value Range Interpretation Code Description Data Rosita rce(s) Supporting Document(s) WHITE BLOOD COUNT 15.6 3/uL Above high normal WHITE BLOOD COUNT [facility]) RED BLOOD COUNT 5.19 6/uL Normal [facility] B[facility] ([facility]) Hematocrit [Pure volume fraction] of Blood by Automated count 45.7 % Normal HEMATOCRIT [facility] ([facility]) Hemoglobin [Mass/volume] in Mixed venous blood by Oximetry 15.9 g/d l Normal HEMOGLOBIN [facility]) MEAN CORPUSCULAR VOLUME 88.1 fl Normal MEAN CORPUSC ULAR VOLUME [facility]) RED CELL DISTRIBUTION WIDTH 12.1 % Normal RED CELL DISTRIBUTION WIDTH [facility]) MEAN CORPUSCULAR HEMOGLOBIN 30.6 pg Normal MEAN COR PUSCULAR HEMOGLOBIN [facility]) MEAN CORPUSCULAR HGB CONC 34.8 g/dl Normal MEAN CORPU SCULAR HGB CONC [facility] ([facility]) PLATELET COUNT, AUTOMATED 305 3/uL Normal PLATELET C OUNT, AUTOMATED [facility] ([facility]) LYMPH % 20.8 % Below low normal LYMPH % [facility]) NEUTROPHILS % 70.8 % Above high normal NEUTROPHILS % [facility] EOS % 1.3 % Normal EOS % [facility] ([facility]) MONO % 6.2 % Above high normal MONO % [facility] ([facility]) BASO % 0.4 % Normal BASO % [facility] ([facility]) NUCLEATED RED BLOOD CELL % 0.0 % Normal NUCLEATED RED BLOOD CELL % [facility] ([facility]) IMMATURE GRANULOCYTE % 0.5 % Normal IMMATURE GRAN ULOCYTE % [facility] ([facility]) NEUTROPHILS # 11.1 3/uL Above high normal NEUTROPHILS # G RE[facility] ([facility]) LYMPH # 3.3 3/uL Normal LYMPH # [facility] ([facility]) EOS # 0.2 3/uL Normal EOS # [facility] ([facility]) MONO # 1.0 3/uL Above high normal MONO # [facility] ([facility]) BASO # 0.1 3/uL Normal BASO # [facility] ([facility]) ID Date Data Source [id number] 02/11/2020 11:13:00 AM EST [facility] ([facility]) Name Value Range Interpretation Code Description Data Rosita rce(s) Supporting Document(s) Reported Physicians See Note Reported Physici ans [facility] ([facility]) Note: Reported Physicians:Ordering: BARRETT [place] [id number]: Aparna Segovia To: Aparna Segovia To: Kurt TROTTER To: Kait Morales ID Date Data Source [id number] 02/11/2020 11:13:00 AM EST [facility] ([facility]) Name Value Range Interpretation Code Description Data Rosita rce(s) Supporting Document(s) GLUCOSE, FASTING 121 MG/DL Above high normal GLUCOSE, FAS TING [facility] ([facility]) BLOOD UREA NITROGEN 10 MG/DL Normal BLOOD UREA NITRO GEN [facility] ([facility]) GLOMERULAR FILTRATION RATE > 60.0 Normal GLOMERULA R FILTRATION RATE [facility] ([facility]) Note: Units are mL/min/1.73 m2 Chroni c Kidney Disease Staging per NKF: Stage I & II GFR >=60 Normal to Mildly Decreased Stage III GFR 30- 59 Moderately Decreased Stage IV GFR 15-29 Severely Decreased Stage V GFR <15 Very Little GFR Left ESRD GFR <15 on [employer] CREATININE FOR GFR 0.92 MG/DL Normal CREATININE FOR GF R [facility] ([facility]) SODIUM LEVEL 138 MEQ/L Normal SODIUM LEVEL [facility]) CHLORIDE LEVEL 106 MEQ/L Normal CHLORIDE LEVEL [facility]) CARBON DIOXIDE LEVEL 24 MEQ/L Normal CARBON DIOXIDE LEVEL [facility]) POTASSIUM SERUM 4.2 MEQ/L Normal POTASSIUM SERUM GREE COUNTS INCLUDE 234 B[facility]S AT [facility] ([facility]) CALCIUM LEVEL 9.5 MG/DL Normal CALCIUM LEVEL [facility] ([facility]) Anion gap in Body fluid 8 MEQ/L Normal ANION GAP G [facility] ([facility]) ID Date Data Source [id number] 02/11/2020 11:13:00 AM EST [facility] ([facility]) Name Value Range Interpretation Code Description Data Rosita rce(s) Supporting Document(s) Reported Physicians See Note Reported Physici ans [facility] ([facility]) Note: Reported Physicians:Ordering: BARRETT Madrid [id number]: Aparna Segovia To: Aparna Segovia To: Kurt TROTTER To: Kait Morales ID Date Data Source [id number] 02/11/2020 11:13:00 AM EST [facility]) Name Value Range Interpretation Code Description Data Rosita rce(s) Supporting Document(s) AST/SGOT 16 U/L Normal AST/SGOT [facility] ([facility]) ALT/SGPT 35 U/L Normal ALT/SGPT [facility] ([facility]) BILIRUBIN,TOTAL 0.3 MG/DL Normal BILIRUBIN,TOTAL [facility] ([facility]) Alkaline phosphatase [Enzymatic activity/volume] in Se rum, Plasma or Blood 122 U/L Above high normal ALKALINE PHOSPHATASE [facility] ([facility]) BILIRUBIN,DIRECT < 0.1 MG/DL Normal BILIRUBIN,DIRECT [facility] ([facility]) Albumin [Mass/volume] in Blood by Bromocresol purple ( BCP) dye binding method 4.1 GM/DL Normal ALBUMIN [facility] ([facility]) TOTAL PROTEIN 7.2 GM/DL Normal TOTAL PROTEIN [facility] ([facility]) ALBUMIN/GLOBULIN RATIO 1.3 Normal ALBUMIN/GLOBU YUSUF RATIO [facility] ([facility]) ID Date Data Source [id number] 01/08/2020 08:47:00 AM EDT [facility] ([facility]) Name Value Range Interpretation Code Description Data Rosita rce(s) Supporting Document(s) Glucose [Mass/volume] in Urine collected for unspecified duratio n 230 Abnormal (applies to non-numeric results) Glucose [facility] ([facility]) ID Date Data Source [id number] 01/08/2020 08:47:00 AM EDT [facility] ([facility]) Name Value Range Interpretation Code Description Data Rosita rce(s) Supporting Document(s) Hemoglobin A1c/Hemoglobin.total in Blood 6.8 Abnormal (applies to non-numeric results) HbA1C [facility] ([facility]) ID Date Data Source [id number] 12/21/2019 12:00:00 AM EDT [facility] Name Value Range Interpretation Code Description Data Rosita rce(s) Supporting Document(s) SARS coronavirus 2 RNA [Presence] in Res piratory specimen by BRIDGET with probe detection [facility] This lab was ordered by Billy Niño and reported by [email or web address]. Procedure Social History Code Duration Value Status Description Data Source(s ) Alcohol intake 08/28/2020 12:00:00 AM EDT Current drinker of al cohol (finding) completed Current drinker of alcohol (finding) [facility] Alcohol intake 05/26/2020 12:00:00 AM EST Yes completed [facility] Cigarette pack-years 05/26/2020 12:00:00 AM EST UNK completed [facility] Cigarettes smoked current (pack per day) - Reported 05/27/19 12:00:00 AM EST UNK completed [facility] Smoking 05/26/2020 12:00:00 AM EST Current some day smoker com pleted Current some day smoker [facility] Alcohol intake 02/26/2020 12:00:00 AM EST Yes completed [facility] Cigarette pack-years 02/26/2020 12:00:00 AM EST UNK completed [facility] Cigarettes smoked current (pack per day) - Reported 02/26/20 12:00:00 AM EST UNK completed [facility] Smoking 02/26/2020 12:00:00 AM EST Current some day smoker com pleted Current some day smoker [facility] Alcohol intake 02/11/2020 12:00:00 AM EST Yes completed [facility] Cigarette pack-years 02/11/2020 12:00:00 AM EST UNK completed [facility] Cigarettes smoked current (pack per day) - Reported 02/11/20 12:00:00 AM EST UNK completed [facility] Smoking 02/11/2020 12:00:00 AM EST Current some day smoker com pleted Current some day smoker [facility] Vital Signs ID Date Data Source UNK Name Value Range Interpretation Code Description Data Source(s) Oxygen saturation in Arterial blood by Pulse oximetry 96 % 96 % [facility] ([facility]) Systolic blood pressure 128 mm[Hg] 128 mm[Hg] G REECOUNTS INCLUDE 234 BEDS AT [facility] ([facility]) Inhaled oxygen concentration 21 % 21 % [facility] ([facility]) Inhaled oxygen flow rate 0 L/min 0 L/min [facility] [facility]) Diastolic blood pressure 72 mm[Hg] 72 mm[Hg] [facility] ([facility]) Heart rate 76 /min 76 /min [facility] Respiratory rate 24 /min 24 /min [facility] ([facility]) Body temperature 97.6 [degF] 97.6 [degF] [facility] ([facility]) Body height 65 [in_i] 65 [in_i] [facility] (Fam [facility]ymar [facility]) Body weight 182 [lb_av] 182 [lb_av] [facility] (F amily [facility]) Body mass index (BMI) [Ratio] 30.3 kg/m2 30.3 k g/m2 [facility] ([facility]) Body surface area Derived from formula 1.90 m2 1.90 m2 [facility] ([facility]) Systolic blood pressure 129 mm[Hg] 129 mm[Hg] [facility] Diastolic blood pressure 78 mm[Hg] 78 mm[Hg] [facility] Heart rate 64 /min 64 /min [facility] Body temperature 36.56 Yahaira 36.56 Yahaira [facility] Respiratory rate 16 /min 16 /min [facility] Oxygen saturation in Arterial blood by Pulse oximetry 96 % 96 % [facility] Body height 167.[address] [facility] Body weight 82.[address] [facility] Body mass index (BMI) [Ratio] 29.50 kg/m2 29.50 kg/m2 [facility] Body weight 191 [lb_av] 191 [lb_av] [facility] ([facility]) Body mass index (BMI) [Ratio] 31.8 kg/m2 31.8 k g/m2 [facility] ([facility]) Body surface area Derived from formula 1.94 m2 1.94 m2 [facility] ([facility]) Oxygen saturation in Arterial blood by Pulse oximetry 97 % 97 % [facility] ([facility]) Systolic blood pressure 124 mm[Hg] 124 mm[Hg] [facility] ([facility]) Diastolic blood pressure 80 mm[Hg] 80 mm[Hg] [facility] ([facility]) Heart rate 68 /min 68 /min [facility] ([facility]) Respiratory rate 20 /min 20 /min [facility] ([facility]) Body temperature 97.7 [degF] 97.7 [degF] [facility] (Family [facility]) Body height 65 [in_i] 65 [in_i] [facility] Body weight 194 [lb_av] 194 [lb_av] [facility] ([facility]) Oxygen saturation in Arterial blood by Pulse oximetry 97 % 97 % [facility] ([facility]) Inhaled oxygen flow rate 0 L/min 0 L/min [facility] ([facility]) Inhaled oxygen concentration 21 % 21 % [facility] ([facility]) Systolic blood pressure 124 mm[Hg] 124 mm[Hg] [facility] [place]) Diastolic blood pressure 68 mm[Hg] 68 mm[Hg] [facility] ([facility]) Heart rate 68 /min 68 /min [facility] ([facility]) Respiratory rate 24 /min 24 /min [facility] ([facility]) Body temperature 98.7 [degF] 98.7 [degF] [facility]) Body height 65 [in_i] 65 [in_i] [facility] ([facility]) Body mass index (BMI) [Ratio] 32.3 kg/m2 32.3 k g/m2 [facility] ([facility]) Body surface area Derived from formula 1.95 m2 1.95 m2 [facility] ([facility]) Body height 165.[address] [facility] Systolic blood pressure 119 mm[Hg] 119 mm[Hg] [facility] 10 days ago Diastolic blood pressure 81 mm[Hg] 81 mm[Hg] [facility] 10 days ago Heart rate 81 /min 81 /min [facility] Body temperature 36.72 Yahaira 36.72 Yahaira [facility] Body weight 87.[address] [facility] Body mass index (BMI) [Ratio] 31.95 kg/m2 31.95 kg/m2 [facility] Inhaled oxygen concentration 21 % 21 % [facility] ([facility]) Body weight 195 [lb_av] 195 [lb_av] [facility] ([facility]) Body mass index (BMI) [Ratio] 32.4 kg/m2 32.4 k g/m2 [facility] ([facility]) Body surface area Derived from formula 1.96 m2 1.96 m2 [facility] ([facility]) Oxygen saturation in Arterial blood by Pulse oximetry 98 % 98 % [facility] ([facility]) Inhaled oxygen flow rate 0 L/min 0 L/min [facility] ([facility]) Systolic blood pressure 124 mm[Hg] 124 mm[Hg] [facility] ([facility]) Diastolic blood pressure 76 mm[Hg] 76 mm[Hg] [facility] ([facility]) Heart rate 70 /min 70 /min [facility] (Fami ly [facility]) Respiratory rate 24 /min 24 /min [facility] ([facility]) Body temperature 97.6 [degF] 97.6 [degF] [facility] ([facility]) Body height 65 [in_i] 65 [in_i] [facility] ([facility]) Systolic blood pressure 122 mm[Hg] 122 mm[Hg] [facility] Diastolic blood pressure 74 mm[Hg] 74 mm[Hg] [facility] Heart rate 61 /min 61 /min [facility] Body temperature 35.94 Yahaira 35.94 Yahaira [facility] Body height 165.[address] [facility] Body weight 87.[address] [facility] Body mass index (BMI) [Ratio] 32.12 kg/m2 32.12 kg/m2 [facility] Oxygen saturation in Arterial blood by Pulse oximetry 97 % 97 % [facility] Systolic blood pressure 121 mm[Hg] 121 mm[Hg] [facility] Diastolic blood pressure 77 mm[Hg] 77 mm[Hg] [facility] Heart rate 71 /min 71 /min [facility] Oxygen saturation in Arterial blood by Pulse oximetry 93 % 93 % [facility] Body temperature 36.61 Yahaira 36.61 Yahaira [facility] Respiratory rate 16 /min 16 /min [facility] Body height 165.[address] [facility] Body weight 85.[address] [facility] Body mass index (BMI) [Ratio] 31.52 kg/m2 31.52 kg/m2 [facility] Inhaled oxygen concentration 21 % 21 % [facility] ([facility]) Body mass index (BMI) [Ratio] 32.1 kg/m2 32.1 k g/m2 [facility] ([facility]) Oxygen saturation in Arterial blood by Pulse oximetry 98 % 98 % [facility] ([facility]) Inhaled oxygen flow rate 0 L/min 0 L/min [facility] ([facility]) Systolic blood pressure 122 mm[Hg] 122 mm[Hg] [facility]) Body temperature 98 [degF] 98 [degF] [facility] ([facility]) Body height 65 [in_i] 65 [in_i] [facility] ([facility]) Body weight 193 [lb_av] 193 [lb_av] [facility] ([facility]) Diastolic blood pressure 68 mm[Hg] 68 mm[Hg] [facility] ([facility]) Heart rate 65 /min 65 /min [facility] ([facility]) Respiratory rate 24 /min 24 /min [facility] ([facility]) Body surface area Derived from formula 1.95 m2 1.95 m2 [facility] ([facility]) Patient Treatment Plan of Care Planned Activity Planned Date Details Description Data Source (s) empagliflozin 25 MG Oral Tablet [Jardiance] 11/11/2020 12:00:00 AM EDT [facility] ([facility]) atorvastatin 40 MG Oral Tablet 11/11/2020 12:00:00 AM EDT [facility] ([facility]) Lisinopril 5 MG Oral Tablet 11/11/2020 12:00:00 AM EDT [facility] ([facility]) Metoprolol Tartrate 25 MG Oral Tablet 11/11/2020 12:00:00 AM EDT [facility] ([facility]) Lancets Miscellaneous 11/11/2020 12:00:00 AM EDT [facility] ([facility]) Blood Glucose Test In Vitro Strip 11/11/2020 12:00:00 AM EDT [facility] ([facility]) gabapentin 300 MG Oral Capsule 11/11/2020 12:00:00 AM EDT [facility] ([facility]) Metformin hydrochloride 1000 MG Oral Tablet 11/11/2020 12:00:00 AM EDT [facility] ([facility]) Nitroglycerin 0.4 MG Sublingual Tablet [Nitrostat] 11/11/2020 12 :00:00 AM EDT [facility] ([facility]) Metoprolol Tartrate 25 MG Oral Tablet 11/10/2020 12:00:00 AM EDT [facility] ([facility]) empagliflozin 25 MG Oral Tablet [Jardiance] 11/05/2020 12:00:00 AM EDT [facility] ([facility]) Lisinopril 5 MG Oral Tablet 10/27/2020 12:00:00 AM EDT [facility]) atorvastatin 40 MG Oral Tablet 10/27/2020 12:00:00 AM EDT [facility] ([facility]) empagliflozin 25 MG Oral Tablet [Jardiance] 10/07/2020 12:00:00 AM EDT [facility]) Nitroglycerin 0.4 MG Sublingual Tablet 08/28/2020 03:01:[address] [facility] Acetaminophen 325 MG Oral Tablet 08/28/2020 03:01:[address] [facility] normal saline flush 0.9 % injection 3 mL 08/28/2020 03:00:[address] [facility] normal saline flush 0.9 % injection 3 mL 08/28/2020 02:00:[address] [facility] Acetaminophen 325 MG Oral Tablet 08/28/2020 10:30:[address] [facility] clopidogrel 75 MG Oral Tablet 08/28/2020 12:00:[address] [facility] 24 HR Isosorbide Mononitrate 30 MG Extended Release Or al Tablet 08/22/2020 12:00:00 AM EDT [facility] Prednisone 50 MG Oral Tablet 08/22/2020 12:00:[address] [facility] Diphenhydramine Hydrochloride 50 MG Oral Tablet 08/22/2020 12:00:[address] [facility] Metoprolol Tartrate 25 MG Oral Tablet 07/14/2020 12:00:00 AM EDT [facility]) Lisinopril 5 MG Oral Tablet 07/14/2020 12:00:00 AM EDT [facility] ([facility]) empagliflozin 25 MG Oral Tablet [Jardiance] 07/08/2020 12:00:00 AM EDT [facility] ([facility]) Metoprolol Tartrate 25 MG Oral Tablet 07/08/2020 12:00:00 AM EDT [facility] ([facility]) atorvastatin 40 MG Oral Tablet 07/08/2020 12:00:00 AM EDT [facility] ([facility]) gabapentin 300 MG Oral Capsule 07/08/2020 12:00:00 AM EDT [facility] ([facility]) Metronidazole 500 MG Oral Tablet 07/08/2020 12:00:00 AM EDT [facility] ([facility]) Metformin hydrochloride 1000 MG Oral Tablet 07/08/2020 12:00:00 AM [facility] ([facility]) Ciprofloxacin 250 MG Oral Tablet 07/08/2020 12:00:00 AM [facility] ([facility]) Lisinopril 5 MG Oral Tablet 07/08/2020 [facility] Metformin hydrochloride 1000 MG Oral Tablet 06/16/2020 12:00:00 AM EDT [facility] ([facility]) clopidogrel 75 MG Oral Tablet 05/26/2020 12:00:[address] [facility] Metformin hydrochloride 1000 MG Oral Tablet 04/08/2020 12:00:00 AM [facility]) Lisinopril 5 MG Oral Tablet 04/08/2020 12:00:[address] [facility] ([facility]) atorvastatin 40 MG Oral Tablet 04/08/2020 12:00:[address] [facility] ([facility]) Blood Glucose Test In Vitro Strip 04/08/2020 12:00:[address] [facility] ([facility]) Blood Glucose Test In Vitro Strip 04/08/2020 12:00:[address] [facility] ([facility]) gabapentin 300 MG Oral Capsule 04/08/2020 12:00:00 AM [facility]) Lancets Miscellaneous 04/08/2020 12:00:00 AM EST [facility] ([facility]) Metoprolol Tartrate 25 MG Oral Tablet 04/08/2020 12:00:00 AM EST [facility]) Metoprolol Tartrate 25 MG Oral Tablet 02/28/2020 12:00:[address] [facility] Metoprolol Tartrate 25 MG Oral Tablet 02/26/2020 12:00:[address] [facility] clopidogrel 75 MG Oral Tablet 02/26/2020 12:00:[address] [facility] Metformin hydrochloride 1000 MG Oral Tablet 02/19/2020 12:00:[address] [facility] atorvastatin 80 MG Oral Tablet 02/14/2020 12:00:[address] [facility] Metformin hydrochloride 1000 MG Oral Tablet 01/08/2020 12:00:00 AM EDT [facility]) atorvastatin 40 MG Oral Tablet 01/08/2020 12:00:00 AM EDT [facility]) gabapentin 300 MG Oral Capsule 01/08/2020 12:00:00 AM EDT [facility] ([facility]) Metoprolol Tartrate 25 MG Oral Tablet 01/08/2020 12:00:00 AM EDT [facility] ([facility]) Lisinopril 5 MG Oral Tablet 01/08/2020 12:00:00 AM EDT [facility] ([facility]) Blood Glucose Test In Vitro Strip 01/08/2020 12:00:00 AM EDT [facility] ([facility]) Lancets Miscellaneous 01/08/2020 12:00:00 AM EDT [facility] ([facility]) Metoprolol Tartrate 25 MG Oral Tablet 12/18/2019 12:00:00 AM EDT [facility] ([facility]) Lisinopril 5 MG Oral Tablet 12/18/2019 12:00:00 AM EDT [facility] ([facility]) Blood Glucose Test In Vitro Strip 10/09/2019 12:00:00 AM EDT [facility] ([facility]) gabapentin 300 MG Oral Capsule 10/09/2019 12:00:00 AM EDT [facility] ([facility]) atorvastatin 40 MG Oral Tablet 08/31/2019 12:00:00 AM EDT [facility] ([facility]) Lisinopril 5 MG Oral Tablet 08/31/2019 12:00:00 AM EDT [facility] ([facility]) Metformin hydrochloride 1000 MG Oral Tablet 08/31/2019 12:00:00 AM EDT [facility]) Metoprolol Tartrate 25 MG Oral Tablet 08/31/2019 12:00:00 AM EDT [facility] ([facility]) clopidogrel 75 MG Oral Tablet [Plavix] 08/31/2019 12:00:00 AM EDT [facility]) Lancets Miscellaneous 07/02/2019 12:00:00 AM EDT [facility] ([facility]) clopidogrel 75 MG Oral Tablet 11/28/2018 12:00:[address] [facility] Metoprolol Tartrate 25 MG Oral Tablet 04/19/2017 12:00:[address] [facility] Metformin hydrochloride [address] [facility] atorvastatin [address] [facility]
[2021-02-07 13:34] LABS: BLOOD UREA NITROGEN 11 MG/DL (7-18); CALCIUM LEVEL 8.8 MG/DL (8.5-10.1); CARBON DIOXIDE LEVEL 25 MEQ/L (21-32); CHLORIDE LEVEL 106 MEQ/L (98-107); CK-MB VALUE MASS 1.2 NG/ML (<3.6); CPK CREATINE PHOSPHOKINASE 82 U/L (39-308); CREATININE FOR GFR 0.87 MG/DL (0.70-1.30); FREE T4 0.93 NG/DL (0.76-1.46); GLOMERULAR FILTRATION RATE > 60.0 (>56); GLUCOSE, FASTING 92 MG/DL (70-100); MAGNESIUM LEVEL 2.1 MG/DL (1.8-2.4); MB/CK RELATIVE INDEX 1.46 (< OR =4); POTASSIUM SERUM 4.2 MEQ/L (3.5-5.1); SODIUM LEVEL 138 MEQ/L (136-145); TROPONIN I < 0.02 NG/ML (< 0.10)
--- NOTE | 2021-02-07 13:42 | REP ---
INDICATION: severe headache; syncope. COMPARISON: Comparison study May 04, 2010. TECHNIQUE: Helical scanning is acquired. 5 mm axial images were reformatted. Coronal MPR images were generated. FINDINGS: Bone window settings demonstrate an intact bony calvarium. There is no evidence of skull fracture or incidental bony calvarial lesion. The visualized paranasal sinuses appear clear. No intraorbital abnormality is seen. On soft tissue window setting images; the lateral, third, and fourth ventricles are normal in size and position. Levi-white differentiation pattern is normal above and below the tentorium. There are is no evidence of intracranial hemorrhage. No mass, edema, infarction, or midline shift is seen. No extra-axial fluid collection is appreciated. IMPRESSION: Negative noncontrast head CT. <Electronically signed by Cj Reyes > 02/07/21 0240
[2021-02-07] MEDS ORDERED: KETOROLAC 30 MG/ML 1ML VIAL IV ONE (13:50)
[2021-02-07] MEDS ORDERED: ASPI81TA26 PO (14:48)
[2021-02-07] MEDS ORDERED: GLUCOSE 4GM CHEW TABLET PO PRN (15:00)
[2021-02-07] MEDS ORDERED: DEXTROSE 50% 50 ML SYRINGE IV PRN (15:00)
[2021-02-07] MEDS ORDERED: GLUCAGON INJ 1MG VIAL SC PRN (15:00)
[2021-02-07 15:06] LABS: RSV AMPLIFICATION NEGATIVE (NEGATIVE)
--- OUTSIDE RECORDS SUMMARY | 2021-02-07 15:10 | CCD ---
Author Author [facility] Organization [facility] Address Unknown Phone Unavailable Care Team Providers Care Biology Teacher Name Role Phone Maring, Martir PA Unavailable [...] Unavailable Maring, Martir PA Unavailable Unavailable Maring, Matrir PA Unavailable Unavailable Maring, Martir PA Unavailable [...] Robert MD Unavailable Unavailable ZABOROWSKI, J SIOBHAN ENGINEERING DRAFTER Unavailable Unavailable ZABOROWSKI, J SIOBHAN ENGINEERING DRAFTER Unavailable Unavailable ZABOROWSKI, J SIOBHAN ENGINEERING DRAFTER Unavailable Unavailable ZABOROWSKI, J SIOBHAN ENGINEERING DRAFTER Unavailable Unavailable ZABOROWSKI, J SIOBHAN ENGINEERING DRAFTER Unavailable Unavailable ZABOROWSKI, J SIOBHAN ENGINEERING DRAFTER Unavailable Unavailable ZABOROWSKI, J SIOBHAN ENGINEERING DRAFTER Unavailable Unavailable ZABOROWSKI, J SIOBHAN ENGINEERING DRAFTER Unavailable Unavailable ZABOROWSKI, J SIOBHAN ENGINEERING DRAFTER Unavailable Unavailable ZABOROWSKI, J SIOBHAN ENGINEERING DRAFTER Unavailable Unavailable ZABOROWSKI, J SIOBHAN ENGINEERING DRAFTER Unavailable Unavailable ZABOROWSKI, J SIOBHAN ENGINEERING DRAFTER Unavailable Unavailable ZABOROWSKI, J SIOBHAN ENGINEERING DRAFTER Unavailable Unavailable ZABOROWSKI, J SIOBHAN ENGINEERING DRAFTER Unavailable Unavailable ZABOROWSKI, J SIOBHAN ENGINEERING DRAFTER Unavailable Unavailable ZABOROWSKI, J SIOBHAN ENGINEERING DRAFTER Unavailable Unavailable ZABOROWSKI, J SIOBHAN ENGINEERING DRAFTER Unavailable Unavailable ZABOROWSKI, J SIOBHAN ENGINEERING DRAFTER Unavailable Unavailable ZABOROWSKI, J SIOBHAN ENGINEERING DRAFTER Unavailable Unavailable ZABOROWSKI, J SIOBHAN ENGINEERING DRAFTER Unavailable Unavailable ZABOROWSKI, J SIOBHAN ENGINEERING DRAFTER Unavailable Unavailable ZABOROWSKI, J SIOBHAN ENGINEERING DRAFTER Unavailable Unavailable ZABOROWSKI, J SIOBHAN ENGINEERING DRAFTER Unavailable Unavailable ZABOROWSKI, J SIOBHAN ENGINEERING DRAFTER Unavailable Unavailable ZABOROWSKI, J SIOBHAN ENGINEERING DRAFTER Unavailable Unavailable ZABOROWSKI, J SIOBHAN ENGINEERING DRAFTER Unavailable Unavailable ZABOROWSKI, J SIOBHAN ENGINEERING DRAFTER Unavailable Unavailable ZABOROWSKI, J SIOBHAN ENGINEERING DRAFTER Unavailable Unavailable ZABOROWSKI, J SIOBHAN ENGINEERING DRAFTER Unavailable Unavailable ZABOROWSKI, J SIOBHAN ENGINEERING DRAFTER Unavailable Unavailable ZABOROWSKI, J SIOBHAN ENGINEERING DRAFTER Unavailable Unavailable ZABOROWSKI, J SIOBHAN ENGINEERING DRAFTER Unavailable Unavailable ZABOROWSKI, J SIOBHAN ENGINEERING DRAFTER Unavailable Unavailable ZABOROWSKI, J SIOBHAN ENGINEERING DRAFTER Unavailable Unavailable ZABOROWSKI, J SIOBHAN ENGINEERING DRAFTER Unavailable Unavailable ZABOROWSKI, J SIOBHAN ENGINEERING DRAFTER Unavailable Unavailable ZABOROWSKI, J SIOBHAN ENGINEERING DRAFTER Unavailable Unavailable ZABOROWSKI, J SIOBHAN ENGINEERING DRAFTER Unavailable Unavailable ZABOROWSKI, J SIOBHAN ENGINEERING DRAFTER Unavailable Unavailable ZABOROWSKI, J SIOBHAN ENGINEERING DRAFTER Unavailable Unavailable ZABOROWSKI, J SIOBHAN ENGINEERING DRAFTER Unavailable Unavailable ZABOROWSKI, J SIOBHAN ENGINEERING DRAFTER Unavailable Unavailable ZABOROWSKI, J SIOBHAN ENGINEERING DRAFTER Unavailable Unavailable ZABOROWSKI, J SIOBHAN ENGINEERING DRAFTER Unavailable Unavailable ZABOROWSKI, J SIOBHAN ENGINEERING DRAFTER Unavailable Unavailable ZABOROWSKI, J SIOBHAN ENGINEERING DRAFTER Unavailable Unavailable ZABOROWSKI, J SIOBHAN ENGINEERING DRAFTER Unavailable Unavailable ZABOROWSKI, J SIOBHAN ENGINEERING DRAFTER Unavailable Unavailable Ian Conway MD Unavailable Unavailable [...] FISCHI, Ian MCCOY MD Unavailable Unavailable FISCHI, Ina MCCOY MD Unavailable Unavailable FISCHI, Ian MCCOY MD Unavailable Unavailable FISCHI, Ian MCCOY MD Unavailable Unavailable FISCHI, Ian MCCOY MD Unavailable Unavailable FISCHI, Ian MCCOY MD Unavailable Unavailable FISCHI, Ian MCCOY MD Unavailable Unavailable [place], Mariae Smyrna ENGINEERING DRAFTER Unavailable Unavailable [place], Mariae Smyrna ENGINEERING DRAFTER Unavailable Unavailable [place], Mariae Smyrna ENGINEERING DRAFTER Unavailable Unavailable [place], Mariae Smyrna ENGINEERING DRAFTER Unavailable Unavailable [place], Mariae Antionette ENGINEERING DRAFTER Unavailable Unavailable Eric, Mariae Smyrna ENGINEERING DRAFTER Unavailable Unavailable [place], Mariae Smyrna ENGINEERING DRAFTER Unavailable Unavailable Eric, Mariae Antionette ENGINEERING DRAFTER Unavailable Unavailable [place], Mariae Antionette ENGINEERING DRAFTER Unavailable Unavailable Eric, Mariae Smyrna ENGINEERING DRAFTER Unavailable Unavailable Eric, Mariae Antionette ENGINEERING DRAFTER Unavailable Unavailable Eric, Mariae Smyrna ENGINEERING DRAFTER Unavailable Unavailable Eric, Mariae Smyrna ENGINEERING DRAFTER Unavailable Unavailable Eric, Mariae Smyrna ENGINEERING DRAFTER Unavailable Unavailable [place], Mariae Smyrna ENGINEERING DRAFTER Unavailable Unavailable [place], Mariae Smyrna ENGINEERING DRAFTER Unavailable Unavailable [place], Mariae Antionette ENGINEERING DRAFTER Unavailable Unavailable Re-disclosure Warning The records that [...] is protected by Article 27-F of the [facility] Public Health law. If you continue you may have access to information: Regarding HIV / AIDS; Provided by facilities licensed or operated by the [facility] Office of Mental Health; or Provided by the [facility] Office for People With Developmental Disabilities. If such information is present, then the following [facility] mandated warning applies: This information has [...] law may result in a fine or assisted sentence or both. A general authorization for the release of medical or other information is NOT sufficient authorization for further disc losure. Family History Family Member Name Family Member Gender Family Member Status Date o f Status Description Data Source(s) Unknown Unknown Problem MEDENT ([facility]) Unknown Unknown Problem MEDENT ([facility], [facility]) Encounters Encounter Providers Location Date Indications Data Source(s ) Outpatient<td ID="encounterTypeDescripti onID0">STANDARD OV</td><td>Kait Morales MD</td><td>Family Medicine [facility]</td><td>11/11/2020</td><td>11:02AM</td><td>07/15/2020 11:59PM</td><td><content ID="encounterDiagnosisID0-0">Organic Sleep Apnea Obstructive Adult</content>, <content ID="encounterDiagnosisID0-1">Essential Hypertension Benign</content>, <content ID="encounterDiagnosisID0- 2">Hyperlipidemia</content>, <content ID="encounterDiagnosisID0-3">Diabetes Mellitus Type 2 in Obese</content>, <content ID="encounterDiagnosisID0-4"> Coronary Artery Disease</content></td> Attender: Kait Morales MD Family [facility] 11/11/2020 11:02:00 AM EDT - 07/15/2020 11:59:00 PM ED T Organic Sleep Apnea Obstructive AdultDiabetes Mellitus Type 2 in ObeseEssential Hypertension BenignCoronary Artery DiseaseHyperlipidemia [place] ([facility]) Organic Sleep Apnea Obstructive Adult Diabetes Mellitus Type 2 in Obese Essential Hypertension Benign Coronary Artery Disease Hyperlipidemia Outpatient Attender: NADINE PATEL MDAdmitter: NADINE WYLIE CHI, MD [id number].CVAU 08/28/2020 10:24:00 AM EDT - 08/28/2020 06:30:00 PM EDT [facility] Patient discharged. Outpatient Referrer: SIOBHAN BAXTER NP BF-BF.[facility] 12:00:00 AM EDT - 08/20/2020 09:22:59 AM EDT [facility] Outpatient<td ID="encounterTypeDescripti onID1">RX UPDATE</td><td>Kait Morales MD</td><td></td><td>10/27/2020</td><td>07/15/2020 9:51AM</td><td>07/15/2020 11:59PM</td><td></td> Attender: Kait Morales MD 07/15/2020 09:51:00 AM EDT - 07/15/2020 11:59:00 PM EDT [place] ([facility]) Outpatient<td ID="encounterTypeDescripti onID2">RX UPDATE</td><td>Antionette Reyes NP</td><td>[facility]</td><td>10/07/2020</td><td>07/15/2020 9:50AM</td><td>07/15/2020 11:59PM</td><td></td> Attender: Antionette Reyes NP [facility], 07/15/2020 09:50:00 AM EDT - 07/15/2020 11:59:00 PM EDT [place] ([facility]) Outpatient<td ID="encounterTypeDescripti onID3">STANDARD OV</td><td>Antionette Reyes NP</td><td>[facility]</td><td>07/15/2020</td><td>9:21AM</td><td>10:12AM</td><td><content ID="encounterDiagnosisID3-0">Jejunitis</content></td> Attender: Antionette Reyes NP [facility], 07/15/2020 09:21:00 AM EDT - 07/15/2020 10:12:00 AM EDT [facility] [place] ([facility]) Jejunitis Outpatient<td ID="encounterTypeDescripti onID4">[Patient Encounter]</td><td>Kait Morales MD</td><td></td><td>07/12/2020</td><td>07/08/2020 11:06AM</td><td>07/08/2020 11:59PM</td><td></td> Attender: Kait Morales MD 07/08/2020 11:06:00 AM EDT - 07/08/2020 11:59:00 PM EDT [place] ([facility]) Outpatient<td ID="encounterTypeDescripti onID5">STANDARD OV</td><td>Kait Morales MD</td><td>[facility]</td><td>07/08/2020</td><td>9:07AM</td><td>10:16AM</td><td><content ID="encounterDiagnosisID5-0">Coronary Artery Disease</content>, <content ID="encounterDiagnosisID5-1">Working Diagnosis of [...] Pain Decreasing in Frequency</content>, <content ID="encounterDiagnosisID5-9">Diverticulitis of Colon</content></td> Attender: Kait Morales MD Family [facility] 07/08/2020 09:07:00 AM EDT - 07/08/2020 10:16:00 [...] (Llq)Coronary Artery DiseaseCoronary Artery DiseaseCoronary Artery Disease [place] ([facility]) Diverticulitis of Colon Working Diagnosis of Abdominal [...] NP BF-BF 05/26/2020 12:00:0 0 AM EST [facility] Outpatient Attender: Soledad Conway MD 0 05/18/2020 09:52:24 AM EST - 05/18/2020 10:12:06 AM EST [facility] ([facility]) Outpatient Attender: Martir SANCHEZ 04/29/19 10:54:28 AM EST - 04/29/2020 11:28:03 AM EST [facility] ([facility] ) <td ID="encounterTypeDescriptionID7">STA NDARD OV</td><td>Kait Morales MD</td><td>[facility],</td><td>04/08/2020</td><td>9:56AM</td><td>10:39AM</td><td><content ID="encounterDiagnosisID7-0">Coronary Artery Disease</content>, <content ID="encounterDiagnosisID7-1">Nicotine Dependence Uncomplicated</content>, <content ID="encounterDiagnosisID7-2">Essential Hypertension Benign</content>, <content ID="encounterDiagnosisID7-3">Hyperlipidemia</content>, <content ID="encounterDiagnosisID7-4">Diabetes Mellitus Type 2 in Obese</content></td>Outpatient Attender: Kait Morales MD [facility] 04/08/2020 09:56:00 AM EST - 04/08/2020 10:39:00 AM ES T Nicotine Dependence UncomplicatedNicotine Dependence UncomplicatedNicotine Dependence UncomplicatedDiabetes Mellitus Type 2 in ObeseEssential Hypertension BenignDiabetes Mellitus Type 2 in ObeseEssential Hypertension BenignDiabetes Mellitus Type 2 in ObeseEssential Hypertension BenignCoronary Artery DiseaseCoronary Artery DiseaseCoronary Artery DiseaseHyperlipidemiaHyperlipidemiaHyperlipidemia [facility]) Nicotine Dependence Uncomplicated Nicotine Dependence Uncomplicated Nicotine [...] AM EST - 04/08/2020 11:59:00 PM EST [place] ([facility]) Outpatient Attender: SIOBHAN BAXTER NP BF-BF 03/2019 12:00:00 AM EST - 02/26/2020 10:52:51 AM EST [facility] Outpatient Attender: Frederick Parkinson MDAt tender: Robert Delfin MDAdmitter: Robert Carrdiqi MDReferrer: Robert Lenz MD ES1-[id number] 02/11/2020 05:32:5 9 PM EST - 02/13/2020 05:52:00 PM EST [facility] Patient discharged. <td ID="encounterTypeDescriptionID8">[facility] PHYSICAL EXAM</td><td>Kait Morales MD</td><td>[facility]</td><td>01/08/2020</td><td>8:23AM</td><td>9:17AM</td><td><content ID="encounterDiagnosisID8-0">Colon Polyps</content>, <content ID="encounterDiagnosisID8-1">Essential Hypertension Benign</content>, <content ID="encounterDiagnosisID8-2">Hyperlipidemia</content>, <content ID="encounterDiagnosisID8-3">Benign Prostatic Hypertrophy</content>, <content ID="encounterDiagnosisID8-4">Routine History & Physical Adult with Abnormal Findings</content></td>Outpatient Attender: Kait Morales MD [facility], 01/08/2020 08:23:00 AM EDT - 01/08/2020 09:17:00 AM ED T Routine History & Physical Adult with Abnormal FindingsBenign Prostatic HypertrophyColon PolypsRoutine History & Physical Adult with Abnormal FindingsBenign Prostatic HypertrophyColon PolypsRoutine History & Physical Adult with Abnormal FindingsBenign Prostatic HypertrophyColon PolypsRoutine History & Physical Adult with Abnormal FindingsBenign Prostatic HypertrophyColon PolypsEssential Hypertension BenignEssential Hypertension BenignEssential Hypertension BenignEssential Hypertension BenignHyperlipidemiaHyperlipidemiaHyperlipidemiaHyperlipidemia [place] ([facility]) Routine History & Physical Adult with Ab [...] 06/09/2020 12:00:00 AM EDT completed <td I D="[id number]">Covid-19 (Pfizer)</td><td>06/09/2020, 05/19/2020</td><td></td> [facility] COVID-19 VACCINE Pfizer 06/09/2020 12:00:00 AM EDT completed [place]SIIS Vaccine Series Complete: YESThis Data wa s Submitted to [facility] Via [employer]. 05/19/2020 12:00:00 AM EST completed <td I D="[id number]">Covid-19 (Pfizer)</td><td>06/09/2020, 05/19/2020</td><td></td> [facility] COVID-19 VACCINE Pfizer 05/19/2020 12:00:00 AM EST completed [place]IS Vaccine Series Complete: NOThis Data was Submitted to [facility] [employer]. This CVX code allows reporting of a vacc ination when formulation is unknown (for example, when recording a Influenza vaccination when noted on a vaccination card) 01/08/2020 09:25:00 AM EDT completed <td ID="Eetkywfzgfvab-Lviyersmiql-DN9">Influenza,NOS</td><td ID="ImmunizationDose- 4">5</td><td>01/08/2020</td><td ID="Iayurhgjvkxbu-CkoqdLjlg-NU7">Right Arm</td><td></td><td ID="Gnhxdxvtjtkpy-Ravuwq-FM2">Complete (Administered)</td><td>[facility], </td><td ID="Xsdhgaucjczdj-Xtdwp-Kyou-Comment-ID4"></td> [facility]) Note: vaccination information sheet give n date 11-09-2018 Medications Medication Brand Name Start Date Product Form Dose Route Admi nistrative Instructions Pharmacy Instructions Status Indications Reaction Description Data Source(s) Metformin hydrochloride 1000 MG Oral Tablet metFORMIN HCl 1000 MG Oral Tablet metFORMIN HCl 1000 MG Oral Tablet 11/11/2020 12:00:00 AM EDT active metformin hydrochloride 1000 MG Oral Tablet [place] ( [facility]) Blood Glucose Test In Vitro Strip Blood Glucose Test In Vitr o Strip 11/11/2020 12:00:00 AM EDT active Blood Gl ucose Test [place] ([facility]) Lancets Miscellaneous Lancets Miscellaneous 11/11/2020 12:00:00 AM EDT active Lancets [place] ([facility]) Nitroglycerin 0.4 MG Sublingual Tablet [ Nitrostat] Nitrostat 0.4 MG Sublingual Tablet Sublingual Nitrostat 0.4 MG Sublingual Tablet Sublingual 11/12/19 12:00:00 AM EDT 1 active nitroglycerin 0.4 MG Sublingual Tablet [Nitrostat] [facility]) Famotidine 20 MG Oral Tablet Famotidine Maximum Streng th 20 MG Oral Tablet Famotidine Maximum Strength 20 MG Oral Tablet 11/11/2020 12:00:00 AM EDT 1 active famotidine 20 MG Oral Tab let [facility]) Metoprolol Tartrate 25 MG Oral Tablet Metoprolol Tartrate 25 MG Oral Tablet 11/11/2020 12:00:00 AM EDT active metoprolol tartrate 25 MG Oral Tablet [facility]) Lisinopril 5 MG Oral Tablet Lisinopril 5 MG Oral Tablet 10/26 12:00:00 AM EDT active lisinopril 5 MG O ral Tablet [place] ([facility]) empagliflozin 25 MG Oral Tablet [Jardiance] Jardiance 25 MG Oral Tablet Jardiance 25 MG Oral Tablet 11/11/2020 12:00:00 AM EDT active empagliflozin 25 MG Oral Tablet [Jardiance] [facility]) atorvastatin 40 MG Oral Tablet Atorvastatin Calcium 40 MG Oral Tablet Atorvastatin Calcium 40 MG Oral Tablet 11/11/2020 12:00:00 AM EDT active atorvastatin 40 MG Oral Tablet [facility]) gabapentin 300 MG Oral Capsule Gabapentin 300 MG Oral Capsule Gabapentin 300 MG Oral Capsule 11/11/2020 12:00:00 AM EDT activ e gabapentin 300 MG Oral Capsule [place] ([facility]) Metoprolol Tartrate 25 MG Oral Tablet Metoprolol Tartrate 25 MG Oral Tablet 11/10/2020 12:00:00 AM EDT aborted metoprolol tartrate 25 MG Oral Tablet [facility]) empagliflozin 25 MG Oral Tablet [Jardiance] Jardiance 25 MG Oral Tablet Jardiance 25 MG Oral Tablet 11/05/2020 12:00:00 AM EDT aborted empagliflozin 25 MG Oral Tablet [Jardiance] [facility]) Lisinopril 5 MG Oral Tablet Lisinopril 5 MG Oral Tablet 04/2020 12:00:00 AM EDT aborted lisinopril 5 MG Oral Tablet [facility]) atorvastatin 40 MG Oral Tablet Atorvastatin Calcium 40 MG Oral Tablet Atorvastatin Calcium 40 MG Oral Tablet 10/27/2020 12:00:00 AM EDT aborted atorvastatin 40 MG Oral Tablet [facility]) empagliflozin 25 MG Oral Tablet [Jardiance] Jardiance 25 MG Oral Tablet Jardiance 25 MG Oral Tablet 10/07/2020 12:00:00 AM EDT 1 aborted empagliflozin 25 MG Oral Tablet [Jardiance] [facility]) Acetaminophen 325 MG Oral Tablet acetaminophen (TYLENO L) 325 MG tablet 650 mg acetaminophen (TYLENOL) 325 MG tablet 650 mg 08/28/2020 03:01:41 PM EDT 650 mg Oral active 650 mg, Or al, Every 4 hours PRN, headaches, and non cardiac pain, Starting on Charo 08/28/20 at 1501, Post-op
"Maximum dose of acetaminophen is 4,000 mg from all sources in 24 hours."
[facility] Medication administered onsite Nitroglycerin 0.4 MG Sublingual Tablet n itroglycerin (NITROSTAT) SL tablet 0.4 mg nitroglycerin (NITROSTAT) SL tablet 0.4 mg 08/28/2020 03:01:41 P M EDT 0.4 mg Sublingual active 0.4 mg, S ublingual, Every 5 min PRN, chest pain, Starting on Charo 08/28/20 at 1501, Post-op
May administer every 5 minutes for 3 doses and call cardio lab MD.
[facility] Medication administered onsite normal saline flush 0.9 % injection 3 mL [id number] 08/28/2020 03:00:00 PM EDT 3 mL Intravenous active 3 mL , Intravenous, PROTOCOL, First dose on Charo 08/28/20 at 1500, Pre-op
flush per protocol, D/C Main IV fluid if appropriate
[facility] Medication administered onsite iopamidol (ISOVUE-370) 76 % [id number] 08/28/2020 02:06:50 PM EDT active As needed, Starting on Charo 08/28/20 at 1406, Intra-Proce dure [facility] Medication administered onsite normal saline flush 0.9 % injection 3 mL [id number] 08/28/2020 02:00:00 PM EDT 3 mL Intravenous active 3 mL , Intravenous, Every 8 hours (scheduled), First dose on Charo 08/28/20 at 1400, Pre-op
Rapid push positive pressure flushing shall be performed with a 10 cc normal saline syringe to check the PATENCY of a PIV site prior to any infusion therapy initiation unless resistance is met.
[facility] Medication administered onsite 1 ML heparin sodium, porcine 1000 UNT/ML Injection hep alfonso (porcine) injection heparin (porcine) injection 08/28/2020 01:42:51 PM EDT active As needed, Starting on Charo 08/28/20 at 1342, Intra-Procedure [facility] Medication administered onsite NITROGLYCERIN 0.4 MG/ML IV SOLN [id number] 08/28/2020 01:42:41 PM EDT active As needed, Starting on Charo at 1342, Intra-Procedure [facility] Medication administered onsite lidocaine 1 % injection [id number] 08/28/2020 01:35:53 PM EDT active As needed, Starting on Charo 1 at 1335, Intra-Procedure [facility] Medication administered onsite 2 ML Midazolam 1 MG/ML Injection midazolam (VERSED) in jection midazolam (VERSED) injection 08/28/2020 01:31:11 PM EDT active As needed, Starting on Charo 08/28/20 at 1331, Intra-Procedure [facility] Medication administered onsite fentaNYL Citrate (PF) (SUBLIMAZE) injection [id number] 08/28/2020 01:30:39 PM EDT active As neede d, Starting on Charo 08/28/20 at 1330, Intra-Procedure [facility] Medication administered onsite sodium chloride 0.9% (NS) infusion 0722-3224-64 08/28/2020 11:00:00 AM EDT 100 mL/h Intravenous active at 100 m L/hr, 100 mL/hr, Intravenous, Continuous, Starting on Charo 08/28/20 at 1100, Pre-op
Start two hours prior to scheduled start time
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
[facility] Medication administered onsite clopidogrel 75 MG Oral Tablet clopidogrel (PLAVIX) 75 MG tablet clopidogrel (PLAVIX) 75 MG tablet 08/28/2020 12:00:00 AM EDT 75 mg Oral active Take 1 tablet (75 mg total) by mouth daily [facility] Diphenhydramine Hydrochloride 50 MG Oral Tablet diphenhydrAMINE (BENADRYL) 50 MG tablet diphenhydrAMINE (BENADRYL) 50 MG tablet 08/22/2020 12:00:00 AM EDT active Take 1 tablet the evening prior to procedure and 1 tablet the morning of procedure [facility] 24 HR Isosorbide Mononitrate 30 MG Exten ded Release Oral Tablet isosorbide mononitrate (IMDUR) 30 MG 24 hr tablet isosorbide mononitrate (IMDUR) 30 MG 24 hr tablet 08/22/2020 12:00:00 AM EDT 30 mg Oral active Take 1 tablet (30 mg total) by mouth daily [facility] Prednisone 50 MG Oral Tablet predniSONE (DELTASONE) 50 MG tablet predniSONE (DELTASONE) 50 MG tablet 08/22/2020 12:00:00 AM EDT active Take 1 tablet the evening prior to procedure and 1 tablet the morning of procedure [facility] Lisinopril 5 MG Oral Tablet Lisinopril 5 MG Oral Tablet 06/26 12:00:00 AM EDT aborted lisinopril 5 MG Oral Tablet [place] ([facility]) Metoprolol Tartrate 25 MG Oral Tablet Metoprolol Tartrate 25 MG Oral Tablet 07/14/2020 12:00:00 AM EDT aborted metoprolol tartrate 25 MG Oral Tablet [place] ([facility]) Metronidazole 500 MG Oral Tablet metroNIDAZOLE 500 MG Oral Tablet metroNIDAZOLE 500 MG Oral Tablet 07/08/2020 12:00:00 AM EDT 1 aborted metronidazole 500 MG Oral Tablet [place] ([facility]) empagliflozin 25 MG Oral Tablet [Jardiance] Jardiance 25 MG Oral Tablet Jardiance 25 MG Oral Tablet 07/08/2020 12:00:00 AM EDT 1 aborted empagliflozin 25 MG Oral Tablet [Jardiance] [place] ([facility]) Lisinopril 5 MG Oral Tablet Lisinopril 5 MG Oral Tablet 06/26 12:00:00 AM EDT aborted lisinopril 5 MG Oral Tablet [place] ([facility]) Metformin hydrochloride 1000 MG Oral Tablet metFORMIN HCl 1000 MG Oral Tablet metFORMIN HCl 1000 MG Oral Tablet 07/08/2020 12:00:00 AM EDT aborted metformin hydrochloride 1000 MG Oral Tab let [place] ([facility]) Ciprofloxacin 250 MG Oral Tablet Ciprofloxacin HCl 250 MG Oral Tablet Ciprofloxacin HCl 250 MG Oral Tablet 07/08/2020 12:00:00 AM EDT aborted ciprofloxacin 250 MG Oral Tablet [facility]) atorvastatin 40 MG Oral Tablet Atorvastatin Calcium 40 MG Oral Tablet Atorvastatin Calcium 40 MG Oral Tablet 07/08/2020 12:00:00 AM EDT aborted atorvastatin 40 MG Oral Tablet [facility] ([facility]) Metoprolol Tartrate 25 MG Oral Tablet Metoprolol Tartrate 25 MG Oral Tablet 07/08/2020 12:00:00 AM EDT aborted metoprolol tartrate 25 MG Oral Tablet [place] ([facility]) gabapentin 300 MG Oral Capsule Gabapentin 300 MG Oral Capsule Gabapentin 300 MG Oral Capsule 07/08/2020 12:00:00 AM EDT abort ed gabapentin 300 MG Oral Capsule [place] ([facility]) Metformin hydrochloride 1000 MG Oral Tablet metFORMIN HCl 1000 MG Oral Tablet metFORMIN HCl 1000 MG Oral Tablet 06/16/2020 12:00:00 AM EDT aborted metformin hydrochloride 1000 MG Oral Tab let [place] ([facility]) clopidogrel 75 MG Oral Tablet clopidogrel (PLAVIX) 75 MG tablet clopidogrel (PLAVIX) 75 MG tablet 05/26/2020 12:00:00 AM EST active TAKE 1 TABLET(75 MG) BY MOUTH DAILY [facility] clopidogrel 75 MG Oral Tablet [Plavix] Plavix 75 MG Or al Tablet Plavix 75 MG Oral Tablet 04/08/2020 12:00:00 AM EST 1 active clopidogrel 75 MG Oral Tablet [Plavix] [facility] ([facility]) Calcium Carbonate 500 MG Chewable Tablet [Tums] Tums 500 MG Oral Tablet Chewable Tums 500 MG Oral Tablet Chewable 04/08/2020 12:00:00 AM EST active calcium carbonate 500 MG Chewable Tablet [Tums] [facility] ([facility]) Metformin hydrochloride 1000 MG Oral Tablet metFORMIN HCl 1000 MG Oral Tablet metFORMIN HCl 1000 MG Oral Tablet 04/08/2020 12:00:00 AM EST aborted metformin hydrochloride 1000 MG Oral Tab let [facility]) Metoprolol Tartrate 25 MG Oral Tablet Metoprolol Tartrate 25 MG Oral Tablet 04/08/2020 12:00:00 AM EST aborted metoprolol tartrate 25 MG Oral Tablet [place] ([facility]) Blood Glucose Test In Vitro Strip Blood Glucose Test In Vitr o Strip 04/08/2020 12:00:00 AM EST aborted Blood G lucose Test [facility]) Blood Glucose Test In Vitro Strip Blood Glucose Test In Vitr o Strip 04/08/2020 12:00:00 AM EST aborted Blood G lucose Test [facility]) gabapentin 300 MG Oral Capsule Gabapentin 300 MG Oral Capsule Gabapentin 300 MG Oral Capsule 04/08/2020 12:00:00 AM EST abort ed gabapentin 300 MG Oral Capsule [facility]) Lancets Miscellaneous Lancets Miscellaneous 04/08/2020 12:00:00 AM EST aborted Lancets [place] ([facility]) Lisinopril 5 MG Oral Tablet Lisinopril 5 MG Oral Tablet 03/28 12:00:00 AM EST aborted lisinopril 5 MG Oral Tablet [facility]) atorvastatin 40 MG Oral Tablet Atorvastatin Calcium 40 MG Oral Tablet Atorvastatin Calcium 40 MG Oral Tablet 04/08/2020 12:00:00 AM EST aborted atorvastatin 40 MG Oral Tablet [facility] ([facility]) Metoprolol Tartrate 25 MG Oral Tablet me toprolol tartrate (LOPRESSOR) 25 MG tablet metoprolol tartrate (LOPRESSOR) 25 MG tablet 02/28/2020 12:0 0:00 AM EST 25 mg Oral active Take 1 tablet (2 5 mg total) by mouth 2 (two) times a day [facility] clopidogrel 75 MG Oral Tablet clopidogrel (PLAVIX) 75 MG tablet clopidogrel (PLAVIX) 75 MG tablet 02/26/2020 12:00:00 AM EST 75 mg Oral active Take 1 tablet (75 mg total) by mouth daily [facility] Metoprolol Tartrate 25 MG Oral Tablet me toprolol tartrate (LOPRESSOR) 25 MG tablet metoprolol tartrate (LOPRESSOR) 25 MG tablet 02/26/2020 12:0 0:00 AM EST 25 mg Oral active Take 1 tablet (2 5 mg total) by mouth 2 (two) times a day [facility] Metformin hydrochloride 1000 MG Oral Tab let metFORMIN (GLUCOPHAGE) 1000 MG tablet metFORMIN (GLUCOPHAGE) 1000 MG tablet 02/19/2020 12:00:00 AM EST 1000 mg Oral active Take 1,000 mg by mouth 1 tablet in am and 1/2 tablet in the pm [facility] atorvastatin 80 MG Oral Tablet atorvastatin (LIPITOR) tablet 80 mg atorvastatin (LIPITOR) tablet 80 mg 02/14/2020 09:00:00 AM EST 80 mg Oral active 80 mg, Oral, Daily, First dose on Tue02/14/20 at 0900 [facility] Medication administered onsite atorvastatin 80 MG Oral Tablet atorvastatin (LIPITOR) 80 MG tablet atorvastatin (LIPITOR) 80 MG tablet 02/14/2020 12:00:00 AM EST 80 mg Oral active Take 1 tablet (80 mg total) by mouth daily [facility] gabapentin 100 MG Oral Capsule gabapentin (NEURONTIN) capsule 300 mg gabapentin (NEURONTIN) capsule 300 mg 02/13/2020 09:00:00 AM EST 300 mg Oral active 300 mg, Oral, Daily, First dose on Tue04/14/19 at 0900 [facility] Medication administered onsite predniSONE (DELTASONE) tablet 50 mg 02/13/2020 08:00:00 AM EST 50 mg Oral completed 50 mg, Oral, Onc e, Tue02/13/20 at 0800, For 1 dose
Procedure time: 02/13/2020 at 0900 Give dose 1 hour pre-procedure
[facility] Medication administered onsite Diphenhydramine Hydrochloride 50 MG Oral Capsule diphenhydrAMINE (BENADRYL) capsule 50 mg diphenhydrAMINE (BENADRYL) capsule 50 mg 02/13/2020 08 :00:00 AM EST 50 mg Oral completed 50 mg, Oral, Once, Tue02/13/20 at 0800, For 1 dose
Procedure time: 02/13/2020 at 0900 Give dose 1 hour pre-procedure
[facility] Medication administered onsite predniSONE (DELTASONE) tablet 50 mg 02/13/2020 02:00:00 AM EST 50 mg Oral completed 50 mg, Oral, Onc e, Tue02/13/20 at 0200, For 1 dose
Procedure time: 02/13/2020 at 0900 Give dose 7 hours pre-procedure
[facility] Medication administered onsite Metoprolol Tartrate 25 MG Oral Tablet me toprolol tartrate (LOPRESSOR) tablet 25 mg metoprolol tartrate (LOPRESSOR) tablet 25 mg 02/12/2020 09:00:00 PM EST 25 mg Oral active 25 mg, Ora l, 2 times daily, First dose on Tue02/12/20 at 2100
Hold for SBP < 110, HR < 60
[facility] Medication administered onsite Insulin Glargine 100 UNT/ML [...] to 200 mg/dl &nb sp; No Change
[facility] Medication administered onsite predniSONE (DELTASONE) tablet 50 mg 02/12/2020 08:00:00 PM EST 50 mg Oral completed 50 mg, Oral, Onc e, Tue02/12/20 at 2000, For 1 dose
Procedure time: 02/13/2020 at 0900 Give dose 13 hours pre-procedure
[facility] Medication administered onsite Nitroglycerin 0.4 MG Sublingual Tablet n itroglycerin (NITROSTAT) SL tablet 0.4 mg nitroglycerin (NITROSTAT) SL tablet 0.4 mg 02/12/2020 02:14:44 P M EST 0.4 mg Sublingual active 0.4 mg, S ublingual, Every 5 min PRN, chest pain, Starting Tue02/12/20 at 1414
May administer up to 3 doses per episode.
[facility] Medication administered onsite normal saline flush 0.9 % injection 3 mL [id number] 02/12/2020 02:00:00 PM EST 3 mL Intravenous aborted 3 mL , Intravenous, Every 8 hours (scheduled), First dose on Tue02/12/20 at 1400, Pre-op
Rapid push positive pressure flushing shall be performed with a 10 cc normal saline syringe to check the PATENCY of a PIV site prior to any infusion therapy initiation unless resistance is met.
[facility] Medication administered onsite Insulin Lispro 100 UNT/ML [...] cover POC glucose at 08:00, 12:00, 17:00.
[facility] Medication administered onsite sodium chloride 0.9% (NS) infusion [id number] 02/12/2020 01:00:00 PM EST 100 mL/h Intravenous active at 100 m L/hr, 100 mL/hr, Intravenous, Continuous, Starting Tue02/12/20 at 1300, Pre-op
Start two hours prior to scheduled start time
[facility] Medication administered onsite normal saline flush 0.9 % injection 3 mL [id number] 02/11/2020 10:00:00 PM EST 3 mL Intravenous active 3 mL , Intravenous, PROTOCOL, First dose on Tue02/11/20 at 2200
flush per protocol, D/C Main IV fluid if appropriate
[facility] Medication administered onsite 1 ML Enoxaparin sodium [...] not give the dose and call physician/designee.
[facility] Medication administered onsite clopidogrel 75 MG Oral Tablet clopidogrel (PLAVIX) tab let 75 mg clopidogrel (PLAVIX) tablet 75 mg 02/11/2020 09:00:00 PM EST 75 mg Oral active 75 mg, Oral, Daily, First dose on Tue02/11/20 at 2100 [facility] Medication administered onsite atorvastatin 40 MG Oral Tablet atorvastatin (LIPITOR) tablet 40 mg atorvastatin (LIPITOR) tablet 40 mg 02/11/2020 09:00:00 PM EST 40 mg Oral aborted 40 mg, Oral, Daily, First dose on Tue02/11/20 at 2099 [facility] Medication administered onsite Lisinopril 5 MG Oral Tablet lisinopril (PRINIVIL,ZESTR IL) tablet 5 mg lisinopril (PRINIVIL,ZESTRIL) tablet 5 mg 02/11/2020 09:00:00 PM EST 5 mg O ral active 5 mg, Oral, Daily, First dose on Tue02/11/20 at 2099 [facility] Medication administered onsite Aspirin 81 MG Chewable Tablet aspirin chewable tablet 81 mg aspirin chewable tablet 81 mg 02/11/2020 09:00:00 PM EST 81 mg Oral activ e 81 mg, Oral, Daily, First dose on Tue02/11/20 at 2099 [facility] Medication administered onsite Acetaminophen 325 MG Oral Tablet acetaminophen (TYLENO L) 325 MG tablet 650 mg acetaminophen (TYLENOL) 325 MG tablet 650 mg 02/11/2020 08:20:34 PM EST 650 mg Oral aborted 650 mg, Or al, Every 4 hours PRN, mild pain (1-3), headaches, Starting Tue02/11/20 at 2019
"Maximum dose of acetaminophen is 4,000 mg from all sources in 24 hours."
[facility] Medication administered onsite Lancets Miscellaneous Lancets Miscellaneous 01/08/2020 12:00:00 AM EDT aborted Lancets [place] ([facility]) Blood Glucose Test In Vitro Strip Blood Glucose Test In Vitr o Strip 01/08/2020 12:00:00 AM EDT aborted Blood G lucose Test [place] ([facility]) Lisinopril 5 MG Oral Tablet Lisinopril 5 MG Oral Tablet 12/26 12:00:00 AM EDT aborted lisinopril 5 MG Oral Tablet [place] ([facility]) atorvastatin 40 MG Oral Tablet Atorvastatin Calcium 40 MG Oral Tablet Atorvastatin Calcium 40 MG Oral Tablet 01/08/2020 12:00:00 AM EDT aborted atorvastatin 40 MG Oral Tablet [facility] ([facility]) Metformin hydrochloride 1000 MG Oral Tablet metFORMIN HCl 1000 MG Oral Tablet metFORMIN HCl 1000 MG Oral Tablet 01/08/2020 12:00:00 AM EDT aborted metformin hydrochloride 1000 MG Oral Tab let [place] ([facility]) Metoprolol Tartrate 25 MG Oral Tablet Metoprolol Tartrate 25 MG Oral Tablet 01/08/2020 12:00:00 AM EDT aborted metoprolol tartrate 25 MG Oral Tablet [facility] ([facility]) gabapentin 300 MG Oral Capsule Gabapentin 300 MG Oral Capsule Gabapentin 300 MG Oral Capsule 01/08/2020 12:00:00 AM EDT abort ed gabapentin 300 MG Oral Capsule [place] ([facility]) Metoprolol Tartrate 25 MG Oral Tablet Metoprolol Tartrate 25 MG Oral Tablet 12/18/2019 12:00:00 AM EDT aborted metoprolol tartrate 25 MG Oral Tablet [place] ([facility]) Lisinopril 5 MG Oral Tablet Lisinopril 5 MG Oral Tablet 11/27 12:00:00 AM EDT aborted lisinopril 5 MG Oral Tablet [place] ([facility]) gabapentin 300 MG Oral Capsule Gabapentin 300 MG Oral Capsule Gabapentin 300 MG Oral Capsule 10/09/2019 12:00:00 AM EDT abort ed gabapentin 300 MG Oral Capsule [place] ([facility]) Blood Glucose Test In Vitro Strip Blood Glucose Test In Vitr o Strip 10/09/2019 12:00:00 AM EDT aborted Blood G lucose Test [place] ([facility]) atorvastatin 40 MG Oral Tablet Atorvastatin Calcium 40 MG Oral Tablet Atorvastatin Calcium 40 MG Oral Tablet 08/31/2019 12:00:00 AM EDT aborted atorvastatin 40 MG Oral Tablet [facility] ([facility]) Metformin hydrochloride 1000 MG Oral Tablet metFORMIN HCl 1000 MG Oral Tablet metFORMIN HCl 1000 MG Oral Tablet 08/31/2019 12:00:00 AM EDT aborted metformin hydrochloride 1000 MG Oral Tab let [place] ([facility]) Lisinopril 5 MG Oral Tablet Lisinopril 5 MG Oral Tablet 07/2019 12:00:00 AM EDT 1 aborted lisinopril 5 MG Oral Tablet [facility] ([facility]) clopidogrel 75 MG Oral Tablet [Plavix] Plavix 75 MG Or al Tablet Plavix 75 MG Oral Tablet 08/31/2019 12:00:00 AM EDT 1 aborte d clopidogrel 75 MG Oral Tablet [Plavix] [place] ([facility]) Metoprolol Tartrate 25 MG Oral Tablet Metoprolol Tartrate 25 MG Oral Tablet 08/31/2019 12:00:00 AM EDT aborted metoprolol tartrate 25 MG Oral Tablet [place] ([facility]) Lancets Miscellaneous Lancets Miscellaneous 07/02/2019 12:00:00 AM EDT aborted Lancets [facility] ([facility]) clopidogrel 75 MG Oral Tablet clopidogrel (PLAVIX) 75 MG tablet clopidogrel (PLAVIX) 75 MG tablet 11/28/2018 12:00:00 AM EDT 75 mg Oral aborted Take 1 tablet (75 mg total) by mouth daily [facility] Nitroglycerin 0.4 MG Sublingual Tablet [ Nitrostat] Nitrostat 0.4MG Sublingual Tablet, sublingual Nitrostat 0.4MG Sublingual Tablet, sublingual 05/17/19 12:00:00 AM EST 1 aborted nitroglycerin 0.4 MG Sublingual Tablet [Nitrostat] [place] ([facility]) Metoprolol Tartrate 25 MG Oral Tablet me toprolol tartrate (LOPRESSOR) 25 MG tablet metoprolol tartrate (LOPRESSOR) 25 MG tablet 04/19/2017 12:0 0:00 AM EST 25 mg Oral aborted Take 1 tablet (2 5 mg total) by mouth 2 (two) times a day [facility] atorvastatin 40 MG Oral Tablet atorvastatin (LIPITOR) 40 MG tablet atorvastatin (LIPITOR) 40 MG tablet 40 mg Oral aborted T ramakrishna 40 mg by mouth daily [facility] Metformin hydrochloride 500 MG Oral Tablet metFORMIN ( GLUCOPHAGE) 500 MG tablet metFORMIN (GLUCOPHAGE) 500 MG tablet 500 mg Oral a borted Take 500 mg by mouth 2 (two) times a day with meals 1 tab in am and 2 tab in pm [facility] Insurance Providers Payer name Policy type / Coverage type Policy ID Covered constitution party ID Covered constitution party's relationship to waters Policy Waters Plan Information [facility] Individual Policy 0 [id number] Self 0 BC[employer] of [facility] Individual Policy 0 [id number] Self 0 [employer] of [facility] [place] Individual Policy 0 [id number] Self 0 [employer] [place] [facility] [place] Individual Policy 0 [id number] Self 0 BC[employer] of [facility] [place] Individual Policy 0 [id number] Self 0 [employer] of [facility] [place] Individual Policy 0 [id number] Self 0 [employer] [place] Individual Policy 0 [id number] Self 0 [employer] [place] Individual Policy 0 [id number] Self 0 [employer] of [facility] [place] Individual Policy 0 [id number] Self 0 [employer] of [facility] [place] Individual Policy 0 [id number] Self 0 BC[employer] of [facility] [place] Individual Policy 0 [id number] Self 0 BCBS of [facility] [place] Individual Policy 0 [id number] Self 0 [employer] [place] Blue Cross/B lue Shield [id number] Self [id number] [employer] [place] Blue Cross/B lue Shield [id number] Self [id number] [employer]BS [id number] [employer] [id number] Holli YND [id number] [place] [id number] Self [id number] [employer] [id number] Self [id number] [employer] [id number] Holli [id number] [id number] [place] PPO 302/307 [id number] SP [id number] [place] [place] PPO 302/307 [id number] SP [id number] [place] [place] PPO 302/307 [id number] SP [id number] [place] PPO 302/307 [id number] SP [id number] BLUE CROSS BLUE SHIELD-O/P [id number] 18 [id number] [employer]BS OF [place] BC [id number] S VYS [id number] [employer] [place] PPO 302/307 [id number] SP [id number] SELF PAY SP UNAVAILABLE UNAVAILA BLE BCBS OF [place] WATN 306/806 [id number] SP [id number] BCBS of [facility] Other 0 [id number] Se lf 0 [place]BS [place] PPO 302/307 [id number] SP [id number] BCBS of [facility] Other 0 [id number] Se lf 0 BCBS of [facility] Other 0 [id number] Se lf 0 [employer] BCBS [id number] [employer] BCBS [id number] Holli VYA [id number] BCBS of [facility] Other 0 [id number] Se lf 0 BCBS of [facility] Other 0 [id number] Se lf 0 BCBS of [facility] Other 0 [id number] Se lf 0 [employer]BS B [id number] S [id number] [id number] BCBS [place] PPO 302/307 [id number] SP [id number] BCBS [place] PPO 302/307 [id number] SP [id number] [employer]BS [id number] Holli VYK [id number] [employer] BCBS PI PI Problems, Conditions, and Diagnoses Code Display Name Description Problem Type Effective Dates Data Source(s) E11.69 Type 2 diabetes mellitus with other spec ified complication Type 2 diabetes mellitus with other spec Diagnosis 08/28/2020 10:24:00 AM EDT [facility] I25.10 Atherosclerotic heart diseas e of [place] coronary artery without angina pectoris Atherosclerotic heart disease of [place] Diagnosis 08/28/2020 10:24:00 AM EDT [facility] R06.02 Shortness of breath Shortness of breath Diagnosis 0 08/28/2020 10:24:00 AM EDT [facility] R94.39 Abnormal result of other cardiovascular function study Abnormal result of other cardiovascular Diagnosis 08/28/2020 10:24:00 AM EDT [facility] R06.00 Dyspnea, unspecified Dyspnea, unspecified Diagnosis 08/20/2020 08:01:20 AM EDT [facility] I20.8 Other forms of angina pectoris Other forms of angina p ectoris Diagnosis 08/20/2020 08:01:20 AM EDT [facility] I20.0 Unstable angina Unstable angina Diagnosis 02/11/2020 05:3 2:59 PM [facility] R07.9 Chest pain, unspecified Chest pain, unspecified Diagno sis 02/11/2020 05:32:59 PM EST [facility] R06.02 Shortness of breath Shortness of breath [id number] 08/22/2020 12:00:00 AM EDT [facility] R94.39 Abnormal cardiovascular stress test Abnormal car diovascular stress test [id number] 08/22/2020 12:00:00 AM EDT [facility] E78.2 Mixed hyperlipidemia Mixed hyperlipidemia [id number] 02/13/2020 12:00:00 AM [facility] I20.0 Unstable angina Unstable angina [id number] 02/11/2020 12:0 0:00 AM [facility] I10 HTN (hypertension) HTN (hypertension) [id number] 12:00:00 AM [facility] I25.10 Atherosclerosis of [place] coronary arter y of [place] heart Atherosclerosis of [place] coronary artery of [place] heart [id number] 02/11/2020 12:00: 00 AM EST [facility] R07.9 Chest pain Chest pain [id number] 02/11/2020 12:00:00 AM T [facility] Surgeries/Procedures Procedure Description Date Indications Data Source(s) HbA1c (Glycosolated) HbA1c (Glycosolated) 11/11/2020 12:00:00 AM ED T [facility] ([facility]) GLUCOSE GLUCOSE 11/11/2020 12:00:00 AM EDT [facility] ([facility]) COLLECTION VENOUS BLOOD VENIPUNCTURE BLOOD DRAW 11/11/2020 12:00: 00 AM EDT [place] ([facility]) CARDIAC CATHETERIZATION <td>CARDIAC CATHETERIZATION</td><td>Routine</td><td>08/28/2020 2:03 PM EDT</td><td> Abnormal cardiovascular stress test Shortness of breath Atherosclerosis of [place] coronary artery of [place] heart, angina presence unspecified Type 2 diabetes mellitus with other specified complication, unspecified whether terminal worker insulin use</td><td> </td> 08/28/2020 02:03:59 PM EDT Type 2 diabetes mellitus with other spec ified complication, unspecified whether halfway insulin useAtherosclerosis of [place] coronary artery of [place] heart, angina presence unspecifiedShortness of breathAbnormal cardiovascular stress test [facility] Type 2 diabetes mellitus with other spec ified complication, unspecified whether terminal worker insulin use Atherosclerosis of [place] coronary arter y of [place] heart, angina presence unspecified Shortness of breath Abnormal cardiovascular stress test ECG ROUTINE ECG W/LEAST 12 LDS TRCG ONLY W/O I&R <td>E CG 12- LEAD</td><td>Routine</td><td>08/28/2020 10:53 AM EDT</td><td></td><td></td> 08/28/2020 10:53:50 AM EDT [facility] ELECTROCARDIOGRAM, COMPLETE (EKG) ELECTROCARDIOGRAM, COMPLET E (EKG) 07/08/2020 12:00:00 AM EDT [facility] ([facility]) FECAL BLOOD ASSAY TEST (waived laboratory) FECAL BLOOD ASSAY TEST (waived laboratory) 07/08/2020 12:00:00 AM [facility] ([facility]) HbA1c (Glycosolated) (waived laboratory) HbA1c (Glycos olated) (waived laboratory) 07/08/2020 12:00:00 AM [facility] ([facility]) GLUCOSE (waived laboratory) GLUCOSE (waived laboratory) 06/26 12:00:00 AM [facility]) COLLECTION VENOUS BLOOD VENIPUNCTURE BLOOD DRAW 07/08/2020 12:00: 00 AM [facility] ([facility]) HbA1c (Glycosolated) (waived laboratory) HbA1c (Glycos olated) (waived laboratory) 04/08/2020 12:00:00 AM [facility] ([facility]) GLUCOSE (waived laboratory) GLUCOSE (waived laboratory) 03/28 12:00:00 AM [facility]) COLLECTION CAPILLARY BLOOD SPECIMEN BLOOD DRAW 04/08/2020 12:00:0 0 AM [facility]) CARDIAC CATHETERIZATION <td>CARDIAC CATHETERIZATION</td><td>Routine</td><td>02/13/2020 12:22 PM EST</td><td> Unstable angina</td><td> </td> 02/13/2020 05:22:44 PM EST Unstable angina [facility] Unstable angina GLUC BLD GLUC MNTR DEV CLEARED FDA SPEC HOME USE <td>P OCT GLUCOSE</td><td>Routine</td><td>02/13/2020 9:33 AM EST</td><td></td><td> </td> 02/13/2020 02:33:00 PM EST [facility] BLOOD COUNT COMPLETE AUTOMATED <td>CBC</td><td>Routine </td><td>02/13/2020 4:03 AM EST</td><td></td><td> </td> 02/13/2020 09:03:00 AM EST [facility] BASIC METABOLIC PANEL CALCIUM TOTAL <td>BASIC METABOLI C PANEL</td><td>Routine</td><td>02/13/2020 4:03 AM EST</td><td></td><td> </td> 02/13/2020 09:03:00 AM EST [facility] GLUC BLD GLUC MNTR DEV CLEARED FDA SPEC HOME USE <td>P OCT GLUCOSE</td><td>Routine</td><td>02/12/2020 6:43 PM EST</td><td></td><td> </td> 02/12/2020 11:43:00 PM EST [facility] GLUC BLD GLUC MNTR DEV CLEARED FDA SPEC HOME USE <td>P OCT GLUCOSE</td><td>Routine</td><td>02/12/2020 2:49 PM EST</td><td></td><td> </td> 02/12/2020 07:49:00 PM EST [facility] GLUC BLD GLUC MNTR DEV CLEARED FDA SPEC HOME USE <td>P OCT GLUCOSE</td><td>Routine</td><td>02/12/2020 12:59 PM EST</td><td></td><td> </td> 02/12/2020 05:59:00 PM EST [facility] ECG ROUTINE ECG W/LEAST 12 LDS TRCG ONLY W/O I&R <td>E CG 12- LEAD</td><td>STAT</td><td>02/12/2020 11:57 AM EST</td><td></td><td></td> 02/12/2020 04:57:29 PM EST [facility] BLOOD COUNT COMPLETE AUTOMATED <td>CBC</td><td>Routine </td><td>02/12/2020 10:06 AM EST</td><td></td><td> </td> 02/12/2020 03:06:00 PM EST [facility] HEMOGLOBIN GLYCOSYLATED A1C <td>HEMOGLOBIN A1C</td><td >Add-On</td><td>02/12/2020 10:06 AM EST</td><td></td><td> </td> 02/12/2020 03:06:00 PM EST [facility] LIPOPROTEIN DIRECT MEASUREMENT LDL CHOLESTEROL <td>LDL CHOLESTEROL, DIRECT</td><td>Routine</td><td>02/12/2020 8:10 AM EST</td><td></td><td> </td> 02/12/2020 01:10:00 PM EST [facility] LIPID PANEL <td>LIPID PANEL</td><td>Rout ine</td><td>02/12/2020 8:10 AM EST</td><td></td><td> </td> 02/12/2020 01:10:00 PM EST [facility] BASIC METABOLIC PANEL CALCIUM TOTAL <td>BASIC METABOLI C PANEL</td><td>Routine</td><td>02/12/2020 8:10 AM EST</td><td></td><td> </td> 02/12/2020 01:10:00 PM EST [facility] GLUC BLD GLUC MNTR DEV CLEARED FDA SPEC HOME USE <td>P OCT GLUCOSE</td><td>Routine</td><td>02/12/2020 8:07 AM EST</td><td></td><td> </td> 02/12/2020 01:07:00 PM EST [facility] TROPONIN QUANTITATIVE <td>POCT TROPONIN</td><td>Ro utine</td><td>02/12/2020 12:21 AM EST</td><td></td><td> </td> 02/12/2020 05:21:00 AM EST [facility] TROPONIN QUANTITATIVE <td>POCT TROPONIN</td><td>Ro utine</td><td>02/11/2020 8:46 PM EST</td><td></td><td> </td> 02/12/2020 01:46:00 AM EST [facility] THROMBOPLASTIN TIME PARTIAL PLASMA/WHOLE BLOOD <td>APTT</td><td>Routine</td><td>02/11/2020 8:40 PM EST</td><td></td><td> </td> 02/12/2020 01:40:00 AM EST [facility] PROTHROMBIN TIME <td>PROTIME-INR</td><td>Rout ine</td><td>02/11/2020 8:40 PM EST</td><td></td><td> </td> 02/12/2020 01:40:00 AM EST [facility] BLOOD COUNT COMPLETE AUTOMATED <td>CBC</td><td>STAT</t d><td>02/11/2020 8:40 PM EST</td><td></td><td> </td> 02/12/2020 01:40:00 AM EST [facility] COMPREHENSIVE METABOLIC PANEL <td>COMPREHENSIVE METABO LIC PANEL</td><td>STAT</td><td>02/11/2020 8:40 PM EST</td><td></td><td> </td> 02/12/2020 01:40:00 AM EST [facility] GLUC BLD GLUC MNTR DEV CLEARED FDA SPEC HOME USE <td>P OCT GLUCOSE</td><td>Routine</td><td>02/11/2020 7:38 PM EST</td><td></td><td> </td> 02/12/2020 12:38:00 AM EST [facility] COLLECTION CAPILLARY BLOOD SPECIMEN BLOOD DRAW 01/08/2020 12:00:0 0 AM EDT [place] ([facility]) GLUCOSE (waived laboratory) GLUCOSE (waived laboratory) 12/26 12:00:00 AM EDT [place] ([facility]) HbA1c (Glycosolated) (waived laboratory) HbA1c (Glycos olated) (waived laboratory) 01/08/2020 12:00:00 AM EDT [place] ([facility]) FECAL BLOOD ASSAY TEST (waived laboratory) FECAL BLOOD ASSAY TEST (miived laboratory) 01/08/2020 12:00:00 AM EDT [place] ([facility]) FLUARIX, QUADRIVALENT FLUARIX, QUADRIVALENT 01/08/2020 12:00:00 AM EDT [place] ([facility]) IMMUNIZATION ADMIN (>18) IMMUNIZATION ADMIN (>18) 01/08/2020 12:00: 00 AM EDT [place] ([facility]) HbA1c (Glycosolated) HbA1c (Glycosolated) 01/08/2020 12:00:00 AM ED [facility] ([facility]) GLUCOSE GLUCOSE 01/08/2020 12:00:00 AM EDT [facility] ([facility]) CAPILLARY BLOOD DRAW CAPILLARY BLOOD DRAW 01/08/2020 12:00:00 AM ED [facility] ([facility]) IMMUNIZATION ADMIN (>18) IMMUNIZATION ADMIN (>18) 01/08/2020 12:00: 00 AM EDT [facility]) FLUARIX, QUADRIVALENT FLUARIX, QUADRIVALENT 01/08/2020 12:00:00 AM T [place] ([facility]) FECAL BLOOD ASSAY TEST FECAL BLOOD ASSAY TEST 01/08/2020 12:00:00 A [facility]) Results ID Date Data Source [id number] 12/10/2020 12:00:00 AM EDT [facility] Name Value Range Interpretation Code Description Data Rosita rce(s) Supporting Document(s) SARS-COV-2 Negative [facility] This lab was ordered by Valerio and re ported by Valerio. ID Date Data Source [id number] 08/28/2020 02:15:57 PM EDT [facility] Name Value Range Interpretation Code Description Data Rosita rce(s) Supporting Document(s) &PDF [facility] ZOMZIt2wEnJSLzMu84/NLXxqKCNqf1MgNHkzIBb6XKcxLRGnI0TroOqrIYpAVP1IGY0NV3nWKQitRaYe oRX YqGxISfSH2DH4qSPHwhhLfqzN8uS2sCV7LVWS+Hg2OZY6ef4AtEWn5ZWLyy9PcGSyqNTi6H2MhnDLcnw PzUgefgUHPPIUrSNKtM1qxqya8gZXrNrGxLt6JLcLph6FlKUFeOCiGfh6ml4/cZvI5kH1WNfGiQYcsNz SKKooCrtNuLZo+vMvS7stOIisRc8LVdCwa6aarq+27 9ProxnIQ1/Edgjp3Z++GZ1uxpAufe3OPkl85n/5d/HsjpWtD3Giz7ObLdutv889w2ZHvxGI+RGnOBJcB I57CWdPov+axFUej3v3OmZiafNFK/tOe8qDp8zjfIYoXevz/SB+TMAEahB8s7KOwx386V5p/NyaCDEsK 1qfRURM1syFLVFPI6QwqsBBX+Samantha/DhzisTsp4h+E [file] qbxPP0o8ph6BrBMdcFZOk1K0eEg0ZjVYrBU6WzwBg8Y678kPVnSaYhf8TN/P4o35FwugOShJNaRq/Héctor [file] T0YNCg== ID Date Data Source [id number] 08/28/2020 02:20:23 PM EDT [facility] NT INFORMATIONPatient MRN Name Date of Age Gend*PT [id number] Nadine Hansen 1965 55 years M HOPPT Location Admission Date/Time Visit ID Attending ProviderCV-27 08/28/20 1024 --- Nadine Patel MD([id number]) EPI ID CSN Admitting Provider [id number] Nadine Patel MD([id number])HISTORY AND PHYSICALName: Nadine Hansen Gender: maleDate of [...] Social Gatherings with Friends and Family: Attends [employer] Services: Active Member of Clubs or Organizations: [...] Weight: 82.9 kg (182 lb 12.2 oz)Physical BrdlEDEa16+ radial pulsesAssessment & PlanThis patient is a [...] rce(s) Supporting Document(s) ID Date Data Source [id number] 08/28/2020 11:09:24 AM EDT [facility] Name Value Range Interpretation Code Description Data Rosita rce(s) Supporting Document(s) EKG [facility] XEOOBj2uKkIFUqOsz4RrDlOzRVXwRY2ystu2T9J8tNSjZ9FnoODer4wrJ7BfK1XuWVNgRIOJHZ0JvQYi jb2 [file] 9bCvNdCFINP6Kxp9YtOVNkSMRGHe8+UdG2SGC5tUHjQwk7DMX6VnerEDRXZp== ID Date Data Source [id number] 07/08/2020 11:42:00 AM EDT [facility] ([facility]) Name Value Range Interpretation Code Description Data Rosita rce(s) Supporting Document(s) Reported Physicians See Note Reported Physic ans [place] ([facility]) Note: Reported Physicians:Ordering: Barnett e, Kait AAttending: Carmen, JocelynCopy To: Carmen, Kait ID Date Data Source [id number] 07/08/2020 11:42:00 AM EDT [facility] ([facility]) Name Value Range Interpretation Code Description Data Rosita rce(s) Supporting Document(s) Amylase [Enzymatic activity/volume] in Blood 82 U/L No rmal AMYLASE [facility]) ID Date Data Source [id number] 07/08/2020 11:42:00 AM EDT [facility] ([facility]) Name Value Range Interpretation Code Description Data Rosita rce(s) Supporting Document(s) Reported Physicians See Note Reported Physic ans [place] ([facility]) Note: Reported Physicians:Ordering: Barnett e, Kait AAttending: Carmen, JocelynCopy To: Carmen, Kait ID Date Data Source [id number] 07/08/2020 11:42:00 AM EDT [facility] ([facility]) Name Value Range Interpretation Code Description Data Rosita rce(s) Supporting Document(s) LIPASE 874 U/L Above high normal LIPASE [facility] ([facility]) ID Date Data Source [id number] 07/08/2020 11:42:00 AM EDT [place] ([facility]) Name Value Range Interpretation Code Description Data Rosita rce(s) Supporting Document(s) Reported Physicians See Note Reported Physic ans [place] ([facility]) Note: Reported Physicians:Ordering: Barnett e, Kait AAttending: Carmen, JocelynCopy To: Carmen, Kait ID Date Data Source [id number] 07/08/2020 11:42:00 AM EDT [place] ([facility]) Name Value Range Interpretation Code Description Data Rosita rce(s) Supporting Document(s) Erythrocyte sedimentation rate by [place] method 10 mm/hr Normal ERYTHROCYTE SEDIMENTATION RATE [facility]) ID Date Data Source [id number] 07/08/2020 11:42:00 AM EDT [place] ([facility]) Name Value Range Interpretation Code Description Data Rosita rce(s) Supporting Document(s) Reported Physicians See Note Reported Physici ans [facility]) Note: Reported Physicians:Ordering: Barnett e, Kait AAttending: Carmen, JocelynCopy To: Carmen, Kait ID Date Data Source [id number] 07/08/2020 11:42:00 AM EDT [place] ([facility]) Name Value Range Interpretation Code Description Data Rosita rce(s) Supporting Document(s) C REACTIVE PROTEIN QUANTITATIV 0.41 MG/DL Above high normal C REACTIVE PROTEIN QUANTITATIV [facility]) ID Date Data Source [id number] 07/08/2020 11:42:00 AM EDT [place] ([facility]) Name Value Range Interpretation Code Description Data Rosita rce(s) Supporting Document(s) Reported Physicians See Note Reported Physici ans [place] ([facility]) Note: Reported Physicians:Ordering: Barnett e, Kait AAttending: Carmen, JocelynCopy To: Carmen, Kait ID Date Data Source [id number] 07/08/2020 11:42:00 AM EDT [place] ([facility]) Name Value Range Interpretation Code Description Data Rosita rce(s) Supporting Document(s) WHITE BLOOD COUNT 10.8 3/uL Above high normal WHITE BLOOD COUNT [facility]) Hemoglobin [Mass/volume] in Mixed venous blood by Oximetry 15.1 g/d l Normal HEMOGLOBIN [facility]) RED BLOOD COUNT 4.90 6/uL Normal RED BLOOD COUNT [place] ([facility]) Hematocrit [Pure volume fraction] of Blood by Automated count 44.4 % Normal HEMATOCRIT [place] ([facility]) MEAN CORPUSCULAR VOLUME 90.6 fl Normal MEAN CORPUSC ULAR VOLUME [place] ([facility]) MEAN CORPUSCULAR HEMOGLOBIN 30.8 pg Normal MEAN COR PUSCULAR HEMOGLOBIN [place] ([facility]) MEAN CORPUSCULAR HGB CONC 34.0 g/dl Normal MEAN CORPU SCULAR HGB CONC [place] ([facility]) RED CELL DISTRIBUTION WIDTH 12.3 % Normal RED CELL DISTRIBUTION WIDTH [place] ([facility]) PLATELET COUNT, AUTOMATED 357 3/uL Normal PLATELET C OUNT, AUTOMATED [place] ([facility]) NEUTROPHILS % 54.5 % Normal NEUTROPHILS % [place] ([facility]) MONO % 8.3 % Above high normal MONO % [place] ([facility]) LYMPH % 32.7 % Normal LYMPH % [place] ([facility]) BASO % 0.7 % Normal BASO % [place] ([facility]) EOS % 2.4 % Normal EOS % [place] ([facility]) IMMATURE GRANULOCYTE % 1.4 % Normal IMMATURE GRAN ULOCYTE % [place] ([facility]) NUCLEATED RED BLOOD CELL % 0.0 % Normal NUCLEATED RED BLOOD CELL % [place] ([facility]) NEUTROPHILS # 5.9 3/uL Normal NEUTROPHILS # [facility] ([facility]) LYMPH # 3.5 3/uL Normal LYMPH # [facility] ([facility]) MONO # 0.9 3/uL Above high normal MONO # [place] ([facility]) BASO # 0.1 3/uL Normal BASO # [facility] ([facility]) EOS # 0.3 3/uL Normal EOS # [place] ([facility]) ID Date Data Source [id number] 07/08/2020 11:42:00 AM EDT [place] ([facility]) Name Value Range Interpretation Code Description Data Rosita rce(s) Supporting Document(s) Reported Physicians See Note Reported Physici ans [place] ([facility]) Note: Reported Physicians:Ordering: Kait Armando AAttending: Devi Morales To: Kait Morales ID Date Data Source [id number] 07/08/2020 11:42:00 AM EDT [place] ([facility]) Name Value Range Interpretation Code Description Data Rosita rce(s) Supporting Document(s) GLUCOSE, FASTING 110 MG/DL Above high normal GLUCOSE, FAS TING [place] ([facility]) BLOOD UREA NITROGEN 12 MG/DL Normal BLOOD UREA NITRO GEN [place] ([facility]) CREATININE FOR GFR 0.78 MG/DL Normal CREATININE FOR GF R [place] ([facility]) GLOMERULAR FILTRATION RATE > 60.0 Normal GLOMERULA R FILTRATION RATE [place] ([facility]) Note: Units are mL/min/1.73 m2 Chroni c Kidney Disease Staging per NKF: Stage I & II GFR >=60 Normal to Mildly Decreased Stage III GFR 30- 59 Moderately Decreased Stage IV GFR 15-29 Severely Decreased Stage V GFR <15 Very Little GFR Left ESRD GFR <15 on PREFLIGHT MECHANIC SODIUM LEVEL 136 MEQ/L Normal SODIUM LEVEL [facility]) POTASSIUM SERUM 4.3 MEQ/L Normal POTASSIUM SERUM [facility] ([facility]) CHLORIDE LEVEL 104 MEQ/L Normal CHLORIDE LEVEL [facility]) Anion gap in Body fluid 7 MEQ/L Below low normal ANION GAP [facility]) CARBON DIOXIDE LEVEL 25 MEQ/L Normal CARBON DIOXIDE LEVEL [facility]) CALCIUM LEVEL 9.6 MG/DL Normal CALCIUM LEVEL [place] ([facility]) ALT/SGPT 39 U/L Normal ALT/SGPT [place] ([facility]) AST/SGOT 14 U/L Normal AST/SGOT [place] ([facility]) Alkaline phosphatase [Enzymatic activity/volume] in Se rum, Plasma or Blood 116 U/L Normal ALKALINE PHOSPHATASE [facility]) BILIRUBIN,TOTAL 0.3 MG/DL Normal BILIRUBIN,TOTAL GREE [facility]) TOTAL PROTEIN 6.7 GM/DL Normal TOTAL PROTEIN [facility]) Albumin [Mass/volume] in Blood by Bromocresol purple ( BCP) dye binding method 4.0 GM/DL Normal ALBUMIN [facility]) ALBUMIN/GLOBULIN RATIO 1.5 Normal ALBUMIN/GLOBU YUSUF RATIO [facility]) ID Date Data Source [id number] 07/08/2020 11:42:00 AM EDT [place] ([facility]) Name Value Range Interpretation Code Description Data Rosita rce(s) Supporting Document(s) Reported Physicians See Note Reported Physici ans [facility]) Note: Reported Physicians:Ordering: Kait Armando AAttending: Devi Morales To: Kait Morales ID Date Data Source [id number] 07/08/2020 11:42:00 AM EDT [facility]) Name Value Range Interpretation Code Description Data Rosita rce(s) Supporting Document(s) CA19-9 TUMOR MARKER,CARBOHYDRA 13.9 U/ML Normal CA19-9 TUMOR MARKER,CARBOHYDRA [facility]) Note: THE CA 19-9 ASSAY IS PERFORMED ON THE Therma Flite BY CHEMILUMINESCENCE AND SHOULD NOT BE COMPARED INTERCHANGEABLY WITH OTHER METHODS. IT SHOULD NOT BE USED ALONE A SCREENING TEST OR DIAGNOSIS FOR THE PRESENCE OR ABSENCE OF MALIGNANT DISEASE. PREDICTIONS OF DISEASE RECURRENCE SHOULD NOT BE BASED SOLELY ON VALUES OBTAINED FROM SERIAL PATIENT SERUM VALUES. ID Date Data Source [id number] 07/08/2020 11:42:00 AM EDT [place] ([facility]) Name Value Range Interpretation Code Description Data Rosita rce(s) Supporting Document(s) Reported Physicians See Note Reported Physici ans [place] ([facility]) Note: Reported Physicians:Ordering: Kait Armando AAttending: Devi Morales To: Kati Morales ID Date Data Source [id number] 07/08/2020 11:42:00 AM EDT [place] ([facility]) Name Value Range Interpretation Code Description Data Rosita rce(s) Supporting Document(s) C REACTIVE PROTEIN QUANTITATIV 0.41 MG/DL Above high normal C REACTIVE PROTEIN QUANTITATIV [place] ([facility]) ID Date Data Source [id number] 07/08/2020 11:42:00 AM EDT [place] ([facility]) Name Value Range Interpretation Code Description Data Rosita rce(s) Supporting Document(s) Reported Physicians See Note Reported Physici ans [place] ([facility]) Note: Reported Physicians:Ordering: Kait Armando AAttending: Kait MoralesCopsimran To: Kait Morales ID Date Data Source [id number] 07/08/2020 11:42:00 AM EDT [place] ([facility]) Name Value Range Interpretation Code Description Data Rosita rce(s) Supporting Document(s) GLUCOSE, FASTING 110 MG/DL Above high normal GLUCOSE, FAS TING [place] ([facility]) BLOOD UREA NITROGEN 12 MG/DL Normal BLOOD UREA NITRO GEN [place] ([facility]) CREATININE FOR GFR 0.78 MG/DL Normal CREATININE FOR GF R [place] ([facility]) GLOMERULAR FILTRATION RATE > 60.0 Normal GLOMERULA R FILTRATION RATE [place] ([facility]) Note: Units are mL/min/1.73 m2 Chroni c Kidney Disease Staging per NKF: Stage I & II GFR >=60 Normal to Mildly Decreased Stage III GFR 30- 59 Moderately Decreased Stage IV GFR 15-29 Severely Decreased Stage V GFR <15 Very Little GFR Left ESRD GFR <15 on PREFLIGHT MECHANIC SODIUM LEVEL 136 MEQ/L Normal SODIUM LEVEL [facility]) POTASSIUM SERUM 4.3 MEQ/L Normal POTASSIUM SERUM [facility]) CHLORIDE LEVEL 104 MEQ/L Normal CHLORIDE LEVEL [facility]) CARBON DIOXIDE LEVEL 25 MEQ/L Normal CARBON DIOXIDE LEVEL [facility]) Anion gap in Body fluid 7 MEQ/L Below low normal ANION GAP [facility]) CALCIUM LEVEL 9.6 MG/DL Normal CALCIUM LEVEL [facility]) ALT/SGPT 39 U/L Normal ALT/SGPT [facility]) AST/SGOT 14 U/L Normal AST/SGOT [place] ([facility]) BILIRUBIN,TOTAL 0.3 MG/DL Normal BILIRUBIN,TOTAL GREE [place] ([facility]) Alkaline phosphatase [Enzymatic activity/volume] in Se rum, Plasma or Blood 116 U/L Normal ALKALINE PHOSPHATASE [place] ([facility]) TOTAL PROTEIN 6.7 GM/DL Normal TOTAL PROTEIN [place] ([facility]) ALBUMIN/GLOBULIN RATIO 1.5 Normal ALBUMIN/GLOBU YUSUF RATIO [place] ([facility]) Albumin [Mass/volume] in Blood by Bromocresol purple ( BCP) dye binding method 4.0 GM/DL Normal ALBUMIN [place] ([facility]) ID Date Data Source [id number] 07/08/2020 11:42:00 AM EDT [place] ([facility]) Name Value Range Interpretation Code Description Data Rosita rce(s) Supporting Document(s) Reported Physicians See Note Reported Physici ans [place] ([facility]) Note: Reported Physicians:Ordering: Kait Armando AAttending: Devi Morales To: Kait Morales ID Date Data Source [id number] 07/08/2020 11:42:00 AM EDT [place] ([facility]) Name Value Range Interpretation Code Description Data Rosita rce(s) Supporting Document(s) Amylase [Enzymatic activity/volume] in Blood 82 U/L No rmal AMYLASE [facility]) ID Date Data Source [id number] 07/08/2020 11:05:00 AM EDT [place] ([facility]) Name Value Range Interpretation Code Description Data Rosita rce(s) Supporting Document(s) Blood [Presence] in Urine by Visual N/A Normal BLOOD [place] ([facility]) Bilirubin [Presence] in Peritoneal fluid N/A Normal BILIRUBIN [place] ([facility]) Color of Exudate from wound lite yellow Normal COLOR [place] ([facility]) Glucose [Mass/volume] in Urine collected for unspecified dur ation >=1000 mg/dl Abnormal (applies to non-numeric results) GLUCOSE [place] ([facility]) Ketones [Presence] in Blood by Tablet N/A Normal KETONES [place] ([facility]) Leukocytes [#/volume] by Microscopy high power field in Urine sediment collected for unspecified duration N/A Normal [facility] NITRATES N/A Normal NITRATES [place] ([facility]) Protein [Mass/volume] in Saliva (oral fluid) N/A No rmal PROTEIN [place] ([facility]) Specific gravity of Pericardial fluid by Refractometry 1.020 Normal SPECIFIC GRAVITY [place] ([facility]) pH of Vaginal fluid by Test strip 5.0 Normal pH [facility]) UROBILIGIN 0.2 Normal UROBILIGIN [place] ([facility]) ID Date Data Source [id number] 07/08/2020 10:20:00 AM EDT [place] ([facility]) Name Value Range Interpretation Code Description Data Rosita rce(s) Supporting Document(s) Glucose [Mass/volume] in Urine collected for unspecified duratio n 143 Abnormal (applies to non-numeric results) Glucose [place] ([facility]) ID Date Data Source [id number] 07/08/2020 10:20:00 AM EDT [place] ([facility]) Name Value Range Interpretation Code Description Data Rosita rce(s) Supporting Document(s) Hemoglobin A1c/Hemoglobin.total in Blood 7.1 Abnormal (applies to non-numeric results) HbA1C [facility]) ID Date Data Source [id number] 07/04/2020 12:51:00 PM EDT [place] ([facility]) Name Value Range Interpretation Code Description Data Rosita rce(s) Supporting Document(s) Reported Physicians See Note Reported Physici ans [place] ([facility]) Note: Reported Physicians:Ordering: Swapnil sal [id number]: Andrea Medina To: Andrea Medina To: Kait Morales ID Date Data Source [id number] 07/04/2020 12:51:00 PM EDT [place] ([facility]) Name Value Range Interpretation Code Description Data Rosita rce(s) Supporting Document(s) BLOOD UREA NITROGEN 12 MG/DL Normal BLOOD UREA NITRO GEN [place] ([facility]) ID Date Data Source [id number] 07/04/2020 12:51:00 PM EDT [place] ([facility]) Name Value Range Interpretation Code Description Data Rosita rce(s) Supporting Document(s) Reported Physicians See Note Reported Physici ans [place] ([facility]) Note: Reported Physicians:Ordering: Swapnil h [id number], Nadege AriasAttending: Andrea Medina To: Andrea Medina To: Kait Morales ID Date Data Source [id number] 07/04/2020 12:51:00 PM EDT [place] ([facility]) Name Value Range Interpretation Code Description Data Rosita rce(s) Supporting Document(s) CREATININE FOR GFR 0.78 MG/DL Normal CREATININE FOR GF R [place] ([facility]) GLOMERULAR FILTRATION RATE > 60.0 Normal GLOMERULA R FILTRATION RATE [place] ([facility]) Note: Units are mL/min/1.73 m2 Chroni c Kidney Disease Staging per NKF: Stage I & II GFR >=60 Normal to Mildly Decreased Stage III GFR 30- 59 Moderately Decreased Stage IV GFR 15-29 Severely Decreased Stage V GFR <15 Very Little GFR Left ESRD GFR <15 on PREFLIGHT MECHANIC ID Date Data Source [id number] 05/26/2020 02:24:30 PM EST [facility] NT INFORMATIONPatient MRN Name Date of Age Gend*PT [id number] Nadine Hansen Tommy 1965 54 years M ---PT Location Admission Date/Time Visit ID Attending Provider --- --- --- --- EPI ID CSN Admitting Provider [id number] ---CardiologyName: Nadine Hansen Gender: maleDate of : 1965 Age: 54 yearsPrimary Care Provider / Referring Physician: KAIT MORALES MDTelemedicine VisitPatient was identified by name and date of .Verbal consent was obtained from the patient for this telemedicine visit.Patient is aware of the risks, limitations, and benefits of a telemedicinevisit.This telemedicine assessment was conducted remotely with the assistance ofCequent Pharmaceuticalsmunication technology: Telephone and Interactive Video [id number] Face to FaceCurrent HistoryCh ief Complaint: Telemedicine visit for 3-month follow-upHPI: Nadine Hansen is 54 years male has the following medical problem list:1. Known coronary disease with previous PCI to the right coronary and LAD [id number]. Presentation on 04/15/2017 with unstable angina and cardiac ollbwddvemxjvfk43/22/2018 revealed severe stenosis the right coronary treated [...] [facility]. 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 We [...] file Gets together: Not on file Attends scientology service: Not on file Active member of [...] Rfl: 12PhysicalPhysical Exam: General: Alert, No acute distress.[place] ed to person, place, and situation.Respiratory: Normal [...] parts of this document, were dictated using e-Chromic Technologiesware. A reasonable attempt at proofreading has been made to minimize errors.Please call with any questions or corrections. Name Value Range Interpretation Code Description Data Rosita rce(s) Supporting Document(s) ID Date Data Source [id number] 05/18/2020 12:00:00 AM EST [facility] Name Value Range Interpretation Code Description Data Rosita rce(s) Supporting Document(s) SARS coronavirus 2 RNA [Presence] in Res piratory specimen by BRIDGET with probe detection NEGATIVE [facility] This lab was ordered by [facility] [employer] [facility] and reported by [employer]. ID Date Data Source [id number] 05/18/2020 12:00:00 AM EST [facility] Name Value Range Interpretation Code Description Data Rosita rce(s) Supporting Document(s) Carestart Rapid COVID Antigen Test Negative [facility] This lab was reported by [facility]. ID Date Data Source [id number] 04/29/2020 12:00:00 AM EST [facility] Name Value Range Interpretation Code Description Data Rosita rce(s) Supporting Document(s) SARS coronavirus 2 RNA [Presence] in Res piratory specimen by BRIDGET with probe detection NEGATIVE [facility] This lab was ordered by [facility] [employer] [facility] and reported by [employer]. ID Date Data Source [id number] 04/29/2020 12:00:00 AM EST [facility] Name Value Range Interpretation Code Description Data Rosita rce(s) Supporting Document(s) Carestart Rapid COVID Antigen Test Negative [facility] This lab was reported by [facility]. ID Date Data Source [id number] 04/08/2020 12:00:00 AM EST [place] ([facility]) Name Value Range Interpretation Code Description Data Ros[facility] rce(s) Supporting Document(s) Hemoglobin A1c/Hemoglobin.total in Blood 6.9 Abnormal (applies to non-numeric results) HbA1C [place] ([facility]) Note: f ID Date Data Source [id number] 04/08/2020 12:00:00 AM EST [place] ([facility]) Name Value Range Interpretation Code Description Data Rosita rce(s) Supporting Document(s) Glucose [Mass/volume] in Urine collected for unspecified duration 1 54 Normal Glucose [facility]) ID Date Data Source [id number] 02/26/2020 11:06:32 AM EST [facility] NT INFORMATIONPatient MRN Name Date of Age Gend*PT [id number] Nadine Hansen 1965 54 years M ---PT Location Admission Date/Time Visit ID Attending Provider --- --- --- --- EPI ID CSN Admitting Provider [id number] ---Cardiology Office NoteName: Nadine Hansen Gender: maleDate of : 1965 Age: 54 yearsPrimary Care Provider / Referring Physician: CONI TUTTLEurrent HistoryChief Complaint: Hospital follow-upHPI:This patient is a 54 years male presents today for follow-up. He has thefollowing medical problem list:1. Known coronary disease with previous PCI to the right coronary and LAD [id number]. Presentation on 04/15/2017 with unstable angina and cardiac pqlqyptgcxxalaz38/22/2018 revealed severe stenosis the right coronary treated [...] I have sent a new prescription to [facility] and he will begin taking it today. 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 His Lipitor was [...] file Gets together: Not on file Attends scientology service: Not on file Active member of [...] parts of this document, were dictated using [employer]. A reasonable attempt at proofreading has been made to minimize errors.Please call with any questions or corrections. Name Value Range Interpretation Code Description Data Rosita rce(s) Supporting Document(s) ID Date Data Source [id number] 02/13/2020 04:16:27 PM EST [facility] NT INFORMATIONPatient MRN Name Date of Age Gend*PT [id number] Nadine Hansen 1965 54 years M OBSPT Location Admission Date/Time Visit ID Attending [id number] 02/11/20 1732 --- Frederick Parkinson MD([id number]) EPI ID CSN Admitting Provider [id number] Robert Lenz MD([id number]) Attestation signed by Frederick Parkinson MD at 02/13/2020 4:16 PMI have reviewed the notes, assessments, and/or procedures performed by GWENDOLYN Harrell, I concur with his documentation of Nadine Hansen. [facility] DISCHARGE SUMMARYPatient Name: Nadine Hansen of : 1965 Age 54 yearsPrimary Physician: KAIT MORALES MD PCP Iyvzddyay Date: 02/11/2020 Discharge Date: 02/13/2020He will be discharged from [facility] to [facility] Diagnoses:Principal Problem: Chest painActive Problems: Type 2 [...] of CAD, DM, HTN, [facility]. He does have asignificant history of CAD requiring prior stenting and had indicated that hischest pain began on Tuesday. It occurred again the following morning, and wasaccompanied by fatigue. He was denying shortness of breath. He did takenitroglycerin at that time and did have relief. [facility] no ischemic changes. Due to concern and his history he wasdirect admitted to [facility].Upon arrival to [facility] his troponin was negative. Cardiology wasconsulted and [...] being ambulatory in the room without complaints. 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 I [...] and mental status, speech normal, alertand oriented [id number] Pertinent Findings: Puncture site to right wrist [...] rce(s) Supporting Document(s) ID Date Data Source [id number] 02/13/2020 12:48:50 PM EST [facility] Name Value Range Interpretation Code Description Data Rosita rce(s) Supporting Document(s) &PDF 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/oiS5iKc/DhWu710LU2FIFtadl+YOZnorx [file] ICAgICAgICAgICAgICAgICAgICAgICAgICAgICAgIC YvRGDoIMGoRDTuUZOnXIEfCWQsGYSlIQBjLUAgKIDvHF7SMHRzSHIaZNAvWLVwOAYfLQUxSNGlYJHuRU AgICAgICAgICAgICAgICAgICAgICAgICAgICAgICAgICAgICAgICAgICAgICAgICAgICAgICAgICAgIC HsEOZaNOKiRQGmNBKzGI4OMHOyDGPuILBtHROcOQJm ICAgICAgICAgICAgICAgICAgICAgICAgICAgICAgICAgICAgICAgICAgICAgICAgICAgICAgICAgICAg LNOsHWHrELKaZJAjLROwJMWdGLQwGALaMG0KZJScKPOvYWTuCWKyMOXgSDNcZPItCASbNHNrGJIpXXTa ICAgICAgICAgICAgICAgICAgICAgICAgICAgICAgIC JnSRVfHTTjMMXmSBCjKOSiXSHuUZKyALWeMMYcWPOwTGUsNP6RGHBzYGCcAMTxMBZuKYBqIJBaSWQsFI AgICAgICAgICAgICAgICAgICAgICAgICAgICAgICAgICAgICAgICAgICAgICAgICAgICAgICAgICAgIC GaYSNyXGFsUKAiDSGgTJXrDT7FLDZzYHNwIRSmIJLh ICAgICAgICAgICAgICAgICAgICAgICAgICAgICAgICAgICAgICAgICAgICAgICAgICAgICAgICAgICAg MYGhUYDwYCLeWYTpOURgTIOtKBSiOSIjHVFrTL0ZMEKvLBQwTSFuSNViCESeOUHtDSLiHNWvZOGbXIJn ICAgICAgICAgICAgICAgICAgICAgICAgICAgICAgIC HzMFWfNXMzIOWyVWFbUHPnVFJiLDKgWNIuGKNmILAuVFKrXCDeZC4KUKSzLZKjZKMxTNPhDNFgJIErHX AgICAgICAgICAgICAgICAgICAgICAgICAgICAgICAgICAgICAgICAgICAgICAgICAgICAgICAgICAgIC AyPKPkVZWwMBElWSAxEVVpGFGsWI6CFKWzVLLxCKTz ICAgICAgICAgICAgICAgICAgICAgICAgICAgICAgICAgICAgICAgICAgICAgICAgICAgICAgICAgICAg JYHiZZEnRDCiUZWxFOXtZPDvZQJxXACmYTPuIXMlAZ8DRHEgOGCdYTFnQCUpPJQcKMJzSBLsJFBpJCEx ICAgICAgICAgICAgICAgICAgICAgICAgICAgICAgIC VfBBSiUBYcKYUjBCSxWGMkRVZyGOAmDPNmSZGqZFXgHHGfZLVfRVVjZU0CSB44aFCmh9Q7ZGUrQA8qog c/Qo4VCKmlmkZucHCfZR2YYtCwKV7btc7GVjCvOX7xtt1BNVlLNsDwS6I2hOZmNOMkNBOXLyLnI38bZW npNe38XImkTGQxKgJaALc1Ch9NBiDfS5plFLObHxC3 GMHtDxI0SPVbNtE0AIXvOaGnTRDvSSFnXWQkOMOQYMX7KLLvGpVzATvkLG3Wj4JjjPA0XVe+Jy7UFN5o c2GvNYqnYOYgYN7wyy6KUAvZSuDeC7YoohT3UWC3SZWeZz5QPKSxUAJuvTEiVuHcPCBXHbAtO5SrkT67 IDENCj4+YFasffIpRzpUVfA9PDMrm9GwAZy6JK5GVL ShHNf6pWZgDO5pzOBcuHRbZNlkEX8TUIL1HPiyJkGpQRIoX1vTBnOtMWN3SeGczEfyGA4PEkDuR0Unsj VudCAzNSAwIFINCj4+WJftrpXmKjkHTwT4TQIhk5OdNSz9RU4KNPZiEOifRO1SEMJxeI4wBRwgMW6XGy WsMuLcTKJXIhQlN23cmTVxAVs8R2WoDyGrDNTyUktf ZXMgPDwvTmFtZXMgWyBdDQogID4+ID4+LUfpQK3WPLozukBtJAHyLr1ANQYsTRFaMG5bMQEiGAYnZ3Y6 gTwiVOWUQwHlW8gxfmfwFZ4iSWUfX179cXborhCxXXT1NLUdXh0XANPuLRU9DSQgzSGeRaOrYIQZCYhh LO8AhSQfKIC0jZ1wNXwnFQBwWRBiB1fFCkJirLmyTB 51bGwgbnVsbCBdDQo+Vc2URK4cj6DfIAj9prMuAKneAKJ6JWduTTCjNXLfZANwATB9PQZ7SSWTCoBzZY MqMIKqBTzpDNCgLEQddd8FRSXiHWC9MVGjZWMsJHTbPEQnCKcbGNTiATmcEYWmXHAnEACrAM8VXdXkHT RtEHHaZXJpIVUjPTJrrk4SEONcPFUcZqT3HASnTBBw APDjXGwwEKYjFGEjVZK8POFxMPDsPM8FFhLjZTIaOKN1DNyvMLWxIZCarv2GVHUiUVDsYNxkVMNvLFNr AIJkRWxfXRXkGBN8Tpq9GJRkUEQgJQ9XQyXrNETqNDH0VSbyPASiXIDbjo4RIYJuPTHhQVFvCbCaRVXv DCEzKGgaDJPnDOH5XGS7XZJqEPMySY8CDwEjKIKzRK O3JNUgLEGkIAGhgf5TKZWbIACcZPO4GdViHZNuVDRzUUmvKROcHQTpCBW2PZYjPYOyZT7GQpCdFQEyQV VhNDXkQDMuSLQjvt1DNXSvNWBoKjQkUCCwZZEtYYRuBAftJDHvDBVdXSR6CWAjNPFqFR3LEzKtMRDtDU G4QUPpMMJwQLVsvn7MVWKaDAUtXPV1GILtOCLlZXCg YIlbBAGgMJK2HkCuVUXbPAJrDS6RUsCwLKVmOVZ7HfrnCAHdGORale6TAGEyDEUrPYs3VFFwVDPwROAq CRbvYTJgMDSxESPgUSCrQLPoTT8JPjCrTNZgCqDoXsSfNNNuWKHpir6GSBAkYDRqBRX7RPRlYQJnUZCl JWqlLSYgBSSaXgReOBYqGQGvTR3YLyTqNIXgYrB7MU bkLKVsQIIwot0NUTCvGAFzDES9CnEpQYXlNVKvGXpuOCGnNPT7NbQ8PQAjTGMgGW2QKmHaJZMfHVgnXi EwBQYeUJGibw1HVYGyKUY5Skk3DOUvFGXbPSIgKXarFECpAYz1DVo0UTXpWSBuMM0OYxFsAVLhCLZqES KxQRHwPREddb1HRIChHMX1ELH9FIVaUIYeXRNuQBwh ZVTsSUlvBpWgQCNpTKBzEY1YTeMuRMGcKQI3XJMoONXtTRCnlg9HaRZitEfcaq3YCGyHXj3AoJnvJVL6 HRgsQt0ngBLzTcMrZPNDIo5XmpVoERXtUYUPVXttNVPyMGUyNOOmGeu7MRE2MpY1TQxpHorbC4RjHIZn LpIgBrJ6OyU1HIP6MBNwBFY4ZGsiBEv5P1C4TBKsIR FkZmRiYWJiZDk+GB7fFGl+Cg9Zc4DrdbO6uiZbDWv1WZk9HI3NYDWMW3EWDo== ID Date Data Source [id number] 02/13/2020 09:34:58 AM EST [facility] Name Value Range Interpretation Code Description Data Rosita rce(s) Supporting Document(s) POC NOVA GLU 215 mg/dL (70-99) H [facility]AFF ID Date Data Source [id number] 02/13/2020 06:06:47 AM EST [facility] Name Value Range Interpretation Code Description Data Rosita rce(s) Supporting Document(s) SODIUM 136 mmol/L (136-145) [facility] POTASSIUM 4.8 mmol/L (3.6-5.2) [facility] CHLORIDE 106 mmol/L (100-108) [facility] CO2 22 mmol/L (22-31) [facility] ANION GAP 8 mmol/L (7-16) [facility] UREA NITROGEN 12 mg/dL (7-24) [facility] CREATININE 0.86 mg/dL (0.80-1.30) [facility] BUN/CREAT RATIO 14.0 RATIO (10.0-20.0) [facility] GLUCOSE 212 mg/dL (70-99) H [facility] CALCIUM 9.2 mg/dL (8.4-10.2) [facility] GFR >60 ml/min/1.73m2 (>59) [facility] GFR ( AMER) >60 ml/min/1.73m2 (>59) [facility] GFR INTERPRETATION [facility] --NORMAL KIDNEY FUNCTION OR MILD DISEASE - GFR >OR= 60CHRONIC KIDNEY DISEASE - GFR 15 - 59RENAL FAILURE - GFR <15 Est. GFR calculation based on the MDRDstudy equation, which assumes a steadystate for creatinine. Est. GFR should notbe used for medication dosing. ID Date Data Source [id number] 02/13/2020 05:42:13 AM EST [facility] Name Value Range Interpretation Code Description Data Rosita rce(s) Supporting Document(s) WBC 10.1 10*3/uL (4.1-11.0) [facility] RBC 4.90 10*6/uL (4.60-6.10) [facility] HGB 15.6 g/dL (13.5-18.0) [facility] HCT 43.6 % (41.0-53.0) [facility] PERFORMED AT [address] [place] [address] [facility] [place] [address] MCV 89.0 fL (80.0-95.0) [facility] MCH 31.8 pg (27.0-32.0) [facility] MCHC 35.7 g/dL (32.0-36.0) [facility] RDW 13.3 % (10.5-14.5) [facility] PLT 278 10*3/uL (150-450) [facility] MPV 7.0 fL (7.1-10.7) L [facility] ID Date Data Source [id number] 02/12/2020 06:44:38 PM EST [facility] Name Value Range Interpretation Code Description Data Rosita rce(s) Supporting Document(s) POC NOVA GLU 131 mg/dL (70-99) H [facility] ID Date Data Source [id number] 02/12/2020 02:51:10 PM EST [facility] Name Value Range Interpretation Code Description Data Rosita rce(s) Supporting Document(s) POC NOVA GLU 245 mg/dL (70-99) H [facility] ID Date Data Source [id number] 02/12/2020 01:15:54 PM EST [facility] Name Value Range Interpretation Code Description Data Rosita rce(s) Supporting Document(s) EKG [facility] QIBIKk6kKxXJGfOxl0PnFhKsRHMmPJ1pubn3G2B9eXJxZ4LxoLGnb4wyM4LxX4AjXCTbHXDCDY9WmGMr jb2 [file] /nhw/o5+sJ/fAR/Xw9ox8+pJ+vp clinical research/TDx/Gd3E7eOV3pVgHbdJh2qFn53hWNIgz3B0NO+xYJjQP19eGRLk [file] z/qi733+BK/JO7PH/Mata+9/XVj5irp/c+dQlgEFLz01lXOz5zzVEn9Z+MjVo+exV3+u5r+tn79xAw3F4q v6V9k+4M5iYa212tQiufrsuW5tnvkdcFNB5ikhdk/3KAQjCOWzwL3AVFJbvZFz0PW/PvvSUQv9rFL4tJ 54YBoq1DrvCaLe1DfzBsCj4ue7/CzYNmDWHYNm6gc3 75rABtzv/bH6+R2r/xyw3a8s/gBL/v3cGwKPYBGBsRIKtyahtq6hO1poMkyuWpPBEOfoGiAcJo8uIUkV ol2Vg91lmCVlds4uHiqXQy2Ooi16AOovR7LG7dwx61q0GHgZHLhGX3EPSnSFEUCFTn5dn/J1KzNrCFqO IVuNB0E441HQn+kj3L6Iiqwxxe1Ola9X9+eD1XSVd6 Hn3svVUzfzn88N/8JezbJX+ZvReo5+vmqo3OelV80kuWSx07zjRhgsC1xFW45ME+qyF8uY3vev9ksZPk iSk4K9wiHKSzQriTUroSIMaDAI7JSToK5BIFrNig/OO+VsEJT/efYH/pyX0+bHXu3U+Wev/p8qbirO7j yfoqB43DuKt+w30H0k77Ub1m62VoB+4RD/fn75R2b2 X9Xl/uUB/Za00T3vhx8Fc/lNQMlc8o553f/H2w7z5b+braxton/Hbd/VZe7/M+zH/PwVruQlmiPtsg0WwYq zmh/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+ebtO8nI5eC74QA+ner5EruP2Eu/aqroP+5yegyk4o8p/5NLS1OtLL [file] AwMDAwMDAyOTggMDAwMDAgbiAKMDAwMDAwMDQwOSAw YGCkIWWiEPyfIHYxZKHjAWVuMSQkERIhFP8kMqYoDCGlRWG5BVXzPGShJOYgybQSROIwLAOlOYb3QVIe CNUhNRZpSMbgMLZmKBJdVPC4DMIxOHSbMG5qWfRsWXZuWQZ5UzLrXTWcCUEkqhOOYGGqTZCeEAS1MuNd DAEwVCCrMZqsIWFzZOLmCYeiVVNlMHFuCW4zDaSfPL AsDKMdRXwaIDNkHFAcmhVIOWXiUKBmXXKsXsVrTAWoQMKsOZjyIOOyOKU3AxpjOBBlGLOuVY4xExLxCR HyNGW5OGpsBJJfHFBziyFSGLPtIPLhQDucEXRqVELwQQBtOAjiBUFdTIXdQBG8RUJzGRBkCG7mUqMkJI MtUZVzCQVlVcR2EmTvSySNiYCbwTtrdip7ZPfqN6i8 JTXvSQvsSG4ugsNuHODwAuneOp1xpHP4CPEuVlcGDm1Uy6RszuY8uyCqRmY4Hpk1JcLoYY9T ID Date Data Source [id number] 02/12/2020 01:00:38 PM EST [facility] Name Value Range Interpretation Code Description Data Rosita rce(s) Supporting Document(s) POC NOVA GLU 254 mg/dL (70-99) H [facility] ID Date Data Source [id number] 02/12/2020 11:57:46 AM EST [facility] INFORMATIONPatient MRN Name Date of Age Gend*PT [id number] Nadine Hansen 1965 54 years M OBSPT Location Admission Date/Time Visit ID Attending [id number] 02/11/20 2002 --- Frederick Parkinson MD([id number]) EPI ID CSN Admitting Provider [id number] Robert Lenz MD([id number])CARDIOLOGY CONSULTATIONName: Nadine Hansen Gender: maleDate of : 1965 Age: 54 yearsDate/Time of Admit: 02/11/2020 5:32 PM Code Status: Full CodePrimary Care Provider / Referring Physician: KAIT MORALES MDInformant:HISTORYCHIEF COMPLAINT: No chief complaint on file.HPI:This patient is a 54 years male [facility] there[facility] complaints of chest pain. He was given nitroglycerin with incompleterelief of this anterior chest pressure. He had no dyspnea or diaphoresis.He has a history of coronary artery disease. In March 2017 he presented withunstable angina and went to the [facility]. There he was found to have two-vesseldisease with a pre-existing LAD stent being found to be patent. He had severestenosis in the RCA which was treated with a drug-eluting stent. He was foundto have a chronically occluded first marginal branch of the circumflex. 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 Unstable angina pectoris2. History of CAD with previous PCIRecommendations:1. Coronary arteriography and possible PCI today2. He has iodine allergy and I will prepare him for the [facility].Thank you for this consultation.Saad Almendarez, MDDate: February 12, 2020Time: 11:23 AM Name Value Range Interpretation Code Description Data Rosita rce(s) Supporting Document(s) ID Date Data Source [id number] 02/12/2020 01:58:02 PM EST [facility] Name Value Range Interpretation Code Description Data Rosita rce(s) Supporting Document(s) HEMOGLOBIN A1C @ 6.6 % (4.0-6.0) H [facility] Performed using [employer] immunoassa y.Care must be taken when interpreting QnA8iyaoxewz in patients with a hemoglobin variantor decreased erythrocyte lifespan. Values 5.7 - 6.4% suggest prediabetes.Values >=6.5% are diagnostic for diabetes.REFERENCE: DIABETES CARE 2018: 41(S13-S27).PERFORMED AT [address] [place] [address] EST [place] GLUCOSE 143 mg/dL [facility] ID Date Data Source [id number] 02/12/2020 10:38:35 AM EST [facility] Name Value Range Interpretation Code Description Data Rosita rce(s) Supporting Document(s) WBC 8.6 10*3/uL (4.1-11.0) [facility] RBC 4.98 10*6/uL (4.60-6.10) [facility] HGB 15.7 g/dL (13.5-18.0) [facility] HCT 44.5 % (41.0-53.0) [facility] [place] [place] [address] [place] [address] MCV 89.3 fL (80.0-95.0) [facility] MCH 31.6 pg (27.0-32.0) [facility] MCHC 35.3 g/dL (32.0-36.0) [facility] RDW 13.0 % (10.5-14.5) [facility] PLT 268 10*3/uL (150-450) [facility] MPV 6.6 fL (7.1-10.7) L [facility] ID Date Data Source [id number] 02/12/2020 12:15:06 PM EST [facility] Name Value Range Interpretation Code Description Data Rosita rce(s) Supporting Document(s) DIRECT LDL @ 100 mg/dL (<130) [facility] PER NCEP ATP III GUIDELINES: OPTIMAL < 100 NEAR OPTIMAL 100 - 129BORDERLINE HIGH 130 - 159 HIGH 160 - 189 VERY HIGH > 189 ID Date Data Source [id number] 02/12/2020 11:40:02 AM EST [facility] Name Value Range Interpretation Code Description Data Rosita rce(s) Supporting Document(s) CHOLESTEROL @ 174 mg/dL (0-200) [facility] TRIGLYCERIDE @ 492 mg/dL (30-200) H [facility] HDL CHOLESTEROL @ 29 mg/dL (>40) L [facility] PER NCEP ATP III GUIDELINES:RESULTS LOWE R THAN 40 MG/DL ARE SUGGESTIVEOF INCREASED RISK FOR CORONARY ARTERYDISEASE. RESULTS > OR = TO 60 MG/DL ARECONSIDERED A NEGATIVE RISK FACTOR. CHOL/HDL RATIO 6.0 RATIO [facility] INTERPRETATION OF CHOL-HDL RATIO CHD RISK FEMALE MALEVERY HIGH >8.3 >14.3HIGH 5.6- 8.3 6.7- 14.3AVERAGE 3.7- 5.6 4.0- 6.7BELOW AVERAGE 2.5- 3.7 2.7- 4.0PROTECTED <2.5 <2.7 LDL CHOL (CALC) (<130) [facility] INTERFERENCE FROM ELEVATED TRIGLYCERIDES (GREATER THAN 300 MG/DL). SEE RESULTFOR DIRECT LDL. ID Date Data Source [id number] 02/12/2020 09:01:03 AM EST [facility] Name Value Range Interpretation Code Description Data Rosita rce(s) Supporting Document(s) SODIUM 137 mmol/L (136-145) [facility] POTASSIUM 4.4 mmol/L (3.6-5.2) [facility] CHLORIDE 104 mmol/L (100-108) [facility] CO2 25 mmol/L (22-31) [facility] ANION GAP 8 mmol/L (7-16) [facility] UREA NITROGEN 10 mg/dL (7-24) [facility] CREATININE 0.87 mg/dL (0.80-1.30) [facility] BUN/CREAT RATIO 11.5 RATIO (10.0-20.0) [facility] GLUCOSE 130 mg/dL (70-99) H [facility] CALCIUM 9.2 mg/dL (8.4-10.2) [facility] GFR >60 ml/min/1.73m2 (>59) [facility] GFR ( AMER) >60 ml/min/1.73m2 (>59) [facility] GFR INTERPRETATION [facility] --NORMAL KIDNEY FUNCTION OR MILD DISEASE - GFR >OR= 60CHRONIC KIDNEY DISEASE - GFR 15 - 59RENAL FAILURE - GFR <15 Est. GFR calculation based on the MDRDstudy equation, which assumes a steadystate for creatinine. Est. GFR should notbe used for medication dosing. ID Date Data Source [id number] 02/12/2020 08:08:30 AM EST [facility] Name Value Range Interpretation Code Description Data Rosita rce(s) Supporting Document(s) POC NOVA GLU 142 mg/dL (70-99) H [facility] ID Date Data Source [id number] 02/12/2020 03:36:47 AM EST [facility] NT INFORMATIONPatient MRN Name Date of Age Gend*PT [id number] Tyrone Nadine Tommy 1965 54 years M OBSPT Location Admission Date/Time Visit ID Attending [id number] 02/11/20 1732 --- Frederick Parkinson MD([id number]) EPI ID CSN Admitting Provider [id number] Robert Lenz MD([id number]) Attestation signed by Robert Lenz MD at 02/12/2020 3:36 AMDiscussed thoroughly with GWENDOLYN Sidhu and I agree with her A&P ---Inpatient History & PhysicalMichael Tommy TyroneMRN: [id number]: Chest PainPCP:John TUTTLEessment and Plan:Principal Problem: Chest [...] of CAD, DM, hypertension,hyperlipidemia who transfers [facility] due to chest pain. Patient isknown to have CAD requiring prior stenting and reports that he had chest pain onSaturday it reoccurred this morning. He has been fatigued feeling worn down butnot short of breath. He took nitroglycerin this morning with some relief in thechest pressure.[facility] reveals no ischemic changes. Will [...] file Gets together: Not on file Attends scientology service: Not on file Active member of [...] normal. Thoughtcontent normal.Diagnostic ReviewCovid test done at [facility] today is negativependingSignature: Thea Mcdermott NPDate: February 11, 2020Time: 8:24 PM Name Value Range Interpretation Code Description Data Rosita rce(s) Supporting Document(s) ID Date Data Source [id number] 02/12/2020 12:34:48 AM EST [facility] Name Value Range Interpretation Code Description Data Rosita rce(s) Supporting Document(s) POC CTNI <0.01 ng/mL (0.01-0.07) L [facility] Less than 0.08: Myocardial injury unlike lyGreater than or equal to 0.08: Highlysuggestive of myocardial injuryCorrelation with rise and/or fall ofserial troponins, clinical symptoms,and ECG changes is necessary.PERFORMED BY [facility] ID Date Data Source [id number] 02/11/2020 09:00:47 PM EST [facility] Name Value Range Interpretation Code Description Data Rosita rce(s) Supporting Document(s) POC CTNI 0.01 ng/mL (0.01-0.07) [facility] Less than 0.08: Myocardial injury unlike lyGreater than or equal to 0.08: Highlysuggestive of myocardial injuryCorrelation with rise and/or fall ofserial troponins, clinical symptoms,and ECG changes is necessary.PERFORMED BY [facility] ID Date Data Source [id number] 02/11/2020 09:26:59 PM EST [facility] Name Value Range Interpretation Code Description Data Rosita rce(s) Supporting Document(s) APTT 29.2 s (22.0-34.3) [facility] ID Date Data Source [id number] 02/11/2020 09:26:59 PM EST [facility] Name Value Range Interpretation Code Description Data Rosita rce(s) Supporting Document(s) PT 11.0 s (9.2-11.9) [facility] INR 1.05 [facility] SUGGESTED THERAPEUTIC RANGES USING INR F ORSTABILIZED ANTICOAGULATED PATIENTS:STANDARD DOSE THERAPY INR 2.0-3.0 DVT, PE, PREVENT DVT OR EMBOLISMHIGH DOSE THERAPY INR 2.5-3.5 PREVENT EMBOLISM FROM MECHANICAL HEART VALVE ID Date Data Source [id number] 02/11/2020 09:26:39 PM EST [facility] Name Value Range Interpretation Code Description Data Rosita rce(s) Supporting Document(s) SODIUM 137 mmol/L (136-145) [facility] POTASSIUM 3.9 mmol/L (3.6-5.2) [facility] CHLORIDE 105 mmol/L (100-108) [facility] CO2 25 mmol/L (22-31) [facility] ANION GAP 7 mmol/L (7-16) [facility] UREA NITROGEN 11 mg/dL (7-24) [facility] CREATININE 0.76 mg/dL (0.80-1.30) L [facility] BUN/CREAT RATIO 14.5 RATIO (10.0-20.0) [facility] GLUCOSE 93 mg/dL (70-99) [facility] CALCIUM 9.1 mg/dL (8.4-10.2) [facility] TOTAL PROTEIN 7.0 g/dL (6.4-8.2) [facility] ALBUMIN 3.8 g/dL (3.5-4.6) [facility] GLOBULIN 3.2 g/dL (2.7-4.3) [facility] ALB/GLOB RATIO 1.2 RATIO [facility] ALKALINE PHOSPHATASE 119 U/L (45-117) H [facility] BILIRUBIN,TOTAL 0.4 mg/dL (0.0-1.0) [facility] PLEASE NOTE:Total bilirubin results may be falselyelevated in patients taking Eltrombopag. AST (SGOT) 17 U/L (11-39) [facility] ALT (SGPT) 35 U/L (12-78) [facility] GFR >60 ml/min/1.73m2 (>59) [facility] GFR ( AMER) >60 ml/min/1.73m2 (>59) [facility] GFR INTERPRETATION [facility] --NORMAL KIDNEY FUNCTION OR MILD DISEASE - GFR >OR= 60CHRONIC KIDNEY DISEASE - GFR 15 - 59RENAL FAILURE - GFR <15 Est. GFR calculation based on the MDRDstudy equation, which assumes a steadystate for creatinine. Est. GFR should notbe used for medication dosing. ID Date Data Source [id number] 02/11/2020 09:12:56 PM EST [facility] Name Value Range Interpretation Code Description Data Rosita rce(s) Supporting Document(s) WBC 13.0 10*3/uL (4.1-11.0) H [facility] RBC 4.95 10*6/uL (4.60-6.10) [facility] HGB 15.5 g/dL (13.5-18.0) [facility] HCT 44.8 % (41.0-53.0) [facility] PERFOR[facility] AT [address] [place] [address] [place] [id number] MCV 90.3 fL (80.0-95.0) [facility] MCH 31.2 pg (27.0-32.0) [facility] MCHC 34.6 g/dL (32.0-36.0) [facility] RDW 13.2 % (10.5-14.5) [facility] PLT 270 10*3/uL (150-450) [facility] MPV 6.7 fL (7.1-10.7) L [facility] ID Date Data Source [id number] 02/11/2020 07:40:37 PM EST [facility] Name Value Range Interpretation Code Description Data Rosita rce(s) Supporting Document(s) POC NOVA GLU 116 mg/dL (70-99) H [facility] ID Date Data Source [id number] 02/11/2020 02:47:00 PM EST [facility] ([facility]) Name Value Range Interpretation Code Description Data Rosita rce(s) Supporting Document(s) SARS COVID-19 AMPLIFICATION NEGATIVE Normal SARS COV ID-19 AMPLIFICATION [place] ([facility]) Note: A false negative result may occur [...] pathogens. DISCLAIMER: Testing was performed using the [facility] SARS-CoV-2 test. This test was developed and its performance characteristics determined by [facility]. This test has not been FDA cleared [...] or revoked sooner. ID Date Data Source [id number] 02/11/2020 02:47:00 PM [facility] ([facility]) Name Value Range Interpretation Code Description Data Rosita rce(s) Supporting Document(s) Reported Physicians See Note Reported [facility]) Note: Reported Physicians:Ordering: Jaclyn feng [id number] RaoAttending: Aparna Segovia To: Aparna Segovia To: Kait Morales ID Date Data Source [id number] 02/11/2020 01:39:00 PM [facility] ([facility]) Name Value Range Interpretation Code Description Data Rosita rce(s) Supporting Document(s) Reported Physicians See Note Reported [facility] ([facility]) Note: Reported Physicians:Ordering: Jaclyn feng [id number] ShethAttending: Aparna Segovia To: Aparna Segovia To: Kait Morales ID Date Data Source [id number] 02/11/2020 01:39:00 PM EST [facility] ([facility]) Name Value Range Interpretation Code Description Data Rosita rce(s) Supporting Document(s) iSTAT TROPONIN 0.01 NG/ML Normal iSTAT TROPONIN [facility] ([facility]) ID Date Data Source [id number] 02/11/2020 11:17:00 AM EST [facility] ([facility]) Name Value Range Interpretation Code Description Data Rosita rce(s) Supporting Document(s) Reported Physicians See Note Reported Physici ans [facility] ([facility]) Note: Reported Physicians:Ordering: BARRETT [place] [id number], DAVID J.Copy To: Kurt TROTTER To: Kait Morales ID Date Data Source [id number] 02/11/2020 11:17:00 AM EST [facility] ([facility]) Name Value Range Interpretation Code Description Data Rosita rce(s) Supporting Document(s) iSTAT TROPONIN 0.00 NG/ML Normal iSTAT TROPONIN [facility] ([facility]) ID Date Data Source [id number] 02/11/2020 11:13:00 AM EST [facility] ([facility]) Name Value Range Interpretation Code Description Data Rosita rce(s) Supporting Document(s) Reported Physicians See Note Reported Physici ans [facility] ([facility]) Note: Reported Physicians:Ordering: BARRETT [place] [id number], DAVID J.Attending: Aparna Segovia To: Aparna Segovia To: Kurt TROTTER To: Kait Morales ID Date Data Source [id number] 02/11/2020 11:13:00 AM EST [facility] ([facility]) Name Value Range Interpretation Code Description Data Rosita rce(s) Supporting Document(s) LIPASE 200 U/L Normal LIPASE [facility] ([facility]) ID Date Data Source [id number] 02/11/2020 11:13:00 AM EST [facility] ([facility]) Name Value Range Interpretation Code Description Data Rosita rce(s) Supporting Document(s) Reported Physicians See Note Reported Physici ans [facility] ([facility]) Note: Reported Physicians:Ordering: BARRETT [place] [id number] To: Kurt TROTTER To: Joana Moralescelyn ID Date Data Source [id number] 02/11/2020 11:13:00 AM EST [place] ([facility]) Name Value Range Interpretation Code Description Data Rosita rce(s) Supporting Document(s) WHITE BLOOD COUNT 15.6 3/uL Above high normal WHITE BLOOD COUNT [place] ([facility]) RED BLOOD COUNT 5.19 6/uL Normal [facility]) Hematocrit [Pure volume fraction] of Blood by Automated count 45.7 % Normal HEMATOCRIT [place] ([facility]) Hemoglobin [Mass/volume] in Mixed venous blood by Oximetry 15.9 g/d l Normal HEMOGLOBIN [place] ([facility]) MEAN CORPUSCULAR VOLUME 88.1 fl Normal MEAN CORPUSC ULAR VOLUME [place] ([facility]) RED CELL DISTRIBUTION WIDTH 12.1 % Normal RED CELL DISTRIBUTION WIDTH [place] ([facility]) MEAN CORPUSCULAR HEMOGLOBIN 30.6 pg Normal MEAN COR PUSCULAR HEMOGLOBIN [facility]) MEAN CORPUSCULAR HGB CONC 34.8 g/dl Normal MEAN CORPU SCULAR HGB CONC [place] ([facility]) PLATELET COUNT, AUTOMATED 305 3/uL Normal PLATELET C OUNT, AUTOMATED [place] ([facility]) LYMPH % 20.8 % Below low normal LYMPH % [place] ([facility]) NEUTROPHILS % 70.8 % Above high normal [facility]HILS % [facility] EOS % 1.3 % Normal EOS % [place] ([facility]) MONO % 6.2 % Above high normal MONO % [place] ([facility]) BASO % 0.4 % Normal BASO % [place] ([facility]) NUCLEATED RED BLOOD CELL % 0.0 % Normal NUCLEATED RED BLOOD CELL % [place] ([facility]) IMMATURE GRANULOCYTE % 0.5 % Normal IMMATURE GRAN ULOCYTE % [place] ([facility]) NEUTROPHILS # 11.1 3/uL Above high normal NEUTROPHILS # G [place] ([facility]) LYMPH # 3.3 3/uL Normal LYMPH # [facility] ([facility]) EOS # 0.2 3/uL Normal EOS # [place] ([facility]) MONO # 1.0 3/uL Above high normal MONO # [place] ([facility]) BASO # 0.1 3/uL Normal BASO # [facility] ([facility]) ID Date Data Source [id number] 02/11/2020 11:13:00 AM EST [place] ([facility]) Name Value Range Interpretation Code Description Data Rosita rce(s) Supporting Document(s) Reported Physicians See Note Reported Physici ans [place] ([facility]) Note: Reported Physicians:Ordering: BARRETT [place] [id number]: Aparna Segovia To: Aparna Segovia To: Kurt TROTTER To: Kait Morales ID Date Data Source [id number] 02/11/2020 11:13:00 AM [facility] ([facility]) Name Value Range Interpretation Code Description Data Rosita rce(s) Supporting Document(s) GLUCOSE, FASTING 121 MG/DL Above high normal GLUCOSE, FAS TING [place] ([facility]) BLOOD UREA NITROGEN 10 MG/DL Normal BLOOD UREA NITRO GEN [place] ([facility]) GLOMERULAR FILTRATION RATE > 60.0 Normal GLOMERULA R FILTRATION RATE [place] ([facility]) Note: Units are mL/min/1.73 m2 Chroni c Kidney Disease Staging per NKF: Stage I & II GFR >=60 Normal to Mildly Decreased Stage III GFR 30- 59 Moderately Decreased Stage IV GFR 15-29 Severely Decreased Stage V GFR <15 Very Little GFR Left ESRD GFR <15 on PREFLIGHT MECHANIC CREATININE FOR GFR 0.92 MG/DL Normal CREATININE FOR GF R [place] ([facility]) SODIUM LEVEL 138 MEQ/L Normal SODIUM LEVEL [facility]) CHLORIDE LEVEL 106 MEQ/L Normal CHLORIDE LEVEL [facility]) CARBON DIOXIDE LEVEL 24 MEQ/L Normal CARBON DIOXIDE LEVEL [facility]) POTASSIUM SERUM 4.2 MEQ/L Normal POTASSIUM SERUM [facility] ([facility]) CALCIUM LEVEL 9.5 MG/DL Normal CALCIUM LEVEL [place] ([facility]) Anion gap in Body fluid 8 MEQ/L Normal ANION GAP [facility] ([facility]) ID Date Data Source [id number] 02/11/2020 11:13:00 AM [facility] ([facility]) Name Value Range Interpretation Code Description Data Rosita rce(s) Supporting Document(s) Reported Physicians See Note Reported Physici ans [place] ([facility]) Note: Reported Physicians:Ordering: BARRETT [place] [id number]: Aparna Segovia To: Aparna Segovia To: Kurt TROTTER To: Kait Morales ID Date Data Source [id number] 02/11/2020 11:13:00 AM EST [facility]) Name Value Range Interpretation Code Description Data Rosita rce(s) Supporting Document(s) AST/SGOT 16 U/L Normal AST/SGOT [place] ([facility]) ALT/SGPT 35 U/L Normal ALT/SGPT [place] ([facility]) BILIRUBIN,TOTAL 0.3 MG/DL Normal BILIRUBIN,TOTAL [facility] ([facility]) Alkaline phosphatase [Enzymatic activity/volume] in Se rum, Plasma or Blood 122 U/L Above high normal ALKALINE PHOSPHATASE [facility]) BILIRUBIN,DIRECT < 0.1 MG/DL Normal BILIRUBIN,DIRECT [facility] ([facility]) Albumin [Mass/volume] in Blood by Bromocresol purple ( BCP) dye binding method 4.1 GM/DL Normal ALBUMIN [place] ([facility]) TOTAL PROTEIN 7.2 GM/DL Normal TOTAL PROTEIN [place] ([facility]) ALBUMIN/GLOBULIN RATIO 1.3 Normal ALBUMIN/GLOBU YUSUF RATIO [place] ([facility]) ID Date Data Source [id number] 01/08/2020 08:47:00 AM EDT [place] ([facility]) Name Value Range Interpretation Code Description Data Rosita rce(s) Supporting Document(s) Glucose [Mass/volume] in Urine collected for unspecified duratio n 230 Abnormal (applies to non-numeric results) Glucose [place] ([facility]) ID Date Data Source [id number] 01/08/2020 08:47:00 AM EDT [place] ([facility]) Name Value Range Interpretation Code Description Data Rosita rce(s) Supporting Document(s) Hemoglobin A1c/Hemoglobin.total in Blood 6.8 Abnormal (applies to non-numeric results) HbA1C [place] ([facility]) ID Date Data Source [id number] 12/21/2019 12:00:00 AM EDT [facility] Name Value Range Interpretation Code Description Data Rosita rce(s) Supporting Document(s) SARS coronavirus 2 RNA [Presence] in Res piratory specimen by BRIDGET with probe detection [facility] This lab was ordered by Billy Niño and reported by [facility]. Procedure Social History Code Duration Value Status Description Data Source(s ) Alcohol intake 08/28/2020 12:00:00 AM EDT Current drinker of al cohol (finding) completed Current drinker of alcohol (finding) [facility] Alcohol intake 05/26/2020 12:00:00 AM EST Yes completed [facility] Cigarette pack-years 05/26/2020 12:00:00 AM EST UNK completed [facility] Cigarettes smoked current (pack per day) - Reported 05/27/19 21 12:00:00 AM EST UNK completed [facility] Smoking 05/26/2020 12:00:00 AM EST Current some day smoker com pleted Current some day smoker [facility] Alcohol intake 02/26/2020 12:00:00 AM EST Yes completed [facility] Cigarette pack-years 02/26/2020 12:00:00 AM EST UNK completed [facility] Cigarettes smoked current (pack per day) - Reported 02/26/20 20 12:00:00 AM EST UNK completed [facility] Smoking 02/26/2020 12:00:00 AM EST Current some day smoker com pleted Current some day smoker [facility] Alcohol intake 02/11/2020 12:00:00 AM EST Yes completed [facility] Cigarette pack-years 02/11/2020 12:00:00 AM EST UNK completed [facility] Cigarettes smoked current (pack per day) - Reported 02/11/20 12:00:00 AM EST UNK completed [facility] Smoking 02/11/2020 12:00:00 AM EST Current some day smoker com pleted Current some day smoker [facility] Vital Signs ID Date Data Source UNK Name Value Range Interpretation Code Description Data Source(s) Oxygen saturation in Arterial blood by Pulse oximetry 96 % 96 % [place] ([facility]) Inhaled oxygen concentration 21 % 21 % [place] ([facility]) Inhaled oxygen flow rate 0 L/min 0 L/min [place] ([facility]) Systolic blood pressure 128 mm[Hg] 128 mm[Hg] [facility] ([facility]) Diastolic blood pressure 72 mm[Hg] 72 mm[Hg] [place] ([facility]) Heart rate 76 /min 76 /min [place] [facility] Respiratory rate 24 /min 24 /min [place] ([facility]) Body temperature 97.6 [degF] 97.6 [degF] [facility] ([facility]) Body height 65 [in_i] 65 [in_i] [place] ([facility] Body weight 182 [lb_av] 182 [lb_av] [place] ( [facility]) Body mass index (BMI) [Ratio] 30.3 kg/m2 30.3 k g/m2 [place] ([facility]) Body surface area Derived from formula 1.90 m2 1.90 m2 [place] ([facility]) Systolic blood pressure 129 mm[Hg] 129 mm[Hg] [facility] Diastolic blood pressure 78 mm[Hg] 78 mm[Hg] [facility] Heart rate 64 /min 64 /min [facility] Body temperature 36.56 Yah[place]a 36.56 Yahaira [facility] Respiratory rate 16 /min 16 /min [facility] Oxygen saturation in Arterial blood by Pulse oximetry 96 % 96 % [facility] Body height 167.6 cm 167.6 cm [facility] Body weight 82.9 kg 82.9 kg [facility] Body mass index (BMI) [Ratio] 29.50 kg/m2 29.50 kg/m2 [facility] Body weight 191 [lb_av] 191 [lb_av] [place] ([facility]) Body mass index (BMI) [Ratio] 31.8 kg/m2 31.8 k g/m2 [place] ([facility]) Body surface area Derived from formula 1.94 m2 1.94 m2 [place] ([facility]) Diastolic blood pressure 80 mm[Hg] 80 mm[Hg] [place] ([facility]) Oxygen saturation in Arterial blood by Pulse oximetry 97 % 97 % [place] ([facility]) Systolic blood pressure 124 mm[Hg] 124 mm[Hg] [facility] ([facility]) Heart rate 68 /min 68 /min [place] [facility] Respiratory rate 20 /min 20 /min [place] ([facility]) Body temperature 97.7 [degF] 97.7 [degF] [facility] ([facility]) Body height 65 [in_i] 65 [in_i] [place] ([facility] Body weight 194 [lb_av] 194 [lb_av] [place] [facility] Inhaled oxygen flow rate 0 L/min 0 L/min [place] ([facility]) Oxygen saturation in Arterial blood by Pulse oximetry 97 % 97 % [place] ([facility]) Inhaled oxygen concentration 21 % 21 % [place] ([facility]) Body mass index (BMI) [Ratio] 32.3 kg/m2 32.3 k g/m2 [place] ([facility]) Systolic blood pressure 124 mm[Hg] 124 mm[Hg] [facility]) Body surface area Derived from formula 1.95 m2 1.95 m2 [place] ([facility]) Diastolic blood pressure 68 mm[Hg] 68 mm[Hg] [place] ([facility]) Heart rate 68 /min 68 /min [place] ([facility]) Respiratory rate 24 /min 24 /min [place] ([facility]) Body temperature 98.7 [degF] 98.7 [degF] [facility] ([facility]) Body height 65 [in_i] 65 [in_i] [place] ([facility]) Body height 165.1 cm 165.1 cm [facility] Systolic blood pressure 119 mm[Hg] 119 mm[Hg] [facility] 10 days ago Diastolic blood pressure 81 mm[Hg] 81 mm[Hg] [facility] 10 days ago Heart rate 81 /min 81 /min [facility] Body temperature 36.72 Yahaira 36.72 Yahaira [facility] Body weight 87.091 kg 87.091 kg [facility] Body mass index (BMI) [Ratio] 31.95 kg/m2 31.95 kg/m2 [facility] Oxygen saturation in Arterial blood by Pulse oximetry 98 % 98 % [place] ([facility]) Inhaled oxygen flow rate 0 L/min 0 L/min [place] ([facility]) Inhaled oxygen concentration 21 % 21 % [place] ([facility]) Systolic blood pressure 124 mm[Hg] 124 mm[Hg] [place] ([facility]) Body weight 195 [lb_av] 195 [lb_av] [place] ([facility]) Diastolic blood pressure 76 mm[Hg] 76 mm[Hg] [place] ([facility]) Body mass index (BMI) [Ratio] 32.4 kg/m2 32.4 k g/m2 [place] ([facility]) Heart rate 70 /min 70 /min [facility] Respiratory rate 24 /min 24 /min [place] ([facility]) Body surface area Derived from formula 1.96 m2 1.96 m2 [place] ([facility]) Body temperature 97.6 [degF] 97.6 [degF] [facility] Body height 65 [in_i] 65 [in_i] [place] ([facility]) Systolic blood pressure 122 mm[Hg] 122 mm[Hg] [facility] Diastolic blood pressure 74 mm[Hg] 74 mm[Hg] [facility] Heart rate 61 /min 61 /min [facility] Body temperature 35.94 Yahaira 35.94 Yahaira [facility] Body height 165.1 cm 165.1 cm [facility] Body weight 87.544 kg 87.544 kg [facility] Body mass index (BMI) [Ratio] 32.12 kg/m2 32.12 kg/m2 [facility] Oxygen saturation in Arterial blood by Pulse oximetry 97 % 97 % [facility] Systolic blood pressure 121 mm[Hg] 121 mm[Hg] [facility] Diastolic blood pressure 77 mm[Hg] 77 mm[Hg] [facility] Heart rate 71 /min 71 /min [facility] Oxygen saturation in Arterial blood by Pulse oximetry 93 % 93 % [facility] Body temperature 36.61 Yahaira 36.61 Yahaira [facility] Respiratory rate 16 /min 16 /min [facility] Body height 165.1 cm 165.1 cm [facility] Body weight 85.911 kg 85.911 kg [facility] Body mass index (BMI) [Ratio] 31.52 kg/m2 31.52 kg/m2 [facility] Inhaled oxygen concentration 21 % 21 % [place] ([facility]) Body mass index (BMI) [Ratio] 32.1 kg/m2 32.1 k g/m2 [place] ([facility]) Oxygen saturation in Arterial blood by Pulse oximetry 98 % 98 % [place] ([facility]) Diastolic blood pressure 68 mm[Hg] 68 mm[Hg] [place] ([facility]) Inhaled oxygen flow rate 0 L/min 0 L/min [place] ([facility]) Heart rate 65 /min 65 /min [place] ([facility]) Systolic blood pressure 122 mm[Hg] 122 mm[Hg] [place] ([facility]) Respiratory rate 24 /min 24 /min [place] ([facility]) Body height 65 [in_i] 65 [in_i] [place] ([facility]) Body temperature 98 [degF] 98 [degF] [place] ([facility]) Body weight 193 [lb_av] 193 [lb_av] [place] ([facility]) Body surface area Derived from formula 1.95 m2 1.95 m2 [place] ([facility]) Patient Treatment Plan of Care Planned Activity Planned Date Details Description Data Source (s) empagliflozin 25 MG Oral Tablet [Jardiance] 11/11/2020 12:00:00 AM EDT [place] ([facility]) atorvastatin 40 MG Oral Tablet 11/11/2020 12:00:00 AM EDT [place] ([facility]) Lisinopril 5 MG Oral Tablet 11/11/2020 12:00:00 AM EDT [place] ([facility]) Metoprolol Tartrate 25 MG Oral Tablet 11/11/2020 12:00:00 AM EDT [facility]) Lancets Miscellaneous 11/11/2020 12:00:00 AM EDT [place] ([facility]) Blood Glucose Test In Vitro Strip 11/11/2020 12:00:00 AM EDT [place] ([facility]) gabapentin 300 MG Oral Capsule 11/11/2020 12:00:00 AM EDT [facility]) Metformin hydrochloride 1000 MG Oral Tablet 11/11/2020 12:00:00 AM EDT [place] ([facility]) Nitroglycerin 0.4 MG Sublingual Tablet [Nitrostat] 11/11/2020 12 :00:00 AM EDT [facility]) Metoprolol Tartrate 25 MG Oral Tablet 11/10/2020 12:00:00 AM EDT [place] ([facility]) empagliflozin 25 MG Oral Tablet [Jardiance] 11/05/2020 12:00:00 AM EDT [place] ([facility]) Lisinopril 5 MG Oral Tablet 10/27/2020 12:00:00 AM EDT [facility]) atorvastatin 40 MG Oral Tablet 10/27/2020 12:00:00 AM EDT [facility]) empagliflozin 25 MG Oral Tablet [Jardiance] 10/07/2020 12:00:00 AM EDT [facility]) Nitroglycerin 0.4 MG Sublingual Tablet 08/28/2020 03:01:41 PM EDT [facility] Acetaminophen 325 MG Oral Tablet 08/28/2020 03:01:41 PM EDT [facility] normal saline flush 0.9 % injection 3 mL 08/28/2020 03:00:00 PM EDT [facility] normal saline flush 0.9 % injection 3 mL 08/28/2020 02:00:00 PM EDT [facility] Acetaminophen 325 MG Oral Tablet 08/28/2020 10:30:12 AM EDT [facility] clopidogrel 75 MG Oral Tablet 08/28/2020 12:00:00 AM EDT [facility] 24 HR Isosorbide Mononitrate 30 MG Extended Release Or al Tablet 08/22/2020 12:00:[address] [facility] Prednisone 50 MG Oral Tablet 08/22/2020 12:00:00 AM EDT [facility] Diphenhydramine Hydrochloride 50 MG Oral Tablet 08/22/2020 12:00:00 AM EDT [facility] Metoprolol Tartrate 25 MG Oral Tablet 07/14/2020 12:00:00 AM EDT [facility]) Lisinopril 5 MG Oral Tablet 07/14/2020 12:00:00 AM EDT [place] ([facility]) empagliflozin 25 MG Oral Tablet [Jardiance] 07/08/2020 12:00:00 AM EDT [place] ([facility]) Metoprolol Tartrate 25 MG Oral Tablet 07/08/2020 12:00:00 AM EDT [place] ([facility]) atorvastatin 40 MG Oral Tablet 07/08/2020 12:00:00 AM EDT [place] ([facility]) gabapentin 300 MG Oral Capsule 07/08/2020 12:00:00 AM EDT [place] ([facility]) Metronidazole 500 MG Oral Tablet 07/08/2020 12:00:00 AM EDT [place] ([facility]) Metformin hydrochloride 1000 MG Oral Tablet 07/08/2020 12:00:00 AM [facility]) Ciprofloxacin 250 MG Oral Tablet 07/08/2020 12:00:00 AM [facility] ([facility]) Lisinopril 5 MG Oral Tablet 07/08/2020 12:00:00 AM EDT [place] ([facility]) Metformin hydrochloride 1000 MG Oral Tablet [facility] clopidogrel 75 MG Oral Tablet 05/26/2020 12:00:00 AM [facility] Metformin hydrochloride 1000 MG Oral Tablet 04/08/2020 12:00:00 AM [facility]) Lisinopril 5 MG Oral Tablet 04/08/2020 12:00:00 AM [facility]) atorvastatin 40 MG Oral Tablet 04/08/2020 12:00:00 AM [facility] ([facility]) Blood Glucose Test In Vitro Strip 04/08/2020 12:00:00 AM [facility]) Blood Glucose Test In Vitro Strip 04/08/2020 12:00:00 AM [facility] ([facility]) gabapentin 300 MG Oral Capsule 04/08/2020 12:00:00 AM [facility]) Lancets Miscellaneous 04/08/2020 12:00:00 AM EST [place] ([facility]) Metoprolol Tartrate 25 MG Oral Tablet 04/08/2020 12:00:00 AM EST [facility]) Metoprolol Tartrate 25 MG Oral Tablet 02/28/2020 12:00:00 AM [facility] Metoprolol Tartrate 25 MG Oral Tablet 02/26/2020 12:00:00 AM [facility] clopidogrel 75 MG Oral Tablet 02/26/2020 12:00:00 AM [facility] Metformin hydrochloride 1000 MG Oral Tablet 02/19/2020 12:00:00 AM [facility] atorvastatin 80 MG Oral Tablet 02/14/2020 12:00:00 AM [facility] Metformin hydrochloride 1000 MG Oral Tablet 01/08/2020 12:00:00 AM EDT [facility]) atorvastatin 40 MG Oral Tablet 01/08/2020 12:00:00 AM EDT [place] ([facility]) gabapentin 300 MG Oral Capsule 01/08/2020 12:00:00 AM EDT [place] ([facility]) Metoprolol Tartrate 25 MG Oral Tablet 01/08/2020 12:00:00 AM EDT [place] ([facility]) Lisinopril 5 MG Oral Tablet 01/08/2020 12:00:00 AM EDT [place] ([facility]) Blood Glucose Test In Vitro Strip 01/08/2020 12:00:00 AM EDT [place] ([facility]) Lancets Miscellaneous 01/08/2020 12:00:00 AM EDT [place] ([facility]) Metoprolol Tartrate 25 MG Oral Tablet 12/18/2019 12:00:00 AM EDT [place] ([facility]) Lisinopril 5 MG Oral Tablet 12/18/2019 12:00:00 AM EDT [place] ([facility]) Blood Glucose Test In Vitro Strip 10/09/2019 12:00:00 AM EDT [place] ([facility]) gabapentin 300 MG Oral Capsule 10/09/2019 12:00:00 AM EDT [place] ([facility]) atorvastatin 40 MG Oral Tablet 08/31/2019 12:00:00 AM EDT [place] ([facility]) Lisinopril 5 MG Oral Tablet 08/31/2019 12:00:00 AM EDT [place] ([facility]) Metformin hydrochloride 1000 MG Oral Tablet 08/31/2019 12:00:00 AM T [place] ([facility]) Metoprolol Tartrate 25 MG Oral Tablet 08/31/2019 12:00:00 AM EDT [place] ([facility]) clopidogrel 75 MG Oral Tablet [Plavix] 08/31/2019 12:00:00 AM T [facility]) Lancets Miscellaneous 07/02/2019 12:00:00 AM [facility] ([facility]) clopidogrel 75 MG Oral Tablet 11/28/2018 12:00:00 AM EDT [facility] Metoprolol Tartrate 25 MG Oral Tablet 04/19/2017 12:00:00 AM EST [facility] Metformin hydrochloride 500 MG Oral Tablet [facility] atorvastatin 40 MG Oral Tablet [facility]
--- NOTE | 2021-02-07 15:20 | HPEPDOC ---
[facility] Medical History & Physical Date of Admission Feb 07, 2021 Date of Service: Feb 07, 2021 Primary Care Physician: Yaritza Morales Attending Physician: DEEDEE PADRON DO History and Physical CHIEF COMPLAINT: Syncope HISTORY OF PRESENT ILLNESS: Patient is a 55-year-old male who presented to the hospital after syncopized at work. Patient states that earlier in the day, he was feeling a little tired and had been standing at his desk when he began to feel very dizzy. Patient states that the room felt like it was spinning and he began to have tunnel vision. The next thing the patient knew, he had woken up surrounded by a bunch of people. He was told that someone caught him and lowered him to the ground although the patient does complain of some mild right wrist pain and mild left knee pain. Patient states that after the event happened, patient was very nauseous but did not vomit. Patient received Zofran in the ambulance on his way to the emergency department which is made him feel better. Patient is complaining of a headache which he states is different from his usual tension headaches. Patient had a headache earlier in the day it started around 9 AM and he took some Advil for this. Patient states that the headache is still present. Patient not complain of any chest pain, shortness of breath, or palpitations prior to the syncope. Patient is unsure whether he hit his head or not however, it appears the patient was lowered down to the ground. Patient still feels slightly off at this moment but is feeling better than he did earlier in the day. PAST MEDICAL HISTORY: 1. Coronary artery disease with stenting x5. 2. Hypertension. 3. Diabetes mellitus. 4. Hyperlipidemia PAST SURGICAL HISTORY: 1. Cardiac catheterization with stenting x5. 2. Appendectomy when he was 17 years old.. SOCIAL HISTORY: Patient is a pack per day smoker and states he socially drinks recently gave up drinking alcohol when he found out his is . Patient denies illicit drug use. FAMILY HISTORY: Patient's father of Alzheimer's and mother of colon cancer. Patient's paternal grandfather in his 50s of myocardial infarction ALLERGIES: Please see below. REVIEW OF SYSTEMS: General: Patient denies fevers HEENT: Patient reports headaches as above Cardiovascular: Patient denies chest pain Respiratory: Patient denies shortness of breath, cough GI: Patient denies abdominal pain, nausea, vomiting, diarrhea : Patient denies increased frequency or pain with urination Extremities: Patient denies swelling or pain in extremities Neurological: Patient denies numbness or tingling in legs Skin: Patient denies any new rashes or lesions. Hematologic: Patient denies any easy bruising. Lymphatic: Patient denies any lumps lumps or bumps in neck, axilla, or groin HOME MEDICATIONS: Please see below. PHYSICAL EXAMINATION: VITAL SIGNS: Temperature 96.6, pulse 65, respiratory rate 18, blood pressure 119/80, pulse oximetry 98% on room air. General: Alert and oriented male patient who was resting comfortably on the stretcher when I walked into the room. Patient not appear to be in any acute distress. HEENT: Normocephalic, atraumatic, moist mucous membranes. Neck: No lymphadenopathy or thyromegaly Cardiac: Regular rate and rhythm, no murmurs, normal S1, normal S2 Pulm: Clear to auscultation bilaterally. No wheezes, rhonchi, rales Abd: Nondistended, nontender to palpation, normal bowel sounds Ext: No edema bilateral lower extremities Neuro: Patient was had 5/5 strength in the upper and lower extremities bilaterally and reported equal sensation light touch in all 4 extremities. Skin: Skin of the head, neck, upper and lower extremities was examined did not show any evidence of rash or wounds. LABORATORY DATA: See below. IMAGING: Chest x-ray performed on 02/07/2021 was reported to show no active disease. CT of the head performed without contrast on 02/07/2021 was reported to show negative noncontrast head CT. MICROBIOLOGY: Please see below. ASSESSMENT: 55-year-old male who syncopized while at work and was lowered down to the ground by a bystander according to reports from the emergency department and from the patient himself. . PLAN: 1. Syncope. Patient did not have any chest pain at the time of his event altho ugh the patient does have an extensive cardiac history. Differential diagnosis includes orthostatic hypotension although the patient's orthostatic vitals were negative in the emergency department. Patient could have also had an abnormal heartbeat. We will keep the patient on telemetry to monitor for this. Echocardiogram will also be ordered. Patient could have become hypotensive or bradycardic due to medications. Will need to monitor the patient's heart rate and blood pressure while he was in the hospital to see if any of his medications need adjusting. If the patient is feeling well, and patient does not have any adverse events, patient could be discharged tomorrow. 2. Coronary artery disease. Continue aspirin Plavix and statin therapy. 3. Hypertension. Patient is on metoprolol, lisinopril and Jardiance which can all lower blood pressure. Will need to monitor. 4. Type 2 diabetes mellitus. Hold Metformin and Jardiance. Sliding scale insulin and consistent carbohydrate diet. 5. Hyperlipidemia. Continue atorvastatin 6. Nicotine dependence, cigarettes, uncomplicated. Nicotine cessation teaching DVT prophylaxis: Lovenox CODE STATUS: Full code Physician: Patient be admitted to medical surgical floor under observation. Patient will likely be discharged prior to 2 midnight stay. Vital Signs Vital Signs Date Time Temp Pulse Resp B/P (MAP) Pulse Ox O2 Delivery O2 Flow Rate FiO2 02/07/21 13:00 119/80 (93) 02/07/21 12:57 65 98 02/07/21 12:33 96.6 18 Room Air Laboratory Data Labs 24H Laboratory Tests 2 02/07/21 12:42: Immature Granulocyte % (Auto) 0.6, Neutrophils (%) (Auto) 58.7, Lymphocytes (%) (Auto) 29.3, Monocytes (%) (Auto) 8.0, Eosinophils (%) (Auto) 2.7, Basophils (%) (Auto) 0.7, Neutrophils # (Auto) 5.8, Lymphocytes # (Auto) 2.9, Monocytes # (Auto) 0.8, Eosinophils # (Auto) 0.3, Basophils # (Auto) 0.1, Nucleated Red Blood Cells % (auto) 0.0, Anion Gap 7L, Glomerular Filtration Rate > 60.0, Calcium Level 8.8, Magnesium Level 2.1, Total Creatine Kinase 82, Creatine Kinase MB 1.2, Creatine Kinase MB Relative Index 1.46, Troponin I < 0.02, Thyroid Stimulating Hormone (TSH) 1.100, Free Thyroxine 0.93 02/07/21 14:20: Coronavirus (COVID-19)(PCR) NEGATIVE, Influenza Type A (RT-PCR) NEGATIVE, Influenza Type B (RT-PCR) NEGATIVE, Respiratory Syncytial Virus (PCR) NEGATIVE CBC/BMP Laboratory Tests 02/07/21 12:42 Home Medications Scheduled Aspirin (Aspirin EC) 81 Mg Tablet.dr, 81 MG PO DAILY Atorvastatin Calcium (Atorvastatin Calcium) 40 Mg Tablet, 40 MG PO Q2D Clopidogrel Bisulfate (Clopidogrel) 75 Mg Tablet, 75 MG PO DAILY Empagliflozin (Jardiance) 25 Mg Tablet, 25 MG PO DAILY Gabapentin (Gabapentin) 300 Mg Capsule, 300 MG PO QHS Lisinopril (Lisinopril) 5 Mg Tab, 5 MG PO DAILY Metformin HCl (Metformin HCl) 1,000 Mg Tab, 1 GRAM PO QHS Metformin HCl (Metformin HCl) 500 Mg Tab, 1 TAB PO DAILY Metoprolol Tartrate (Metoprolol Tartrate) 25 Mg Tab, 25 MG PO BID Scheduled PRN Nitroglycerin (Nitroglycerin) 0.4 Mg Sub, 0.4 MG SL NITRO PRN for CHEST PAIN Allergies Coded Allergies: iodine (Verified Allergy, Intermediate, hives/ itchy, 04/03/19) peanut (Verified Allergy, Intermediate, choking/vomiting, 04/03/19) shellfish derived (Verified Allergy, Intermediate, itchy/ hives, 04/03/19) Peanut (Verified Adverse Reaction, Mild, ITCHY, 04/15/17) A-FIB/CHADSVASC A-FIB History Current/History of A-Fib/PAF?: No DEEDEE PADRON DO Feb 07, 2021 15:20
[2021-02-07] MEDS ORDERED: HOME MED LIST COMPLETE! XX SCH (15:50)
[2021-02-07 17:02] VITALS: BP 133/85
[2021-02-07] MEDS: HumaLOG INSULIN (NovoLOG) PER UNIT SC SCH (17:30)
--- NOTE | 2021-02-07 18:37 | ECGEPIP ---
[facility] - ED Test Date: 2021-02-07 Pat Name: NADINE CALVILLO Department: Room: - Gender: Male Lease Examiner: PHILIPPE : 1965 Requested By: YOAN LEONARD Order Number: [id number] Reading MD: Yoan Qureshi Measurements Intervals [place] Rate: 67 P: 17 [place]: 184 QRS: -1 QRSD: 80 T: 21 QT: 404 QTc: 426 Interpretive Statements Normal sinus rhythm Similar to tracing done 02-11-20 Electronically Signed on 02-07-2021 18:37:00 EST by Yoan Qureshi
[2021-02-07] MEDS: ACETAMINOPHEN TAB 650MG DOSE (2X325MG) PO PRN (18:45)
[2021-02-07 20:15] VITALS: BP_SYST 125; BP_SYST 140; BP_SYST 143; BP_DIAS 80; BP_DIAS 85; BP_DIAS 86
[2021-02-07] MEDS ORDERED: HumaLOG INSULIN (NovoLOG) PER UNIT SC SCH (21:00)
[2021-02-07 22:00] VITALS: BP 120/68
[2021-02-08 06:00] VITALS: BP 126/69
[2021-02-08 06:23] LABS: HEMATOCRIT 45.1 % (42.0-52.0); HEMOGLOBIN 15.4 g/dl (13.5-17.5); MEAN CORPUSCULAR HEMOGLOBIN 30.6 pg (27.0-33.0); MEAN CORPUSCULAR HGB CONC 34.1 g/dl (32.0-36.5); MEAN CORPUSCULAR VOLUME 89.7 fl (80.0-96.0); PLATELET COUNT, AUTOMATED 253 10^3/uL (150-450); RED BLOOD COUNT 5.03 10^6/uL (4.30-6.10)
[2021-02-08 06:42] LABS: ALBUMIN 3.4 GM/DL (3.2-5.2); ALT/SGPT 26 U/L (12-78); BILIRUBIN,TOTAL 0.3 MG/DL (0.2-1.0); BLOOD UREA NITROGEN 14 MG/DL (7-18); CALCIUM LEVEL 9.1 MG/DL (8.5-10.1); CARBON DIOXIDE LEVEL 25 MEQ/L (21-32); CHLORIDE LEVEL 107 MEQ/L (98-107); CREATININE FOR GFR 0.83 MG/DL (0.70-1.30); GLOMERULAR FILTRATION RATE > 60.0 (>56); GLUCOSE, FASTING 112 MG/DL (70-100); MAGNESIUM LEVEL 2.1 MG/DL (1.8-2.4); POTASSIUM SERUM 4.6 MEQ/L (3.5-5.1); SODIUM LEVEL 137 MEQ/L (136-145); TOTAL PROTEIN 6.2 GM/DL (6.4-8.2)
[2021-02-08] MEDS: HumaLOG INSULIN (NovoLOG) PER UNIT SC SCH (07:30)
[2021-02-08] MEDS: ACETAMINOPHEN TAB 650MG DOSE (2X325MG) PO PRN (08:38)
[2021-02-08] MEDS ORDERED: ENOXAPARIN 40MG/0.4ML SYRINGE (J1650 PER 10MG) SC SCH (09:00)
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
--- NOTE | 2021-02-08 14:39 | ECHO ---
ECHOCARDIOGRAM DATE OF PROCEDURE: 02/07/2021 Age: 55 Gender: Male Height: Not recorded properly Weight: 410 pounds Body surface area: Incorrect PATIENT LOCATION: Inpatient, currently in the emergency room. REFERRING PHYSICIAN: Raulito Navas D.O. INDICATION: Syncope. MEASUREMENTS: 2D Measurements: RV - 3.6 cm LV - 4.8 cm Septum 0.9 cm Posterior wall 0.9 cm Aortic root 3.5 cm LA - 3.7 cm LVEF 65% Doppler Measurements: AV - 1.18 m/sec LVOT - 0.92 m/sec LVOT diameter 2.0 cm MV-E 75, A 58, EA ratio 1.3 Early mitral deceleration time 230 msec E prime medial 7.8 A prime medial 8.2 E prime lateral 7.8 Average E/E prime ratio 9.6/PCWP 13.8 mmHg PV - 0.99 m/sec Pulmonary artery acceleration time 120 msec PASP - 28 mmHg IVC - 1.6 cm COMMENTS: Sinus bradycardia without intraventricular conduction disturbance. Technically difficult study in light of the patient's body habitus, but diagnostically useful information was still obtained. M-mode and 2-dimensional cardiography was performed with pulse, continuous wave, color flow and tissue Doppler studies. Normal left ventricular size, wall thickness and wall motion. Normal left atrial size and Doppler assessment of left ventricular diastolic function and mean left atrial pressure. Normal right heart chamber sizes and motion and estimated pulmonary arterial pressure. Normal inferior vena cava (IVC) size and collapse against an elevated central venous pressure. Normal aortic dimensions. Normal appearing and functioning valvular structures. No apparent intracardiac mass or pericardial effusion.
== END 2021-02-08 11:25 | disposition home or self-care (01) ==
LOC: EDBD 12:08 → M ED 12:08 → M ED INP 12:09 → ENRESERV 16:00 → M MSPAV 17:02
PROVIDERS: ADMIT Family Medicine; ATTEND Family Medicine
DX: R55 Syncope and collapse (principal); I25.10 Atherosclerotic heart disease of native coronary artery without angina pectoris; I10 Essential (primary) hypertension; E11.9 Type 2 diabetes mellitus without complications; E78.5 Hyperlipidemia, unspecified; F17.218 Nicotine dependence, cigarettes, with other nicotine-induced disorders; Z79.84 Long term (current) use of oral hypoglycemic drugs; Z79.82 Long term (current) use of aspirin; Z79.899 Other long term (current) drug therapy; Z91.010 Allergy to peanuts; Z91.013 Allergy to seafood; Z88.8 Allergy status to other drugs, medicaments and biological substances
CPT/HCPCS: 36415; 70450; 71045; 80048; 80053; 82550; 82553; 83735; 84439; 84443; 84484; 85025; 85027; 87631; 93005; 93041; 93306; 94760; 96374; 99285; J1885

== ENCOUNTER 2021-05-11 10:08 | Emergency (ER) | payer BC, OTHER ==
[~2021-05-11] VITALS: Ht 165.1 cm; Wt 86.8 kg
[~2021-05-11 10:08] MED LIST changes: +ASPI81TA26 PO; +GABA-282 PO; +JARD1TAB3 PO; -LISI-898 PO; +LISI5TAB11 PO
[2021-05-11] MEDS ORDERED: ASPIRIN 81 MG CHEW TABLET PO ONE (10:20)
[2021-05-11 10:51] LABS: BASO # 0.1 10^3/uL (0.0-0.2); BASO % 0.8 % (0.0-1.0); EOS # 0.2 10^3/uL (0.0-0.5); EOS % 1.8 % (0.0-3.0); HEMATOCRIT 49.2 % (42.0-52.0); HEMOGLOBIN 17.3 g/dl (13.5-17.5); LYMPH # 2.9 10^3/uL (1.5-5.0); MEAN CORPUSCULAR HEMOGLOBIN 30.8 pg (27.0-33.0); MEAN CORPUSCULAR HGB CONC 35.2 g/dl (32.0-36.5); MEAN CORPUSCULAR VOLUME 87.5 fl (80.0-96.0); MONO # 0.8 10^3/uL (0.0-0.8); MONO % 8.3 % (2.0-8.0); NEUTROPHILS # 5.9 10^3/uL (1.5-8.5); NEUTROPHILS % 59.5 % (36.0-66.0); PLATELET COUNT, AUTOMATED 298 10^3/uL (150-450); RED BLOOD COUNT 5.62 10^6/uL (4.30-6.10); WHITE BLOOD COUNT 9.8 10^3/uL (4.0-10.0)
[2021-05-11 11:02] LABS: INR 0.89; PROTHROMBIN TIME 12.4 SECONDS (12.7-14.5)
[2021-05-11 11:11] LABS: CK-MB VALUE MASS 1.1 NG/ML (<3.6); MB/CK RELATIVE INDEX 1.21 (< OR =4)
[2021-05-11 11:14] LABS: ALBUMIN 4.3 GM/DL (3.2-5.2); ALT/SGPT 42 U/L (12-78); BILIRUBIN,DIRECT 0.1 MG/DL (0.0-0.2); BILIRUBIN,TOTAL 0.4 MG/DL (0.2-1.0); BLOOD UREA NITROGEN 12 MG/DL (7-18); CALCIUM LEVEL 9.6 MG/DL (8.5-10.1); CARBON DIOXIDE LEVEL 23 MEQ/L (21-32); CHLORIDE LEVEL 106 MEQ/L (98-107); CREATININE FOR GFR 0.85 MG/DL (0.70-1.30); GLOMERULAR FILTRATION RATE > 60.0 (>56); GLUCOSE, FASTING 105 MG/DL (70-100); LIPASE 893 U/L (73-393); POTASSIUM SERUM 4.3 MEQ/L (3.5-5.1); SODIUM LEVEL 137 MEQ/L (136-145); TOTAL PROTEIN 7.3 GM/DL (6.4-8.2)
[2021-05-11 11:17] LABS: FREE T4 0.96 NG/DL (0.76-1.46); THYROID STIMULATING HORMONE 1.49 uIU/ML (0.358-3.740)
[2021-05-11 11:33] LABS: RSV AMPLIFICATION NEGATIVE (NEGATIVE)
[2021-05-11 11:43] LABS: D-DIMER QUANT < 270 ng/ml (<500)
[2021-05-11 15:15] VITALS: BP 146/93
== END 2021-05-11 15:33 | disposition home or self-care (01) ==
LOC: M ED 10:08
DX: U07.1 COVID-19 (principal); J44.9 Chronic obstructive pulmonary disease, unspecified; R94.31 Abnormal electrocardiogram [ECG] [EKG]; I10 Essential (primary) hypertension; E11.9 Type 2 diabetes mellitus without complications; E78.5 Hyperlipidemia, unspecified; I51.9 Heart disease, unspecified; Z91.010 Allergy to peanuts; Z91.013 Allergy to seafood; Z91.048 Other nonmedicinal substance allergy status; Z95.5 Presence of coronary angioplasty implant and graft; Z79.4 Long term (current) use of insulin

== ENCOUNTER → 2022-01-26 | Outpatient (CLI) | payer OTHER ==
[2022-01-26 11:55] LABS: ALBUMIN 4.2 GM/DL (3.2-5.2); BILIRUBIN,DIRECT 0.1 MG/DL (0.0-0.2); BILIRUBIN,TOTAL 0.4 MG/DL (0.2-1.0); CHOLESTEROL RISK RATIO 4.111 (<5); TOTAL PROTEIN 7.5 GM/DL (6.4-8.2)
== END ==
LOC: M WUC 08:49
PROVIDERS: ATTEND Nurse Practitioner Adult Health
DX: E78.2 Mixed hyperlipidemia (principal); I25.10 Atherosclerotic heart disease of native coronary artery without angina pectoris

== ENCOUNTER → 2022-05-11 | Outpatient (CLI) | payer BC ==
[2022-05-11 12:06] LABS: HEMOGLOBIN 17.1 g/dl (13.5-17.5); MEAN CORPUSCULAR HEMOGLOBIN 30.6 pg (27.0-33.0); MEAN CORPUSCULAR HGB CONC 34.2 g/dl (32.0-36.5); MEAN CORPUSCULAR VOLUME 89.6 fl (80.0-96.0); PLATELET COUNT, AUTOMATED 268 10^3/uL (150-450); RED BLOOD COUNT 5.58 10^6/uL (4.30-6.10); WHITE BLOOD COUNT 9.2 10^3/uL (4.0-10.0)
[2022-05-11 12:38] LABS: ALKALINE PHOSPHATASE 124 U/L (46-116); ALT/SGPT 26 U/L (7.0-40); AST/SGOT 19 U/L (<34); BILIRUBIN,TOTAL 0.4 MG/DL (0.3-1.2); BLOOD UREA NITROGEN 12 MG/DL (9-23); CALCIUM LEVEL 9.4 MG/DL (8.5-10.1); CARBON DIOXIDE LEVEL 26 MMOL/L (20-31); CHLORIDE LEVEL 102 MMOL/L (98-107); CREATININE FOR GFR 0.78 MG/DL (0.70-1.30); GLOMERULAR FILTRATION RATE > 60.0 (>56); GLUCOSE, FASTING 167 MG/DL (60-100); POTASSIUM SERUM 4.1 MMOL/L (3.5-5.1); SODIUM LEVEL 136 MMOL/L (136-145); TOTAL PROTEIN 6.9 G/DL (5.7-8.2)
== END ==
LOC: M WUC 10:20
PROVIDERS: ATTEND Registered Nurse
DX: R07.9 Chest pain, unspecified (principal)

== ENCOUNTER → 2022-06-15 | Outpatient (CLI) | payer BC ==
[2022-06-15 13:34] LABS: CHOLESTEROL RISK RATIO 4.05 (<5); HDL CHOLESTEROL 37.5 MG/DL (>40); LDL CHOLESTEROL 74.3 MG/DL (<100); NON-HDL-C 114.5 MG/DL
== END ==
LOC: M WUC 08:16
PROVIDERS: ATTEND Nurse Practitioner Adult Health
DX: E78.00 Pure hypercholesterolemia, unspecified (principal); I25.10 Atherosclerotic heart disease of native coronary artery without angina pectoris; Z72.0 Tobacco use; I10 Essential (primary) hypertension

== ENCOUNTER → 2022-06-22 | Outpatient (CLI) | payer BC ==
[2022-06-22 11:01] LABS: PROSTATIC SPECIFIC AG MONITOR 0.27 NG/ML (< 4.00)
[2022-06-22 11:03] LABS: URIC ACID 3.7 MG/DL (3.7-9.2)
[2022-06-22 11:05] LABS: FREE T3 3.7 PG/ML (2.3-4.2); FREE T4 1.23 NG/DL (0.89-1.76); THYROID STIMULATING HORMONE 0.582 uIU/ML (0.55-4.78)
[2022-06-22 16:53] LABS: CREATININE, URINE 77.6 MG/DL; MAU/CREAT RATIO 7.7 MCG/MG (0.0-30.0)
[2022-06-22 17:18] LABS: APPEARANCE, URINE CLEAR (CLEAR); BACTERIA, URINE AUTO NEGATIVE (NEGATIVE); BILIRUBIN, URINE AUTO NEGATIVE (NEGATIVE); BLOOD, URINE BLOOD 1+ (NEGATIVE); COLOR, URINE YELLOW (YELLOW); GLUCOSE, URINE (UA) AUTO 3+ mg/dL (NEGATIVE); KETONE, URINE AUTO TRACE mg/dL (NEGATIVE); LEUKOCYTE ESTERASE, URINE AUTO NEGATIVE (NEGATIVE); MUCUS, URINE SMALL (NEGATIVE); NITRITE, URINE AUTO NEGATIVE (NEGATIVE); PROTEIN, URINE AUTO NEGATIVE (NEGATIVE); RBC, URINE AUTO 1 /HPF (0-3); SPECIFIC GRAVITY URINE AUTO 1.036 (1.002-1.035); SQUAMOUS EPITHELIAL CELL UR AU 0 /HPF (0-6); UROBILINOGEN, URINE AUTO 0.2 mg/dL (0.0-2.0); WBC, URINE AUTO 0 /HPF (0-3)
== END ==
LOC: M WUC 08:29
PROVIDERS: ATTEND Registered Nurse
DX: E78.2 Mixed hyperlipidemia (principal); Z12.5 Encounter for screening for malignant neoplasm of prostate; E11.9 Type 2 diabetes mellitus without complications; I10 Essential (primary) hypertension

== ENCOUNTER → 2022-08-03 | Outpatient (CLI) | payer BC ==
[2022-08-03 15:05] LABS: HEMATOCRIT 47.7 % (42.0-52.0); HEMOGLOBIN 16.5 g/dl (13.5-17.5); MEAN CORPUSCULAR HEMOGLOBIN 31.3 pg (27.0-33.0); MEAN CORPUSCULAR HGB CONC 34.6 g/dl (32.0-36.5); MEAN CORPUSCULAR VOLUME 90.3 fl (80.0-96.0); PLATELET COUNT, AUTOMATED 286 10^3/uL (150-450); RED BLOOD COUNT 5.28 10^6/uL (4.30-6.10); WHITE BLOOD COUNT 11.6 10^3/uL (4.0-10.0)
[2022-08-03 15:33] LABS: AMYLASE 50 U/L (30-118); LIPASE 50 U/L (12-53)
[2022-08-03 15:35] LABS: ALBUMIN 3.9 G/DL (3.2-5.2); ALKALINE PHOSPHATASE 129 U/L (46-116); ALT/SGPT 32 U/L (7.0-40); AST/SGOT 17 U/L (<34); BILIRUBIN,TOTAL 0.3 MG/DL (0.3-1.2); BLOOD UREA NITROGEN 11 MG/DL (9-23); CALCIUM LEVEL 8.9 MG/DL (8.5-10.1); CARBON DIOXIDE LEVEL 22 MMOL/L (20-31); CHLORIDE LEVEL 105 MMOL/L (98-107); CREATININE FOR GFR 0.74 MG/DL (0.70-1.30); GLOMERULAR FILTRATION RATE > 60.0 (>56); GLUCOSE, FASTING 160 MG/DL (60-100); POTASSIUM SERUM 4.3 MMOL/L (3.5-5.1); SODIUM LEVEL 139 MMOL/L (136-145); TOTAL PROTEIN 6.6 G/DL (5.7-8.2)
== END ==
LOC: M WUC 13:07
PROVIDERS: ATTEND Registered Nurse
DX: R10.11 Right upper quadrant pain (principal)

== ENCOUNTER → 2022-08-04 | Outpatient (CLI) | payer BC ==
[~2022-08-04] MED LIST changes: +GASTROGRAFIN SOLUTION 30ML As Ordered ONE; +ISOVUE-370 76% 100ML VIAL As Ordered ONE
== END ==
LOC: M RAD 07:06
PROVIDERS: ATTEND Registered Nurse
DX: R10.32 Left lower quadrant pain (principal)
CPT/HCPCS: 74177; Q9963; Q9967

== ENCOUNTER → 2022-09-14 | Outpatient (CLI) | payer BC ==
[~2022-09-14] MED LIST changes: -GASTROGRAFIN SOLUTION 30ML As Ordered ONE
== END ==
LOC: M RAD 17:25
PROVIDERS: ATTEND Internal Medicine Gastroenterology
DX: R10.84 Generalized abdominal pain (principal); Z98.61 Coronary angioplasty status
CPT/HCPCS: 74175; Q9967

== ENCOUNTER → 2023-09-13 | Outpatient (REF) | payer OTHER ==
[~2023-09-13] MED LIST changes: +DICY-61 PO; +EZET10TA21 PO; +GABA600T4 PO; -ISOVUE-370 76% 100ML VIAL As Ordered ONE; +OMEP40CA5 PO; +SILD100T PO
[2023-09-13 13:32] LABS: CHOLESTEROL LEVEL 67 MG/DL (<200); CHOLESTEROL RISK RATIO 1.68 (<5); HDL CHOLESTEROL 39.8 MG/DL (>40); NON-HDL-C 27.2 MG/DL; TRIGLYCERIDES LEVEL 185 MG/DL (<150)
[2023-09-16 15:55] LABS: LDL DIRECT 11 mg/dL (<100)
== END ==
LOC: M LABWUC 11:46
PROVIDERS: ATTEND Family Medicine
DX: I25.118 Atherosclerotic heart disease of native coronary artery with other forms of angina pectoris (principal)

== ENCOUNTER → 2023-10-04 | Outpatient (CLI) | payer OTHER ==
[2023-10-04 11:41] LABS: BASO # 0.1 10^3/uL (0.0-0.2); BASO % 0.7 % (0.0-1.0); EOS # 0.3 10^3/uL (0.0-0.5); HEMATOCRIT 48.2 % (42.0-52.0); HEMOGLOBIN 16.6 g/dl (13.5-17.5); LYMPH # 3.1 10^3/uL (1.5-5.0); MEAN CORPUSCULAR HEMOGLOBIN 30.3 pg (27.0-33.0); MEAN CORPUSCULAR HGB CONC 34.4 g/dl (32.0-36.5); MEAN CORPUSCULAR VOLUME 88.1 fl (80.0-96.0); MONO # 0.7 10^3/uL (0.0-0.8); MONO % 8.1 % (2.0-8.0); NEUTROPHILS # 4.7 10^3/uL (1.5-8.5); NEUTROPHILS % 52.3 % (36.0-66.0); PLATELET COUNT, AUTOMATED 287 10^3/uL (150-450); RED BLOOD COUNT 5.47 10^6/uL (4.30-6.10)
[2023-10-04 12:15] LABS: PROSTATIC SPECIFIC AG MONITOR 0.27 NG/ML (< 4.00)
[2023-10-04 12:18] LABS: URIC ACID 4.3 MG/DL (3.7-9.2)
[2023-10-04 12:19] LABS: FREE T4 1.05 NG/DL (0.89-1.76)
[2023-10-04 12:20] LABS: VITAMIN B12 LEVEL 465 PG/ML (211-911)
[2023-10-04 12:22] LABS: ALBUMIN 3.9 G/DL (3.2-5.2); ALKALINE PHOSPHATASE 111 U/L (46-116); ALT/SGPT 21 U/L (7.0-40); AST/SGOT < 8 U/L (<34); BILIRUBIN,TOTAL 0.3 MG/DL (0.3-1.2); BLOOD UREA NITROGEN 10 MG/DL (9-23); CALCIUM LEVEL 9.6 MG/DL (8.5-10.1); CARBON DIOXIDE LEVEL 22 MMOL/L (20-31); CHLORIDE LEVEL 107 MMOL/L (98-107); CREATININE FOR GFR 0.69 MG/DL (0.70-1.30); GLOMERULAR FILTRATION RATE > 60.0 (>56); GLUCOSE, FASTING 172 MG/DL (60-100); POTASSIUM SERUM 4.1 MMOL/L (3.5-5.1); SODIUM LEVEL 139 MMOL/L (136-145); TOTAL PROTEIN 6.5 G/DL (5.7-8.2)
[2023-10-04 13:38] LABS: THYROID STIMULATING HORMONE 0.884 uIU/ML (0.55-4.78)
[2023-10-04 13:53] LABS: FREE T3 3.2 PG/ML (2.3-4.2)
== END ==
LOC: M WUC 10:15
PROVIDERS: ATTEND Registered Nurse
DX: E11.9 Type 2 diabetes mellitus without complications (principal); I10 Essential (primary) hypertension; R25.2 Cramp and spasm; R53.83 Other fatigue; Z13.29 Encounter for screening for other suspected endocrine disorder; Z12.5 Encounter for screening for malignant neoplasm of prostate

== ENCOUNTER → 2023-10-06 | Outpatient (REF) | payer OTHER ==
[2023-10-06 11:33] LABS: CREATININE, URINE 79.3 MG/DL; MALB URINE SIEMENS < 3.0 MG/L; MAU/CREAT RATIO 3.7 MCG/MG (0.0-30.0)
== END ==
LOC: M LAB REF 09:40
PROVIDERS: ATTEND Registered Nurse
DX: E11.9 Type 2 diabetes mellitus without complications (principal)